=== PATIENT | female | born 1935 | race African-American/Black ===

== ENCOUNTER → 2016-03-09 | Outpatient (CLI) | payer BC ==
[~2016-03-09] MED LIST: ASPEC81 PO; ATEN-173 PO; ATEN-174 PO; CALC500C70 PO; CLB200 PO; FOLI1TAB7 PO; GARL1TAB12 PO; GLCS500 PO; HYDC25 PO; HYDR-5688 PO; HYDR25TA4 PO; METH1TAB81 PO; MTH25 PO; MULT-506 PO; POTA10CA28 PO; SNK PO; TRAM-10 PO; TYL325X PO; ULT50X PO; [UNRECOGNIZED DRUG - CODE] PO
[2016-03-09 15:37] LABS: BASO % 0.5 %; BASO ABS # 0.03 K/uL (0-0.2); COMPLETE YES; HEMATOCRIT 37.5 % (37-47); IG% 0.5 %; LYMPH % 40.9 %; LYMPH ABS # 2.61 K/uL (1.2-3.4); MEAN CELL VOLUME 91.5 fL (80-100); MEAN CORPUSCULAR HGB CONC 32.8 g/dl (32-36); MONO % 6.7 %; NEUT % 49.4 %; PLATELET COUNT 206 K/uL (130-400); WHITE BLOOD COUNT 6.38 K/uL (4.8-10.8)
[2016-03-09 18:06] LABS: ALT/SGPT 31 U/L (12-78); AST/SGOT 26 U/L (15-37); BLOOD UREA NITROGEN 17 mg/dl (7-18); BUN/CREATININE RATIO 18.1 (10-20); CALCIUM 9.3 mg/dl (8.5-10.1); CARBON DIOXIDE 28 mmol/L (21-32); CHLORIDE 107 mmol/L (98-107); CREATININE 0.94 mg/dl (0.60-1.20); GLUCOSE 130 mg/dl (70-99); POTASSIUM 3.5 mmol/L (3.5-5.1); SODIUM 144 mmol/L (136-145)
[2016-03-09 18:14] LABS: ALB/GLOB RATIO 0.9 (0.9-2); ALKALINE PHOSPHATASE 65 U/L (45-117); CHOLESTEROL 260 mg/dl (0-200); CHOLESTEROL/HDL RATIO 2.5; HDL CHOLESTEROL 102 mg/dl; TRIGLYCERIDES 90 mg/dl (0-150); VERY LOW DENSITY LIPOPROT CALC 18 mg/dl
== END | disposition home or self-care (01) ==
LOC: C.LABSPEC 15:14
PROVIDERS: ATTEND Internal Medicine
DX: I10 Essential (primary) hypertension (principal); M06.9 Rheumatoid arthritis, unspecified; E78.5 Hyperlipidemia, unspecified

== ENCOUNTER → 2016-06-08 | Outpatient (CLI) | payer BC ==
--- NOTE | 2016-06-08 16:28 | MAMMOGRAPHY REPORT ---
BILATERAL DIGITAL SCREENING MAMMOGRAM WITH CAD: 06/08/2016 CLINICAL HISTORY: Routine screening. Patient has no complaints. TECHNIQUE: Current study was also evaluated with a Computer Aided Detection (CAD) system. Bilatera l CC and MLO views were obtained. COMPARISON: Comparison is made to exams dated: 06/03/2015 mammogram, 06/17/2014 mammogram, 09/24/2013 m ammogram, 09/16/2013 mammogram, 03/26/2007 mammogram, and 12/23/2004 mammogram - [facility]. BREAST COMPOSITION: There are scattered areas of fibroglandular density in both breasts. FINDINGS: No suspicious masses, calcifications, or areas of architectural distortion are noted in e ither breast. There has been no significant interval change compared to prior exams. Bilateral jatin gn-appearing calcifications are not significantly changed. IMPRESSION: ACR BI-RADS CATEGORY 2: BENIGN There is no mammographic evidence of malignancy. A 1 year screening mammogram is recommended. The p atient will receive written notification of the results. Approximately 10% of breast cancers are not detected with mammography. A negative mammographic repor t should not delay biopsy if a clinically suggestive mass is present. Eun Plaza M.D. /:06/08/2016 15:07:54 Medical Laboratory Specialist: Shama SALAZAR(Rajni)(M), [facility] letter sent: Normal 1/2 BI-RADS Code: ACR BI-RADS Category 2: Benign
== END ==
LOC: C.MAMM 09:47
PROVIDERS: ATTEND Internal Medicine
DX: Z12.31 Encounter for screening mammogram for malignant neoplasm of breast (principal)

== ENCOUNTER 2016-10-24 09:31 | Emergency (ER) | payer BC ==
[~2016-10-24 09:31] MED LIST changes: -ATEN-174 PO; -HYDR25TA4 PO; -MTH25 PO; -TRAM-10 PO; -[UNRECOGNIZED DRUG - CODE] PO
[2016-10-24 09:38] VITALS: TEMP 36.8; Ht 167.6 cm
[2016-10-24] MEDS ORDERED: MoRPHine SULFATE 4 MG/ML 1 ML CARP\\VIAL IV STA (10:04)
[2016-10-24] MEDS: IBUPROFEN 200 MG TAB PO STA ×2 (10:04→10:19)
[2016-10-24] MEDS: ACETAMINOPHEN 500 MG TAB PO STA ×2 (10:04→10:19)
--- NOTE | 2016-10-24 10:27 | EMERGENCY ROOM VISIT NOTE ---
History Report prepared by Lea: Pura English Under the Supervision of: Dr. Chandana Hamm M.D. First contact with patient: 09:41 Chief Complaint: HIP PAIN Stated Complaint: SEVERE LEFT HIP AND BACK PAIN History of Present Illness The patient is an 81 year old female with a past medical history of rheumatoid arthritis and hypertension who presents to the ED with a cc of left hip pain beginning 3 days ago. She started with left hip pain that moved into her lower back. Movement exacerbates her pain. The patient rates her pain as a 10/10 in severity. Son states that the patient has been unable to ambulate for the past couple of days due to her pain. He notes that this is extremely unusual and she is typical very active. She was complaining about bilateral leg cramping throughout the night last night. She had an appointment with Dr. Mcdonald, her PCP, this afternoon, but she was unable to wait because her pain was so severe. The patient takes methotrexate for her rheumatoid arthritis. She has not taken any Tylenol or Advil because she was afraid that it might interact with her other daily medications. Positive tingling in feet. Negative nausea, vomiting, abdominal pain, and urinary symptoms. Pt denies recent trauma, falls, or injury. She has never had pain like this before. Source of History: patient, family (son), spouse/significant other Onset: 3 days ago Position: other (left hip) Symptom Intensity: 10/10 Timing: worsening Modifying Factors (Worsening): movement Associated Symptoms: + back pain, No nausea, No vomiting, No abdominal pain , No urinary symptoms Note: Pt notes leg cramping and tinging in feet. Review of Systems See HPI for pertinent positives and negatives. A total of ten systems were reviewed and were otherwise negative. Past Medical & Surgical Medical Problems: (1) HTN (hypertension) (2) Lumbago (3) Rheumatoid arthritis Surgical Problems: (1) History of knee replacement procedure of right knee (2) Post-operative state Family History Non-pertinent due to advanced age. Social History Smoking Status: Never Smoker Smokeless Tobacco Use: No Alcohol Use: none Drug Use: none Marital Status: Housing Status: lives with significant other Occupation Status: unemployed Current/Historical Medications Scheduled Atenolol (Tenormin), 75 MG PO DAILY Folic Acid (Folvite), 1 MG PO QAM Glucosamine Sulfate (Cidatrine), 500 MG PO DAILY Hydrochlorothiazide (Hctz), 12.5 MG PO DAILY Methotrexate (Methotrexate), 2.5 MG PO WK Methylprednisolone (Medrol), 4 MG PO QAM Multivitamin (Multivitamin), 1 TAB PO NOON Scheduled PRN Tramadol (Ultram), 25 MG PO Q8H PRN for Pain Tramadol (Ultram), 25 MG PO Q8H PRN for Pain Allergies Coded Allergies: No Known Allergies (Unverified , 10/24/16) Physical Exam Vital Signs Date Time Temp Pulse Resp B/P (MAP) Pulse Ox O2 Delivery O2 Flow Rate FiO2 10/24/16 14:15 48 18 156/79 98 10/24/16 13:29 47 18 158/80 97 Room Air 10/24/16 12:07 42 18 161/68 99 Room Air 10/24/16 09:38 36.8 51 20 161/79 97 Room Air Physical Exam GENERAL: Awake, alert, well-appearing, mild discomfort. HENT: Normocephalic, atraumatic. EYES: Normal conjunctiva. Sclera non-icteric. NECK: Supple. No nuchal rigidity. FROM. RESPIRATORY: CTAB, no rhonchi, wheezing, crackles CARDIAC: RRR, no MRG ABDOMEN: Soft, NTND, BS+ MSK: No chest wall TTP. Left-sided SI joint pain and left lower lumbar pain. Pain with internal and external rotation of the left hip. No numbness or tingling to the SP, DP, and tibialis nerves, motor intact. Patient able to flex/ extend at hip and knee although reduced secondary to pain. Incision scar over the right knee. NEURO: GCS 15, CN 2-12 intact, moves all 4s on command SKIN: No rash or jaundice noted. Medical Decision & Procedures ER Provider Diagnostic Interpretation: Radiology results as stated below per my review and radiologist interpretation: LUMBAR SPINE 5 VIEWS HISTORY: L hip pain, back pain; h/o of RA COMPARISON: None. FINDINGS: There is no fracture. No subluxation. Mild levoscoliosis which is likely positional. Mild disc space narrowing at L4-L5 and L5-S1. Mild to moderate facet osteoarthritis within the lumbar spine. IMPRESSION: No fracture or subluxation within the lumbar spine. Degenerative changes as described above. Electronically signed by: Dilip Corley M.D. 10/24/2016 12:40 PM Dictated Date/Time: 10/24/2016 12:38 PM LEFT PELVIS/UNILATERAL HIP 2-3VIEWS CLINICAL HISTORY: L hip pain, back pain; h/o of RA COMPARISON STUDY: None. FINDINGS: No fracture or dislocation within the pelvis or hips. The sacrum is intact. Mild degenerative changes within the bilateral sacroiliac joints and symphysis pubis. No erosions identified. Mild vascular calcifications. Multiple pelvic phleboliths. No radiopaque foreign bodies. IMPRESSION: No fracture or dislocation within the pelvis or hips. Electronically signed by: Dilip Corley M.D. 10/24/2016 12:35 PM Dictated Date/Time: 10/24/2016 12:33 PM Laboratory Results 10/24/16 10:36 Red Blood Count 4.44, Mean Corpuscular Volume 88.1, Mean Corpuscular Hemoglobin 30.0, Mean Corpuscular Hemoglobin Concent 34.0, Mean Platelet Volume 10.6, Neutrophils (%) (Auto) 49.0, Lymphocytes (%) (Auto) 39.8, Monocytes (%) (Auto) 8.6, Eosinophils (%) (Auto) 1.8, Basophils (%) (Auto) 0.4, Neutrophils # (Auto) 2.80, Lymphocytes # (Auto) 2.27, Monocytes # (Auto) 0.49, Eosinophils # (Auto) 0.10, Basophils # (Auto) 0.02 10/24/16 10:36 Test 10/24/16 10:36 White Blood Count 5.70 K/uL (4.8-10.8) Red Blood Count 4.44 M/uL (4.2-5.4) Hemoglobin 13.3 g/dL (12.0-16.0) Hematocrit 39.1 % (37-47) Mean Corpuscular Volume 88.1 fL (80-100) Mean Corpuscular Hemoglobin 30.0 pg (25-34) Mean Corpuscular Hemoglobin Concent 34.0 g/dl (32-36) Platelet Count 180 K/uL (130-400) Mean Platelet Volume 10.6 fL (7.4-10.4) Neutrophils (%) (Auto) 49.0 % Lymphocytes (%) (Auto) 39.8 % Monocytes (%) (Auto) 8.6 % Eosinophils (%) (Auto) 1.8 % Basophils (%) (Auto) 0.4 % Neutrophils # (Auto) 2.80 K/uL (1.4-6.5) Lymphocytes # (Auto) 2.27 K/uL (1.2-3.4) Monocytes # (Auto) 0.49 K/uL (0.11-0.59) Eosinophils # (Auto) 0.10 K/uL (0-0.5) Basophils # (Auto) 0.02 K/uL (0-0.2) RDW Standard Deviation 45.1 fL (36.4-46.3) RDW Coefficient of Variation 14.0 % (11.5-14.5) Immature Granulocyte % (Auto) 0.4 % Immature Granulocyte # (Auto) 0.02 K/uL (0.00-0.02) Anion Gap 5.0 mmol/L (3-11) Estimated GFR () 80.7 Estimated GFR (Non- 69.6 BUN/Creatinine Ratio 16.1 (10-20) Calcium Level 9.4 mg/dl (8.5-10.1) Laboratory results reviewed by me. Medications Administered Medications (Trade) Dose Ordered Sig/Brina Route Start Time Stop Time Status Last Admin Dose Admin Morphine Sulfate (MoRPHine SULFATE INJ) 4 mg NOW STAT IV 10/24/16 10:04 10/24/16 10:07 DC 10/24/16 10:19 4 MG Ketorolac Tromethamine (Toradol Inj) 30 mg NOW STAT IV 10/24/16 11:01 10/24/16 11:03 DC 10/24/16 11:19 30 MG Acetaminophen 100 ml @ 400 mls/hr ONE STAT IV 10/24/16 11:01 10/24/16 11:15 DC 10/24/16 11:53 400 MLS/HR Ondansetron HCl (Zofran Inj) 4 mg NOW STAT IV 10/24/16 11:33 10/24/16 11:34 DC 10/24/16 12:40 4 MG Ondansetron HCl (Zofran Inj) 4 mg STK-MED ONCE .ROUTE 10/24/16 11:34 10/24/16 11:35 DC 10/24/16 13:31 4 MG Magnesium Oxide (Mag-Ox Tab) 400 mg ONE STAT PO 10/24/16 11:37 10/24/16 11:38 DC 10/24/16 12:05 400 MG Potassium Chloride (Valerie Ciel Elix) 40 meq ONE STAT PO 10/24/16 11:37 10/24/16 11:38 DC 10/24/16 12:05 40 MEQ ECG Indication: back/shoulder pain Rate (beats per minute): 43 Rhythm: sinus bradycardia Findings: 1st degree AV block, T-wave inversion (lead 3), other (prolonged IA) ED Course 0941: The patient was evaluated in room B6. A complete history and physical exam was performed. 1004: Morphine sulfate 4 mg IV, Ibuprofen 400 mg PO - pt refused, Tylenol 1000 mg PO - pt refused. 1058: The patient refused PO medications. 1101: Acetaminophen 100 ml @ 400 mls/hr IV , Toradol 30 mg IV 1133: Zofran 4 mg IV 1137: Potassium Chloride 40 meq PO, Magnesium Oxide 400 mg PO 1305: I updated the patient and her family on the results. 1327: I discussed the patient's case with her PCP, Dr. Mcdonald. He agreed that the patient could be discharged and he will follow-up with her as an outpatient. 1351: I discussed the patient's ECG with Dr. Mcdonald. He will arrange outpatient cardiology follow-up. 1401: I reassessed the patient at this time. She is feeling better and resting comfortably. I discussed the results and treatment plan with the patient and her family. I answered all pertaining questions that they had. They expressed understanding and verbalized agreement. The patient will be discharged home. Medical Decision Differential diagnosis: Etiologies such as musculoskeletal, disc herniation, fracture, aortic disease, metastatic disease, cord compression, discitis, infection, renal colic, gastrointestinal, acute exacerbation of chronic back pain, sciatica, cauda equina, as well as others were entertained. The patient is an 81 year old female with a past medical history of rheumatoid arthritis and hypertension who presents to the ED with a cc of left hip pain beginning 3 days ago. Patient was seen and evaluated at the bedside. Patient has been taking her medications at home but did not take any additional medications to help with her left-sided hip and back pain. Patient states that she cannot move his well secondary to pain. Patient denied any bowel or bladder incontinence and no saddle anesthesia. Patient denied any recent trauma. Patient had labs that were unremarkable with a normal white count BMP was fairly normal with mild hypokalemia which was repleted. Patient did have plain films that were completed which showed degenerative changes but no fracture or dislocation. An EKG was obtained given the fact the patient had asymptomatic bradycardia. Patient did have EKG changes compared to prior EKG that was able to be located from 2009. Patient not complaining of any chest pain shortness of breath orthopnea lower lower extremity swelling. I spoke with her primary care physician and explained the patient is now able to ambulate after reassessment. Furthermore patient did not have any complaints of chest pain, shortness of breath, orthopnea, lower extremity swelling. However, I did state that there appeared to be some EKG changes that need to be followed up as an outpatient. PCP agreed to arrange this follow-up. I explained all these results to the patient and family. They did state that they do have a stock worker and deliverer that would have more recent EKGs. There were comfortable with this plan of outpatient follow-up and were told to return if they had any acute changes numbness, weakness, tingling, shortness of breath, chest pain, orthopnea, lower extremity swelling. Patient and family agreed with plan of care. Patient was able to ambulate. Patient was safely discharged home. Medication Reconcilliation Current Medication List: was personally reviewed by me Blood Pressure Screening Patient's blood pressure: Elevated blood pressure Blood pressure disposition: Referred to PCP Consults Time Called: 1324 Consulting Physician: Dr. Mcdonald Returned Call: [phone] I discussed the patient's case with her PCP, Dr. Mcdonald. He agreed that the patient could be discharged and he will follow-up with her as an outpatient. Additional Consults: Time Called: 1347 Consulted Physician: Dr. Mcdonald Returned Call: [phone] Additional Comments: I discussed the patient's ECG with Dr. Mcdonald. He will arrange outpatient cardiology follow-up. Impression Primary Impression: Rheumatoid arthritis Additional Impressions: Low back pain DDD (degenerative disc disease), lumbar Scribe Attestation The scribe's documentation has been prepared under my direction and personally reviewed by me in its entirety. I confirm that the note above accurately reflects all work, treatment, procedures, and medical decision making performed by me. Departure Information Dispostion Home / Self-Care Prescriptions Tramadol (Ultram) 50 Mg Tab 25 MG PO Q8H Y for Pain, #12 TAB Prov: Chandana Hamm M.D. 10/24/16 Tramadol (Ultram) 50 Mg Tab 25 MG PO Q8H Y for Pain, #9 TAB Prov: Chandana Hamm M.D. 10/24/16 Referrals Logan Loo M.D. (PCP) Patient Instructions Back Pain Relieve, Exercises Back Seated Rotation, Exercises Back Side Stretch, Exercises Lower Back Rotation, [facility] [employer] Additional Instructions Please return to the emergency department if you have worsening or recurrent symptoms not amenable to at-home treatment. Please call for a follow-up appointment with her primary care physician. Please take your medications as prescribed. If you have other concerns and/or complaints please feel free to also call your primary care physician's office or return the ED for further evaluation, management, and treatment. Please obtain a follow-up appointment with her primary care physician for further workup and management. He is take Motrin 400 mg every 6 hours with food for the next 2 days. Please take Tylenol 1000 mg every 6 hours. Please take tramadol for any breakthrough pain. When you take it please make sure you are not doing anything such as driving or operating heavy machinery as this may make you sleepy. Please continued to do back and leg exercises. Also discuss with your primary care physician the need for additional follow-up with an orthopedist and/or physical therapist. Problem Qualifiers Primary Impression: Rheumatoid arthritis Rheumatoid arthritis location: unspecified site Rheumatoid factor presence: unspecified presence Qualified Codes: M06.9 - Rheumatoid arthritis, unspecified Additional Impressions: Low back pain Chronicity: chronic Back pain laterality: left Sciatica presence: with sciatica Sciatica laterality: sciatica of left side Qualified Codes: M54.42 - Lumbago with sciatica, left side; G89.29 - Other chronic pain
[2016-10-24] MEDS ORDERED: MTH25 PO (10:56)
[2016-10-24] MEDS ORDERED: [UNRECOGNIZED DRUG - CODE] PO (10:56)
[2016-10-24] MEDS ORDERED: HYDR25TA4 PO (10:56)
[2016-10-24] MEDS ORDERED: ATEN-174 PO (10:56)
[2016-10-24] MEDS ORDERED: ACETAMINOPHEN IV 100 ML IV STA (11:01)
[2016-10-24] MEDS ORDERED: KETOROLAC TROMETHAMINE 30 MG/ML VIAL IV STA (11:01)
[2016-10-24 11:07] LABS: BASO % 0.4 %; BASO ABS # 0.02 K/uL (0-0.2); COMPLETE YES; EOS % 1.8 %; HEMATOCRIT 39.1 % (37-47); IG% 0.4 %; LYMPH % 39.8 %; LYMPH ABS # 2.27 K/uL (1.2-3.4); MEAN CELL VOLUME 88.1 fL (80-100); MEAN PLATELET VOLUME 10.6 fL (7.4-10.4); MONO % 8.6 %; PLATELET COUNT 180 K/uL (130-400); RED BLOOD COUNT 4.44 M/uL (4.2-5.4)
[2016-10-24 11:14] LABS: BLOOD UREA NITROGEN 13 mg/dl (7-18); BUN/CREATININE RATIO 16.1 (10-20); CALCIUM 9.4 mg/dl (8.5-10.1); CARBON DIOXIDE 31 mmol/L (21-32); CHLORIDE 102 mmol/L (98-107); GLUCOSE 79 mg/dl (70-99); POTASSIUM 3.1 mmol/L (3.5-5.1); SODIUM 138 mmol/L (136-145)
[2016-10-24] MEDS: ONDANSETRON INJ 2 MG/ML 2 ML VIAL IV STA ×2 (11:33→12:40)
[2016-10-24] MEDS: ONDANSETRON INJ 2 MG/ML 2 ML VIAL ONE ×2 (11:34→13:31)
[2016-10-24] MEDS ORDERED: MAGNESIUM OXIDE 400 MG TAB PO STA (11:37)
[2016-10-24] MEDS ORDERED: POTASSIUM CHLORIDE 20 MEQ/15 ML UDC PO STA (11:37)
--- NOTE | 2016-10-24 12:36 | DIAGNOSTIC IMAGING REPORT ---
LEFT PELVIS/UNILATERAL HIP 2-3VIEWS CLINICAL HISTORY: L hip pain, back pain; h/o of RA COMPARISON STUDY: None. FINDINGS: No fracture or dislocation within the pelvis or hips. The sacrum is intact. Mild degenerative changes within the bilateral sacroiliac joints and symphysis pubis. No erosions identified. Mild vascular calcifications. Multiple pelvic phleboliths. No radiopaque foreign bodies. IMPRESSION: No fracture or dislocation within the pelvis or hips. Electronically signed by: Dilip Corley M.D. 10/24/2016 12:35 PM Dictated Date/Time: 10/24/2016 12:33 PM
--- NOTE | 2016-10-24 12:41 | DIAGNOSTIC IMAGING REPORT ---
LUMBAR SPINE 5 VIEWS HISTORY: L hip pain, back pain; h/o of RA COMPARISON: None. FINDINGS: There is no fracture. No subluxation. Mild levoscoliosis which is likely positional. Mild disc space narrowing at L4-L5 and L5-S1. Mild to moderate facet osteoarthritis within the lumbar spine. IMPRESSION: No fracture or subluxation within the lumbar spine. Degenerative changes as described above. Electronically signed by: Dilip Corley M.D. 10/24/2016 12:40 PM Dictated Date/Time: 10/24/2016 12:38 PM
[2016-10-24] MEDS ORDERED: TRAM-10 PO ×2 (13:36→14:08)
[2016-10-24 14:15] VITALS: BP 156/79; PULSE 48; O2SAT 98
== END 2016-10-24 14:20 | disposition home or self-care (01) ==
LOC: C.EDB 09:32
DX: M06.9 Rheumatoid arthritis, unspecified (principal); M54.5 Low back pain; M51.36 Other intervertebral disc degeneration, lumbar region; I10 Essential (primary) hypertension; Z96.651 Presence of right artificial knee joint; Z79.899 Other long term (current) drug therapy

== ENCOUNTER → 2016-11-02 | Outpatient (CLI) | payer BC ==
[~2016-11-02] MED LIST changes: -ASPEC81 PO; -ATEN-173 PO; +ATEN-174 PO; -CALC500C70 PO; -CLB200 PO; -GARL1TAB12 PO; -GLCS500 PO; -HYDC25 PO; -HYDR-5688 PO; +HYDR25TA4 PO; +MTH25 PO; -POTA10CA28 PO; -SNK PO; +TRAM-10 PO; -TYL325X PO; -ULT50X PO; +[UNRECOGNIZED DRUG - CODE] PO
[2016-11-02 12:17] LABS: HEMATOCRIT 40.2 % (37-47); MEAN CELL VOLUME 91.4 fL (80-100); MEAN CORPUSCULAR HEMOGLOBIN 28.9 pg (25-34); MEAN CORPUSCULAR HGB CONC 31.6 g/dl (32-36); MEAN PLATELET VOLUME 10.7 fL (7.4-10.4); PLATELET COUNT 207 K/uL (130-400); WHITE BLOOD COUNT 5.11 K/uL (4.8-10.8)
[2016-11-02 12:45] LABS: ALT/SGPT 24 U/L (12-78); AST/SGOT 23 U/L (15-37); BLOOD UREA NITROGEN 16 mg/dl (7-18); CALCIUM 9.2 mg/dl (8.5-10.1); CARBON DIOXIDE 31 mmol/L (21-32); CHLORIDE 103 mmol/L (98-107); CREATININE 0.75 mg/dl (0.60-1.20); GLUCOSE 76 mg/dl (70-99); POTASSIUM 2.9 mmol/L (3.5-5.1); SODIUM 139 mmol/L (136-145)
[2016-11-02 12:47] LABS: ALKALINE PHOSPHATASE 62 U/L (45-117)
[2016-11-02 12:53] LABS: BASO % 0.6 %; BASO ABS # 0.03 K/uL (0-0.2); COMPLETE YES; EOS % 3.1 %; IG% 0.4 %; LYMPH % 52.4 %; LYMPH ABS # 2.68 K/uL (1.2-3.4); MONO % 8.6 %; NEUT % 34.9 %
== END | disposition home or self-care (01) ==
LOC: C.LAB 10:22
PROVIDERS: ATTEND Internal Medicine
DX: M05.79 Rheumatoid arthritis with rheumatoid factor of multiple sites without organ or systems involvement (principal); Z79.52 Long term (current) use of systemic steroids; Z79.899 Other long term (current) drug therapy

== ENCOUNTER → 2017-04-05 | Outpatient (CLI) | payer BC ==
[~2017-04-05] MED LIST changes: -FOLI1TAB7 PO; +FOLI1TAB8 PO
[2017-04-05 15:05] LABS: BASO % 0.5 %; BASO ABS # 0.03 K/uL (0-0.2); EOS % 1.9 %; EOS ABS # 0.12 K/uL (0-0.5); HEMOGLOBIN 11.6 g/dL (12.0-16.0); IG# 0.03 K/uL (0.00-0.02); LYMPH % 25.2 %; LYMPH ABS # 1.57 K/uL (1.2-3.4); MEAN CELL VOLUME 94.2 fL (80-100); MEAN CORPUSCULAR HEMOGLOBIN 30.4 pg (25-34); MEAN CORPUSCULAR HGB CONC 32.2 g/dl (32-36); MEAN PLATELET VOLUME 10.7 fL (7.4-10.4); MONO % 9.5 %; MONO ABS # 0.59 K/uL (0.11-0.59); NEUT % 62.4 %; PLATELET COUNT 210 K/uL (130-400); RED CELL DISTRIBUTION WIDTH CV 14.8 % (11.5-14.5); WHITE BLOOD COUNT 6.24 K/uL (4.8-10.8)
[2017-04-05 15:14] LABS: ALBUMIN 3.1 gm/dl (3.4-5.0); ALT/SGPT 25 U/L (12-78); AST/SGOT 25 U/L (15-37); BLOOD UREA NITROGEN 15 mg/dl (7-18); CARBON DIOXIDE 30 mmol/L (21-32); CREATININE 0.79 mg/dl (0.60-1.20); GLUCOSE 109 mg/dl (70-99); POTASSIUM 3.3 mmol/L (3.5-5.1); SODIUM 140 mmol/L (136-145)
[2017-04-05 15:25] LABS: ALKALINE PHOSPHATASE 69 U/L (45-117); TOTAL PROTEIN 6.3 gm/dl (6.4-8.2)
[2017-04-05 16:34] LABS: HEMOGLOBIN A1C 5.5 % (4.5-5.6)
== END | disposition home or self-care (01) ==
LOC: C.LABSPEC 14:49
PROVIDERS: ATTEND Internal Medicine
DX: R73.9 Hyperglycemia, unspecified (principal); I10 Essential (primary) hypertension; R60.9 Edema, unspecified; M06.9 Rheumatoid arthritis, unspecified

== ENCOUNTER 2017-05-05 17:09 | Inpatient (IN) | payer BC, OTHER ==
[~2017-05-05] VITALS: Ht 170.2 cm; Wt 82.6 kg
[~2017-05-05 17:09] MED LIST changes: -TRAM-10 PO
[2017-05-05] MEDS ORDERED: PIPERACILLIN/TAZOBACTAM 4.5 GM/100ML D5W IV STA (17:26)
[2017-05-05] MEDS ORDERED: ACETAMINOPHEN 325 MG SUPP PR STA (17:26)
[2017-05-05] MEDS ORDERED: SODIUM CHLORIDE 0.9% 1000ML 500 ML IV ONE (17:26)
[2017-05-05] MEDS ORDERED: HYDROCORTISONE SOD SUCCINATE 100 MG/2 ML VIAL IV STA (17:35)
--- NOTE | 2017-05-05 17:42 | EMERGENCY ROOM VISIT NOTE ---
History Report prepared by Lea: Elina Lu Under the Supervision of: Dr. Bob Calderón M.D. First contact with patient: 17:13 Chief Complaint: FLU LIKE SX Stated Complaint: FLU LIKE SX, COUGH, FEVER History of Present Illness The patient is a 82 year old female who presents to the Emergency Room with complaints of worsening generalized illness beginning six days ago. The patient' s and son are at bedside and provide most of the history. The patient has had a fever and dry cough with occasional productive phlegm beginning six days ago. The patient had a temperature of 102 degrees Fahrenheit this morning. Per family, the patient has been complaining of body aches, weakness, nausea, and diarrhea. Family denies any blood in the diarrhea. Per , the patient started to be more "out of it" and less responsive beginning this morning. At baseline, the patient is responsive and moves without difficulty. She has not had any episodes of vomiting. The patient has also been incontinent of urine which is not normal for her. The patient had her flu shot this year. The patient is steroid dependant. Source of History: family Onset: six days ago Position: other (generalized) Quality: other (illness) Timing: worsening Associated Symptoms: + fevers, + cough, + diarrhea, + weakness, No vomiting Review of Systems See HPI for pertinent positives & negatives. A total of 10 systems reviewed and were otherwise negative. Past Medical & Surgical Medical Problems: (1) HTN (hypertension) (2) Lumbago (3) Rheumatoid arthritis Surgical Problems: (1) History of knee replacement procedure of right knee (2) Post-operative state Family History Patient reports no known family medical history. Social History Smoking Status: Never Smoker Alcohol Use: none Drug Use: none Marital Status: Housing Status: lives with significant other Occupation Status: unemployed Current/Historical Medications Scheduled Atenolol (Atenolol), 75 MG PO QPM Methotrexate (Methotrexate), 7.5 MG PO WK Methylprednisolone (Medrol), 4 MG PO QAM Potassium Chloride (Potassium Chloride Er), 10 MEQ PO BID Triamterene/Hctz (Triamterene/Hctz 37.5-25MG), 0.5 TAB PO DAILY Allergies Coded Allergies: No Known Allergies (Unverified , 10/24/16) Physical Exam Vital Signs Date Time Temp Pulse Resp B/P (MAP) Pulse Ox O2 Delivery O2 Flow Rate FiO2 05/05/17 19:56 95 Nasal Cannula 2.0 05/05/17 19:56 90 Room Air 05/05/17 19:12 71 21 95 Room Air 05/05/17 19:02 85 24 110/57 93 Room Air 05/05/17 18:30 91 22 143/69 91 Room Air 05/05/17 17:29 95 Nasal Cannula 05/05/17 17:26 80 05/05/17 17:25 39.2 88 22 198/104 95 Room Air Physical Exam GENERAL: Patient is in no acute distress. HEENT: No acute trauma, normocephalic atraumatic, mucous membranes moist, no nasal congestion, no scleral icterus. NECK: No stridor, no adenopathy, no meningismus, trachea is midline. LUNGS: Equal breath sounds with occasional rhonchi, no wheezing, moist cough noted. HEART: 4/6 systolic murmur, tachycardic with a regular rhythm. ABDOMEN: Soft, nontender, bowel sounds positive, no hernias, no peritonitis. EXTREMITIES: No cyanosis or edema, full range of motion of all the joints without pain or difficulty, no signs for acute trauma. NEUROLOGIC: Somnolent but follows commands when instructed, moves all extremities equally, no focal motor deficits. SKIN: No rash, no jaundice, no diaphoresis. Medical Decision & Procedures ER Provider Diagnostic Interpretation: Radiology results as stated below per my review and radiologist interpretation: CHEST ONE VIEW PORTABLE FINDINGS: Patient is mildly rotated to the left. Cardiac silhouette is upper limits of normal in size. Atherosclerosis of the aorta. No pneumothorax, pleural effusion, focal airspace consolidation or overt pulmonary edema. Degenerative changes are seen within the shoulders and spine. IMPRESSION: No acute process. The above report was generated using voice recognition software. It may contain grammatical, syntax or spelling errors. Electronically signed by: Pedro Jenkins M.D. Laboratory Results 05/05/17 18:27 Red Blood Count 4.70, Mean Corpuscular Volume 90.2, Mean Corpuscular Hemoglobin 30.4, Mean Corpuscular Hemoglobin Concent 33.7, Mean Platelet Volume 10.4, Neutrophils (%) (Auto) 59.6, Lymphocytes (%) (Auto) 24.6, Monocytes (%) (Auto) 14.3, Eosinophils (%) (Auto) 0.0, Basophils (%) (Auto) 0.5, Neutrophils # (Auto ) 2.37, Lymphocytes # (Auto) 0.98, Monocytes # (Auto) 0.57, Eosinophils # (Auto ) 0.00, Basophils # (Auto) 0.02 05/05/17 18:27 Test 05/05/17 18:27 05/05/17 18:32 05/05/17 18:33 05/05/17 19:38 White Blood Count 3.98 K/uL (4.8-10.8) Red Blood Count 4.70 M/uL (4.2-5.4) Hemoglobin 14.3 g/dL (12.0-16.0) Hematocrit 42.4 % (37-47) Mean Corpuscular Volume 90.2 fL (80-100) Mean Corpuscular Hemoglobin 30.4 pg (25-34) Mean Corpuscular Hemoglobin Concent 33.7 g/dl (32-36) Platelet Count 131 K/uL (130-400) Mean Platelet Volume 10.4 fL (7.4-10.4) Neutrophils (%) (Auto) 59.6 % Lymphocytes (%) (Auto) 24.6 % Monocytes (%) (Auto) 14.3 % Eosinophils (%) (Auto) 0.0 % Basophils (%) (Auto) 0.5 % Neutrophils # (Auto) 2.37 K/uL (1.4-6.5) Lymphocytes # (Auto) 0.98 K/uL (1.2-3.4) Monocytes # (Auto) 0.57 K/uL (0.11-0.59) Eosinophils # (Auto) 0.00 K/uL (0-0.5) Basophils # (Auto) 0.02 K/uL (0-0.2) RDW Standard Deviation 45.4 fL (36.4-46.3) RDW Coefficient of Variation 13.8 % (11.5-14.5) Immature Granulocyte % (Auto) 1.0 % Immature Granulocyte # (Auto) 0.04 K/uL (0.00-0.02) Prothrombin Time 11.8 SECONDS (9.0-12.0) Prothromb Time International Ratio 1.1 (0.9-1.1) Activated Partial Thromboplast Time 22.5 SECONDS (21.0-31.0) Partial Thromboplastin Ratio 0.9 Anion Gap 8.0 mmol/L (3-11) Est Creatinine Clear Calc Drug Dose 43.5 ml/min Estimated GFR () 53.4 Estimated GFR (Non- 46.0 BUN/Creatinine Ratio 12.6 (10-20) Calcium Level 8.5 mg/dl (8.5-10.1) Magnesium Level 1.9 mg/dl (1.8-2.4) Total Bilirubin 0.5 mg/dl (0.2-1) Aspartate Amino Transf (AST/SGOT) 40 U/L (15-37) Alanine Aminotransferase (ALT/SGPT) 30 U/L (12-78) Alkaline Phosphatase 75 U/L (45-117) Troponin I 0.185 ng/ml (0-0.045) Total Protein 6.9 gm/dl (6.4-8.2) Albumin 3.2 gm/dl (3.4-5.0) Globulin 3.7 gm/dl (2.5-4.0) Albumin/Globulin Ratio 0.9 (0.9-2) Chemistry Specimen Hemolysis Urine Color YELLOW Urine Appearance CLEAR (CLEAR) Urine pH 5.0 (4.5-7.5) Urine Specific [place] 1.015 (1.000-1.030) Urine Protein NEG (NEG) Urine Glucose (UA) NEG (NEG) Urine Ketones NEG (NEG) Urine Occult Blood TRACE (NEG) Urine Nitrite NEG (NEG) Urine Bilirubin NEG (NEG) Urine Urobilinogen NEG (NEG) Urine Leukocyte Esterase NEG (NEG) Urine WBC (Auto) 0 /hpf (0-5) Urine RBC (Auto) 0-4 /hpf (0-4) Urine Hyaline Casts (Auto) 1-5 /lpf (0-5) Urine Epithelial Cells (Auto) 0-5 /lpf (0-5) Urine Bacteria (Auto) NEG (NEG) Test 05/05/17 19:42 Bedside Lactic Acid Venous 0.99 mmol/L (0.90-1.70) POC lactic acid--0.99 Laboratory results reviewed by me. Medications Administered Medications (Trade) Dose Ordered Sig/Brina Route Start Time Stop Time Status Last Admin Dose Admin Sodium Chloride 500 ml @ 999 mls/hr Q31M ONCE IV 05/05/17 17:26 05/05/17 17:56 DC 05/05/17 17:26 999 MLS/HR Piperacillin Sod/ Tazobactam Sod (Zosyn Iv) 4.5 gm ONE STAT IV 05/05/17 17:26 05/05/17 17:30 DC 05/05/17 17:50 4.5 GM Acetaminophen (Tylenol Supp) 975 mg NOW STAT CA 05/05/17 17:26 05/05/17 17:30 DC 05/05/17 17:49 975 MG Hydrocortisone Sodium Succinate (Solu-Cortef IV) 100 mg NOW STAT IV 05/05/17 17:35 05/05/17 17:36 DC 05/05/17 17:50 100 MG Levalbuterol (Xopenex 1.25MG/ 0.5ML Neb) 1.25 mg NOW STAT INH 05/05/17 19:00 05/05/17 19:02 DC 05/05/17 19:12 1.25 MG Ipratropium [place] (Atrovent 0.02% 0.5MG/2.5ML Neb) 0.5 mg NOW STAT INH 05/05/17 19:00 05/05/17 19:02 DC 05/05/17 19:10 0.5 MG ECG Per My Interpretation Indication: SOB/dyspnea Rate (beats per minute): 88 Rhythm: sinus rhythm Findings: 1st degree AV block, PAC, other (old septal infarct, diffuse nonspecific ST change, no ST elevation ) ED Course 1736: Ordered Acetaminophen 975 mg CA, Zosyn IV 4.5 gm IV, Sodium Chloride 500 ml @ 999 mls/hr IV. 1731: The patient was evaluated in room B9. A complete history and physical exam was performed. 1735: Ordered Solu-Cortef IV 100 mg IV. 185: The patients is refusing CT of head. 0: Ordered Ipratropium [place] 0.5 mg INH, Levalbuterol 1.25 mg INH. 5: D[facility] the [facility] The patient will be evaluated for further management. 1920: Ordered Sodium Chloride 500 ml @ 999 mls/hr IV. Medical Decision Differential diagnoses include: Immunocompromised, sepsis, bacteremia, pneumonia , bronchitis, influenza, UTI, stroke, intracranial bleeding, dehydration, electrolyte imbalance. There is no leukocytosis, in fact, the white count is slightly low. No concerning anemia. No significant electrolyte abnormality, kidney failure or hepatitis. EKG shows a sinus rhythm with a first-degree AV block and some PACs. No acute ischemia. Cardiac enzyme testing 1 is slightly elevated, this could be consistent with cardiac injury or strain. Chest x-ray does not show pneumonia or CHF, there was no pneumothorax. Urinalysis does not show infection. POC lactic acid level was not elevated making severe sepsis less likely. Blood cultures are pending. Influenza testing is pending. The patient was aggressively managed. She presents with some confusion, fever and flulike symptoms. She received IV saline, 2/500 cc boluses were administered. She received rectal Tylenol, a Xopenex Atrovent neb, IV Zosyn as antibiotic coverage. She received IV hydrocortisone as stress dose steroids. The patient was originally ordered for a brain CT because of her confusion. Her though refused this test as he feels her change in mental status is from the infection. I talked with him at length about having the brain CT done to be more certain that there was no acute bleed, he still refused. The patient requires hospitalization. She presents with a change in mental status, persistent cough, she is immunocompromised. She very likely has bronchitis, possibly the flu. I did speak with case management, I spoke at length with the patient and her family. The on-call hospitalist was consulted. Medication Reconcilliation Current Medication List: was personally reviewed by me Blood Pressure Screening Patient's blood pressure: Elevated blood pressure Blood pressure disposition: Elevated BP felt to be situational Consults Time Called: 1911 Consulting Physician: Dr. Chapa Returned Call: 1914 Discussed the patient's case with Dr. Chapa. The patient will be evaluated for further management. Impression Primary Impression: Change in mental status Additional Impressions: Fever Acute bronchitis Immunocompromised Elevated troponin Critical Care I have personally spent greater than 40 minutes of critical care time in the direct management of this patient. This includes bedside care, interpretation of diagnostic studies, and testing, discussion with consultants, patient, and family members, and other required patient management activities. This 40 minutes is in excess of all separately billable procedures. Scribe Attestation The scribe's documentation has been prepared under my direction and personally reviewed by me in its entirety. I confirm that the note above accurately reflects all work, treatment, procedures, and medical decision making performed by me. Departure Information Dispostion Being Evaluated By Hospitalist Referrals Logan Loo M.D. (PCP) Patient Instructions My [facility] Problem Qualifiers
--- NOTE | 2017-05-05 17:53 | DIAGNOSTIC IMAGING REPORT ---
CHEST ONE VIEW PORTABLE HISTORY: 82 years-old Female Sepsis acute sepsis COMPARISON: Chest radiograph 11/26/2014 TECHNIQUE: Portable AP view of the chest FINDINGS: Patient is mildly rotated to the left. Cardiac silhouette is upper limits of normal in size. Atherosclerosis of the aorta. No pneumothorax, pleural effusion, focal airspace consolidation or overt pulmonary edema. Degenerative changes are seen within the shoulders and spine. IMPRESSION: No acute process. The above report was generated using voice recognition software. It may contain grammatical, syntax or spelling errors. Electronically signed by: Pedro Jenkins M.D. 05/05/2017 5:51 PM Dictated Date/Time: 05/05/2017 5:51 PM
[2017-05-05] MEDS ORDERED: POTA-74 PO (18:23)
[2017-05-05] MEDS ORDERED: TNR50 PO (18:23)
[2017-05-05] MEDS ORDERED: TRIATAB3 PO (18:25)
[2017-05-05 18:42] LABS: BASO % 0.5 %; BASO ABS # 0.02 K/uL (0-0.2); HEMATOCRIT 42.4 % (37-47); HEMOGLOBIN 14.3 g/dL (12.0-16.0); IG# 0.04 K/uL (0.00-0.02); LYMPH % 24.6 %; LYMPH ABS # 0.98 K/uL (1.2-3.4); MEAN CELL VOLUME 90.2 fL (80-100); MEAN CORPUSCULAR HEMOGLOBIN 30.4 pg (25-34); MEAN CORPUSCULAR HGB CONC 33.7 g/dl (32-36); MEAN PLATELET VOLUME 10.4 fL (7.4-10.4); MONO % 14.3 %; MONO ABS # 0.57 K/uL (0.11-0.59); NEUT % 59.6 %; NEUT ABS # 2.37 K/uL (1.4-6.5); PLATELET COUNT 131 K/uL (130-400); RED CELL DISTRIBUTION WIDTH CV 13.8 % (11.5-14.5); RED CELL DISTRIBUTION WIDTH SD 45.4 fL (36.4-46.3); WHITE BLOOD COUNT 3.98 K/uL (4.8-10.8)
[2017-05-05 18:53] LABS: INR 1.1 (0.9-1.1); PTT PATIENT 22.5 SECONDS (21.0-31.0)
[2017-05-05] MEDS ORDERED: LEVALBUTEROL 1.25MG/0.5ML NEB INH STA (19:00)
[2017-05-05] MEDS ORDERED: IPRATROPIUM BROMIDE NEB SOLN 0.02% 2.5 ML VIAL INH STA (19:00)
[2017-05-05 19:11] LABS: ALBUMIN 3.2 gm/dl (3.4-5.0); CALCIUM 8.5 mg/dl (8.5-10.1); CREATININE 1.12 mg/dl (0.60-1.20); TOTAL PROTEIN 6.9 gm/dl (6.4-8.2)
[2017-05-05 19:12] VITALS: PULSE 71; O2SAT 95
[2017-05-05] MEDS ORDERED: SODIUM CHLORIDE 0.9% 500ML 500 ML IV STA (19:21)
--- NOTE | 2017-05-05 19:50 | History and Physical ---
History & Physical Date & Time of Service: May 05, 2017 at 19:49 Chief Complaint: Flu Like Sx, Cough, Fever Primary Care Physician: Logan Loo M.D. History of Present Illness Source: spouse, hospital records The patient is an 82-year-old female who presents to the emergency department with a fever, intermittently productive cough and generalized malaise that has been progressively worsening over the past 6 days. Her , who provides most of her HPI and review of systems, reports she had a temperature of 102F this morning, and began to develop loose stools. Her brought her to the emergency department today because she became less responsive since the tamping machine operator road forms. Her reports that she has a walker available to walk with at home, but typically is able to walk with him. Family History Patient reports no known family medical history. Social History Smoking Status: Never Smoker Smokeless Tobacco Use: No Alcohol Use: none Drug Use: none Marital Status: Housing status: lives with family Occupational Status: unemployed Immunizations History of Influenza Vaccine: Unknown History of Tetanus Vaccine?: Unknown History of Pneumococcal: Unknown History of Hepatitis B Vaccine: Unknown Allergies Coded Allergies: No Known Allergies (Unverified , 10/24/16) Home Medications Scheduled Atenolol (Atenolol), 75 MG PO QPM Methotrexate (Methotrexate), 7.5 MG PO WK Methylprednisolone (Medrol), 4 MG PO QAM Potassium Chloride (Potassium Chloride Er), 10 MEQ PO BID Triamterene/Hctz (Triamterene/Hctz 37.5-25MG), 0.5 TAB PO DAILY Review of Systems The patient, via her 's report, denies chest pain, palpitations, shortness of breath, dyspnea on exertion, lower extremity swelling, sore throat, chills, sweats, nausea, vomiting, abdominal pain, pelvic pain, blood in urine or stool, dysuria, urinary frequency or urgency, lightheadedness , dizziness, headache, loss of consciousness, rash, abnormal bruising or bleeding, imbalance, focal weakness, numbness or tingling in arms or legs, back or neck pain, or night sweats. The review of systems is otherwise negative other than for that already noted above, and at least 10 systems have been reviewed. Physical Exam Vital Signs Date Time Temp Pulse Resp B/P (MAP) Pulse Ox O2 Delivery O2 Flow Rate FiO2 3/10/18 19:12 71 21 95 Room Air 05/05/17 19:02 85 24 110/57 93 Room Air 05/05/17 18:30 91 22 143/69 91 Room Air 05/05/17 17:29 95 Nasal Cannula 05/05/17 17:26 80 05/05/17 17:25 39.2 88 22 198/104 95 Room Air The patient is somnolent, normocephalic and atraumatic, lying in bed and in no acute distress. HEENT--PERRL, EOMI, mucous membranes and oropharynx dry. Neck--supple. No JVD. No bruits. Thyroid normal, trachea midline, no adenopathy. Heart--normal S1 and S2. No murmurs, rubs or gallops. Lungs--few coarse breath sounds bilaterally, no respiratory distress, no accessory muscle use. Abdomen--normal bowel sounds and soft. Nontender. Nondistended, no hernias or masses, no organomegaly. Extremities--no cyanosis or clubbing. No edema. There are good distal pulses b/ l. Dermatologic--normal skin turgor, normal color, no abnormal lymph nodes, no rash. Neurologic--cranial nerves II through XII grossly intact. Rheumatologic--deferred due to decreased responsiveness Psychiatric--somnolent Diagnostics Laboratory Results Results Past 24 Hours Test 05/05/17 18:27 05/05/17 18:32 05/05/17 18:33 05/05/17 19:38 Range/Units White Blood Count 3.98 4.8-10.8 K/uL Red Blood Count 4.70 4.2-5.4 M/uL Hemoglobin 14.3 12.0-16.0 g/dL Hematocrit 42.4 37-47 % Mean Corpuscular Volume 90.2 80-100 fL Mean Corpuscular Hemoglobin 30.4 25-34 pg Mean Corpuscular Hemoglobin Concent 33.7 32-36 g/dl Platelet Count 131 130-400 K/uL Mean Platelet Volume 10.4 7.4-10.4 fL Neutrophils (%) (Auto) 59.6 % Lymphocytes (%) (Auto) 24.6 % Monocytes (%) (Auto) 14.3 % Eosinophils (%) (Auto) 0.0 % Basophils (%) (Auto) 0.5 % Neutrophils # (Auto) 2.37 1.4-6.5 K/uL Lymphocytes # (Auto) 0.98 1.2-3.4 K/uL Monocytes # (Auto) 0.57 0.11-0.59 K/uL Eosinophils # (Auto) 0.00 0-0.5 K/uL Basophils # (Auto) 0.02 0-0.2 K/uL RDW Standard Deviation 45.4 36.4-46.3 fL RDW Coefficient of Variation 13.8 11.5-14.5 % Immature Granulocyte % (Auto) 1.0 % Immature Granulocyte # (Auto) 0.04 0.00-0.02 K/uL Prothrombin Time 11.8 9.0-12.0 SECONDS Prothromb Time International Ratio 1.1 0.9-1.1 Activated Partial Thromboplast Time 22.5 21.0-31.0 SECONDS Partial Thromboplastin Ratio 0.9 Sodium Level 136 136-145 mmol/L Potassium Level 3.0 3.5-5.1 mmol/L Chloride Level 100 98-107 mmol/L Carbon Dioxide Level 28 21-32 mmol/L Anion Gap 8.0 3-11 mmol/L Blood Urea Nitrogen 14 7-18 mg/dl Creatinine 1.12 0.60-1.20 mg/dl Est Creatinine Clear Calc Drug Dose 43.5 ml/min Estimated GFR () 53.4 Estimated GFR (Non- 46.0 BUN/Creatinine Ratio 12.6 10-20 Random Glucose 98 70-99 mg/dl Calcium Level 8.5 8.5-10.1 mg/dl Magnesium Level 1.9 1.8-2.4 mg/dl Total Bilirubin 0.5 0.2-1 mg/dl Aspartate Amino Transf (AST/SGOT) 40 15-37 U/L Alanine Aminotransferase (ALT/SGPT) 30 12-78 U/L Alkaline Phosphatase 75 45-117 U/L Troponin I 0.185 0-0.045 ng/ml Total Protein 6.9 6.4-8.2 gm/dl Albumin 3.2 3.4-5.0 gm/dl Globulin 3.7 2.5-4.0 gm/dl Albumin/Globulin Ratio 0.9 0.9-2 Chemistry Specimen Hemolysis Urine Color YELLOW Urine Appearance CLEAR CLEAR Urine pH 5.0 4.5-7.5 Urine Specific [place] 1.015 1.000-1.030 Urine Protein NEG NEG Urine Glucose (UA) NEG NEG Urine Ketones NEG NEG Urine Occult Blood TRACE NEG Urine Nitrite NEG NEG Urine Bilirubin NEG NEG Urine Urobilinogen NEG NEG Urine Leukocyte Esterase NEG NEG Urine WBC (Auto) 0 0-5 /hpf Urine RBC (Auto) 0-4 0-4 /hpf Urine Hyaline Casts (Auto) 1-5 0-5 /lpf Urine Epithelial Cells (Auto) 0-5 0-5 /lpf Urine Bacteria (Auto) NEG NEG Microbiology Results 05/05/17 Blood Culture, Received Pending 05/05/17 Blood Culture, Received Pending Diagnostic Radiology Patient Name: NEVILLE GARCIA Unit Number: [id number] Dictated: 05/05/171750 Transcribed: 05/05/171750 JRB Printed Date/Time: [~ rep prt dt]/[~ rep prt tm] [~ rep ct labl] - [~ rep ct ivnm] [facility] [place] [address] Dictated: 05/05/171750 Transcribed: 05/05/171750 JRB Printed Date/Time: [~ rep prt dt]/[~ rep prt tm] [~ rep ct labl] - [~ rep ct ivnm] [~ rep ct add3]] CHEST ONE VIEW PORTABLE HISTORY: 82 years-old Female Sepsis acute sepsis COMPARISON: Chest radiograph 11/26/2014 TECHNIQUE: Portable AP view of the chest FINDINGS: Patient is mildly rotated to the left. Cardiac silhouette is upper limits of normal in size. Atherosclerosis of the aorta. No pneumothorax, pleural effusion, focal airspace consolidation or overt pulmonary edema. Degenerative changes are seen within the shoulders and spine. IMPRESSION: No acute process. The above report was generated using voice recognition software. It may contain grammatical, syntax or spelling errors. Electronically signed by: Pedro Jenkins M.D. 05/05/2017 5:51 PM Dictated Date/Time: 05/05/2017 5:51 PM The status of this report is Signed. Draft = Not yet reviewed or approved by Radiologist. Signed = Reviewed and approved by Radiologist. <AttendingPhy></AttendingPhy> <FamilyPhy>Logan Loo M.D.</FamilyPhy> < PrimaryPhy>Logan Loo M.D.</PrimaryPhy> <UnitNumber>[id number]</ UnitNumber> <VisitNumber>[id number]</VisitNumber> <PatientName>NEVILLE GARCIA</ PatientName> <DateOfBirth>1935</DateOfBirth> <Location>[facility]</Location> < ServiceDate>05/05/17</ServiceDate> <MNE>ESINDI</MNE> <OrderingPhy>Bob Calderón M.D.</OrderingPhy> <OrderingPhyMNE>f rep ord dr craig</OrderingPhyMNE> < DictatingPhyMNE>f rep dict dr craig</DictatingPhyMNE> <CCListMNE>f rep ct kiara</ CCListMNE> <AdmittingPhyMNE>f pt admit dr craig</AdmittingPhyMNE> <AttendingPhyMNE >f pt attend dr craig</AttendingPhyMNE> <ConsultingPhyMNE>f pt consult dr craig</ConsultingPhyMNE> <FamilyPhyMNE>f pt fam dr craig</FamilyPhyMNE> <OtherPhyMNE>f pt other dr craig</OtherPhyMNE> < PrimaryPhyMNE>f pt prim care dr craig</PrimaryPhyMNE> <ReferringPhyMNE>f pt referring dr craig</ReferringPhyMNE> EKG EKG shows normal sinus rhythm at 73 bpm, first-degree heart block, old septal infarct, no acute ST-T changes. Impression Assessment and Plan Altered mental state/presumptive sepsis in immunocompromised patient, likely pulmonary origin-- Vancomycin IV per pharmacokinetic monitoring Zosyn 3.375 mg IV every 8 hours Levofloxacin 500 mg IV every 24 hours Duonebs every 4 hours while awake and every 2 hours when necessary. Solu-Medrol 40 mg IV every 8 hours Guaifenesin extended release 600 mg by mouth twice a day Nasal cannula oxygen titrate to keep pulse ox greater than or equal to 92% Sputum Gram stain and culture. Elevated troponin/hypertension/history of arrhythmia-- The patient will be admitted to telemetry for serial cardiac enzymes, serial EKG's, cardiac rhythm monitoring and a 2-D echocardiogram with Dopplers. Likely supply demand mismatch. Hold atenolol and triamterene HCTZ due to relatively low blood pressure. NSS plus KCl 20 mEq at 80 mils per hour for relative dehydration and hypokalemia. Consult her automation software engineer Dr. Man. Rheumatoid arthritis-- Methotrexate weekly as outpatient. Hold oral methylprednisolone. Solu-Medrol IV above for pulmonary process will serve as prevention of adrenal insufficiency. Discussed with her , that he should speak with her production troubleshooter regarding time for her to restart methotrexate. Advanced Directives Existing Advance Directive: No Existing Living Will: No Existing Power of Auto Collision Repair Instructor: No Resuscitation Status Level One, full resuscitation VTE Prophylaxis Will order VTE Prophylaxis: Yes
[2017-05-05] MEDS ORDERED: PIPERACILL/TAZOBAC CONSULT ACTIVE PRN (20:00)
[2017-05-05] MEDS ORDERED: ONDANSETRON INJ 2 MG/ML 2 ML VIAL IV PRN (20:00)
[2017-05-05] MEDS ORDERED: VANCOMYCIN CONSULT ACTIVE PRN (20:00)
[2017-05-05] MEDS ORDERED: NITROGLYCERIN 0.4 MG SL PER TAB CHARGE SL PRN (20:00)
[2017-05-05] MEDS ORDERED: VANCOMYCIN IV 2,000 MG in SODIUM CHLORIDE 0.9% 500ML 500 ML IV STA (20:10)
[2017-05-05] MEDS ORDERED: IPRATROPIUM BROMIDE NEB SOLN 0.02% 2.5 ML VIAL INH PRN (20:15)
[2017-05-05] MEDS ORDERED: LEVALBUTEROL 1.25MG/0.5ML NEB INH PRN (20:15)
[2017-05-05 20:18] LABS: INFLUENZA B ANTIGEN Neg for Influ B (NEG)
[2017-05-05] MEDS: IPRATROPIUM BROMIDE NEB SOLN 0.02% 2.5 ML VIAL INH SCH (21:00)
[2017-05-05] MEDS: LEVALBUTEROL 1.25MG/0.5ML NEB INH SCH (21:00)
[2017-05-05] MEDS ORDERED: LEVALBUTEROL/IPRATROPIUM NEB INH SCH (21:00)
[2017-05-05 22:05] VITALS: BP 138/70; PULSE 68; TEMP 37.7; O2SAT 95; Ht 170.2 cm; Wt 82.6 kg
[2017-05-05] MEDS: METHYLPREDNISOLONE IV 40 MG in SYRINGE 0 ML IV SCH (22:32)
[2017-05-05] MEDS: HEPARIN SOD 5000 UNIT/0.5 ML CARP SQ SCH (22:56)
[2017-05-05] MEDS: LEVOFLOXACIN / D5W 500 MG in PREMIXED IN D5W 100 ML IV SCH (23:00)
[2017-05-05 23:05] VITALS: BP 130/74; PULSE 58; TEMP 36.6; O2SAT 100
[2017-05-06] VITALS (11 sets, daily range): BP systolic 104–135; BP diastolic 66–76; PULSE 63–116; TEMP 36.3–38.3; O2SAT 94–100
[2017-05-06] MEDS ORDERED: PIPERACILL/TAZOBAC IV 3.375 GM in DEXTROSE 5% 100ML 100 ML IV SCH ×2
[2017-05-06] MEDS: NSS + 20MEQ KCL 1000ML 1,000 ML IV SCH ×3 (00:34→10:28)
[2017-05-06 04:38] LABS: BASO % 0.3 %; BASO ABS # 0.01 K/uL (0-0.2); HEMATOCRIT 37.6 % (37-47); HEMOGLOBIN 12.7 g/dL (12.0-16.0); IG# 0.01 K/uL (0.00-0.02); LYMPH ABS # 0.37 K/uL (1.2-3.4); MEAN CELL VOLUME 89.1 fL (80-100); MEAN CORPUSCULAR HEMOGLOBIN 30.1 pg (25-34); MEAN CORPUSCULAR HGB CONC 33.8 g/dl (32-36); MONO % 3.3 %; MONO ABS # 0.11 K/uL (0.11-0.59); NEUT % 85.1 %; NEUT ABS # 2.86 K/uL (1.4-6.5); PLATELET COUNT 133 K/uL (130-400); RED CELL DISTRIBUTION WIDTH CV 13.7 % (11.5-14.5); RED CELL DISTRIBUTION WIDTH SD 44.6 fL (36.4-46.3); WHITE BLOOD COUNT 3.36 K/uL (4.8-10.8)
[2017-05-06 04:56] LABS: CALCIUM 7.9 mg/dl (8.5-10.1); CREATININE 0.91 mg/dl (0.60-1.20); POTASSIUM 2.7 mmol/L (3.5-5.1)
[2017-05-06] MEDS: METHYLPREDNISOLONE IV 40 MG in SYRINGE 0 ML IV SCH ×3 (06:05→21:40)
[2017-05-06] MEDS: LEVALBUTEROL 1.25MG/0.5ML NEB INH SCH ×3 (07:15→19:47)
[2017-05-06] MEDS: IPRATROPIUM BROMIDE NEB SOLN 0.02% 2.5 ML VIAL INH SCH ×3 (07:15→19:47)
[2017-05-06] MEDS ORDERED: POTASSIUM CHLORIDE 20 MEQ TABCR PO ONE (09:00)
[2017-05-06] MEDS: HEPARIN SOD 5000 UNIT/0.5 ML CARP SQ SCH ×2 (09:06→21:39)
[2017-05-06 11:27] LABS: INFLUENZA A PCR Neg for Influ A (NEG); INFLUENZA B PCR Neg for Influ B (NEG)
[2017-05-06] MEDS: PANTOprazole INJ 40 MG in SYRINGE 0 ML IV SCH (11:49)
--- NOTE | 2017-05-06 12:48 | Cardiology Consultation ---
Cardiology Consultation Date of Consultation: May 06, 2017. Requesting Physician: Dr. Allred Reason for Consultation: Elevated troponin Pt evaluation today including: conversation w/ patient, conversation w/ family , physical exam, lab review, review of studies, review of inpatient medication list History of Present Illness This is an 82-year-old woman with a history of hypertension, hypercholesterolemia and rheumatoid arthritis who presented to the emergency room with a productive cough and malaise for nearly a week. She apparently has been febrile and had loose stools. She became less responsive and that prompted her visit to the emergency room. From the cardiovascular standpoint she has a long history of hypertrophic cardiomyopathy with asymmetric septal hypertrophy. She does have a left ventricular outflow tract gradient. She also has a history of sinus bradycardia with paroxysmal supraventricular tachycardia but not atrial fibrillation to my knowledge. She does have mild mitral regurgitation and chronic diastolic congestive heart failure. To my knowledge she does not have coronary artery disease but I do not believe has been evaluated for it invasively or noninvasively. Her troponin was slightly elevated on admission ( 0.185) with the second measurement being 0.275. Today she is awake and conversational although feels very tired and lethargic. Her reports that she is doing much better today than she was yesterday. She denies chest discomfort or shortness of breath. She has not observed fluid retention. Past Medical/Surgical History (1) Rheumatoid arthritis (2) HTN (hypertension) (3) History of knee replacement procedure of right knee (4) DDD (degenerative disc disease), lumbar Family History Patient reports no known family medical history. Social History Smoking Status: Never Smoker History of Alcohol Use: No Review of Systems Constitutional: + see HPI, + fever, + fatigue, No weight loss, No weakness Respiratory: No cough, No wheezing, No shortness of breath, No dyspnea on exertion Cardiac: + see HPI, No chest pain, No orthopnea, No PND, No edema, No palpitations Abdomen: No pain, No nausea, No vomiting, No diarrhea, No GI bleeding Female : No problem reported Neurologic: No paralysis, No weakness, No numbness/tingling, No balance problems Heme: No abnormal bleeding/bruising, No clotting problems Endo: No fatigue Skin: No problem reported All Other Systems: Reviewed and Negative Allergies Coded Allergies: No Known Allergies (Unverified , 10/24/16) Medications Current Inpatient Medications Medications (Trade) Dose Ordered Sig/Brina Route Start Time Stop Time Status Last Admin Dose Admin Heparin Sodium (Porcine) (Heparin Sq 5000 Unit/0.5ml) 5,000 unit Q12 SQ 05/05/17 22:00 06/04/17 21:59 05/06/17 09:06 5,000 UNIT Potassium Chloride/Sodium Chloride 1,000 ml @ 80 mls/hr [id number] IV 05/05/17 21:58 06/04/17 21:57 05/06/17 00:34 80 MLS/HR Nitroglycerin (Nitrostat Tab) 0.4 mg UD PRN SL 05/05/17 20:00 06/04/17 19:59 Ondansetron HCl (Zofran Inj) 4 mg Q6H PRN IV 05/05/17 20:00 06/04/17 19:59 Pantoprazole Sodium 40 mg/ Syringe 10 ml @ 5 mls/min DAILY@11 IV 05/06/17 11:00 06/05/17 10:59 05/06/17 11:49 5 MLS/MIN Methylprednisolone Sodium Succinate 40 mg/Syringe 0.64 ml @ 1.5 mls/min Q8H IV 05/05/17 22:00 06/04/17 21:59 05/06/17 06:05 1.5 MLS/MIN Levofloxacin 500 mg/Prmx 100 ml @ 100 mls/hr Q24H IV 05/05/17 22:00 05/12/17 21:59 05/05/17 23:00 100 MLS/HR Ipratropium Cal Nev Ari (Atrovent 0.02% 0.5MG/2.5ML Neb) 0.5 mg Q6R INH 05/05/17 21:00 06/04/17 20:59 05/06/17 07:15 0.5 MG Levalbuterol (Xopenex 1.25MG/ 0.5ML Neb) 1.25 mg Q6R INH 05/05/17 21:00 06/04/17 20:59 05/06/17 07:15 1.25 MG Ipratropium Cal Nev Ari (Atrovent 0.02% 0.5MG/2.5ML Neb) 0.5 mg Q2H PRN INH 05/05/17 20:15 06/04/17 20:14 Levalbuterol (Xopenex 1.25MG/ 0.5ML Neb) 1.25 mg Q2H PRN INH 05/05/17 20:15 06/04/17 20:14 Physical Exam Vital Signs Past 12 Hours Date Time Temp Pulse Resp B/P (MAP) Pulse Ox O2 Delivery O2 Flow Rate FiO2 05/06/17 11:27 37.4 72 19 124/76 (92) 97 Room Air 05/06/17 08:00 Room Air 2.0 05/06/17 07:53 36.6 71 19 135/72 (93) 98 Room Air 05/06/17 07:19 71 18 98 Room Air 05/06/17 04:08 36.7 63 18 104/68 (80) 96 Room Air 05/06/17 04:00 96 Nasal Cannula 2.0 Constitutional: Level of Distress: moderate distress Psychiatric: Mental Status: active & alert Head: normocephalic Eyes: EOM: EOMI ENMT: normal ENT inspection, hearing grossly normal Neck: supple, no masses Lungs: Respiratory effort: no dyspnea, good air movement Auscultation: breath sounds normal, expiratory wheezing Cardiovascular: Heart Auscultation: RRR, no murmurs, no rubs, no gallops, III/ JOSH Peripheral Pulses: Bruits: none appreciated Abdomen: Bowel Sounds: normal Inspection & Palpation: soft, no tenderness, guarding & rebound, no masses Musculoskeletal: normal strength (5/5 throughout) Extremities: no edema Neurologic: Cranial Nerves: grossly intact Sensation: grossly intact Data Laboratory Results: Last 24 Hours Test 05/05/17 18:27 05/05/17 18:32 05/05/17 18:33 05/05/17 19:38 White Blood Count 3.98 K/uL Red Blood Count 4.70 M/uL Hemoglobin 14.3 g/dL Hematocrit 42.4 % Mean Corpuscular Volume 90.2 fL Mean Corpuscular Hemoglobin 30.4 pg Mean Corpuscular Hemoglobin Concent 33.7 g/dl Platelet Count 131 K/uL Mean Platelet Volume 10.4 fL Neutrophils (%) (Auto) 59.6 % Lymphocytes (%) (Auto) 24.6 % Monocytes (%) (Auto) 14.3 % Eosinophils (%) (Auto) 0.0 % Basophils (%) (Auto) 0.5 % Neutrophils # (Auto) 2.37 K/uL Lymphocytes # (Auto) 0.98 K/uL Monocytes # (Auto) 0.57 K/uL Eosinophils # (Auto) 0.00 K/uL Basophils # (Auto) 0.02 K/uL RDW Standard Deviation 45.4 fL RDW Coefficient of Variation 13.8 % Immature Granulocyte % (Auto) 1.0 % Immature Granulocyte # (Auto) 0.04 K/uL Prothrombin Time 11.8 SECONDS Prothromb Time International Ratio 1.1 Activated Partial Thromboplast Time 22.5 SECONDS Partial Thromboplastin Ratio 0.9 Sodium Level 136 mmol/L Potassium Level 3.0 mmol/L Chloride Level 100 mmol/L Carbon Dioxide Level 28 mmol/L Anion Gap 8.0 mmol/L Blood Urea Nitrogen 14 mg/dl Creatinine 1.12 mg/dl Est Creatinine Clear Calc Drug Dose 43.5 ml/min Estimated GFR () 53.4 Estimated GFR (Non- 46.0 BUN/Creatinine Ratio 12.6 Random Glucose 98 mg/dl Calcium Level 8.5 mg/dl Magnesium Level 1.9 mg/dl Total Bilirubin 0.5 mg/dl Aspartate Amino Transf (AST/SGOT) 40 U/L Alanine Aminotransferase (ALT/SGPT) 30 U/L Alkaline Phosphatase 75 U/L Troponin I 0.185 ng/ml Total Protein 6.9 gm/dl Albumin 3.2 gm/dl Globulin 3.7 gm/dl Albumin/Globulin Ratio 0.9 Chemistry Specimen Hemolysis Influenza Type A Antigen Neg for Influ A Influenza Type B Antigen Neg for Influ B Urine Color YELLOW Urine Appearance CLEAR Urine pH 5.0 Urine Specific Helper 1.015 Urine Protein NEG Urine Glucose (UA) NEG Urine Ketones NEG Urine Occult Blood TRACE Urine Nitrite NEG Urine Bilirubin NEG Urine Urobilinogen NEG Urine Leukocyte Esterase NEG Urine WBC (Auto) 0 /hpf Urine RBC (Auto) 0-4 /hpf Urine Hyaline Casts (Auto) 1-5 /lpf Urine Epithelial Cells (Auto) 0-5 /lpf Urine Bacteria (Auto) NEG Lactic Acid Level 1.1 mmol/L Test 05/05/17 19:42 05/06/17 04:09 05/06/17 09:05 05/06/17 11:54 Bedside Lactic Acid Venous 0.99 mmol/L White Blood Count 3.36 K/uL Red Blood Count 4.22 M/uL Hemoglobin 12.7 g/dL Hematocrit 37.6 % Mean Corpuscular Volume 89.1 fL Mean Corpuscular Hemoglobin 30.1 pg Mean Corpuscular Hemoglobin Concent 33.8 g/dl Platelet Count 133 K/uL Mean Platelet Volume 10.0 fL Neutrophils (%) (Auto) 85.1 % Lymphocytes (%) (Auto) 11.0 % Monocytes (%) (Auto) 3.3 % Eosinophils (%) (Auto) 0.0 % Basophils (%) (Auto) 0.3 % Neutrophils # (Auto) 2.86 K/uL Lymphocytes # (Auto) 0.37 K/uL Monocytes # (Auto) 0.11 K/uL Eosinophils # (Auto) 0.00 K/uL Basophils # (Auto) 0.01 K/uL RDW Standard Deviation 44.6 fL RDW Coefficient of Variation 13.7 % Immature Granulocyte % (Auto) 0.3 % Immature Granulocyte # (Auto) 0.01 K/uL Sodium Level 138 mmol/L Potassium Level 2.7 mmol/L Chloride Level 105 mmol/L Carbon Dioxide Level 24 mmol/L Anion Gap 9.0 mmol/L Blood Urea Nitrogen 13 mg/dl Creatinine 0.91 mg/dl Est Creatinine Clear Calc Drug Dose 52.0 ml/min Estimated GFR () 68.6 Estimated GFR (Non- 59.2 BUN/Creatinine Ratio 13.9 Random Glucose 202 mg/dl Calcium Level 7.9 mg/dl Magnesium Level 1.8 mg/dl Total Creatine Kinase 167 U/L Creatine Kinase MB 2.0 ng/ml Creatine Kinase MB Ratio 1.2 Troponin I 0.275 ng/ml Influenza Type A (RT-PCR) Neg for Influ A Influenza Type B (RT-PCR) Neg for Influ B Test 05/06/17 12:00 Imaging: Her chest x-ray does not show congestive heart failure EKG: Her initial electrocardiogram shows sinus rhythm at 88 bpm with some minor lateral ST-T abnormalities, a repeat electrocardiogram this morning shows sinus rhythm at 69 bpm with diffuse T-wave inversion inferiorly, and anterolaterally with QT prolongation. This electrocardiogram today however looks more like her prior electrocardiograms and her presenting one. Telemetry reviewed: Sinus rhythm and sinus bradycardia, no significant arrhythmia Assessment & Plan 1. Elevated troponin: She does have troponin elevation, it is not severe but it has increased slightly between the first and the second measurement. I suspect it is demand ischemia from her illness but we have not evaluated her for coronary artery disease in the past. At this point I think we should just observe the trend of her enzymes and not consider evaluation. Depending on what happens with the troponins we may need to consider some type of evaluation in the future but with her current illness I do not think we should do it now. 2. 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 Her blood pressure is stable and therefore this is probably not part of her current illness. Thank you for allowing me to participate in her care.
[2017-05-06 12:50] LABS: CKMB 2.8 ng/ml (0.5-3.6)
--- NOTE | 2017-05-06 14:00 | Progress Note ---
Subjective Date of Service: May 06, 2017. Subjective Pt evaluation today including: conversation w/ patient, conversation w/ family Pt is feeling improved today. Still weak. No SOB. Ongoing cough that is better. No further fevers. No chest pain. Pt denies abd pain, n/v/c/d, LE pain or swelling. Tolerating PO intake without issue. Problem List Medical Problems: (1) Acute bronchitis Status: Acute (2) Change in mental status Status: Acute (3) DDD (degenerative disc disease), lumbar Status: Chronic (4) Elevated troponin Status: Acute (5) Fever Status: Acute (6) Immunocompromised Status: Acute (7) Low back pain Status: Acute Review of Systems All Other Systems: Reviewed and Negative Objective Vital Signs Date Time Temp Pulse Resp B/P (MAP) Pulse Ox O2 Delivery O2 Flow Rate FiO2 05/06/17 12:00 Room Air 2.0 05/06/17 11:27 37.4 72 19 124/76 (92) 97 Room Air 05/06/17 08:00 Room Air 2.0 05/06/17 07:53 36.6 71 19 135/72 (93) 98 Room Air 05/06/17 07:19 71 18 98 Room Air 05/06/17 04:08 36.7 63 18 104/68 (80) 96 Room Air 05/06/17 04:00 96 Nasal Cannula 2.0 05/06/17 00:00 100 Nasal Cannula 2.0 05/05/17 23:05 36.6 58 18 130/74 (92) 100 Nasal Cannula 2.0 05/05/17 22:05 37.7 68 138/70 95 2.0 05/05/17 21:09 39.2 74 23 119/58 97 05/05/17 20:25 74 23 119/58 97 Nasal Cannula 2.0 05/05/17 19:56 95 Nasal Cannula 2.0 05/05/17 19:56 90 Room Air 05/05/17 19:12 71 21 95 Room Air 05/05/17 19:02 85 24 110/57 93 Room Air 05/05/17 18:30 91 22 143/69 91 Room Air 05/05/17 17:29 95 Nasal Cannula 05/05/17 17:26 80 05/05/17 17:25 39.2 88 22 198/104 95 Room Air Physical Exam General Appearance: WD/WN, no apparent distress Eyes: normal inspection, sclerae normal Respiratory/Chest: normal breath sounds, no respiratory distress Cardiovascular: regular rate, rhythm, no edema Abdomen: non tender, soft Extremities: non-tender, no pedal edema Neurologic/Psychiatric: alert, normal mood/affect, oriented x 3 Skin: normal color, warm/dry Laboratory Results Last 24 Hours Test 05/05/17 18:27 05/05/17 18:32 05/05/17 18:33 05/05/17 19:38 White Blood Count 3.98 K/uL Red Blood Count 4.70 M/uL Hemoglobin 14.3 g/dL Hematocrit 42.4 % Mean Corpuscular Volume 90.2 fL Mean Corpuscular Hemoglobin 30.4 pg Mean Corpuscular Hemoglobin Concent 33.7 g/dl Platelet Count 131 K/uL Mean Platelet Volume 10.4 fL Neutrophils (%) (Auto) 59.6 % Lymphocytes (%) (Auto) 24.6 % Monocytes (%) (Auto) 14.3 % Eosinophils (%) (Auto) 0.0 % Basophils (%) (Auto) 0.5 % Neutrophils # (Auto) 2.37 K/uL Lymphocytes # (Auto) 0.98 K/uL Monocytes # (Auto) 0.57 K/uL Eosinophils # (Auto) 0.00 K/uL Basophils # (Auto) 0.02 K/uL RDW Standard Deviation 45.4 fL RDW Coefficient of Variation 13.8 % Immature Granulocyte % (Auto) 1.0 % Immature Granulocyte # (Auto) 0.04 K/uL Prothrombin Time 11.8 SECONDS Prothromb Time International Ratio 1.1 Activated Partial Thromboplast Time 22.5 SECONDS Partial Thromboplastin Ratio 0.9 Sodium Level 136 mmol/L Potassium Level 3.0 mmol/L Chloride Level 100 mmol/L Carbon Dioxide Level 28 mmol/L Anion Gap 8.0 mmol/L Blood Urea Nitrogen 14 mg/dl Creatinine 1.12 mg/dl Est Creatinine Clear Calc Drug Dose 43.5 ml/min Estimated GFR () 53.4 Estimated GFR (Non- 46.0 BUN/Creatinine Ratio 12.6 Random Glucose 98 mg/dl Calcium Level 8.5 mg/dl Magnesium Level 1.9 mg/dl Total Bilirubin 0.5 mg/dl Aspartate Amino Transf (AST/SGOT) 40 U/L Alanine Aminotransferase (ALT/SGPT) 30 U/L Alkaline Phosphatase 75 U/L Troponin I 0.185 ng/ml Total Protein 6.9 gm/dl Albumin 3.2 gm/dl Globulin 3.7 gm/dl Albumin/Globulin Ratio 0.9 Chemistry Specimen Hemolysis Influenza Type A Antigen Neg for Influ A Influenza Type B Antigen Neg for Influ B Urine Color YELLOW Urine Appearance CLEAR Urine pH 5.0 Urine Specific [place] 1.015 Urine Protein NEG Urine Glucose (UA) NEG Urine Ketones NEG Urine Occult Blood TRACE Urine Nitrite NEG Urine Bilirubin NEG Urine Urobilinogen NEG Urine Leukocyte Esterase NEG Urine WBC (Auto) 0 /hpf Urine RBC (Auto) 0-4 /hpf Urine Hyaline Casts (Auto) 1-5 /lpf Urine Epithelial Cells (Auto) 0-5 /lpf Urine Bacteria (Auto) NEG Lactic Acid Level 1.1 mmol/L Test 05/05/17 19:42 05/06/17 04:09 05/06/17 09:05 05/06/17 11:54 Bedside Lactic Acid Venous 0.99 mmol/L White Blood Count 3.36 K/uL Red Blood Count 4.22 M/uL Hemoglobin 12.7 g/dL Hematocrit 37.6 % Mean Corpuscular Volume 89.1 fL Mean Corpuscular Hemoglobin 30.1 pg Mean Corpuscular Hemoglobin Concent 33.8 g/dl Platelet Count 133 K/uL Mean Platelet Volume 10.0 fL Neutrophils (%) (Auto) 85.1 % Lymphocytes (%) (Auto) 11.0 % Monocytes (%) (Auto) 3.3 % Eosinophils (%) (Auto) 0.0 % Basophils (%) (Auto) 0.3 % Neutrophils # (Auto) 2.86 K/uL Lymphocytes # (Auto) 0.37 K/uL Monocytes # (Auto) 0.11 K/uL Eosinophils # (Auto) 0.00 K/uL Basophils # (Auto) 0.01 K/uL RDW Standard Deviation 44.6 fL RDW Coefficient of Variation 13.7 % Immature Granulocyte % (Auto) 0.3 % Immature Granulocyte # (Auto) 0.01 K/uL Sodium Level 138 mmol/L Potassium Level 2.7 mmol/L Chloride Level 105 mmol/L Carbon Dioxide Level 24 mmol/L Anion Gap 9.0 mmol/L Blood Urea Nitrogen 13 mg/dl Creatinine 0.91 mg/dl Est Creatinine Clear Calc Drug Dose 52.0 ml/min Estimated GFR () 68.6 Estimated GFR (Non- 59.2 BUN/Creatinine Ratio 13.9 Random Glucose 202 mg/dl Calcium Level 7.9 mg/dl Magnesium Level 1.8 mg/dl Total Creatine Kinase 167 U/L Creatine Kinase MB 2.0 ng/ml Creatine Kinase MB Ratio 1.2 Troponin I 0.275 ng/ml Influenza Type A (RT-PCR) Neg for Influ A Influenza Type B (RT-PCR) Neg for Influ B Test 05/06/17 12:00 Total Creatine Kinase 234 U/L Creatine Kinase MB 2.8 ng/ml Troponin I 0.203 ng/ml Assessment and Plan 82 y/o F who was admitted on 05/05 with flu like sx and elevated trop Altered mental state/presumptive sepsis in immunocompromised patient: bacterial vs viral Concern for pulm bacterial infection, however CXR neg without elevated WBC Started on vanco/zosyn/levaquin 05/05, will d/c vanco/zosyn and monitor on levaquin Flu neg for Ag and PCR Duonebs, Solu-Medrol 40 mg Q8h Guaifenesin extended release 600 mg by mouth twice a day Sputum Gram stain and culture Blood cx pending Elevated troponin/hypertension/history of arrhythmia-- Trop slightly elevated x2, neg for EKG changes, likely supply demand mismatch. Hold atenolol and triamterene HCTZ due to relatively low blood pressure and resume when able ECHO pending HypoK: family states chronic issue Replace and monitor Rheumatoid arthritis-- Methotrexate weekly as outpatient. Hold oral methylprednisolone. Solu-Medrol IV above for pulmonary process Discussed with her , that he should speak with her medical staffing coordinator regarding time for her to restart methotrexate PT/OT pending
[2017-05-06] MEDS ORDERED: NURSING VERBAL MED ORDER ONE (15:30)
[2017-05-06] MEDS ORDERED: SODIUM CHLORIDE 0.9% 500ML 500 ML IV SCH (15:45)
[2017-05-06] MEDS: ACETAMINOPHEN 325 MG TAB PO PRN (15:48)
[2017-05-06] MEDS: LEVOFLOXACIN / D5W 500 MG in PREMIXED IN D5W 100 ML IV SCH (21:40)
--- NOTE | 2017-05-06 22:10 | ECHOCARDIOGRAM REPORT ---
*NOTICE TO RECEIVING REPUBLICAN AGENCY This information is strictly Confidential and protected under [place] law. [place] law prohibits you from making any further disclosure of this information unless further disclosure is expressly permitted by the written consent of the person to whom it pertains or is authorized by law. A general authorization for the release of medical or other information is not sufficient for this purpose. Hospital accepts no responsibility if the information is made available to any other person, INCLUDING THE PATIENT. Interpretation Summary * Name: MACRINA GARCIA Study Date: 05/06/2017 06:40 AM BP: 104/68 mmHg * Patient Location: C.2T\S\S230\S\2 HR: 63 * : 1935 (M/d/yyyy) Gender: Female Height: 67 in * Age: 82 yrs Ethnicity: AA Weight: 181 lb * Ordering Physician: Federico Fallon * Referring Physician: Logan Loo * Performed By: Macrina Randle RDCS * * Reason For Study: Elevated troponin * BSA: 1.9 m2 * -- Conclusions -- * 1. Small LV cavity size. Moderate concentric LVH. * 2. Hyperdynamic LV, LVEF >70%. Mild inferior, inferloateral hypokinesis. * 3. Normal RV size and function. * 4. Dynamic LVOT obstruction (Peak gradient 25mmHg). * 5. Normal estimated PA and RA pressures. * 6. Severely dilated left atrium. Grade I diastolic dysfunction. * 7. Compared with prior study on 01/01/2014: Mild inferolateral hypokinesis now present Procedure Details * A complete two-dimensional transthoracic echocardiogram was performed (2D, M-mode, Doppler and color flow Doppler). Left Ventricle * The left ventricular cavity is small. * There is moderate concentric left ventricular hypertrophy. * Dynamic LVOT obstruction * Ejection Fraction = >70 %. * Mild inferior, inferloateral hypokinesis. Right Ventricle * The right ventricle is grossly normal size. * The right ventricular systolic function is normal as assessed by tricuspid annular plane systolic excursion (TAPSE) (normal >1.5 cm). Atria * The left atrium is severely dilated. * The right atrium is mildly dilated. * No ASD detected; PFO is not assessed. Mitral Valve * There is mild to moderate mitral annular calcification. * There is no mitral valve stenosis. * There is trace mitral regurgitation. Tricuspid Valve * There is trace tricuspid regurgitation. Aortic Valve * The aortic valve opens well. * The aortic valve is trileaflet. * No hemodynamically significant valvular aortic stenosis. * There is no significant aortic regurgitation. Great Vessels * The aortic root and proximal ascending aorta are normal sized. Pericardium/Pleural * There is no pericardial effusion. Great Vessels * Normal inferior vena cava size and collapsability with sniff indicates a normal right atrial pressure of 3 mmHg * There is no evidence of pulmonary hypertension. The PA systolic pressure is less than 36 mmHg. Left Ventricular Diastolic Function * Grade I diastolic dysfunction, (abnormal relaxation pattern). MMode 2D Measurements and Calculations IVSd 1.4 cm LVIDd 3.5 cm LVIDs 2.1 cm LVPWd 1.6 cm IVS/LVPW 0.87 FS 39.5 % EDV(Teich) 50.3 ml ESV(Teich) 14.6 ml EF(Teich) 71.1 % EDV(cubed) 42.3 ml ESV(cubed) 9.4 ml EF(cubed) 77.8 % LV mass(C)d 184.2 grams LV mass(C)dI 95.1 grams/m\S\2 SV(Teich) 35.8 ml SI(Teich) 18.5 ml/m\S\2 SV(cubed) 32.9 ml SI(cubed) 17.0 ml/m\S\2 Ao root diam 3.1 cm Ao root area 7.5 cm\S\2 LA dimension 4.0 cm asc Aorta Diam 2.5 cm LA/Ao 1.3 LVAd ap4 15.3 cm\S\2 LVLd ap4 6.3 cm EDV(MOD-sp4) 28.9 ml EDV(sp4-el) 31.7 ml LVAs ap4 7.5 cm\S\2 LVLs ap4 5.8 cm ESV(MOD-sp4) 8.4 ml ESV(sp4-el) 8.3 ml EF(MOD-sp4) 70.9 % EF(sp4-el) 73.9 % LVAd ap2 11.0 cm\S\2 LVLd ap2 6.1 cm EDV(MOD-sp2) 17.6 ml EDV(sp2-el) 16.9 ml LVAs ap2 5.7 cm\S\2 LVLs ap2 5.5 cm ESV(MOD-sp2) 5.3 ml ESV(sp2-el) 5.0 ml EF(MOD-sp2) 70.0 % EF(sp2-el) 70.3 % LVLd %diff -2.91 % EDV(MOD-bp) 23.2 ml LVLs %diff -5.25 % ESV(MOD-bp) 6.9 ml EF(MOD-bp) 70.4 % SV(MOD-sp4) 20.5 ml SI(MOD-sp4) 10.6 ml/m\S\2 SV(MOD-sp2) 12.3 ml SI(MOD-sp2) 6.3 ml/m\S\2 SV(MOD-bp) 16.3 ml SI(MOD-bp) 8.4 ml/m\S\2 SV(sp4-el) 23.4 ml SI(sp4-el) 12.1 ml/m\S\2 SV(sp2-el) 11.9 ml SI(sp2-el) 6.1 ml/m\S\2 Doppler Measurements and Calculations MV E max mariah 75.3 cm/sec MV A max mariah 77.1 cm/sec MV E/A 0.98 MV dec time 0.44 sec Ao V2 max 198.2 cm/sec Ao max PG 15.7 mmHg PA V2 max 108.6 cm/sec PA max PG 4.7 mmHg PA acc slope 816.1 cm/sec\S\2 PA acc time 0.13 sec TR max mariah 245.7 cm/sec PA pr(Accel) 22.0 mmHg
[2017-05-07] VITALS (12 sets, daily range): BP systolic 121–156; BP diastolic 67–85; PULSE 54–114; TEMP 36.8–37; O2SAT 95–99
[2017-05-07] MEDS: IPRATROPIUM BROMIDE NEB SOLN 0.02% 2.5 ML VIAL INH SCH ×4 (01:49→15:09)
[2017-05-07] MEDS: LEVALBUTEROL 1.25MG/0.5ML NEB INH SCH ×4 (01:49→15:09)
[2017-05-07] MEDS ORDERED: COUGH DROP (SUGAR FREE) LOZ 24 LOZ/1 BOX LOZ ONE (05:43)
[2017-05-07] MEDS: METHYLPREDNISOLONE IV 40 MG in SYRINGE 0 ML IV SCH ×2 (05:47→12:04)
[2017-05-07 07:14] LABS: BASO % 0.5 %; BASO ABS # 0.03 K/uL (0-0.2); HEMATOCRIT 36.7 % (37-47); IG# 0.02 K/uL (0.00-0.02); LYMPH % 12.6 %; LYMPH ABS # 0.81 K/uL (1.2-3.4); MEAN CELL VOLUME 89.3 fL (80-100); MEAN CORPUSCULAR HEMOGLOBIN 29.2 pg (25-34); MEAN CORPUSCULAR HGB CONC 32.7 g/dl (32-36); MEAN PLATELET VOLUME 10.2 fL (7.4-10.4); MONO % 7.8 %; NEUT % 78.8 %; NEUT ABS # 5.06 K/uL (1.4-6.5); PLATELET COUNT 143 K/uL (130-400); RED CELL DISTRIBUTION WIDTH CV 13.7 % (11.5-14.5); RED CELL DISTRIBUTION WIDTH SD 44.9 fL (36.4-46.3); WHITE BLOOD COUNT 6.42 K/uL (4.8-10.8)
[2017-05-07 07:40] LABS: CREATININE 0.79 mg/dl (0.60-1.20); POTASSIUM 3.4 mmol/L (3.5-5.1)
[2017-05-07 07:41] LABS: CALCIUM 8.3 mg/dl (8.5-10.1)
[2017-05-07] MEDS ORDERED: POTASSIUM CHLORIDE 10 MEQ TABCR PO STA (07:52)
[2017-05-07] MEDS: HEPARIN SOD 5000 UNIT/0.5 ML CARP SQ SCH ×2 (09:00→20:59)
[2017-05-07] MEDS: PANTOprazole INJ 40 MG in SYRINGE 0 ML IV SCH (09:21)
--- NOTE | 2017-05-07 09:22 | CARDIOLOGY PROGRESS NOTE ---
DATE: 05/07/2017 TIME: 8:59 a.m. SUBJECTIVE: Ms. Ryan does not remember coming to the hospital. Her and son are at the bedside. They state that she was not responding to them. She had a fever of 102 degrees Fahrenheit. She also has had a cough. They both agree that she looks much better today. She denies chest pain, shortness of breath, syncope, near syncope, palpitations. She was last seen in the office on 04/09/2017 at which point triamterene/HCTZ was increased to 1 tablet per day for edema. Her edema has resolved. Her atenolol and diuretic has been held for this hospitalization given her presentation. OBJECTIVE: VITAL SIGNS: Temperature 36.9 degrees, heart rate 96 beats per minute, respiration rate 19, blood pressure 143/79 mmHg, oxygen saturation 95% on room air. I's and O's positive 1.1 liters yesterday. GENERAL: No acute distress. She is alert. NECK: No JVD. CARDIAC EXAM: No ventricular heave. Regular, normal S1, S2. 2/6 systolic murmur. No rubs or gallops. LUNGS: Possible rhonchi in the right lung field, otherwise clear. ABDOMEN: Soft, nontender, nondistended. Normoactive bowel sounds. EXTREMITIES: No cyanosis or edema. PSYCHIATRIC: Affect appears appropriate. MEDICATIONS: Include heparin 5000 units subQ q. 12 hours, levofloxacin 500 mg IV q. 24 hours, methylprednisolone 40 mg IV q. 8 hours, Protonix 40 mg IV daily, normal saline with potassium chloride. Telemetry personally reviewed. Sinus rhythm with episodes of atrial arrhythmia which appear to be atrial tachycardia. No ventricular arrhythmia noted. ECGs personally reviewed. Repeat ECG this morning on 05/07/2017 at 6:41 a.m., sinus rhythm with first degree AV block and also episode of atrial tachycardia. Nonspecific T-wave abnormality. Echocardiogram performed yesterday reported as hyperdynamic left ventricular systolic function with an EF of greater than 70%. Mild inferior and inferolateral hypokinesis per report. Small left ventricular cavity. Dynamic LVOT obstruction with a peak gradient of 25 mmHg. Normal estimated RVSP. Severe left atrial dilation. Type 1 diastolic dysfunction. Blood culture is negative. White blood cell count 6.42, hemoglobin 12, platelets 143. Sodium 141, potassium 3.4, BUN 8, creatinine 0.79, magnesium 1.8. Peak troponin was 0.275. ASSESSMENT AND PLAN: 1. Hypertrophic cardiomyopathy: We will restart atenolol 75 mg daily, especially given her episodes of atrial tachycardia which if sustained she likely will not tolerate long. Her hypertrophic cardiomyopathy is likely contributing to her mildly elevated troponin levels. Resuming beta kirk. 2. Chronic diastolic congestive heart failure: She appears euvolemic on exam. Diuretic will not be restarted at this time but may be required on discharge as she did not present azotemic and her edema was well controlled on her outpatient regimen. 3. Hypertension: She has been intermittently hypertensive. Restarting atenolol. 4. Elevated troponins: She did not present with acute coronary syndrome and has not had any angina. This is likely related to her hypertrophic cardiomyopathy, especially in the setting of paroxysmal supraventricular tachycardia/atrial tachycardia and her acute illness. Ischemic evaluation is not recommended at this time during hospitalization. She will be reassessed as an outpatient. 5. Atrial tachycardia: She has supraventricular tachycardia which appears to be atrial tachycardia on telemetry. Resuming beta kirk as above, especially in the setting of hypertrophic cardiomyopathy and hyperdynamic left ventricular systolic function. She is asymptomatic. 6. Disposition: Will defer her acute presenting illness to the primary service when she presented reportedly unresponsive with a fever of 102 degrees Fahrenheit. Please call if any other questions or concerns.
--- NOTE | 2017-05-07 10:56 | Clinical Documentation Query ---
CLINICAL DOCUMENTATION QUERY 82 yo female admitted with altered mental status, flu-like symptoms, and elevated troponins. Patient's temperature was elevated at home and family reported the patient became less responsive to them. In your clinical opinion is this patient being managed for: ( x ) Encephalopathy, resolved ( ) Not Agree ( ) Other explanation of clinical findings (Please Explain) ( ) Unable to determine (Please Define) ( ) Need to Discuss The medical record reflects the following clinical findings, treatment, and risk factors. Clinical Indicators: As above Treatment: IV hydration, O2, telemetry, IV antibiotic therapy, blood cultures Risk Factors: Age, fever, immunocompromised, sepsis Please clarify and document your clinical opinion in the progress notes and discharge summary. Terms such as "probable", "suspected", "likely", "questionable", "possible", or "still to be ruled out" are acceptable. IF IN AGREEMENT, YOU MUST DOCUMENT ABOVE DIAGNOSTIC STATEMENT IN DAILY PROGRESS NOTES AND DISCHARGE SUMMARY. This document is not part of the patient's record. Thank You, Leanna Flores RN [phone]
[2017-05-07] MEDS ORDERED: NURSING VERBAL MED ORDER ONE ×2 (12:00→13:15)
--- NOTE | 2017-05-07 13:36 | DIAGNOSTIC IMAGING REPORT ---
CHEST 2 VIEWS ROUTINE CLINICAL HISTORY: Acute bronchitis. Evaluate for pneumonia. COMPARISON STUDY: Chest radiograph May 05, 2017. FINDINGS: Lung volumes are normal. No pneumothorax or pleural effusion is noted. There is no consolidation or evidence for pulmonary edema. Note is made of moderate cardiomegaly. IMPRESSION: 1. No acute cardiopulmonary findings. 2. Moderate cardiomegaly. Electronically signed by: Obdulio Wagner M.D. 05/07/2017 1:35 PM Dictated Date/Time: 05/07/2017 1:34 PM
--- NOTE | 2017-05-07 15:32 | Progress Note ---
Subjective Date of Service: May 07, 2017. Subjective Pt evaluation today including: conversation w/ patient, conversation w/ family , physical exam, chart review, lab review, review of studies, conversation w/ renewable energy consultant, review of inpatient medication list Sitting up in chair, conversational, has pain bedside, report patient's mental status is in her baseline, occasional cough, no other complaints Problem List Medical Problems: (1) Acute bronchitis Status: Acute (2) Change in mental status Status: Acute (3) DDD (degenerative disc disease), lumbar Status: Chronic (4) Elevated troponin Status: Acute (5) Fever Status: Acute (6) Immunocompromised Status: Acute (7) Low back pain Status: Acute Review of Systems Constitutional: + weakness, + fatigue, No fever, No chills, No sweats, No weight loss, No problem reported Eyes: No worsening of vision, No eye pain, No redness, No discharge, No diplopia ENT: No hearing loss, No unusual epistaxis, No nasal symptoms, No sore throat, No tinnitus, No dental problems, No trouble swallowing Respiratory: No cough, No sputum, No wheezing, No shortness of breath, No dyspnea on exertion, No dyspnea at rest, No hemoptysis Cardiac: No chest pain, No orthopnea, No PND, No claudication, No palpitations Abdomen: No pain, No nausea, No vomiting, No diarrhea, No constipation Musculoskeletal: No joint pain, No muscle pain, No swelling, No calf pain Female : No dysuria, No urinary frequency, No hematuria, No incontinence, No abnormal vaginal bleeding, No vaginal discharge Neurologic: No memory loss, No paralysis, No weakness, No numbness/tingling, No vertigo, No balance problems Psychiatric: No depression symptoms, No anhedonism, No anxiety, No insomnia, No substance abuse Heme: No abnormal bleeding/bruising, No clotting problems, No swollen lymph nodes, No night sweats Endo: + fatigue, No excessive thirst, No excessive urination Skin: No rash, No itch, No new/changing skin lesions, No color change, No bleeding Objective Vital Signs Date Time Temp Pulse Resp B/P (MAP) Pulse Ox O2 Delivery O2 Flow Rate FiO2 05/07/17 12:00 Room Air 05/07/17 11:49 37.0 114 18 129/75 (93) 96 Room Air 3/12/18 08:00 Room Air 05/07/17 07:52 36.9 96 19 143/79 (100) 95 Room Air 05/07/17 07:14 85 18 96 Room Air 05/07/17 04:00 Room Air 05/07/17 03:31 36.9 109 18 121/72 (88) 97 Room Air 05/07/17 01:51 82 18 98 Room Air 05/07/17 00:02 36.9 94 20 156/84 (108) 99 Room Air 05/07/17 00:02 Room Air 05/06/17 20:25 37.1 83 16 108/66 (80) 96 Room Air 05/06/17 20:00 Room Air 05/06/17 19:55 116 18 96 Room Air 05/06/17 17:05 37.8 05/06/17 16:49 38.3 94 18 124/69 (87) 94 Room Air 05/06/17 16:00 Room Air Physical Exam General Appearance: WD/WN, no apparent distress Eyes: normal inspection, PERRL, EOMI, sclerae normal ENT: normal ENT inspection, hearing grossly normal, pharynx normal Neck: supple, no adenopathy, thyroid normal, no JVD, no carotid bruits, trachea midline Respiratory/Chest: chest non-tender, normal breath sounds, no respiratory distress, no accessory muscle use, + decreased breath sounds, + crackles ( Bilateral lower lungs) Cardiovascular: regular rate, rhythm, no gallop, no JVD, no murmur, + pertinent finding (Trace edema) Abdomen: normal bowel sounds, non tender, soft, no organomegaly, no pulsatile mass Extremities: normal range of motion, non-tender, normal inspection, no pedal edema, no calf tenderness, normal capillary refill, pelvis stable Neurologic/Psychiatric: gas engine performance engineer II-XII nml as tested, no motor/sensory deficits, alert, normal mood/affect, oriented x 3 Skin: normal color, warm/dry, no rash Lymphatic: no adenopathy Laboratory Results Last 24 Hours Test 05/07/17 06:47 White Blood Count 6.42 K/uL Red Blood Count 4.11 M/uL Hemoglobin 12.0 g/dL Hematocrit 36.7 % Mean Corpuscular Volume 89.3 fL Mean Corpuscular Hemoglobin 29.2 pg Mean Corpuscular Hemoglobin Concent 32.7 g/dl Platelet Count 143 K/uL Mean Platelet Volume 10.2 fL Neutrophils (%) (Auto) 78.8 % Lymphocytes (%) (Auto) 12.6 % Monocytes (%) (Auto) 7.8 % Eosinophils (%) (Auto) 0.0 % Basophils (%) (Auto) 0.5 % Neutrophils # (Auto) 5.06 K/uL Lymphocytes # (Auto) 0.81 K/uL Monocytes # (Auto) 0.50 K/uL Eosinophils # (Auto) 0.00 K/uL Basophils # (Auto) 0.03 K/uL RDW Standard Deviation 44.9 fL RDW Coefficient of Variation 13.7 % Immature Granulocyte % (Auto) 0.3 % Immature Granulocyte # (Auto) 0.02 K/uL Sodium Level 141 mmol/L Potassium Level 3.4 mmol/L Chloride Level 109 mmol/L Carbon Dioxide Level 24 mmol/L Anion Gap 8.0 mmol/L Blood Urea Nitrogen 8 mg/dl Creatinine 0.79 mg/dl Est Creatinine Clear Calc Drug Dose 61.1 ml/min Estimated GFR () 81.4 Estimated GFR (Non- 70.2 BUN/Creatinine Ratio 10.1 Random Glucose 154 mg/dl Calcium Level 8.3 mg/dl Magnesium Level 1.8 mg/dl Assessment and Plan 82 y/o F who was admitted on 05/05 2017 with flu like sx and elevated trop Altered mental state/presumptive sepsis in immunocompromised patient, hospital report was unresponsive at home and temperature was up to 102, bacterial vs viral? Concern for pulm bacterial infection, however CXR neg without elevated WBC Started on vanco/zosyn/levaquin 05/05, has discontinued Vanco/zosyn, has been on on levaquin for total 3 days, because patient general condition is stable improving, I agree to continue Levaquin, Duonebs, Solu-Medrol 40 mg Q8h, continue guaifenesin extended release 600 mg by mouth twice a day, Blood cx otherwise negative Flu neg for Ag and PCR Was having prolonged QT EKG upon admission, which was resolved, will need to pay attention of prolonged QT while patient is on oral Levaquin Elevated troponin likely from demand ischemia/hypertension/history of arrhythmia /chronic diastolic CHF which is compensated, cardiomegaly,, stable improving, cardiology saw the patient, neg for EKG changes History of rheumatoid arthritis, Methotrexate weekly as outpatient, continue to hold oral methylprednisolone. Solu-Medrol IV above for pulmonary process, Discussed with her , that he should speak with her cilnical scientist regarding time for her to restart methotrexate Some dementia and was having mental status changes upon admission, discussed with about possible need imaging studies such as CT of the head and brain MRI, however declined Discussed with patient and about conditions, will see PT OT evaluation and possible discharge home soon Continued [facility] stay due to: ambulation difficulties Discharge planning: home
--- NOTE | 2017-05-07 18:07 | DIAGNOSTIC IMAGING REPORT ---
HEAD WITHOUT CONTRAST (CT) CLINICAL HISTORY: 82 years-old Female with R/O Any acute disease. Acute altered mental status TECHNIQUE: Multiple axial CT images of the head were obtained without contrast. A dose lowering technique was utilized adhering to the principles of ALARA. CT DOSE: 1114.89 mGy.cm COMPARISON: None. FINDINGS: No acute intracranial hemorrhage, midline shift, hydrocephalus, territorial ischemia or abnormal extra-axial collection. Mild to moderate atrophy. Severe multifocal areas of low attenuation are seen within the white matter of the cerebral hemispheres bilaterally suggesting chronic microvascular ischemic changes. Exam is motion degraded. Cerebral vascular calcifications are seen at the level of the skull base. Senescent calcifications involve the basal ganglia. Extra-axial appearing calcification adjacent to the left tentorium newly superior left cerebellar hemisphere measures up to 2.7 x 1.3 cm nicely seen on image 13 of series 2 with thickening of the adjacent inner table of the skull. The calvarium is intact. Mastoid air cells are clear. Moderate mucoperiosteal thickening of the maxillary sinuses. Hypoplasia of the frontal sinuses. Orbits are symmetric. Soft tissues are unremarkable. IMPRESSION: 1. No acute intracranial abnormality identified. 2. Atrophy with extensive chronic microvascular ischemic changes. 3. Extra-axial 2.7 cm calcification adjacent to the left cerebellar tentorium suggests calcified meningioma The above report was generated using voice recognition software. It may contain grammatical, syntax or spelling errors. Electronically signed by: Pedro Jenkins M.D. 05/07/2017 6:06 PM Dictated Date/Time: 05/07/2017 6:01 PM
[2017-05-07] MEDS: LEVOFLOXACIN 500 MG TAB PO SCH (20:59)
[2017-05-08] VITALS (10 sets, daily range): BP systolic 115–160; BP diastolic 62–78; PULSE 76–89; TEMP 36.5–37; O2SAT 91–99
[2017-05-08] MEDS: LEVALBUTEROL 1.25MG/0.5ML NEB INH SCH ×4 (02:24→19:52)
[2017-05-08] MEDS: IPRATROPIUM BROMIDE NEB SOLN 0.02% 2.5 ML VIAL INH SCH ×4 (02:24→19:52)
[2017-05-08 05:53] LABS: HEMATOCRIT 34.2 % (37-47); HEMOGLOBIN 11.8 g/dL (12.0-16.0); MEAN CELL VOLUME 89.3 fL (80-100); MEAN CORPUSCULAR HEMOGLOBIN 30.8 pg (25-34); MEAN CORPUSCULAR HGB CONC 34.5 g/dl (32-36); MEAN PLATELET VOLUME 10.3 fL (7.4-10.4); PLATELET COUNT 151 K/uL (130-400); RED CELL DISTRIBUTION WIDTH CV 13.8 % (11.5-14.5); RED CELL DISTRIBUTION WIDTH SD 45.1 fL (36.4-46.3); WHITE BLOOD COUNT 8.54 K/uL (4.8-10.8)
[2017-05-08 06:43] LABS: CREATININE 0.81 mg/dl (0.60-1.20)
[2017-05-08 06:44] LABS: CALCIUM 8.7 mg/dl (8.5-10.1); POTASSIUM 4.1 mmol/L (3.5-5.1)
[2017-05-08 07:15] LABS: BASO % 1.5 %; BASO ABS # 0.13 K/uL (0-0.2); IG# 0.02 K/uL (0.00-0.02); LYMPH % 19.3 %; LYMPH ABS # 1.65 K/uL (1.2-3.4); MONO % 6.6 %; MONO ABS # 0.56 K/uL (0.11-0.59); NEUT % 72.4 %; NEUT ABS # 6.18 K/uL (1.4-6.5)
[2017-05-08] MEDS: PANTOprazole SOD 40 MG TAB PO SCH (08:12)
[2017-05-08] MEDS: HEPARIN SOD 5000 UNIT/0.5 ML CARP SQ SCH (08:13)
--- NOTE | 2017-05-08 08:17 | CARDIOLOGY PROGRESS NOTE ---
DATE: 05/08/2017 TIME: 7:26 a.m. SUBJECTIVE: She appears to have developed atrial fibrillation since yesterday morning. She has had episodes of tachycardia and on telemetry, her heart rate has trended upward while in atrial fibrillation with at times be in rapid ventricular response despite lying in bed. She has had ECG done yesterday and this morning which demonstrated heart rate in the 90s while lying in bed in atrial fibrillation. She is completely asymptomatic. She denies chest pain, palpitations, syncope, near syncope or shortness of breath. She still has a cough. She continues to inquire about going home but she also admits that she has no idea where she is at. OBJECTIVE: VITAL SIGNS: Temperature 36.6 degrees, heart rate 78 beats per minute, respiration rate 18, blood pressure 132/77 mmHg, oxygen saturation 96% on room air. I's and O's positive 1 liter yesterday. Weight 82.8 kg. GENERAL: In no acute distress. She is alert and oriented to self. She did not know the year and she did not know she was in the hospital. NECK: No appreciable JVD. CARDIAC EXAM: No ventricular heave, irregularly irregular, normal S1, S2, 2/6 systolic murmur. No rubs or gallops. LUNGS: Bilateral rhonchi. ABDOMEN: Soft, nontender, nondistended. Normoactive bowel sounds. EXTREMITIES: No cyanosis. No pitting edema. PSYCHIATRIC: Affect appears appropriate. MEDICATIONS: Include atenolol 75 mg daily, heparin 5,000 units subQ q. 12 hours, levofloxacin 500 mg daily, Protonix 40 mg daily, prednisone 20 mg p.o. b.i.d. Telemetry personally reviewed. Atrial fibrillation as noted above. ECGs personally reviewed as noted above. ECG 05/07/2017 at 2158, atrial fibrillation and 97 beats per minute. Repeat ECG this morning personally reviewed, atrial fibrillation. LABORATORY DATA: White blood cell count is 8.54, hemoglobin 11.8, platelets 151. Sodium 142, potassium 4.1, BUN 14, creatinine 0.81. Magnesium 2. Blood culture is negative to date. Head CT 05/07/2017 reported no acute intracranial abnormality. Atrophy with extensive chronic microvascular ischemic changes. Extra axial 2.7 cm calcification adjacent to the left cerebellum tentorium suggest calcified meningioma. ASSESSMENT AND PLAN: 1. Atrial fibrillation: Her heart rate is reasonable, but still tachycardic at times and given her hypertrophic cardiomyopathy would try to improve her heart rate further. Increase atenolol to 100 mg daily. She is asymptomatic. Hopefully, she converts. If she remains asymptomatic, could continue with a rate control strategy. If further issues arise and antiarrhythmic therapy is warranted, would recommend the amiodarone given her hypertrophic cardiomyopathy. Recommend anticoagulation for stroke risk reduction. This was discussed with her, but with her dementia, it is not certain if she has a clear understanding. She was seen this morning before 7:00 and therefore family was not present. Recommendation was discussed with Dr. Zabala that the anticoagulation therapy should be initiated if there are no contraindications. Would recommend heparin drip while hospitalized and then can transition to oral medication upon discharge if there are no contraindications and family is in agreement. 2. Hypertrophic cardiomyopathy: Continue beta-kirk. We will increase atenolol as above. She appears asymptomatic. Hypertrophic cardiomyopathy likely contributing to her mildly elevated troponins. 3. Chronic diastolic congestive heart failure: She continues to appear euvolemic on exam. At some point, would restart diuretic, but can continue to hold for now. 4. Hypertension: Blood pressure adequately controlled on current regimen. Adjusting beta kikr for heart rate control as noted above. 5. Atrial tachycardia: She has had SVT which appears to be atrial tachycardia on telemetry and this was noted on Holter monitors in the past. Continue beta kirk. She has been asymptomatic. 6. Febrile illness. She presented with confusion and febrile illness. She is being treated by the primary service and will defer to hospitalist service. 7. Disposition: Cardiology will continue to follow. Dr. Zabala was contacted via telephone to discuss patient's cardiac issues and plan of care. Dr. Zabala was asked to coordinate anticoagulation as I will be away from the hospital the remainder of the day.
[2017-05-08] MEDS ORDERED: HEPARIN IV BOLUS 6,000 UNIT in SYRINGE 0 ML IV ONE (11:15)
[2017-05-08] MEDS ORDERED: HEPARIN 25,000 UNIT/500ML D5W 500 ML IV SCH (11:15)
[2017-05-08 11:21] LABS: INR 1.1 (0.9-1.1); PTT PATIENT 30.1 SECONDS (21.0-31.0)
--- NOTE | 2017-05-08 13:19 | Progress Note ---
Subjective Date of Service: May 08, 2017. Problem List Medical Problems: (1) Acute bronchitis Status: Acute (2) Change in mental status Status: Acute (3) DDD (degenerative disc disease), lumbar Status: Chronic (4) Elevated troponin Status: Acute (5) Fever Status: Acute (6) Immunocompromised Status: Acute (7) Low back pain Status: Acute Objective Vital Signs Date Time Temp Pulse Resp B/P (MAP) Pulse Ox O2 Delivery O2 Flow Rate FiO2 05/08/17 12:00 Room Air 05/08/17 11:38 36.9 89 20 115/62 (79) 97 Room Air 05/08/17 08:00 Room Air 05/08/17 07:16 36.5 82 20 121/78 (92) 96 05/08/17 07:11 77 18 96 Room Air 05/08/17 04:00 98 Room Air 05/08/17 03:32 36.6 78 16 132/77 (95) 98 Room Air 05/07/17 23:59 97 Room Air 05/07/17 23:58 36.8 54 18 125/67 (86) 98 Room Air 05/07/17 20:32 36.8 78 16 133/79 (97) 97 Room Air 05/07/17 20:00 97 Room Air 05/07/17 19:35 100 18 96 Room Air 05/07/17 16:32 37.0 111 18 133/85 (101) 97 Room Air 05/07/17 16:00 Room Air Laboratory Results Last 24 Hours Test 05/08/17 05:23 05/08/17 10:56 White Blood Count 8.54 K/uL Red Blood Count 3.83 M/uL Hemoglobin 11.8 g/dL Hematocrit 34.2 % Mean Corpuscular Volume 89.3 fL Mean Corpuscular Hemoglobin 30.8 pg Mean Corpuscular Hemoglobin Concent 34.5 g/dl Platelet Count 151 K/uL Mean Platelet Volume 10.3 fL Neutrophils (%) (Auto) 72.4 % Lymphocytes (%) (Auto) 19.3 % Monocytes (%) (Auto) 6.6 % Eosinophils (%) (Auto) 0.0 % Basophils (%) (Auto) 1.5 % Neutrophils # (Auto) 6.18 K/uL Lymphocytes # (Auto) 1.65 K/uL Monocytes # (Auto) 0.56 K/uL Eosinophils # (Auto) 0.00 K/uL Basophils # (Auto) 0.13 K/uL RDW Standard Deviation 45.1 fL RDW Coefficient of Variation 13.8 % Immature Granulocyte % (Auto) 0.2 % Immature Granulocyte # (Auto) 0.02 K/uL Sodium Level 142 mmol/L Potassium Level 4.1 mmol/L Chloride Level 111 mmol/L Carbon Dioxide Level 24 mmol/L Anion Gap 7.0 mmol/L Blood Urea Nitrogen 14 mg/dl Creatinine 0.81 mg/dl Est Creatinine Clear Calc Drug Dose 60.3 ml/min Estimated GFR () 78.9 Estimated GFR (Non- 68.1 BUN/Creatinine Ratio 17.3 Random Glucose 144 mg/dl Calcium Level 8.7 mg/dl Magnesium Level 2.0 mg/dl Prothrombin Time 11.6 SECONDS Prothromb Time International Ratio 1.1 Activated Partial Thromboplast Time 30.1 SECONDS Partial Thromboplastin Ratio 1.2 Assessment and Plan 82 y/o F who was admitted on 05/05 2017 with flu like sx and elevated trop possible encephalopathy with altered mental state/presumptive sepsis in immunocompromised patient, hospital report was unresponsive at home and temperature was up to 102, bacterial vs viral? Concern for pulm bacterial infection, however CXR neg without elevated WBC Started on vanco/zosyn/levaquin 05/05, has discontinued Vanco/zosyn, has been on on levaquin for total 3 days, because patient general condition is stable improving, I agree to continue Levaquin, Duonebs, Solu-Medrol 40 mg Q8h, continue guaifenesin extended release 600 mg by mouth twice a day, Blood cx otherwise negative Flu neg for Ag and PCR Was having prolonged QT EKG upon admission, which was resolved, will need to pay attention of prolonged QT while patient is on oral Levaquin Elevated troponin likely from demand ischemia/hypertension/history of arrhythmia /chronic diastolic CHF which is compensated, cardiomegaly,, stable improving, cardiology saw the patient, neg for EKG changes History of rheumatoid arthritis, Methotrexate weekly as outpatient, continue to hold oral methylprednisolone. Solu-Medrol IV above for pulmonary process, Discussed with her , that he should speak with her digital sales manager regarding time for her to restart methotrexate Some dementia and was having mental status changes upon admission, discussed with about possible need imaging studies such as CT of the head and brain MRI, however declined Discussed with patient and about conditions, will see PT OT evaluation and possible discharge home soon Continued [facility] stay due to: ambulation difficulties Discharge planning: home
--- NOTE | 2017-05-08 15:12 | Progress Note ---
Subjective Date of Service: May 08, 2017. Subjective Pt evaluation today including: conversation w/ patient, conversation w/ family , physical exam, chart review, lab review, review of studies, conversation w/ residential solar consultant, review of inpatient medication list Identified a new onset of A. fib since yesterday, heart rate controlled, patient denied palpitation or dizziness, denies chest pain Generally doing well Problem List Medical Problems: (1) Acute bronchitis Status: Acute (2) Change in mental status Status: Acute (3) DDD (degenerative disc disease), lumbar Status: Chronic (4) Elevated troponin Status: Acute (5) Fever Status: Acute (6) Immunocompromised Status: Acute (7) Low back pain Status: Acute Review of Systems Constitutional: No fever, No chills, No sweats, No weight loss, No weakness, No fatigue, No problem reported Eyes: No worsening of vision, No eye pain, No redness, No discharge, No diplopia ENT: No hearing loss, No unusual epistaxis, No nasal symptoms, No sore throat, No tinnitus, No dental problems, No trouble swallowing Respiratory: No cough, No sputum, No wheezing, No shortness of breath, No dyspnea on exertion, No dyspnea at rest, No hemoptysis Cardiac: No chest pain, No orthopnea, No PND, No edema, No claudication, No palpitations Abdomen: No pain, No nausea, No vomiting, No diarrhea, No constipation Musculoskeletal: No joint pain, No muscle pain, No swelling, No calf pain Female : No dysuria, No urinary frequency, No hematuria, No incontinence, No abnormal vaginal bleeding, No vaginal discharge Neurologic: No memory loss, No paralysis, No weakness, No numbness/tingling, No vertigo, No balance problems Psychiatric: No depression symptoms, No anhedonism, No anxiety, No insomnia, No substance abuse Heme: No abnormal bleeding/bruising, No clotting problems, No swollen lymph nodes, No night sweats Endo: No fatigue, No excessive thirst, No excessive urination Skin: No rash, No itch, No new/changing skin lesions, No color change, No bleeding Objective Vital Signs Date Time Temp Pulse Resp B/P (MAP) Pulse Ox O2 Delivery O2 Flow Rate FiO2 05/08/17 14:14 89 18 91 Room Air 05/08/17 12:00 Room Air 05/08/17 11:38 36.9 89 20 115/62 (79) 97 Room Air 05/08/17 08:00 Room Air 05/08/17 07:16 36.5 82 20 121/78 (92) 96 05/08/17 07:11 77 18 96 Room Air 05/08/17 04:00 98 Room Air 05/08/17 03:32 36.6 78 16 132/77 (95) 98 Room Air 05/07/17 23:59 97 Room Air 05/07/17 23:58 36.8 54 18 125/67 (86) 98 Room Air 05/07/17 20:32 36.8 78 16 133/79 (97) 97 Room Air 05/07/17 20:00 97 Room Air 05/07/17 19:35 100 18 96 Room Air 05/07/17 16:32 37.0 111 18 133/85 (101) 97 Room Air 05/07/17 16:00 Room Air Physical Exam General Appearance: WD/WN, no apparent distress, + pertinent finding (Pleasant cooperative follow-up commands) Eyes: normal inspection, PERRL, EOMI, sclerae normal ENT: normal ENT inspection, hearing grossly normal, pharynx normal Neck: supple, no adenopathy, thyroid normal, no JVD, no carotid bruits, trachea midline Respiratory/Chest: chest non-tender, normal breath sounds, no respiratory distress, no accessory muscle use, + decreased breath sounds, + wheezing ( Occasional) Cardiovascular: regular rate, rhythm, no edema, no gallop, no JVD, no murmur, + irregularly irregular Abdomen: normal bowel sounds, non tender, soft, no organomegaly, no pulsatile mass Extremities: normal range of motion, non-tender, normal inspection, no pedal edema, no calf tenderness, normal capillary refill, pelvis stable Neurologic/Psychiatric: speech clinician II-XII nml as tested, no motor/sensory deficits, alert, normal mood/affect, oriented x 3, + pertinent finding (Mild slow, but awake alert orientated, know president's name, patient is conversational) Skin: normal color, warm/dry, no rash Lymphatic: no adenopathy Laboratory Results Last 24 Hours Test 05/08/17 05:23 05/08/17 10:56 White Blood Count 8.54 K/uL Red Blood Count 3.83 M/uL Hemoglobin 11.8 g/dL Hematocrit 34.2 % Mean Corpuscular Volume 89.3 fL Mean Corpuscular Hemoglobin 30.8 pg Mean Corpuscular Hemoglobin Concent 34.5 g/dl Platelet Count 151 K/uL Mean Platelet Volume 10.3 fL Neutrophils (%) (Auto) 72.4 % Lymphocytes (%) (Auto) 19.3 % Monocytes (%) (Auto) 6.6 % Eosinophils (%) (Auto) 0.0 % Basophils (%) (Auto) 1.5 % Neutrophils # (Auto) 6.18 K/uL Lymphocytes # (Auto) 1.65 K/uL Monocytes # (Auto) 0.56 K/uL Eosinophils # (Auto) 0.00 K/uL Basophils # (Auto) 0.13 K/uL RDW Standard Deviation 45.1 fL RDW Coefficient of Variation 13.8 % Immature Granulocyte % (Auto) 0.2 % Immature Granulocyte # (Auto) 0.02 K/uL Sodium Level 142 mmol/L Potassium Level 4.1 mmol/L Chloride Level 111 mmol/L Carbon Dioxide Level 24 mmol/L Anion Gap 7.0 mmol/L Blood Urea Nitrogen 14 mg/dl Creatinine 0.81 mg/dl Est Creatinine Clear Calc Drug Dose 60.3 ml/min Estimated GFR () 78.9 Estimated GFR (Non- 68.1 BUN/Creatinine Ratio 17.3 Random Glucose 144 mg/dl Calcium Level 8.7 mg/dl Magnesium Level 2.0 mg/dl Prothrombin Time 11.6 SECONDS Prothromb Time International Ratio 1.1 Activated Partial Thromboplast Time 30.1 SECONDS Partial Thromboplastin Ratio 1.2 Assessment and Plan 82 y/o F who was admitted on 05/05 2017 with flu like sx and elevated trop Diagnosis A. fib, rate control, Severely dilated left atrium. Grade I diastolic dysfunction, compensated, Cardiology on the case, increase atenolol dose from 75 mg to 100 mg p.o. daily [id number] VASc Score 4-5, [place] her risk of stroke is 6.7% per year HAS- Bled Score is 2, annually bleeding rate is 1.88% per year Discussed with patient, patient's , and audio/video engineer, start heparin drip for stroke prevention and the same time inquiry on the co-pay of Eliquis for patient to home, Has discussed in the risks and benefits and options of anticoagulation for stroke prevention, the fall risk is high because patient with dementia,, agreed to take on a risk using eliquis Encephalopathy with altered mental state/presumptive sepsis in immunocompromised patient, hospital report was unresponsive at home and temperature was up to 102, bacterial vs viral? No sign of any bacterial infection now Possible bronchitis with concern for pulm bacterial infection, however CXR neg without elevated WBC Started on vanco/zosyn/levaquin 05/05, has discontinued Vanco/zosyn, has been on on levaquin for total 4 days, general condition is stable improving, I agree to continue Levaquin, Duonebs, switch Solu-Medrol to oral prednisone p.o. and then start tapering the, continue guaifenesin extended release 600 mg by mouth twice a day, Blood cx otherwise negative Flu neg for Ag and PCR Was having prolonged QT EKG upon admission, which was resolved, will need to pay attention of prolonged QT while patient is on oral Levaquin, today has normal QT Elevated troponin likely from demand ischemia/hypertension/history of arrhythmia /chronic diastolic CHF which is compensated, cardiomegaly,, stable improving, cardiology saw the patient, neg for EKG changes History of rheumatoid arthritis, Methotrexate weekly as outpatient, continue to hold oral methylprednisolone. 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, no bleeding, discussed with about her condition and care plan, recommend outpatient referral to neurosurgeon and at the same time do not feel it is contraindication to continue blood thinner Discuss with patient and in detail about all of the above care plans with the present of RN, also include a side effect possible from Levaquin, understand and willing to take on the risk by himself, Discussed with patient and about conditions, will see PT OT evaluation and possible discharge home soon, possible discharge in 1-2 days Continued [facility] stay due to: ambulation difficulties, multiple IV medications needed Discharge planning: home
[2017-05-08] MEDS: APIXABAN 2.5 MG TAB PO SCH (16:37)
[2017-05-08] MEDS ORDERED: METHOTREXATE 2.5 MG TAB PO ONE (18:00)
[2017-05-08] MEDS: LEVOFLOXACIN 500 MG TAB PO SCH (19:42)
[2017-05-09] VITALS (9 sets, daily range): BP systolic 121–146; BP diastolic 70–85; PULSE 86–102; TEMP 36.4–36.7; O2SAT 93–99
[2017-05-09] MEDS: LEVALBUTEROL 1.25MG/0.5ML NEB INH SCH ×5 (02:02→19:13)
[2017-05-09] MEDS: IPRATROPIUM BROMIDE NEB SOLN 0.02% 2.5 ML VIAL INH SCH ×5 (02:02→19:13)
[2017-05-09 06:32] LABS: HEMATOCRIT 37.9 % (37-47); HEMOGLOBIN 12.8 g/dL (12.0-16.0); MEAN CORPUSCULAR HGB CONC 33.8 g/dl (32-36); MEAN PLATELET VOLUME 9.9 fL (7.4-10.4); PLATELET COUNT 206 K/uL (130-400); RED CELL DISTRIBUTION WIDTH CV 14.1 % (11.5-14.5); WHITE BLOOD COUNT 10.07 K/uL (4.8-10.8)
[2017-05-09 06:51] LABS: PTT PATIENT 27.6 SECONDS (21.0-31.0)
[2017-05-09] MEDS: APIXABAN 2.5 MG TAB PO SCH ×2 (08:16→20:08)
[2017-05-09] MEDS: PANTOprazole SOD 40 MG TAB PO SCH (08:16)
--- NOTE | 2017-05-09 17:13 | Progress Note ---
Subjective Date of Service: May 09, 2017. Subjective Pt evaluation today including: conversation w/ patient, conversation w/ family , physical exam, chart review, lab review, review of studies, review of inpatient medication list Generally feeling better, cough is better to, however not feel comfortable to go home, per feel patient mental status getting worse in the morning, still have some memory conditions, patient was anxiety last night, required to have family member in the bedside Problem List Medical Problems: (1) Acute bronchitis Status: Acute (2) Change in mental status Status: Acute (3) DDD (degenerative disc disease), lumbar Status: Chronic (4) Elevated troponin Status: Acute (5) Fever Status: Acute (6) Immunocompromised Status: Acute (7) Low back pain Status: Acute Review of Systems Constitutional: + fever, + weakness, + fatigue, No chills, No sweats, No weight loss, No problem reported Eyes: No worsening of vision, No eye pain, No redness, No discharge, No diplopia ENT: No hearing loss, No unusual epistaxis, No nasal symptoms, No sore throat, No tinnitus, No dental problems, No trouble swallowing Respiratory: + cough, No sputum, No wheezing, No shortness of breath, No dyspnea on exertion, No dyspnea at rest, No hemoptysis Cardiac: No chest pain, No orthopnea, No PND, No edema, No claudication, No palpitations Abdomen: No pain, No nausea, No vomiting, No diarrhea, No constipation Musculoskeletal: No joint pain, No muscle pain, No swelling, No calf pain Female : No dysuria, No urinary frequency, No hematuria, No incontinence, No abnormal vaginal bleeding, No vaginal discharge Neurologic: No memory loss, No paralysis, No weakness, No numbness/tingling, No vertigo, No balance problems Psychiatric: No depression symptoms, No anhedonism, No anxiety, No insomnia, No substance abuse Heme: No abnormal bleeding/bruising, No clotting problems, No swollen lymph nodes, No night sweats Endo: No fatigue, No excessive thirst, No excessive urination Skin: No rash, No itch, No new/changing skin lesions, No color change, No bleeding Objective Vital Signs Date Time Temp Pulse Resp B/P (MAP) Pulse Ox O2 Delivery O2 Flow Rate FiO2 05/09/17 16:00 36.4 92 18 98 2.0 05/09/17 14:23 92 18 98 Room Air 05/09/17 12:25 36.4 102 20 145/85 (105) 94 Room Air 05/09/17 12:00 Room Air 05/09/17 08:00 Room Air 05/09/17 07:32 36.5 99 20 121/79 (93) 95 Room Air 05/09/17 07:11 88 18 99 Room Air 05/09/17 04:00 Room Air 05/09/17 00:00 Room Air 05/08/17 23:32 36.7 76 18 123/74 (90) 98 Room Air 05/08/17 20:01 Room Air 05/08/17 19:52 83 18 99 Room Air 05/08/17 19:35 37.0 76 20 160/70 (100) 98 Room Air Physical Exam General Appearance: WD/WN, no apparent distress Eyes: normal inspection, PERRL, EOMI, sclerae normal ENT: normal ENT inspection, hearing grossly normal, pharynx normal Neck: supple, no adenopathy, thyroid normal, no JVD, no carotid bruits, trachea midline Respiratory/Chest: chest non-tender, normal breath sounds, no respiratory distress, no accessory muscle use, + decreased breath sounds Cardiovascular: regular rate, rhythm, no edema, no gallop, no JVD, no murmur Abdomen: normal bowel sounds, non tender, soft, no organomegaly, no pulsatile mass Extremities: normal range of motion, non-tender, normal inspection, no pedal edema, no calf tenderness, normal capillary refill, pelvis stable Neurologic/Psychiatric: neuroscientist II-XII nml as tested, no motor/sensory deficits, alert, normal mood/affect, oriented x 3, + pertinent finding (Normal cognition, a little bit slow in response, know president's name) Skin: normal color, warm/dry, no rash Lymphatic: no adenopathy Laboratory Results Last 24 Hours Test 05/09/17 05:58 White Blood Count 10.07 K/uL Red Blood Count 4.26 M/uL Hemoglobin 12.8 g/dL Hematocrit 37.9 % Mean Corpuscular Volume 89.0 fL Mean Corpuscular Hemoglobin 30.0 pg Mean Corpuscular Hemoglobin Concent 33.8 g/dl RDW Standard Deviation 46.0 fL RDW Coefficient of Variation 14.1 % Platelet Count 206 K/uL Mean Platelet Volume 9.9 fL Activated Partial Thromboplast Time 27.6 SECONDS Partial Thromboplastin Ratio 1.1 Phosphorus Level 2.4 mg/dl Assessment and Plan 82 y/o F who was admitted on 05/05 2017 with flu like sx and elevated trop Diagnosis A. fib, continue rate control, Severely dilated left atrium. Grade I diastolic dysfunction, compensated, Cardiology on the case, increase atenolol dose from 75 mg to 100 mg p.o. daily, patient tolerated well [id number] VASc Score 4-5, [place] her risk of stroke is 6.7% per year HAS- Bled Score is 2, annually bleeding rate is 1.88% per year Discussed with patient, patient's , and animal keeper head, start heparin drip for stroke prevention and the same time inquiry on the co-pay of Eliquis for patient to home, heparin drip was stopped and Eliquis was started Has discussed in the risks and benefits and options of anticoagulation for stroke prevention, and options on the medicines include Coumadin or new oral anticoagulant, the fall risk is high because patient with dementia,, agreed to take all risk using eliquis Encephalopathy with altered mental state/presumptive sepsis in immunocompromised patient, hospital report was unresponsive at home and temperature was up to 102, bacterial vs viral? No sign of any bacterial infection now Possible bronchitis with concern for pulm bacterial infection, however CXR neg without elevated WBC Started on vanco/zosyn/levaquin 05/05, has discontinued Vanco/zosyn, has been on on levaquin for total 5 days so far general condition is stable improving, I agree to continue Levaquin, Duonebs, switch Solu-Medrol to oral prednisone p.o. and continue tapering, continue guaifenesin extended release 600 mg by mouth twice a day, Blood cx otherwise negative Flu neg for Ag and PCR Was having prolonged QT EKG upon admission, which was resolved, will need to pay attention of prolonged QT while patient is on oral Levaquin, Elevated troponin likely from demand ischemia/hypertension/history of arrhythmia /chronic diastolic CHF which is compensated, cardiomegaly,, stable improving, cardiology saw the patient, neg for EKG changes History of rheumatoid arthritis, Methotrexate weekly as outpatient, continue to hold oral methylprednisolone, got 1 dose of methotrexate yesterday mild dementia and was having mental status changes upon admission, discussed with about possible need imaging studies Has been finally agreed, 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, no bleeding, discussed with about her condition and care plan, recommend outpatient referral to neurosurgeon and at the same time do not feel it is contraindication to continue blood thinner Again had long discussion with patient has been about MRI studies, we both feel to not needed for now and patient will follow up with PCP to do a brain MRI if needed in 3-4 weeks Discussed with patient and about conditions, also through the phone, discussed with patient's son in [place], answered all questions, possible discharge home tomorrow Continued [facility] stay due to: ambulation difficulties, multiple IV medications needed Discharge planning: home
[2017-05-09] MEDS: LEVOFLOXACIN 500 MG TAB PO SCH (20:08)
[2017-05-10] MEDS: IPRATROPIUM BROMIDE NEB SOLN 0.02% 2.5 ML VIAL INH SCH ×2 (01:53→06:55)
[2017-05-10] MEDS: LEVALBUTEROL 1.25MG/0.5ML NEB INH SCH ×2 (01:53→06:55)
[2017-05-10] MEDS: ACETAMINOPHEN 325 MG TAB PO PRN (06:47)
[2017-05-10 06:56] VITALS: PULSE 84; O2SAT 98
[2017-05-10 07:40] VITALS: BP 123/75; PULSE 86; TEMP 36.5; O2SAT 96
[2017-05-10 07:49] LABS: PTT PATIENT 25.7 SECONDS (21.0-31.0)
[2017-05-10 08:15] VITALS: O2SAT 96
[2017-05-10 08:18] LABS: CALCIUM 8.8 mg/dl (8.5-10.1); CREATININE 0.88 mg/dl (0.60-1.20); POTASSIUM 3.5 mmol/L (3.5-5.1)
[2017-05-10] MEDS ORDERED: TNR50 PO (08:42)
[2017-05-10] MEDS ORDERED: ELQ25 PO (08:42)
[2017-05-10] MEDS ORDERED: LVQ500 PO (08:42)
[2017-05-10] MEDS ORDERED: IPRA1AER2 INH (08:42)
[2017-05-10] MEDS: PANTOprazole SOD 40 MG TAB PO SCH (08:52)
[2017-05-10] MEDS: APIXABAN 2.5 MG TAB PO SCH (08:52)
--- NOTE | 2017-05-10 08:53 | Discharge Instructions ---
Discharge Instructions Date of Service May 10, 2017. Admission Reason for Admission: Acute Bronchitis, Elevated Troponin Discharge Discharge Diagnosis / Problem: A. fib , bronchitis Discharge Goals Goal(s): Decrease discomfort, Improve function, Increase independence, Improve disease control, Improve nutritional status, Learn about illness, Diagnostic testing, Therapeutic intervention, Prevent Disease Progression, Specific goals Activity Recommendations Activity Limitations: resume your previous activity (fall precaution) . Instructions / Follow-Up Instructions / Follow-Up you have new diagnosis A. fib, we started Eliquis for stroke prevention, need to watch signs of bleeding and fall prevention. you have severely dilated left atrium. Grade I diastolic dysfunction, we increase Atenolol from 75 mg to 100 mg p.o. daily, you need to follow up with your semiconductor packages platemaker, we hold potassium as well, you have bronchitis, has been on levaquin for total 6 days so far, I will stop it. 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 - call your primary care physician OR go to local emergency room if has any fever/chill, chest pain, shortness of breathing, nausea/vomiting/abdominal pain , facial droop/slurry speech/local weakness, or if has any questions. - fall precaution - diet as instructed - you need to follow up with your subspecialist, such as semiconductor packages platemaker in 2-3 week Current Hospital Diet Patient's current hospital diet: Regular Diet Discharge Diet Recommended Diet: AHA Diet (Heart Healthy), Low Sodium Diet (2gm Na) Procedures Procedures Performed: no Pending Studies Studies pending at discharge: no Laboratory Results Hemoglobin A1c Test 04/05/17 14:00 Range/Units Estimated Average Glucose 111 mg/dl Hemoglobin A1c 5.5 4.5-5.6 % Medical Emergencies . Who to Call and When: Medical Emergencies: If at any time you feel your situation is an emergency, please call 911 immediately. . Non-Emergent Contact Non-Emergency issues call your: Primary Care Provider, Group Social Worker, Specialist (endo, and neurosurgeon) . . "Provider Documentation" section prepared by Chapo Zabala. .
--- NOTE | 2017-05-10 10:17 | CARDIOLOGY PROGRESS NOTE ---
DATE: 05/10/2017 TIME: 08:49 a.m. SUBJECTIVE: She denies chest pain, palpitations, syncope, near syncope, or shortness of breath. She still has an intermittent cough. Her son is present at the bedside and states that she did rather well walking yesterday in the hallway with assistance. He also states that he believes her thinking/mental status is back to her baseline. OBJECTIVE: VITAL SIGNS: Temperature 36.5 degrees, heart rate 86 beats per minute, respiratory rate 16, blood pressure 123/75 mmHg, and oxygen saturation 96% on room air. I's and O's negative 455 mL yesterday. GENERAL: No acute distress. She is alert. NECK: No JVD. CARDIAC EXAM: No ventricular heave. Irregularly irregular. Normal S1 and S2, 2/6 systolic murmur. No rubs or gallops. LUNGS: Bilateral rhonchi. ABDOMEN: Soft, nontender, and nondistended. Normoactive bowel sounds. No bruits noted. EXTREMITIES: No cyanosis. No pitting edema. PSYCHIATRIC: Affect appears appropriate. MEDICATIONS: Include Eliquis 5 mg p.o. b.i.d., prednisone 10 mg p.o. b.i.d., Protonix 40 mg daily, atenolol 100 mg daily, and levofloxacin 500 mg p.o. daily. LABORATORY DATA: White blood cell count yesterday was 10.07, hemoglobin 12.8, and platelets 206. Labs today, sodium 142, potassium 3.5, BUN 15, creatinine 0.88, and magnesium 2.2. Chart reviewed. ASSESSMENT AND PLAN: 1. Atrial fibrillation: She still appears to be in atrial fibrillation based on exam. Her heart rate is adequately controlled. Continue atenolol 100 mg daily. We discussed the diagnosis of atrial fibrillation once again in the presence of her son. Any questions were answered. Recommend anticoagulation for stroke risk reduction. Risks and benefits of anticoagulation once again discussed with her son, who is present at the bedside. She has been started on Eliquis by the primary service. 2. Hypertrophic cardiomyopathy: Continue beta kirk. Heart rate adequately controlled. 3. Chronic diastolic congestive heart failure: She appears euvolemic. Her home diuretic therapy has not yet been restarted. Would resume it on discharge. 4. Hypertension: Blood pressure adequately controlled. No changes made today. 5. Atrial tachycardia: She is now on higher doses of beta kirk and has been in atrial fibrillation for the past couple days. 6. Febrile illness: As per primary service. 7. Disposition: Cardiology will sign off at this time. Please call with any other questions or concerns. Follow up in the cardiology office.
[2017-05-10 12:39] VITALS: BP 123/75; PULSE 86; TEMP 36.5; O2SAT 96
--- NOTE | 2017-05-10 14:40 | Discharge Summary ---
Discharge Summary Date of Service May 10, 2017. Discharge Summary Admission Date: May 05, 2017 at 20:03 Discharge Date: May 10, 2017 Discharge Disposition: Home Principal Diagnosis: new diagnosis A. fib, we started Eliqus Problems/Secondary Diagnoses: severely dilated left atrium. Grade I diastolic dysfunction, w bronchitis, (1) DDD (degenerative disc disease), lumbar Status: Chronic Immunizations: Have You Had Influenza Vaccine: Unknown History of Tetanus Vaccine?: Unknown History of Pneumococcal: Unknown History of Hepatitis B Vaccine: Unknown Procedures: No Consultations: Personal Lines Sales Rep Medication Reconciliation New Medications: Ipratropium-Albuterol (Combivent Respimat) 1 Aer Aer 1 PUFFS INH QID for 7 Days, #1 INH Apixaban (Eliquis) 2.5 Mg Tab 5 MG PO BID for 30 Days, TAB Atenolol (Atenolol) 50 Mg Tab 100 MG PO QAM for 30 Days, TAB hold when sbp<105, or DBP<65, or HR <60 Continued Medications: Methotrexate (Methotrexate) 2.5 Mg Tab 7.5 MG PO WK TAKE 3 TABLETS EVERY SUNDAY Methylprednisolone (Medrol) 4 Mg Tab 4 MG PO QAM, TAB Discontinued Medications: Atenolol (Atenolol) 50 Mg Tab 75 MG PO QPM Potassium Chloride (Potassium Chloride Er) 10 Meq Tab 10 MEQ PO BID TAKE THIS MEDICATION EVERY MORNING AND IN THE AFTERNOON Triamterene/Hctz (Triamterene/Hctz 37.5-25MG) 1 Tab Tab 0.5 TAB PO DAILY, TAB Discharge Exam Complaint above bilateral side pain, to size of abdomen, not eating well, only eating about 50%, generalized weak, but was able to resident with help, no other complaint Review of Systems: Constitutional: + weakness, + fatigue, No fever, No chills, No sweats, No weight loss, No problem reported Eyes: No worsening of vision, No eye pain, No redness, No discharge, No diplopia, No problem reported ENT: No hearing loss, No unusual epistaxis, No nasal symptoms, No sore throat, No tinnitus, No dental problems, No trouble swallowing, No problem reported Respiratory: + dyspnea on exertion, No cough, No sputum, No wheezing, No shortness of breath, No dyspnea at rest, No hemoptysis, No problem reported Cardiovascular: No chest pain, No orthopnea, No PND, No edema, No claudication, No palpitations, No problem reported Abdomen: No pain, No nausea, No vomiting, No diarrhea, No constipation, No GI bleeding, No problem reported Musculoskeletal: + joint pain Genitourinary - Female: No dysuria, No urinary frequency, No urinary urgency , No urinary incontinence, No urinary retention, No hematuria, No dysmenorrhea, No menorrhagia, No metrorrhagia, No rash, No vaginal bleeding, No vaginal discharge, No vaginal itching, No vulvodynia, No , No problem reported Neurologic: No memory loss, No paralysis, No weakness, No numbness/tingling , No vertigo, No balance problems, No problem reported Psychiatric: No depression symptoms, No anhedonism, No anxiety, No insomnia , No substance abuse, No problem reported Endocrine: No fatigue, No excessive thirst, No excessive urination, No problem reported Hematologic / Lymphatic: No abnormal bleeding/bruising, No clotting problems , No swollen lymph nodes, No night sweats, No problem reported Integumentary: No rash, No itch, No new/changing skin lesions, No color change, No bleeding, No problem reported Physical Exam: General Appearance: WD/WN, + pertinent finding (Mild decrease talk, but awake and alert orientated pleasant) Eyes: normal inspection, PERRL ENT: normal ENT inspection, hearing grossly normal Neck: supple, no adenopathy Respiratory/Chest: chest non-tender, + decreased breath sounds Cardiovascular: regular rate, rhythm, no edema, no gallop, no JVD Abdomen / GI: normal bowel sounds, non tender, soft, no organomegaly Extremities: normal inspection, no calf tenderness, normal capillary refill 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 fib, continue rate control, stable Severely dilated left atrium. Grade I diastolic dysfunction, compensated, Cardiology on the case, increase atenolol dose from 75 mg to 100 mg p.o. daily, patient tolerated well [id number] VASc Score 4-5, Dexter her risk of stroke is 6.7% per year HAS- Bled Score is 2, annually bleeding rate is 1.88% per year Discussed with patient, patient's , and web specialist, was on heparin drip for stroke prevention and the same time inquiry on the co-pay of Eliquis for patient to home, heparin drip was stopped, and Eliquis was started, patient has no any sign of bleeding, will continue his medication Has discussed in the risks and benefits and options of anticoagulation for stroke prevention, and options on the medicines include Coumadin or new oral anticoagulant, the fall risk is high because patient with dementia,, agreed to take all risk using eliquis Encephalopathy with altered mental state/presumptive sepsis in immunocompromised patient patient has rheumatoid arthritis on methotrexate, patient's reported was unresponsive at home and temperature was up to 102, bacterial vs viral? No sign of any bacterial infection during his hospital stay Possible bronchitis with concern for pulm bacterial infection, however CXR neg without elevated WBC Started on vanco/zosyn/levaquin 05/05, has discontinued Vanco/zosyn, has been on on levaquin for total 6 days so far, I do not believe patient need to continue oral antibiotic to home, Instead I ordered Combivent inhaler for her cough, advise using cough syrup, humidifier, and follow-up with PCP if needed general condition is stable improving, I agree to continue Levaquin, Duonebs, switch Solu-Medrol to oral prednisone p.o. and continue tapering, continue guaifenesin extended release 600 mg by mouth twice a day, Blood cx otherwise negative Flu neg for Ag and PCR Was having prolonged QT EKG upon admission, which was resolved, will need to pay attention of prolonged QT while patient is on oral Levaquin, Elevated troponin likely from demand ischemia/hypertension/history of arrhythmia /chronic diastolic CHF which is compensated, cardiomegaly,, stable improving, cardiology saw the patient, neg for EKG changes History of rheumatoid arthritis, Methotrexate weekly as outpatient, continue to hold oral methylprednisolone, got 1 dose of methotrexate 2 days ago mild dementia and was having mental status changes upon admission, discussed with about possible need imaging studies Has been finally agreed, 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 fib, we started Eliquis for stroke prevention, need to watch signs of bleeding and fall prevention. you have severely dilated left atrium. Grade I diastolic dysfunction, we increase Atenolol from 75 mg to 100 mg p.o. daily, you need to follow up with your web specialist, we hold potassium as well, you have bronchitis, has been on levaquin for total 6 days so far, I will stop it. 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 - call your primary care physician OR go to local emergency room if has any fever/chill, chest pain, shortness of breathing, nausea/vomiting/abdominal pain , facial droop/slurry speech/local weakness, or if has any questions. - fall precaution - diet as instructed - you need to follow up with your subspecialist, such as web specialist in 2-3 week Total Time Spent: Greater than 30 minutes This includes examination of the patient, discharge planning, medication reconciliation, and communication with other providers. Discharge Instructions Please refer to the electronic Patient Visit Report (Discharge Instructions) for additional information. Additional Copies To Logan Loo M.D.; Bernard Man MD
== END 2017-05-10 13:45 | disposition home or self-care (01) | DRG 871 ==
LOC: C.EDB 17:09 → C.2T 20:03 → EDBEDREQ 20:08 → ENRESERV 20:27 → C.2T 05-07 21:52 → ENRESERV 05-09 14:16 → C.MS4W 05-09 15:57
PROVIDERS: ADMIT Hospitalist; ATTEND Hospitalist
DX: A41.3 Sepsis due to Hemophilus influenzae (principal); G93.40 Encephalopathy, unspecified; I24.8 Other forms of acute ischemic heart disease; I42.2 Other hypertrophic cardiomyopathy; I50.32 Chronic diastolic (congestive) heart failure; I11.0 Hypertensive heart disease with heart failure; M06.9 Rheumatoid arthritis, unspecified; Z96.651 Presence of right artificial knee joint; J20.9 Acute bronchitis, unspecified; M51.36 Other intervertebral disc degeneration, lumbar region; Z79.899 Other long term (current) drug therapy; F03.90 Unspecified dementia, unspecified severity, without behavioral disturbance, psychotic disturbance, mood disturbance, and anxiety; E87.6 Hypokalemia; R65.20 Severe sepsis without septic shock

== ENCOUNTER 2018-11-22 12:31 | Inpatient (IN) ==
[2018-11-22] MEDS ORDERED: SODIUM CHLORIDE 0.9% 500 ML IV SCH (13:00)
[2018-11-22 13:31] LABS: Basophils # (auto) 0.02 K/uL (0-0.2); Basophils % (auto) 0.4 %; Eosinophils # (auto) 0.09 K/uL (0-0.5); Eosinophils % (auto) 1.9 %; Hematocrit (blood only) 36.6 % (37-47); Hemoglobin 11.7 g/dL (12.0-16.0); Immature Granulocytes # (auto) 0.02 K/uL (0.00-0.02); Immature Granulocytes % (auto) 0.4 %; Lymphocytes # (auto) 1.17 K/uL (1.2-3.4); Lymphocytes % (auto) 24.4 %; Mean Corpuscular Hemoglobin 30.2 pg (25-34); Mean Corpuscular Volume 94.3 fL (80-100); Mean Platelet Volume 9.8 fL (7.4-10.4); Monocytes # (auto) 0.39 K/uL (0.11-0.59); Monocytes % (auto) 8.1 %; Neutrophils % (auto) 64.8 %; Platelet Count 307 K/uL (130-400); RDW Coefficient of Variation 15.3 % (11.5-14.5); RDW Standard Deviation 52.2 fL (36.4-46.3); Red Blood Count 3.88 M/uL (4.2-5.4); White Blood Count 4.79 K/uL (4.8-10.8)
[2018-11-22 13:41] LABS: INR 1.2 (0.9-1.1); Prothrombin Time 12.6 Seconds (9.0-12.0)
--- NOTE | 2018-11-22 13:43 | XRay Report ---
XR chest 1V portable HISTORY: 83 years-old Female weakness acute weakness COMPARISON: Chest CT 08/07/2018 TECHNIQUE: Portable AP view of the chest FINDINGS: Pulmonary arterial hypertension. Cardiac silhouette is unchanged. No pneumothorax, pleural effusion, focal airspace consolidation or overt pulmonary edema. Degenerative changes of the shoulders and spin e. IMPRESSION: No acute process. The above report was generated using voice recognition software. It may contain grammatical, syntax o r spelling errors. Electronically signed by: Pedro Jenkins M.D. 11/22/2018 1:41 PM
[2018-11-22 13:49] LABS: Appearance Urine Clear (Clear); Bilirubin Urine Negative (Negative); Blood Urine Negative (Negative); Color Urine Yellow; Glucose Urine UA Negative (Negative); Ketones Urine Negative (Negative); Leukocyte Esterase Urine Negative (Negative); Nitrite Urine Negative (Negative); Protein Urine Negative (Negative); Specific Gravity Urine 1.012 (1.000-1.030); Urobilinogen Urine Negative (Negative)
[2018-11-22 13:49] LABS: Alanine Aminotransferase 13 U/L (12-78); Albumin Level 2.7 gm/dl (3.4-5.0); Aspartate Aminotransferase 16 U/L (15-37); BUN Creatinine Ratio 20.7 (10-20); Blood Urea Nitrogen 15 mg/dl (7-18); Calcium 9.1 mg/dl (8.5-10.1); Carbon Dioxide 25 mmol/L (21-32); Chloride 109 mmol/L (98-107); Est GFR (African American) 87.4; Est GFR (Non-African American) 75.4; Glucose 101 mg/dl (70-99); Potassium 3.8 mmol/L (3.5-5.1); Sodium 142 mmol/L (136-145)
[2018-11-22 14:02] LABS: Albumin Globulin Ratio 0.8 (0.9-2); Alkaline Phosphatase 202 U/L (45-117); Bilirubin,Total 0.4 mg/dl (0.2-1); Globulin 3.3 gm/dl (2.5-4.0); Troponin I 0.063 ng/ml (0-0.045)
--- NOTE | 2018-11-22 14:48 | CT Scan Report ---
CT head/brain wo con CLINICAL HISTORY: 83 years-old Female presenting with fall weak. TECHNIQUE: Multidetector CT imaging of the head was performed without the use of intravenous contrast . IV contrast: None. One or more dose lowering techniques were used consistent with the principles of ALARA (as low as reasonably achievable), including automatic exposure control, mA or kV adjustment t o individual patient size, and/or use of iterative reconstruction. COMPARISON: 08/07/2018. CT DOSE (mGy.cm): The estimated cumulative dose is 720.23 mGy.cm. FINDINGS: Oven Technician topogram: Unremarkable. Proportional ventricular and sulcal prominence, likely age-related parenchymal volume loss. No hemorr ryan. Periventricular and subcortical white matter hypoattenuation, nonspecific but likely indicative of chronic small vessel ischemic change. No acute territorial infarct. No mass effect or midline robel ft. No extra-axial fluid collection. Paranasal sinuses and mastoid air cells clear. Calvarium intact. IMPRESSION: 1. Chronic small vessel ischemic change. No acute intracranial abnormality. Electronically signed by: Jorge Britt M.D. 11/22/2018 2:47 PM
[2018-11-22] MEDS ORDERED: POLYETHYLENE (MIRALAX) 17 GM PACK PO PRN (16:51)
[2018-11-22] MEDS ORDERED: ZOLPIDEM TARTRATE 5 MG TAB PO PRN (16:51)
[2018-11-22] MEDS ORDERED: ONDANSETRON INJ 2 MG/ML 2 ML VIAL IV PRN (16:51)
[2018-11-22] MEDS ORDERED: MAGNESIUM HYDROXIDE SUSP 30 ML UDC PO PRN (16:51)
[2018-11-22] MEDS ORDERED: DOCUSATE SODIUM 100 MG CAP PO PRN (16:51)
[2018-11-22] MEDS ORDERED: ACETAMINOPHEN 325 MG TAB PO PRN (16:51)
[2018-11-22] MEDS ORDERED: ALUMINUM/MAGNESIUM SUSP 30 ML UDC PO PRN (16:51)
--- NOTE | 2018-11-22 19:15 | Emergency Department Note ---
Entered by Evelyn Ledezma acting as a scribe for History of Present Illness General Chief complaint: Weakness Stated complaint: WEAKNESS Source: patient and family History of Present Illness Onset (ago): week(s) 3 Location: lower extremity Pain Consistency: + other (worsening) Maximum Pain Intensity: 10 Quality: + other (weakness) Associated symptoms: + denies other symptoms (abdominal pain, back pain, dysuria) and + other (fatigue, rhinorrhea, increased urination); no chest pain, no cough, no nausea/vomiting, no shortness of breath and no weakness (focal) The patient is an 83 year old female who presents to the Emergency Room with complaints of worsening weakness starting 3 weeks ago. The patients states that 3 weeks ago the patient fell and broke her pelvis. He states that since then she has had a gradual decline. He reports that she has become increasingly weak and fatigued. He reports that it has gotten to the point that she cannot even walk now. He states that prior to the fall, she walked fine on her own. He reports that he is concerned as it is getting difficult to care for her even with department head care givers. The patient complains of rhinorrhea and increased urination. She notes that she will go up to every hour. The patients notes that she is on Eliquis for atrial fibrillation. The patient denies chest pain, vomiting, shortness of breath, nausea, abdominal pain, diarrhea, cough, back pain, focal weakness, and dysuria. Home Medications Home Medications Medication Instructions Recorded Confirmed Type Eliquis 5 mg PO BID 04/02/18 11/22/18 History atenolol 1.5 tab PO QAM 04/02/18 11/22/18 History docusate sodium [Stool Softener] 100 mg PO DAILY PRN 04/02/18 11/22/18 History methotrexate sodium 3 tab PO WK 04/02/18 11/22/18 History methylprednisolone [Medrol] 4 mg PO QPM 04/02/18 11/22/18 History potassium chloride 20 meq PO BID 04/02/18 11/22/18 History furosemide [Lasix] 20 mg PO QAM 08/07/18 11/22/18 History donepezil 10 mg tablet 10 mg PO QPM 90 Days #90 tab 11/18/18 11/22/18 Rx Allergies Allergy/AdvReac Type Severity Reaction Status Date / Time No Known Allergies Allergy Verified 11/22/18 13:53 Past Med/Surg History Medical History Alzheimer disease (Chronic) Rheumatoid arthritis (Chronic) HTN (hypertension) (Chronic) Lumbago (Chronic) Atrial fibrillation Dementia GERD (gastroesophageal reflux disease) MILD Hypertension Rheumatoid arthritis Surgical History Post-operative state (Resolved) History of knee replacement procedure of right knee (Resolved) H/O arthroscopy of knee History of arthroscopy KNEE History of bilateral tubal ligation History of tooth extraction Hx of cataract surgery Family History Father Stroke Mother Myocardial infarction Other Family history non-contributory Social History Preferred Language: Fijian Communication Ability: Effective Test Desk Trouble Locator Required: No Beliefs That Will Affect Care: None marital status: Current Living Situation: Spouse current occupational status: retired Other Information That Helps Us Care for You: No Feels Safe at Home: Yes Safety Concerns: Feels Safe At This Time Smoking Status: Never smoker Second Hand Exposure: Yes ; Hx Alcohol Use: No Hx Substance Use: No Review of Systems See HPI for pertinent positives & negatives. and A total of 10 systems reviewed and were otherwise negative Physical Exam Vital Signs Vital Signs - 24 hr 11/22/18 12:34 11/22/18 13:12 11/22/18 13:41 Temperature 36.7 C Temperature Source Oral Sepsis Recent Fever Within 48 Hours No Sepsis New/Unexplained Change in Mental Status No Sepsis Action Taken by Nursing No Action Required Pulse Rate 56 L 48 L Pulse Rate from SpO2 Sensor 48 L Pulse Rhythm Regular Pulse Strength Normal Respiratory Rate 20 13 Respiratory Effort / Characteristics Non-Labored Respiratory Depth Normal Respiratory Pattern Regular Blood Pressure 150/82 H 135/70 Blood Pressure Mean 104 91 Blood Pressure Position Sitting Pulse Oximetry 99 99 100 Oxygen Delivery Method Room Air Room Air Room Air 11/22/18 13:51 11/22/18 14:00 11/22/18 14:41 Temperature Temperature Source Sepsis Recent Fever Within 48 Hours Sepsis New/Unexplained Change in Mental Status Sepsis Action Taken by Nursing Pulse Rate 58 L 51 L 55 L Pulse Rate from SpO2 Sensor 59 L Pulse Rhythm Pulse Strength Respiratory Rate 12 13 16 Respiratory Effort / Characteristics Respiratory Depth Respiratory Pattern Blood Pressure 159/77 H Blood Pressure Mean 104 Blood Pressure Position Pulse Oximetry 99 98 Oxygen Delivery Method Room Air Room Air 11/22/18 15:00 11/22/18 15:01 11/22/18 15:02 Temperature Temperature Source Sepsis Recent Fever Within 48 Hours Sepsis New/Unexplained Change in Mental Status Sepsis Action Taken by Nursing Pulse Rate 61 50 L 51 L Pulse Rate from SpO2 Sensor Pulse Rhythm Pulse Strength Respiratory Rate 16 16 18 Respiratory Effort / Characteristics Respiratory Depth Respiratory Pattern Blood Pressure 163/72 H Blood Pressure Mean 102 Blood Pressure Position Pulse Oximetry 96 Oxygen Delivery Method Room Air 11/22/18 15:30 11/22/18 15:31 Temperature Temperature Source Sepsis Recent Fever Within 48 Hours Sepsis New/Unexplained Change in Mental Status Sepsis Action Taken by Nursing Pulse Rate 58 L 60 Pulse Rate from SpO2 Sensor Pulse Rhythm Pulse Strength Respiratory Rate 16 19 Respiratory Effort / Characteristics Respiratory Depth Respiratory Pattern Blood Pressure 170/115 H Blood Pressure Mean 133 Blood Pressure Position Pulse Oximetry 97 Oxygen Delivery Method Room Air GENERAL: sitting up in bed, disheveled, soft spoken, chronically ill appearing HEAD: normal cephalic, atraumatic EYE EXAM: normal conjunctiva, PERRL and EOM's grossly intact OROPHARYNX: no exudate, no erythema, lips, buccal mucosa, and tongue normal and mucous membranes are moist NECK: supple, no nuchal rigidity, no adenopathy, non-tender CHEST: stable to compression anteriorly and posteriorly LUNGS: clear to auscultation. Normal chest wall mechanics HEART: no murmurs, S1 normal and S2 normal ABDOMEN: abdomen soft, non-tender, normo-active bowel sounds, no masses, no rebound or guarding. PELVIS: minimal tenderness to palpation of the anterior pelvis BACK: Back is symmetrical on inspection and there is no deformity, no midline tenderness, no CVA tenderness. UPPER EXTREMITIES: full active and passive range of motion of all joints without tenderness to palpation LOWER EXTREMITIES: full active and passive range of motion of all joints without tenderness to palpation NEURO EXAM: Normal sensorium, cranial nerves II-XII grossly intact, normal speech, no focal deficit in the upper lower extremity Course ED COURSE: Vital signs were reviewed and showed hypertension and bradycardia. The patients medical record was reviewed The above diagnostic studies were performed and reviewed. ED treatments and interventions as stated above. 1317: The patient was evaluated in room C12B. A complete history and physical examination was performed. 1421: Upon reevaluation, the patient is resting comfortably. I discussed my findings with the patient and her family and they understand and agree with the treatment plan. Based on the patients age, coexisting illnesses, exam and lab findings the decision to treat as an inpatient was made. The patient remained stable while under my care. The patient will be evaluated for further management. 1427: I discussed the patient's case with Dr. Corinne CARCAMO Hospitalist. She will evaluate the patient for further management. 1543: I reevaluated the patient and answered the patient's husbands questions at this time. Consultations Consultation #1: I discussed the patient's case with Dr. Corinne CARCAMO Hospitalist. She will evaluate the patient for further management. Time: 14:27 Administered Medications Discontinued Medications Sodium Chloride (Nss) 500 mls @ 999 mls/hr IV .Q31M JAS Stop: 11/22/18 13:30 Last Infusion: 11/22/18 14:14 Dose: 0 mls/hr Documented by: [id number] Admin: 11/22/18 13:43 Dose: 999 mls/hr Documented by: [id number] Medical Decision Making Differential Diagnosis Differential diagnoses include major intracranial, cervical, spinal, thoracic, abdominal, pelvic and neurologic injury. Fracture, contusion, sprain, strain, laceration, abrasions included as well. Medical Records Attestation: I reviewed the patient's medical records. Home Medications Current Medication List: was personally reviewed by me Laboratory Data Attestation: I reviewed the patient's lab results. Result diagrams: 11/22/18 13:16 11/22/18 13:16 Lab Results 11/22/18 11/22/18 11/22/18 Range/Units 13:16 13:16 13:16 WBC 4.79 L (4.8-10.8) K/uL RBC 3.88 L (4.2-5.4) M/uL Hgb 11.7 L (12.0-16.0) g/dL Hct 36.6 L (37-47) % MCV 94.3 (80-100) fL MCH 30.2 (25-34) pg MCHC 32.0 (32-36) g/dL RDW Std Deviation 52.2 H (36.4-46.3) fL RDW Coeff of Robert 15.3 H (11.5-14.5) % Plt Count 307 (130-400) K/uL MPV 9.8 (7.4-10.4) fL Immature Gran % (Auto) 0.4 % Neut % (Auto) 64.8 % Lymph % (Auto) 24.4 % Arroyo % (Auto) 8.1 % Eos % (Auto) 1.9 % Baso % (Auto) 0.4 % Immature Gran # (Auto) 0.02 (0.00-0.02) K/uL Neut # (Auto) 3.10 (1.4-6.5) K/uL Lymph # (Auto) 1.17 L (1.2-3.4) K/uL [place] # (Auto) 0.39 (0.11-0.59) K/uL Eos # (Auto) 0.09 (0-0.5) K/uL Baso # (Auto) 0.02 (0-0.2) K/uL PT 12.6 H (9.0-12.0) Seconds INR 1.2 H (0.9-1.1) Sodium 142 (136-145) mmol/L Potassium 3.8 (3.5-5.1) mmol/L Chloride 109 H (98-107) mmol/L Carbon Dioxide 25 (21-32) mmol/L Anion Gap 8.0 (3-11) BUN 15 (7-18) mg/dl Creatinine 0.74 (0.6-1.2) mg/dl Est Cr Clr Drug Dosing Not Reportable Est GFR ( Amer) 87.4 Est GFR (Non-Af Amer) 75.4 BUN/Creatinine Ratio 20.7 H (10-20) Glucose 101 H (70-99) mg/dl Calcium 9.1 (8.5-10.1) mg/dl Total Bilirubin 0.4 (0.2-1) mg/dl AST 16 (15-37) U/L ALT 13 (12-78) U/L Alkaline Phosphatase 202 H (45-117) U/L Troponin I 0.063 H* (0-0.045) ng/ml Total Protein 6.0 L (6.4-8.2) gm/dl Albumin 2.7 L (3.4-5.0) gm/dl Globulin 3.3 (2.5-4.0) gm/dl Albumin/Globulin Ratio 0.8 L (0.9-2) TSH 2.020 (0.300-4.500) uIu/ml Urine Color Urine Appearance (Clear) Urine pH (4.5-7.5) Ur Specific [place] (1.000-1.030) Urine Protein (Negative) Urine Glucose (UA) (Negative) Urine Ketones (Negative) Urine Blood (Negative) Urine Nitrite (Negative) Urine Bilirubin (Negative) Urine Urobilinogen (Negative) Ur Leukocyte Esterase (Negative) 11/22/18 Range/Units 13:34 WBC (4.8-10.8) K/uL RBC (4.2-5.4) M/uL Hgb (12.0-16.0) g/dL Hct (37-47) % MCV (80-100) fL MCH (25-34) pg MCHC (32-36) g/dL RDW Std Deviation (36.4-46.3) fL RDW Coeff of Robert (11.5-14.5) % Plt Count (130-400) K/uL MPV (7.4-10.4) fL Immature Gran % (Auto) % Neut % (Auto) % Lymph % (Auto) % [place]roy[place] % (Auto) % Eos % (Auto) % Baso % (Auto) % Immature Gran # (Auto) (0.00-0.02) K/uL Neut # (Auto) (1.4-6.5) K/uL Lymph # (Auto) (1.2-3.4) K/uL [place] # (Auto) (0.11-0.59) K/uL Eos # (Auto) (0-0.5) K/uL Baso # (Auto) (0-0.2) K/uL PT (9.0-12.0) Seconds INR (0.9-1.1) Sodium (136-145) mmol/L Potassium (3.5-5.1) mmol/L Chloride (98-107) mmol/L Carbon Dioxide (21-32) mmol/L Anion Gap (3-11) BUN (7-18) mg/dl Creatinine (0.6-1.2) mg/dl Est Cr Clr Drug Dosing Est GFR ( Amer) Est GFR (Non-Af Amer) BUN/Creatinine Ratio (10-20) Glucose (70-99) mg/dl Calcium (8.5-10.1) mg/dl Total Bilirubin (0.2-1) mg/dl AST (15-37) U/L ALT (12-78) U/L Alkaline Phosphatase (45-117) U/L Troponin I (0-0.045) ng/ml Total Protein (6.4-8.2) gm/dl Albumin (3.4-5.0) gm/dl Globulin (2.5-4.0) gm/dl Albumin/Globulin Ratio (0.9-2) TSH (0.300-4.500) uIu/ml Urine Color Yellow Urine Appearance Clear (Clear) Urine pH 5.0 (4.5-7.5) Ur Specific [place] 1.012 (1.000-1.030) Urine Protein Negative (Negative) Urine Glucose (UA) Negative (Negative) Urine Ketones Negative (Negative) Urine Blood Negative (Negative) Urine Nitrite Negative (Negative) Urine Bilirubin Negative (Negative) Urine Urobilinogen Negative (Negative) Ur Leukocyte Esterase Negative (Negative) Imaging Data Radiologist's Impression: Radiology results as stated below per my review and the radiologist's interpretation: XR chest 1V portable HISTORY: 83 years-old Female weakness acute weakness COMPARISON: Chest CT 08/07/2018 TECHNIQUE: Portable AP view of the chest FINDINGS: Pulmonary arterial hypertension. Cardiac silhouette is unchanged. No pneumothorax, pleural effusion, focal airspace consolidation or overt pulmonary edema. Degenerative changes of the shoulders and spine. IMPRESSION: No acute process. The above report was generated using voice recognition software. It may contain grammatical, syntax or spelling errors. Electronically signed by: Pedro Jenkins M.D. 11/22/2018 1:[address] head/brain wo con CLINICAL HISTORY: 83 years-old Female presenting with fall weak. TECHNIQUE: Multidetector CT imaging of the head was performed without the use of intravenous contrast. IV contrast: None. One or more dose lowering techniques were used consistent with the principles of ALARA (as low as reasonably achieva ble), including automatic exposure control, mA or kV adjustment to individual patient size, and/or use of iterative reconstruction. COMPARISON: 08/07/2018. CT DOSE (mGy.cm): The estimated cumulative dose is 720.23 mGy.cm. FINDINGS: Boiler Blower topogram: Unremarkable. Proportional ventricular and sulcal prominence, likely age-related parenchymal volume loss. No hemorrhage. Periventricular and subcortical white matter hypoattenuation, nonspecific but likely indicative of chronic small vessel ischemic change. No acute territorial infarct. No mass effect or midline shift. No extra-axial fluid collection. Paranasal sinuses and mastoid air cells clear. Calvarium intact. IMPRESSION: 1. Chronic small vessel ischemic change. No acute intracranial abnormality. Electronically signed by: Jorge Britt M.D. 11/22/2018 2:47 PM ECG Data Attestation: I personally reviewed and interpreted this ECG as follows: Indication: weakness Rate (beats per minute): 54 Rhythm: atrial fibrillation Findings: + other (normal axis) and + T-wave inversion (lead 3); no PVC Comparison ECG Date: from (08/07/2018) Change: no significant change Blood Pressure Blood Pressure Findings: Elevated blood pressure Blood Pressure Disposition: further management by hospitalist ISAIAH Najera Patient is an 83-year-old female who presents the ER for weakness brought in by the . Patient fell [address] and had [address] of the pelvis and x-ray of the left femur which showed left pelvic fracture. IV was established blood work was obtained and showed a mild leukopenia at 4.79. No significant anemia. INR was unremarkable. BMP along with LFTs bilirubin was unremarkable. Troponin was detectable at 0.08. Patient denied any chest pain or shortness of breath. TSH was unremarkable. EKG was unchanged from previous. UA was negative. CT of the head was negative. was initially concerned and wanted to get her placed into a rehab facility or admitted overnight and then placed in a rehab facility. He then changed his mind and noted that the only reason he wanted her admitted is for this troponin. Patient and were updated at bedside. Patient will likely need placement after evaluation of the troponin. Patient was given IV fluids while in the ER. Impression & Plan Elevated troponin, Weakness, Fall Discharge Plan Visit Data *Final* Discharge Date/Time: 11/22/18 16:31 Chief Complaint: Weakness Stated Complaint: WEAKNESS ED Provider: Allen Ma Discharge Problem: Elevated troponin, Weakness, Fall Patient Disposition: Admitted As Inpatient Discharge Instructions Interventions: ED Discharge Assessment Last Done: 11/22/18 16:31 Discharge Problem: Fall Qualifiers: Encounter type: subsequent encounter Qualified Code(s): W19.XXXD - Unspecified fall, subsequent encounter The scribe's documentation has been prepared under my direction and personally reviewed by me in its entirety. I confirm that the note above accurately reflects all work, treatment, procedures, and medical decision making performed by me.
[2018-11-22] MEDS ORDERED: HALOPERIDOL LACTATE 5 MG/ML 1 ML VIAL IV STA (19:42)
--- NOTE | 2018-11-22 20:50 | History & Physical Report ---
Date of Service November 22, 2018 Assessment & Plan (1) Elevated troponin: Admits to the PCU on telemetry for observation Troponin every 6 hours x3 with EKG Patient reports no chest pain. No significant changes in EKG. Plan to do echocardiogram and consult cardiology DVT prophylaxis continue Eliquis Monitor electrolytes Full code Present on Admission?: Yes (2) Weakness: Will try physical therapy with nonweightbearing on the left due to recent fracture of the left ischiopubic ring and subacute fracture of the first coccygeal segment. Pain management. There is a possibility that patient will not be able to perform physical therapy due to her advanced Alzheimer's dementia. Present on Admission?: Yes (3) Fall: As the above Present on Admission?: Yes (4) HTN (hypertension): Stable continue atenolol 1.5 tablet p.o. every morning, continue Eliquis 5 mg p.o. twice daily for atrial fibrillation's, continue furosemide 20 mg p.o. every morning, continue potassium chloride 20 mg p.o. twice daily. Present on Admission?: Yes (5) Vascular dementia: Patient is in advanced stage of vascular dementia. Continue donepezil 10 mg p.o. every afternoon. Present on Admission?: Yes History of Present Illness Chief Complaint: Elevated troponin, generalized weakness, immobility. Primary Care Provider: Logan Mcdonald MD Patient is an 83 years old female with past medical history of severe Alzheimer dementia, hypertension, frequent falls, rheumatoid arthritis, who was brought by her for worsening weakness started 3 weeks ago. Patient states that 3 weeks ago patient fell and broke her pelvis. He states that since then patient has gradual decline. She he reports that she became increasingly weak and fatigued. He also reports that 8 came to the point that she cannot even walk at all due to pain. Patient states that prior to this fall patient was able to walk on her own. Patient reports the patient also has issues with increased urination. And that she has to get up every out hour to go to the bathroom. Patient is on Eliquis for arterial fibrillation. Patient is poor historian but she denies fever chills headache chest pain shortness of breath abdominal pain , hematemesis hematuria, nausea or vomiting. Labs were reviewed:: Which shows white blood cell of of 4.79, hemoglobin 11.7, hematocrit 36.6, platelets 307, PT 12.6, INR 1.2, APTT was not done and PTT ratio was not done, sodium 142, potassium 3.8, chloride 109, creatinine 0.79 GFR 75.4, elevated troponin of 0.0 63--> 0.080, BNP is pending. Patient also had elevated troponin in July 2018 and it was even higher 0.116. Patient supposed to see backing in machine tender but that was postponed because patient fell. Made to admit patient to observation on telemetry and trend down troponin. EKG shows atrial fibrillation with slow ventricular response. Possible inferior infarct which was seen before July 2018, ventricular rate of 54. Allergies Allergy/AdvReac Type Severity Reaction Status Date / Time No Known Allergies Allergy Verified 11/22/18 13:53 Home Medications Home Medications Medication Instructions Recorded Confirmed Type Eliquis 5 mg PO BID 04/02/18 11/22/18 History atenolol 1.5 tab PO QAM 04/02/18 11/22/18 History docusate sodium [Stool Softener] 100 mg PO DAILY PRN 04/02/18 11/22/18 History methotrexate sodium 3 tab PO WK 04/02/18 11/22/18 History methylprednisolone [Medrol] 4 mg PO QPM 04/02/18 11/22/18 History potassium chloride 20 meq PO BID 04/02/18 11/22/18 History furosemide [Lasix] 20 mg PO QAM 08/07/18 11/22/18 History donepezil 10 mg tablet 10 mg PO QPM 90 Days #90 tab 11/18/18 11/22/18 Rx Past Med/Surg History Medical History Alzheimer disease (Chronic) Rheumatoid arthritis (Chronic) HTN (hypertension) (Chronic) Lumbago (Chronic) Atrial fibrillation Dementia GERD (gastroesophageal reflux disease) MILD Hypertension Rheumatoid arthritis Surgical History Post-operative state (Resolved) History of knee replacement procedure of right knee (Resolved) H/O arthroscopy of knee History of arthroscopy KNEE History of bilateral tubal ligation History of tooth extraction Hx of cataract surgery Family History Father Stroke Mother Myocardial infarction Other Family history non-contributory Social History Preferred Language: Mauritian Communication Ability: Effective Athletic Equipment Manager Required: No Beliefs That Will Affect Care: None marital status: Current Living Situation: Spouse current occupational status: retired Other Information That Helps Us Care for You: No Feels Safe at Home: Yes Safety Concerns: Feels Safe At This Time Smoking Status: Never smoker Second Hand Exposure: Yes ; Hx Alcohol Use: No Hx Substance Use: No Review of Systems Review of Systems: All systems reviewed & are unremarkable except as noted in HPI & below Physical Exam Constitutional: WD/WN, vitals as above well developed Eyes: PERRL, conjunctivae normal, anicteric sclerae ENMT: external ear and nose normal, oropharynx normal Neck: trachea midline, no thyromegaly Respiratory: normal respiratory effort, lungs clear to auscultation Cardiovascular: Heart Sounds: normal S1, normal S2 and + murmur Palpation: + palpable S3 Vessels: dorsalis pedis pulses present Chest (Breasts): normal inspection/palpation of breasts Gastrointestinal (Abdomen): normal bowel sounds, soft, nontender, no hepatosplenomegaly Musculoskeletal: no cyanosis or clubbing, extremities motor strength 5/5 Skin: no rashes, warm and dry Neurologic: patellar DTR's 2+ bilat, sensation intact Psychiatric: Severe Alzheimer dementia, patient is poor historian. Easily gets agitated especially with unknown personnel. Genitourinary: no vaginal lesions, no adnexal mass Lymphatic: no cervical or axillary lymphadenopathy Results & Data Vital Signs (Past 12 Hours) Vital Signs Temp Pulse Pulse Resp BP BP BP 11/22/18 19:34 36.8 C 52 L 18 118/64 11/22/18 16:54 36.7 C 55 L 20 167/84 H 11/22/18 16:01 59 L 16 150/79 H 11/22/18 16:00 55 L 16 11/22/18 15:31 60 19 170/115 H 11/22/18 15:30 58 L 16 11/22/18 15:02 51 L 18 11/22/18 15:01 50 L 16 163/72 H 11/22/18 15:00 61 16 11/22/18 14:41 55 L 16 11/22/18 14:00 51 L 13 159/77 H 11/22/18 13:51 58 L 12 11/22/18 13:41 48 L 13 135/70 11/22/18 13:12 11/22/18 12:34 36.7 C 56 L 20 150/82 H Pulse Ox 11/22/18 19:34 99 11/22/18 16:54 92 11/22/18 16:01 98 11/22/18 16:00 11/22/18 15:31 97 11/22/18 15:30 11/22/18 15:02 11/22/18 15:01 96 11/22/18 15:00 11/22/18 14:41 11/22/18 14:00 98 11/22/18 13:51 99 11/22/18 13:41 100 11/22/18 13:12 99 11/22/18 12:34 99 Code Status & VTE Plan Code Status Full code VTE Prophylaxis Plan VTE Prophylaxis will be ordered: Yes PG Care Time/CCT Total # of Minutes Spent Total Time Spent with Patient: Total time spent is greater than 50% in coordination of care (as documented) at patient's floor/unit and/or counseling patient: (1) Fall Encounter type: subsequent encounter Qualified Code(s): W19.XXXD - Unspecified fall, subsequent encounter
[2018-11-22] MEDS ORDERED: HEPARIN SOD 5,000 UNIT/0.5 ML VIAL SQ SCH (21:00)
[2018-11-22] MEDS: APIXABAN 5 MG TABLET PO SCH (21:32)
[2018-11-22] MEDS: DONEPEZIL HCL 10 MG TAB PO SCH (21:33)
[2018-11-22] MEDS: methylPREDNISolone 4 MG TAB PO SCH (21:34)
[2018-11-22 23:34] LABS: Troponin I 0.09 ng/ml (0-0.045)
[2018-11-23 06:59] LABS: Albumin Level 2.7 gm/dl (3.4-5.0); BUN Creatinine Ratio 19.8 (10-20); Calcium 8.9 mg/dl (8.5-10.1); Creatinine Clr Calc Pharmacy 65.5 ml/min; Est GFR (African American) 97.3; Potassium 3.8 mmol/L (3.5-5.1)
[2018-11-23 07:01] LABS: Albumin Globulin Ratio 0.8 (0.9-2); Bilirubin,Total 0.5 mg/dl (0.2-1); Globulin 3.2 gm/dl (2.5-4.0); Total Protein 5.9 gm/dl (6.4-8.2)
[2018-11-23] MEDS: ATENOLOL 50 MG TABLET PO SCH (08:07)
[2018-11-23] MEDS: FUROSEMIDE 20 MG TAB PO SCH (08:07)
[2018-11-23] MEDS: APIXABAN 5 MG TABLET PO SCH ×2 (08:07→21:41)
--- NOTE | 2018-11-23 08:36 | Hospitalist Progress Note ---
Date of Service November 23, 2018 Assessment & Plan (1) Elevated troponin: Continue PCU on telemetry for observation Wanda trending down troponin every 6 hours x3 with EKG Patient reports no chest pain. No significant changes in EKG. Echocardiogram: Pending Discussed with Dr. Graham and he did not recommend any kind of invasive cardiac procedure since troponin is trending down and patient has severe dementia and therefore poor candidate for for catheterization Plan to repeat x-rays of the left femur for ischiopubic ring fracture DVT prophylaxis continue Eliquis Monitor electrolytes Full code (2) Weakness: Will try physical therapy with nonweightbearing on the left due to recent fracture of the left ischiopubic ring and subacute fracture of the first coccygeal segment. Pain management. There is a possibility that patient will not be able to perform physical therapy due to her advanced Alzheimer's dementia. (3) Fall: As the above (4) HTN (hypertension): Stable continue atenolol 1.5 tablet p.o. every morning, continue Eliquis 5 mg p.o. twice daily for atrial fibrillation's, continue furosemide 20 mg p.o. every morning, continue potassium chloride 20 mg p.o. twice daily. (5) Vascular dementia: Patient is in advanced stage of vascular dementia. Continue donepezil 10 mg p.o. every afternoon. Subjective She is seen and examined at the bedside. Slowly improving today. Troponin is trending down. Patient continues to be severely demented but pleasant. Patient has good appetite. Patient is poor historian and it is hard to review systems with her. Apparently patient does not have fever and she is maintaining her blood pressure 126/66 her pulse is in range of 50-60. Review of Systems Review of Systems: All systems reviewed & are unremarkable except as noted in HPI & below Physical Exam Constitutional: WD/WN, vitals as above well developed Eyes: PERRL, conjunctivae normal, anicteric sclerae ENMT: external ear and nose normal, oropharynx normal Neck: trachea midline, no thyromegaly Respiratory: normal respiratory effort, lungs clear to auscultation Cardiovascular: Heart Sounds: normal S1, normal S2 and + murmur Palpation: + palpable S3 Vessels: dorsalis pedis pulses present Chest (Breasts): normal inspection/palpation of breasts Gastrointestinal (Abdomen): normal bowel sounds, soft, nontender, no hepatosplenomegaly Musculoskeletal: no cyanosis or clubbing, extremities motor strength 5/5 Skin: no rashes, warm and dry Neurologic: patellar DTR's 2+ bilat, sensation intact Genitourinary: no vaginal lesions, no adnexal mass Lymphatic: no cervical or axillary lymphadenopathy Results & Data Vital Signs (Past 12 Hours) Vital Signs Temp Pulse Resp BP BP Pulse Ox 11/23/18 08:06 67 11/23/18 07:04 36.5 C 55 L 18 137/64 100 11/23/18 04:00 36.9 C 50 L 16 129/61 97 11/22/18 23:02 36.9 C 54 L 16 133/63 100 PG Care Time/CCT Total # of Minutes Spent Total Time Spent with Patient: Total time spent is greater than 50% in coordination of care (as documented) at patient's floor/unit and/or counseling patient: (1) Fall Encounter type: subsequent encounter Qualified Code(s): W19.XXXD - Unspecified fall, subsequent encounter
--- NOTE | 2018-11-23 18:30 | XRay Report ---
XR pelvis 1-2V routine CLINICAL HISTORY: Follow up left ischiopubic ring fracture. COMPARISON: CT of the pelvis and left femur radiographs October 29, 2018. FINDINGS: The fracture of the left superior pubic ramus is obscured partially by stool. However, ali gnment is similar to prior exam. Alignment of the minimally displaced inferior pubic ramus fracture i s unchanged. There is no proximal femoral fracture. Sacral joints are intact. IMPRESSION: No significant change in alignment of the left ischiopubic ring fractures. Electronically signed by: Obdulio Wagner M.D. 11/23/2018 6:29 PM
[2018-11-23] MEDS: DONEPEZIL HCL 10 MG TAB PO SCH (21:41)
[2018-11-23] MEDS: methylPREDNISolone 4 MG TAB PO SCH (21:41)
[2018-11-24 07:34] LABS: Albumin Level 2.6 gm/dl (3.4-5.0); BUN Creatinine Ratio 25.4 (10-20); Creatinine Clr Calc Pharmacy 60.6 ml/min; Est GFR (African American) 94.9; Est GFR (Non-African American) 81.9; Potassium 3.6 mmol/L (3.5-5.1)
[2018-11-24 07:37] LABS: Albumin Globulin Ratio 0.9 (0.9-2); Bilirubin,Total 0.3 mg/dl (0.2-1); Total Protein 5.6 gm/dl (6.4-8.2)
--- NOTE | 2018-11-24 09:27 | Hospitalist Progress Note ---
Date of Service November 24, 2018 Assessment & Plan (1) Elevated troponin: Continue PCU on telemetry for observation Troponin trending down. Will stop further on checking troponin since patient does not have chest pain and appears to be related to cardiac strain due to congestive heart failure exacerbation. Free water extraction p.o. to 1200 mils. Trend down BNP. Discontinued p.o. furosemide and started on furosemide 20 mg IV twice daily Patient reports no chest pain. No significant changes in EKG. Echocardiogram: Pending Discussed with Dr. Graham and he did not recommend any kind of invasive cardiac procedure since troponin is trending down and patient has severe dementia and therefore poor candidate for for catheterization repeated x-rays of the left femur for ischiopubic ring fracture-did not show significant change from the previous one 3 weeks ago. Physical therapy assessed the patient yesterday but they would need more information from orthopedics in regards of continuation of physical therapy. Placed contact consult to orthopedics to advise us about further physical therapy for any that can be done for this patient due to recent left ischial ischiopubic ring fracture. DVT prophylaxis continue Eliquis Monitor electrolytes Full code (2) Weakness: Please see above. Pain management. There is a possibility that patient will not be able to perform physical therapy due to her advanced Alzheimer's dementia. (3) Fall: As the above (4) HTN (hypertension): Stable continue atenolol 1.5 tablet p.o. every morning, continue Eliquis 5 mg p.o. twice daily for atrial fibrillation's, started furosemide 20 mg IV BID , continue potassium chloride 20 mg p.o. daily. (5) Vascular dementia: Patient is in advanced stage of vascular dementia. Continue donepezil 10 mg p.o. every afternoon. Subjective She is seen and examined at the bedside. Slowly improving today. Troponin is trending down. Patient continues to be severely demented but pleasant. Noted that patient has volume overload and she is in mild congestive heart failure. This issue was discussed with and he understand that patient would need to stay at least 1 more day in the hospital and she is going to be a full admit at this point for acute exacerbation of congestive heart failure.her BNP is elevated to 6946. Discontinued p.o. furosemide and started IV twice a day. Patient has good appetite. Patient is poor historian and it is hard to review systems with her. Patient is afebrile. Review of Systems Review of Systems: All systems reviewed & are unremarkable except as noted in HPI & below Physical Exam Constitutional: WD/WN, vitals as above well developed Eyes: PERRL, conjunctivae normal, anicteric sclerae ENMT: external ear and nose normal, oropharynx normal Neck: trachea midline, no thyromegaly Respiratory: normal respiratory effort, lungs clear to auscultation Cardiovascular: Heart Sounds: normal S1, normal S2 and + murmur Palpation: + palpable S3 Vessels: dorsalis pedis pulses present Chest (Breasts): normal inspection/palpation of breasts Gastrointestinal (Abdomen): normal bowel sounds, soft, nontender, no hepatosplenomegaly Musculoskeletal: no cyanosis or clubbing, extremities motor strength 5/5 Skin: no rashes, warm and dry Neurologic: patellar DTR's 2+ bilat, sensation intact Genitourinary: no vaginal lesions, no adnexal mass Lymphatic: no cervical or axillary lymphadenopathy Results & Data Vital Signs (Past 12 Hours) Vital Signs Temp Pulse Pulse Resp BP BP Pulse Ox 11/24/18 08:59 56 L 11/24/18 07:46 36.9 C 58 L 18 132/61 99 11/24/18 04:26 36.8 C 71 20 136/70 99 11/23/18 23:53 36.9 C 64 20 134/58 L 98 11/23/18 22:20 48 L PG Care Time/CCT Total # of Minutes Spent Total Time Spent with Patient: Total time spent is greater than 50% in coordination of care (as documented) at patient's floor/unit and/or counseling patient: (1) Fall Encounter type: subsequent encounter Qualified Code(s): W19.XXXD - Unspecified fall, subsequent encounter
[2018-11-24] MEDS: FUROSEMIDE 20 MG TAB PO SCH (09:29)
[2018-11-24] MEDS: APIXABAN 5 MG TABLET PO SCH ×2 (09:29→20:50)
[2018-11-24] MEDS: ATENOLOL 50 MG TABLET PO SCH (09:30)
[2018-11-24] MEDS: FUROSEMIDE 20 MG in SYRINGE 0 ML IV SCH ×2 (10:06→17:49)
[2018-11-24] MEDS: POTASSIUM CHLORIDE 20 MEQ TABCR PO SCH (11:45)
[2018-11-24] MEDS: methylPREDNISolone 4 MG TAB PO SCH (20:50)
[2018-11-24] MEDS: DONEPEZIL HCL 10 MG TAB PO SCH (20:50)
[2018-11-25 06:30] LABS: Basophils # (auto) 0.01 K/uL (0-0.2); Basophils % (auto) 0.3 %; Eosinophils # (auto) 0.04 K/uL (0-0.5); Eosinophils % (auto) 1.1 %; Hematocrit (blood only) 34.9 % (37-47); Hemoglobin 11.2 g/dL (12.0-16.0); Immature Granulocytes # (auto) 0.02 K/uL (0.00-0.02); Immature Granulocytes % (auto) 0.6 %; Lymphocytes # (auto) 0.94 K/uL (1.2-3.4); Lymphocytes % (auto) 26.8 %; Mean Corpuscular Hemoglobin 30.2 pg (25-34); Mean Corpuscular Hgb Conc 32.1 g/dL (32-36); Mean Corpuscular Volume 94.1 fL (80-100); Mean Platelet Volume 9.9 fL (7.4-10.4); Monocytes # (auto) 0.31 K/uL (0.11-0.59); Monocytes % (auto) 8.8 %; Neutrophils # (auto) 2.19 K/uL (1.4-6.5); Neutrophils % (auto) 62.4 %; Platelet Count 279 K/uL (130-400); RDW Coefficient of Variation 15.2 % (11.5-14.5); RDW Standard Deviation 51.7 fL (36.4-46.3); Red Blood Count 3.71 M/uL (4.2-5.4); White Blood Count 3.51 K/uL (4.8-10.8)
[2018-11-25 07:07] LABS: Albumin Level 2.6 gm/dl (3.4-5.0); BUN Creatinine Ratio 22.4 (10-20); Calcium 9.2 mg/dl (8.5-10.1); Creatinine Clr Calc Pharmacy 65.5 ml/min; Est GFR (African American) 97.3; Potassium 3.8 mmol/L (3.5-5.1)
[2018-11-25 07:12] LABS: Albumin Globulin Ratio 0.8 (0.9-2); Bilirubin,Total 0.4 mg/dl (0.2-1); Globulin 3.2 gm/dl (2.5-4.0); Total Protein 5.8 gm/dl (6.4-8.2)
[2018-11-25] MEDS: FUROSEMIDE 20 MG TAB PO SCH (07:30)
[2018-11-25] MEDS: APIXABAN 5 MG TABLET PO SCH (08:20)
[2018-11-25] MEDS: POTASSIUM CHLORIDE 20 MEQ TABCR PO SCH (08:21)
[2018-11-25] MEDS: FUROSEMIDE 20 MG in SYRINGE 0 ML IV SCH (08:21)
[2018-11-25] MEDS: ATENOLOL 50 MG TABLET PO SCH (08:21)
--- NOTE | 2018-11-25 09:54 | Orthopedic Consultation ---
Date of Consultation November 25, 2018 Assessment & Plan (1) Fracture of left superior pubic ramus: I have reviewed the patient's current pelvis film as well as films done on 10/29/2018. There appears to be no significant changes with the pubic ring fracture. She appears to be recovering well from this fracture. Dr. Lyles has asked for recommendations for physical therapy. Ambulation training. She can be weightbearing as tolerated with a walker. With the minimal amount of pain she had with during exam, continue Tylenol as needed. is requesting that physical therapy show him and his some exercises that she can do on her own at home to help strengthen her LLE leg. If her pain worsens during her stay, a repeat CT scan of the pelvis can be considered. She can follow up at [facility] in 2 weeks. I will discuss this case with Dr Skinner who is the tea plantation worker Physician today. Thank you for this consult. (2) Fracture of left inferior pubic ramus: Supervising Physician Co-Signing Physician Notes I discussed this case with ELBA Moon, reviewed her imaging, and agree with his assessment and plan. No significant change in the left superior/inferior pubic rami fractures since initial imaging on 10/29. Consistent with LC-1 injury pattern. Weight bearing as tolerated. Agree with repeat CT if pain worsens. Sonido Skinner MD History of Present Illness Reason for Consultation: Left ischio pubic ring fractures Attending Physician: Cedric Lyles MD History of Present Illness Patient is an 83-year-old white female with history of Alzheimer disease (Chronic),Rheumatoid arthritis (Chronic),HTN (hypertension) (Chronic),Lumbago (Chronic),Atrial fibrillation,Dementia,GERD (gastroesophageal reflux disease),Hypertension was admitted for weakness that has been ongoing and worsening over the last 3 weeks. Patient was noted to have elevated troponin as well. Patient's is present and history of be taken from him as well as the chart due to patient's history of dementia. The patient had a fall approximately 1 month ago where she was brought to the emergency room. At that time was found that she had a issue pubic ring fracture on the left side. She was treated by the ER staff and was released with instructions for weightbearing as tolerated with walker. The patient's states that he was giving her Tylenol for pain control due to the fact that multiple medications that are stronger can cause problems with her dementia and her affect. She is now admitted for the above-noted worsening weakness and elevated troponin. Her states that she was complaining of left hip/extremity pain of recent. He feels that the long flight of stairs that they have at their home was part of this problem. We have been asked to see the patient for recommendations for weightbearing status and continued treatment of her left ischio pubic ring fracture. Currently the patient is awake and alert sitting up in bed. She is pleasant and answers some questions appropriately. She denies pain at this time at rest. Allergies Allergy/AdvReac Type Severity Reaction Status Date / Time No Known Allergies Allergy Verified 11/22/18 13:53 Home Medications Home Medications Medication Instructions Recorded Confirmed Type Eliquis 5 mg PO BID 04/02/18 11/22/18 History docusate sodium [Stool Softener] 100 mg PO DAILY PRN 04/02/18 11/22/18 History methotrexate sodium 3 tab PO WK 04/02/18 11/22/18 History methylprednisolone [Medrol] 4 mg PO QPM 04/02/18 11/22/18 History potassium chloride 20 meq PO BID 04/02/18 11/22/18 History furosemide [Lasix] 20 mg PO QAM 08/07/18 11/22/18 History donepezil 10 mg tablet 10 mg PO QPM 90 Days #90 tab 11/18/18 11/22/18 Rx atenolol 0.5 tab PO QAM #0 tab 11/25/18 11/22/18 Rx Patient History Medical History Alzheimer disease (Chronic) Rheumatoid arthritis (Chronic) HTN (hypertension) (Chronic) Lumbago (Chronic) Atrial fibrillation Dementia GERD (gastroesophageal reflux disease) MILD Hypertension Rheumatoid arthritis Surgical History Post-operative state (Resolved) History of knee replacement procedure of right knee (Resolved) H/O arthroscopy of knee History of arthroscopy KNEE History of bilateral tubal ligation History of tooth extraction Hx of cataract surgery Family History Father Stroke Mother Myocardial infarction Other Family history non-contributory Social History Preferred Language: Yi Communication Ability: Impaired 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 She is pleasant and cooperative. She is in no acute distress. On examination of her left lower extremity, she is nontender to palpation at the lateral hip. Palpation of the iliac crest it does not cause discomfort. She has no pain on palpation of the left femur, knee, lower extremity to the ankle. No overt swelling noted of the left lower extremity at this time. (Patient's states that her extremities have been swollen of the recent however with recent diuresis this is gotten much better.) She has good range of motion of her left ankle and toes without discomfort. Patient actively flexes and extends the knee and hip at this time without discomfort. With passive range of motion, I can take the patient through flexion extension of the left hip without discomfort. She has no pain with internal and external rotation of the hip. She has only slight pain with abduction of the hip. She has no pain with adduction of the hip. Axial loading does not cause pain. She denies any pains radiating down the lower extremity during range of motion. No gross motor or sensory loss seen at this time. Results & Data Vital Signs (Past 12 Hours) Vital Signs Temp Pulse Pulse Resp BP Pulse Ox 11/25/18 07:42 46 L 11/25/18 07:04 36.7 C 52 L 18 116/67 100 11/25/18 03:51 35.7 C L 51 L 16 137/76 100 11/25/18 00:12 36.5 C 57 L 14 143/82 H 98 Diagnostic Findings Patient: NEVILLE GARCIA Date: 11/22/18 MR#: [id number]: [id number] Acct ID:[id number]: [facility] Zip: [place] [address] Age: 83Location: 2E Sex: F Room/Bed: E210-1 Att Phy: Bryan Burdick MDDiagnosis: GENERALIZED MALAISE,ELEVATED TROPONIN Ginny Phy: Logan Loo M.D.Service Date: 11/23/18 Fam Phy:Interpreting Phy: Obdulio Wagner MD Admit Phy: Bryan Burdick MD Ordering Phy: Bryan Burdick MD cc: ~ XR pelvis 1-2V routine CLINICAL HISTORY: Follow up left ischiopubic ring fracture. COMPARISON: CT of the pelvis and left femur radiographs October 29, 2018. FINDINGS: The fracture of the left superior pubic ramus is obscured partially by stool. However, alignment is similar to prior exam. Alignment of the minimally displaced inferior pubic ramus fracture is unchanged. There is no proximal femoral fracture. Sacral joints are intact. IMPRESSION: No significant change in alignment of the left ischiopubic ring fractures. Electronically signed by: Obdulio Wagner M.D. 11/23/2018 6:[address] pelvis wo con CT DOSE: 629.44 mGy.cm CLINICAL HISTORY: Left-sided pain status post trauma TECHNIQUE: Helical images were acquired in transverse plane. Sagittal and coronal reformatted images were acquired. A dose lowering technique was utilized adhering to the principles of ALARA. COMPARISON STUDY: CT scan dated 08/07/2018, FINDINGS: There is no evidence of SI joint diastases. There is an acute fracture of the left ischio pubic ring. No proximal femoral fractures are visualized. It should be noted that acute fractures can be occult on CT imaging. There is no evidence for SI joint diastases. There is no evidence for symphysis diastases. Postsurgical changes are present within the lumbar spine. Irregularity of the left iliac crest, is felt to be chronic. There is a soft tissue hematoma located posterior to the left symphysis. There is enlarged left obturator internus muscle, likely secondary to hemorrhage. There is minimal mass effect on the inferior aspect of the bladder. There is a healing fracture of the first coccygeal segment. IMPRESSION: 1. Acute left ischio pubic ring fracture with an adjacent small hematoma. 2. Subacute healing fracture of the first coccygeal segment Electronically signed by: Fidel Martin M.D. 10/29/2018 1:29 PM XR femur LT 2V routine CLINICAL HISTORY: Left femur pain status post trauma COMPARISON: AP pelvis dated 10/24/2016 DISCUSSION: No fractures or dislocations of the left femur are visualized. There is a subtle left ischio pubic ring deformity suspicious for fracture. IMPRESSION: 1. Left ischio pubic ring fracture 2. No femoral fractures identified Electronically signed by: Fidel Martin M.D. 10/29/2018 2:14 PM
--- NOTE | 2018-11-25 15:29 | Discharge Summary ---
Date of Service November 25, 2018 Admission HPI Per Admitting Provider Patient is an 83 years old female with past medical history of severe Alzheimer dementia, hypertension, frequent falls, rheumatoid arthritis, who was brought by her for worsening weakness started 3 weeks ago. Patient states that 3 weeks ago patient fell and broke her pelvis. He states that since then patient has gradual decline. She he reports that she became increasingly weak and fatigued. He also reports that 8 came to the point that she cannot even walk at all due to pain. Patient states that prior to this fall patient was able to walk on her own. Patient reports the patient also has issues with increased urination. And that she has to get up every out hour to go to the bathroom. Patient is on Eliquis for arterial fibrillation. Patient is poor historian but she denies fever chills headache chest pain shortness of breath abdominal pain , hematemesis hematuria, nausea or vomiting. Labs were reviewed:: Which shows white blood cell of of 4.79, hemoglobin 11.7, hematocrit 36.6, platelets 307, PT 12.6, INR 1.2, APTT was not done and PTT ratio was not done, sodium 142, potassium 3.8, chloride 109, creatinine 0.79 GFR 75.4, elevated troponin of 0.0 63--> 0.080, BNP is pending. Patient also had elevated troponin in July 2018 and it was even higher 0.116. Patient supposed to see lubrication servicer but that was postponed because patient fell. Made to admit patient to observation on telemetry and trend down troponin. EKG shows atrial fibrillation with slow ventricular response. Possible inferior infarct which was seen before July 2018, ventricular rate of 54. Principal Diagnosis Adult failure to thrive Discharge Exam Constitutional + frail appearing ENMT external ear and nose normal, oropharynx normal Neck trachea midline, no thyromegaly Respiratory normal respiratory effort, lungs clear to auscultation Cardiovascular Heart Sounds: normal S1, normal S2 and + murmur Gastrointestinal (Abdomen) normal bowel sounds, soft, nontender, no hepatosplenomegaly Discharge Data Allergies Allergy/AdvReac Type Severity Reaction Status Date / Time No Known Allergies Allergy Verified 11/22/18 13:53 Consultations 11/22/18 14:30 ED Decision to Admit Stat 11/22/18 16:51 Consult Case Management - Discharge Planning Routine 11/24/18 10:28 Consult Orthopedic Surgery Routine Ordered Studies 11/22/18 14:09 CT head/brain wo con Stat Hospital Course (1) Weakness: Adult failure to thrive - Weakness, advanced age, dementia, left ischiopubic ring fracture, hypoalbuminemia. Appears to be multifactorial from all of these. - Seen by orthopedics who recommended weight-bearing as tolerated with a walker. PT saw the patient and recommended exercises for the patient to caregivers and family. - Patient's preferred the patient be taken home. Discharged with outpatient follow up. (2) Elevated troponin: No chest pain. Likely demand from a mild CHF exacerbation. Given 2 doses of IV Lasix with return to baseline weight. No shortness of breath or swelling on discharge. - Conservative care given her age and dementia. - Return to home Lasix. (3) Fall: As the above (4) HTN (hypertension): Stable continue atenolol 1.5 tablet p.o. every morning, continue Eliquis 5 mg p.o. twice daily for atrial fibrillation's, started furosemide 20 mg IV BID , continue potassium chloride 20 mg p.o. daily. (5) Vascular dementia: Patient is in advanced stage of vascular dementia. Continue donepezil 10 mg p.o. every afternoon. Total Time Total Time Spent Total Time Spent (In Minutes): 35 Discharge Plan Discharge Items Patient Disposition: Home - Home Health Services Reason For Visit: GENERALIZED MALAISE,ELEVATED TROPONIN Discharge Diagnosis: Weakness, high troponin Activity: Resume your previous activity Non-emergency contact: Primary Care Provider Call non-emergency contact if: your symptoms worsen and your temperature is above 101 Follow-up/Referrals: Logan Mcdonald MD [Primary Care Provider] - Diet: Heart Healthy and Low Sodium (2gm) Addtl Attending Provider Instructions: Ms. Ryan was brought in due to weakness. She had an elevated troponin that was thought to be due to stress from volume overload. She was given IV Lasix and did well with physical therapy. She will be discharged on her home Lasix. She should weigh herself every day and if her weight starts to increase, please double the Lasix that day and call Dr. Kelsea Guzmán. We did lower her atenolol to 25 mg (0.5 tablets) per day due to her heart rate as low as 45 on monitor in the hospital. Pending Studies at Discharge: No Stand-Alone Forms: My [facility] Medications and DC Order Prescriptions: Continued donepezil 10 mg tablet 10 mg PO QPM 90 Days Qty: 90 RF: 1 methylprednisolone [Medrol] 4 mg Tablet 4 mg PO QPM RF: 0 methotrexate sodium 2.5 mg Tablet 3 tab PO WK RF: 0 docusate sodium [Stool Softener] 100 mg Tablet 100 mg PO DAILY PRN (Reason: Constipation) RF: 0 Eliquis 5 mg Tablet 5 mg PO BID RF: 0 potassium chloride 10 mEq Tablet Extended Release 20 meq PO BID RF: 0 furosemide [Lasix] 20 mg tablet 20 mg PO QAM RF: 0 Changed atenolol 50 mg Tablet 0.5 tab PO QAM Qty: 0 RF: 0 Discharge Orders: Discharge Order (Routine); Ordered 11/25/18 Ordered By: Cedric Lyles Admission Data Admit Date/Time: 11/24/18 10:37 Attending Provider: Cedric Lyles Admit Provider: Bryan Burdick Primary Care Provider: Logan Mcdonald Other Providers: Simone Rg ; Cedric Lyles Other Interventions: Discharge Summary Assessment (RN) Last Done: 11/25/18 13:49 DC Date/Time DO NOT enter until pt leaves facility: 11/25/18 14:44
[2018-11-26] MEDS ORDERED: metHOTREXate sodium 2.5 MG TAB PO SCH (09:00)
--- NOTE | 2018-11-29 13:20 | Coding Query ---
CODING QUERY To promote full compliance with coding requirements relating to patient care, provider participation is requested in all cases of personnel analyst uncertainty. Please assist us with the question(s) below: Coding Question(s): There is documentation of, "Elevated troponin: No chest pain. Likely demand from a mild CHF exacerbation. Given 2 doses of IV Lasix with return to baseline weight.", beginning in Progress Note on 11/24 and on Discharge Summary. Please clarify below, regarding the mild CHF exacerbation. 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 ( ) CHF Exacerbation is likely Other: Please Specify Physician's Response(s): Thank you Annamarie Bustos Principal Diagnosis: "that condition established after study, to be chiefly responsible for occasioning the admission of the patient to the hospital for care." Co-Existing Principal Diagnosis: "when two or more diagnoses equally meet the criteria for principal diagnosis as determined by the circumstances of admission, diagnostic work up, and/or therapy provided, and the Alphabetic Index, Tabular List, or another coding guideline does not provide sequencing direction, any one of the diagnoses may be sequenced first." "When the physician has documented what appears to be a current diagnosis in the body of the record, but has not included the diagnosis in the final diagnostic statement, the physician should be asked whether the diagnosis should be added." (Source [facility] 2 QTR90. p3-4) LATOYA
== END 2018-11-25 14:44 | disposition home health service (06) | DRG 640 ==
LOC: 2E 12:31 → ED 12:31 → 2E 16:31 → SUATTDRO 11-24 10:37

== ENCOUNTER 2019-12-16 20:27 | Inpatient (IN) ==
--- NOTE | 2019-12-16 20:43 | Emergency Department Note ---
History of Present Illness General Chief complaint: Altered Mental Status Time Seen by Provider: 12/16/19 20:32 Source: patient Mode of arrival: EMS Limitations: physical limitation and other (Dementia) History of Present Illness Provider complaint: Decreased mental status This is a 84-year-old female who presents to the ED with a chief complaint of decreased alertness and a fall. The patient was transported here by EMS. EMS reported that the family felt that the patient's mental status is less than it usually is. She does have a history of dementia. She apparently had fallen in the bathroom causing an abrasion to her right shoulder. This happened about 1830 hrs. tonight. The patient currently is on Eliquis for her A. fib. Her prehospital blood sugar was 62. She was given D10 by EMS. When the patient is asked if anything bothers her, she states no. When asked specific questions such as chest pain, shortness of breath, abdominal pains, nausea vomiting etc., she denies any complaints. When I asked if anything bothers her, she states " just you". Home Medications Home Medications Medication Instructions Recorded Confirmed Type Eliquis 5 mg PO BID 04/02/18 12/16/19 History docusate sodium [Stool Softener] 100 mg PO DAILY PRN 04/02/18 12/16/19 History potassium chloride 10 meq PO BID 04/02/18 12/16/19 History furosemide 20 mg tablet 20 mg PO QAM #30 tab 02/24/19 12/16/19 Rx atenolol 50 mg tablet 25 mg PO QAM #45 tab 09/02/19 12/16/19 Rx donepezil 10 mg tablet 10 mg PO DAILY 30 Days #30 tab 10/10/19 12/16/19 Rx memantine 5 mg tablet 5 mg PO BID 30 Days #60 tab 10/10/19 12/16/19 Rx Allergies Allergy/AdvReac Type Severity Reaction Status Date / Time No Known Allergies Allergy Verified 12/16/19 21:58 Past Med/Surg History Medical History Alzheimer disease Atrial fibrillation Dementia GERD (gastroesophageal reflux disease) MILD HTN (hypertension) Hypertension Lumbago Rheumatoid arthritis Rheumatoid arthritis Surgical History H/O arthroscopy of knee History of arthroscopy KNEE History of bilateral tubal ligation History of knee replacement procedure of right knee History of tooth extraction Hx of cataract surgery Post-operative state Family History Father Stroke Mother Myocardial infarction Other Family history non-contributory Social History Smoking Status: Unknown if ever smoked Second Hand Exposure: Yes; Hx Alcohol Use: No Hx Substance Use: No Preferred Language: Yoruba Communication Ability: Impaired Survey Research Associate Required: No Beliefs That Will Affect Care: None marital status: Current Living Situation: Spouse current occupational status: retired How many Children do You have: 1 Feels Safe at Home: Yes Assistive Devices: Walker Review of Systems A total of 10 systems reviewed and were otherwise negative Physical Exam Vital Signs Vital Signs - 24 hr 12/16/19 20:39 12/16/19 22:19 12/16/19 22:21 Temperature 37.3 C Temperature Source Oral Pulse Rate 94 H Pulse Rate [Apical] 85 Respiratory Rate 20 18 Respiratory Effort / Characteristics Non-Labored Non-Labored Respiratory Depth Normal Normal Blood Pressure 156/79 H Blood Pressure [Left Arm] 122/60 Blood Pressure Mean 104 Blood Pressure Mean [Left Arm] 80 Pulse Oximetry 95 97 97 Oxygen Delivery Method Room Air Room Air Room Air Sepsis Recent Fever Within 48 Hours No Sepsis New/Unexplained Change in Mental Status Yes Sepsis Action Taken by Nursing No Action Required CONSTITUTIONAL/VITAL SIGNS: Reviewed / noted above. GENERAL: Non-toxic in appearance. Chronically ill-appearing INTEGUMENTARY: Warm, dry, and [place]. There is an abrasion to the right posterior shoulder. HEAD: Normocephalic. EYES: without scleral icterus or trauma. ENT/OROPHARYNX: clear and moist. LYMPHADENOPATHY/NECK: Is supple without lymphadenopathy or meningismus. RESPIRATORY: Lungs clear and equal. CARDIOVASCULAR: Regular rate and rhythm. GI/ABDOMEN: Soft and nontender. No organomegaly or pulsatile mass. No rebound or guarding. Normal bowel sounds. EXTREMITIES: Warm and well perfused. BACK: No CVA tenderness. NEUROLOGICAL: Patient is a poor historian. Generalized weakness but no focal deficit. PSYCHIATRIC: normal affect. MUSCULOSKELETAL: Normally developed with generally poor muscle tone. TRIAGE NURSING DOCUMENTATION REVIEWED. Course Administered Medications Discontinued Medications Sodium Chloride (Nss) 500 mls @ 999 mls/hr IV .Q31M JAS Stop: 12/16/19 21:30 Last Admin: 12/16/19 22:17 Dose: 999 mls/hr Documented by: [id number] Medical Decision Making Differential Diagnosis Differential includes acute coronary syndrome, myocardial infarction, CVA, TIA, anemia, infection, pneumonia, UTI, pyelonephritis, poor nutrition, dehydration, electrolyte disturbance,hypoglycemia. Medical Records Attestation: I reviewed the patient's medical records. Home Medications Current Medication List: was personally reviewed by me Laboratory Data Result diagrams: 12/16/19 21:56 12/16/19 21:56 Lab Results 12/16/19 12/16/19 12/16/19 Range/Units 20:44 21:30 21:56 WBC 7.67 (4.8-10.8) K/uL RBC 4.68 (4.2-5.4) M/uL Hgb 11.1 L (12.0-16.0) g/dL Hct 35.8 L (37-47) % MCV 76.5 L (80-100) fL MCH 23.7 L (25-34) pg MCHC 31.0 L (32-36) g/dL RDW Std Deviation 43.9 (36.4-46.3) fL RDW Coeff of Robert 15.8 H (11.5-14.5) % Plt Count 172 (130-400) K/uL MPV 10.5 H (7.4-10.4) fL Immature Gran % (Auto) 0.3 % Neut % (Auto) 70.1 % Lymph % (Auto) 22.2 % [place] % (Auto) 6.5 % Eos % (Auto) 0.5 % Baso % (Auto) 0.4 % Neut # (Auto) 5.38 (1.4-6.5) K/uL Lymph # (Auto) 1.70 (1.2-3.4) K/uL [place] # (Auto) 0.50 (0.11-0.59) K/uL Eos # (Auto) 0.04 (0-0.5) K/uL Baso # (Auto) 0.03 (0-0.2) K/uL Immature Gran # (Auto) 0.02 (0.00-0.02) K/uL Sodium (136-145) mmol/L Potassium (3.5-5.1) mmol/L Chloride (98-107) mmol/L Carbon Dioxide (21-32) mmol/L Anion Gap (3-11) BUN (7-18) mg/dl Creatinine (0.6-1.2) mg/dl Est Cr Clr Drug Dosing Est GFR ( Amer) Est GFR (Non-Af Amer) BUN/Creatinine Ratio (10-20) Glucose (70-99) mg/dl POC Glucose 110 H (70-99) mg/dl Calcium (8.5-10.1) mg/dl Total Bilirubin (0.2-1) mg/dl AST (15-37) U/L ALT (12-78) U/L Alkaline Phosphatase (45-117) U/L Total Creatine Kinase (26-192) U/L Total Protein (6.4-8.2) gm/dl Albumin (3.4-5.0) gm/dl Globulin (2.5-4.0) gm/dl Albumin/Globulin Ratio (0.9-2) Urine Color Dark Yellow Urine Appearance Cloudy A (Clear) Urine pH 5.0 (4.5-7.5) Ur Specific [place] 1.021 (1.000-1.030) Urine Protein 2+ H (Negative) Urine Glucose (UA) 1+ H (Negative) Urine Ketones Trace H (Negative) Urine Blood 3+ H (Negative) Urine Nitrite Negative (Negative) Urine Bilirubin Negative (Negative) Urine Urobilinogen Negative (Negative) Ur Leukocyte Esterase Negative (Negative) Urine WBC (Auto) 1-5 (0-5) /hpf Urine RBC (Auto) 0-4 (0-4) /hpf U Hyaline Cast (Auto) 10-30 H (0-5) /lpf U Epithel Cells (Auto) >30 H (0-5) /lpf Urine Bacteria (Auto) Negative (Negative) Ur Renal Epithelial Cell Not Reportable Amorphous Sediment Present A (None Prsent) 12/16/19 Range/Units 21:56 WBC (4.8-10.8) K/uL RBC (4.2-5.4) M/uL Hgb (12.0-16.0) g/dL Hct (37-47) % MCV (80-100) fL MCH (25-34) pg MCHC (32-36) g/dL RDW Std Deviation (36.4-46.3) fL RDW Coeff of Robert (11.5-14.5) % Plt Count (130-400) K/uL MPV (7.4-10.4) fL Immature Gran % (Auto) % Neut % (Auto) % Lymph % (Auto) % [place] % (Auto) % Eos % (Auto) % Baso % (Auto) % Neut # (Auto) (1.4-6.5) K/uL Lymph # (Auto) (1.2-3.4) K/uL [place] # (Auto) (0.11-0.59) K/uL Eos # (Auto) (0-0.5) K/uL Baso # (Auto) (0-0.2) K/uL Immature Gran # (Auto) (0.00-0.02) K/uL Sodium 137 (136-145) mmol/L Potassium 3.6 (3.5-5.1) mmol/L Chloride 107 (98-107) mmol/L Carbon Dioxide 21 (21-32) mmol/L Anion Gap 9.0 (3-11) BUN 28 H (7-18) mg/dl Creatinine 1.56 H (0.6-1.2) mg/dl Est Cr Clr Drug Dosing Not Reportable Est GFR ( Amer) 35.2 Est GFR (Non-Af Amer) 30.4 BUN/Creatinine Ratio 18.1 (10-20) Glucose 128 H (70-99) mg/dl POC Glucose (70-99) mg/dl Calcium 8.6 (8.5-10.1) mg/dl Total Bilirubin 0.6 (0.2-1) mg/dl AST 97 H (15-37) U/L ALT 32 (12-78) U/L Alkaline Phosphatase 74 (45-117) U/L Total Creatine Kinase 1141 H (26-192) U/L Total Protein 6.0 L (6.4-8.2) gm/dl Albumin 2.7 L (3.4-5.0) gm/dl Globulin 3.3 (2.5-4.0) gm/dl Albumin/Globulin Ratio 0.8 L (0.9-2) Urine Color Urine Appearance (Clear) Urine pH (4.5-7.5) Ur Specific [place] (1.000-1.030) Urine Protein (Negative) Urine Glucose (UA) (Negative) Urine Ketones (Negative) Urine Blood (Negative) Urine Nitrite (Negative) Urine Bilirubin (Negative) Urine Urobilinogen (Negative) Ur Leukocyte Esterase (Negative) Urine WBC (Auto) (0-5) /hpf Urine RBC (Auto) (0-4) /hpf U Hyaline Cast (Auto) (0-5) /lpf U Epithel Cells (Auto) (0-5) /lpf Urine Bacteria (Auto) (Negative) Ur Renal Epithelial Cell Amorphous Sediment (None Prsent) Imaging Data Attestation: I personally reviewed and interpreted this imaging study as follows: My Impression: Chest x-ray: Per my interpretation is negative for acute disease. No pneumothorax or pneumonia. Suboptimal study. Rotated. CT scan of the brain: Per the radiologist/stat rad there is no acute intracranial process. ECG Data Attestation: I personally reviewed and interpreted this ECG as follows: Indication: + altered mental status Rate (beats per minute): 93 Rhythm: + normal sinus ECG ST segments: no ST elevation ECG Findings: no PVCs MDM Narrative The patient presents with a slight decrease in mental status as well as a fall today in the bathroom. She is on Eliquis for A. fib. Her exam reveals an abrasion to the right shoulder. She denies any other complaints. Vital signs are stable. She is afebrile. Chest x-ray and CT scan of the brain did not show acute process. A twelve-lead EKG shows a sinus rhythm without ischemic changes. CBC is unremarkable. BUN is 28 and creatinine is 1.56. Total CK is 1141. Urine did not show infection. Patient was hydrated with IV fluids. She will be seen by the hospitalist for further inpatient evaluation and care. Impression & Plan Rhabdomyolysis, Fall, Multiple contusions, Altered mental status Discharge Plan Visit Data Chief Complaint: Altered Mental Status ED Provider: Will Truong Discharge Problem: Rhabdomyolysis, Fall, Multiple contusions, Altered mental status Patient Disposition: Being Evaluated by Hospitalist Forms Stand Alone Forms: My [facility] Prescriptions Prescriptions: No Action furosemide [Lasix] 20 mg tablet 20 mg PO QAM Qty: 30 RF: 0 atenolol 50 mg tablet 25 mg PO QAM Qty: 45 RF: 3 memantine 5 mg tablet 5 mg PO BID 30 Days Qty: 60 RF: 5 donepezil 10 mg tablet 10 mg PO DAILY 30 Days Qty: 30 RF: 11 docusate sodium [Stool Softener] 100 mg Tablet 100 mg PO DAILY PRN (Reason: Constipation) RF: 0 Eliquis 5 mg Tablet 5 mg PO BID RF: 0 potassium chloride 10 mEq Tablet Extended Release 10 meq PO BID RF: 0 Referrals Referrals: Logan Mcdonald MD [Primary Care Provider] - Discharge Problem: Rhabdomyolysis Qualifiers: Rhabdomyolysis type: traumatic Encounter type: initial encounter Qualified Code(s): T79.6XXA - Traumatic ischemia of muscle, initial encounter Fall Qualifiers: Encounter type: initial encounter Qualified Code(s): W19.XXXA - Unspecified fall, initial encounter Altered mental status Qualifiers: Altered mental status type: disorientation Qualified Code(s): R41.0 - Disorientation, unspecified
[2019-12-16] MEDS ORDERED: SODIUM CHLORIDE 0.9% 500 ML IV SCH (21:00)
[2019-12-16 22:04] LABS: Appearance Urine Cloudy (Clear); Bacteria Urine Automated Negative (Negative); Blood Urine 3+ (Negative); Color Urine Dark Yellow; Epithelial Cell Urine Auto >30 /lpf (0-5); Glucose Urine UA 1+ (Negative); Ketones Urine Trace (Negative); Leukocyte Esterase Urine Negative (Negative); Nitrite Urine Negative (Negative); Protein Urine 2+ (Negative); RBC Urine Automated 0-4 /hpf (0-4); Specific Gravity Urine 1.021 (1.000-1.030); Urobilinogen Urine Negative (Negative)
[2019-12-16 22:06] LABS: Basophils # (auto) 0.03 K/uL (0-0.2); Basophils % (auto) 0.4 %; Eosinophils # (auto) 0.04 K/uL (0-0.5); Eosinophils % (auto) 0.5 %; Hematocrit (blood only) 35.8 % (37-47); Hemoglobin 11.1 g/dL (12.0-16.0); Immature Granulocytes # (auto) 0.02 K/uL (0.00-0.02); Immature Granulocytes % (auto) 0.3 %; Lymphocytes % (auto) 22.2 %; Mean Corpuscular Hemoglobin 23.7 pg (25-34); Mean Corpuscular Volume 76.5 fL (80-100); Mean Platelet Volume 10.5 fL (7.4-10.4); Monocytes % (auto) 6.5 %; Neutrophils # (auto) 5.38 K/uL (1.4-6.5); Neutrophils % (auto) 70.1 %; Platelet Count 172 K/uL (130-400); RDW Coefficient of Variation 15.8 % (11.5-14.5); RDW Standard Deviation 43.9 fL (36.4-46.3); Red Blood Count 4.68 M/uL (4.2-5.4); White Blood Count 7.67 K/uL (4.8-10.8)
[2019-12-16 22:19] LABS: Bilirubin Urine Negative (Negative); Ictotest Urine Negative (Negative)
[2019-12-16 22:21] LABS: Amorphous Sediment Urine Present (None Prsent)
[2019-12-16 22:26] LABS: Alanine Aminotransferase 32 U/L (12-78); Albumin Level 2.7 gm/dl (3.4-5.0); Aspartate Aminotransferase 97 U/L (15-37); BUN Creatinine Ratio 18.1 (10-20); Blood Urea Nitrogen 28 mg/dl (7-18); Calcium 8.6 mg/dl (8.5-10.1); Carbon Dioxide 21 mmol/L (21-32); Chloride 107 mmol/L (98-107); Est GFR (African American) 35.2; Est GFR (Non-African American) 30.4; Glucose 128 mg/dl (70-99); Potassium 3.6 mmol/L (3.5-5.1); Sodium 137 mmol/L (136-145)
[2019-12-16 22:41] LABS: Albumin Globulin Ratio 0.8 (0.9-2); Alkaline Phosphatase 74 U/L (45-117); Bilirubin,Total 0.6 mg/dl (0.2-1); Creatine Kinase 1141 U/L (26-192); Globulin 3.3 gm/dl (2.5-4.0)
[2019-12-16] MEDS: SODIUM CHLORIDE 0.9% 500 ML IV SCH (23:27)
[2019-12-17] MEDS ORDERED: DEXAMETHASONE SOD INJ 10 MG/ML VIAL IV ONE (01:49)
--- NOTE | 2019-12-17 02:16 | History & Physical Report ---
Date of Service December 17, 2019 Assessment & Plan (1) Rhabdomyolysis: 84yo female with Alzheimer's dementia presenting from home after being found down. Patient with rhabdomyolysis, CK elevated at 1141, UA with +Bld with absence of RBCs suggesting myoglobinuria. BUN and Cr elevated from baseline to 28 and 1.56, respectively (from 16 and 0.9 on 03/14/19). Rhabdomyolysis possibly secondary to fall with prolonged down time vs myositis in setting of Covid-19 infection. -Continue IVF - NSS at 100mL/hr -Monitor UOP -Repeat CK with AM labs Present on Admission?: Yes (2) LINO (acute kidney injury): Elevated BUN and Cr as above in setting of rhabdomyolysis, Covid-19 infection. Patient appears clinically dry on exam -NSS as above -Monitor BUN/Cr/electrolytes and UOP -Avoid nephrotoxic agents -Renal dosing where needed Present on Admission?: Yes (3) COVID-19: Patient with Covid-19 infection as confirmed by in-hospital PCR. Presently afebrile, HD stable, no respiratory distress. Oxygen saturation overall adequate, however ranging 91-97%. CXR unremarkable -Maintain isolation precautions - Contact and airborne -Dexamethasone 6mg IV daily -Pepcid 20mg IV daily -Will hold on Remdesivir for now, continue to monitor patient's respiratory status and oxygenation -Eliquis anticoagulation as below -Check inflammatory markers - D-dimer, ESR, CRP, Ferritin -Tylenol as needed for fever. Avoid NSAIDS (4) Altered mental status: Patient with history of dementia, unknown baseline. AMS in setting of Covid-19 infection, rhabdomyolysis, LINO -Treatment as above -Frequent orientation to place/date/time/situation Present on Admission?: Yes (5) Vascular dementia: -Continue Aricept -Continue Memantine (6) Atrial fibrillation: Rate controlled. Anticoagulated on Eliquis -Continue Eliquis -Continue Atenolol Present on Admission?: Yes (7) HTN (hypertension): Chronic. Stable -Continue Atenolol -Continue to monitor F/E/N - NSS at 100mL/hr x 2 liters, monitor electrolytes, continue K supplementation with caution, regular/easy to chew diet as tolerated Ppx - Eliquis Code - Full per review of records. Attempted to contact family to further discuss goals of care Dispo - Admit to medical Present on Admission?: Yes History of Present Illness Chief Complaint: weakness Primary Care Provider: Logan Mcdonald MD Macrina Ryan is an 84yo female with history of AF on Eliquis anticoagulation, GERD, HTN and Alzheimer's dementia presenting from home after being found down on the bathroom floor. Patient is unable to provide details of events prior to arrival. No family at bedside currently. History obtained through chart review and discussion with ER attending. Patient's son and were recently found to be positive for Covid-19 Patient was found down on the bathroom floor this evening at appx 1830, abrasion to right shoulder. Unknown down time. EMS called. BS was 62, patient given D10 by EMS. reports some increased confusion. ER Course: Dexamethasone 6mg, NSS x 750mL Allergies Allergy/AdvReac Type Severity Reaction Status Date / Time No Known Allergies Allergy Verified 12/16/19 21:58 Home Medications Home Medications Medication Instructions Recorded Confirmed Type Eliquis 5 mg PO BID 04/02/18 12/16/19 History docusate sodium [Stool Softener] 100 mg PO DAILY PRN 04/02/18 12/16/19 History potassium chloride 10 meq PO BID 04/02/18 12/16/19 History furosemide 20 mg tablet 20 mg PO QAM #30 tab 02/24/19 12/16/19 Rx atenolol 50 mg tablet 25 mg PO QAM #45 tab 09/02/19 12/16/19 Rx donepezil 10 mg tablet 10 mg PO DAILY 30 Days #30 tab 10/10/19 12/16/19 Rx memantine 5 mg tablet 5 mg PO BID 30 Days #60 tab 10/10/19 12/16/19 Rx Past Med/Surg History Medical History Alzheimer disease Atrial fibrillation Dementia GERD (gastroesophageal reflux disease) MILD HTN (hypertension) Hypertension Lumbago Rheumatoid arthritis Rheumatoid arthritis Surgical History H/O arthroscopy of knee History of arthroscopy KNEE History of bilateral tubal ligation History of knee replacement procedure of right knee History of tooth extraction Hx of cataract surgery Post-operative state Family History Father Stroke Mother Myocardial infarction Other Family history non-contributory Social History Smoking Status: Unknown if ever smoked Second Hand Exposure: Yes; Hx Alcohol Use: No Hx Substance Use: No Preferred Language: Maori Communication Ability: Impaired Fur Dyer Required: No Beliefs That Will Affect Care: None marital status: Current Living Situation: Spouse current occupational status: retired How many Children do You have: 1 Feels Safe at Home: Yes Assistive Devices: Walker Review of Systems Review of Systems: Unobtainable due to cognitive status Physical Exam Physical Exam: General: patient ill in appearance, does not answer questions, is able to state name Skin: warm, dry, intact, scattered bruises on forearms and legs, large ecchymotic area on right shoulder HEENT: NC/AT, PERRL, EOMI, anicteric sclera, conjunctiva without injection, external ear normal to inspection and nontender, nares patent, dry mucus membranes, dentition intact, no oropharyngeal lesions, neck supple, trachea midline, no LAD, no thyromegaly, no JVD Heart: +S1/S2, irregularly irregular, no m/r/g Lungs: equal air entry bilaterally, no rales/rhonchi/wheezes Abd: +BS, soft, NT/ND, no masses/organomegaly/ascites Ext: warm, 2+ pulses in UE/LE bilaterally, no clubbing/cyanosis or edema Neuro: patient moving all extremities with equal strength Results & Data Results & Data ([facility]) Vital Signs (Past 12 Hours) Vital Signs Temp Pulse Pulse Resp BP BP Pulse Ox 12/17/19 01:37 73 20 140/69 93 12/17/19 00:49 73 20 120/56 L 91 12/17/19 00:06 75 20 108/62 98 12/16/19 23:49 69 20 117/60 97 12/16/19 22:21 85 18 122/60 97 12/16/19 22:19 97 12/16/19 20:39 37.3 C 94 H 20 156/79 H 95 Laboratory Results Lab Results 12/16/19 12/16/19 12/16/19 Range/Units 20:44 21:30 21:56 WBC 7.67 (4.8-10.8) K/uL RBC 4.68 (4.2-5.4) M/uL Hgb 11.1 L (12.0-16.0) g/dL Hct 35.8 L (37-47) % MCV 76.5 L (80-100) fL MCH 23.7 L (25-34) pg MCHC 31.0 L (32-36) g/dL RDW Std Deviation 43.9 (36.4-46.3) fL RDW Coeff of Robert 15.8 H (11.5-14.5) % Plt Count 172 (130-400) K/uL MPV 10.5 H (7.4-10.4) fL Immature Gran % (Auto) 0.3 % Neut % (Auto) 70.1 % Lymph % (Auto) 22.2 % [place] % (Auto) 6.5 % Eos % (Auto) 0.5 % Baso % (Auto) 0.4 % Neut # (Auto) 5.38 (1.4-6.5) K/uL Lymph # (Auto) 1.70 (1.2-3.4) K/uL [place] # (Auto) 0.50 (0.11-0.59) K/uL Eos # (Auto) 0.04 (0-0.5) K/uL Baso # (Auto) 0.03 (0-0.2) K/uL Immature Gran # (Auto) 0.02 (0.00-0.02) K/uL Sodium (136-145) mmol/L Potassium (3.5-5.1) mmol/L Chloride (98-107) mmol/L Carbon Dioxide (21-32) mmol/L Anion Gap (3-11) BUN (7-18) mg/dl Creatinine (0.6-1.2) mg/dl Est Cr Clr Drug Dosing Est GFR ( Amer) Est GFR (Non-Af Amer) BUN/Creatinine Ratio (10-20) Glucose (70-99) mg/dl POC Glucose 110 H (70-99) mg/dl Calcium (8.5-10.1) mg/dl Total Bilirubin (0.2-1) mg/dl AST (15-37) U/L ALT (12-78) U/L Alkaline Phosphatase (45-117) U/L Total Creatine Kinase (26-192) U/L Total Protein (6.4-8.2) gm/dl Albumin (3.4-5.0) gm/dl Globulin (2.5-4.0) gm/dl Albumin/Globulin Ratio (0.9-2) Urine Color Dark Yellow Urine Appearance Cloudy A (Clear) Urine pH 5.0 (4.5-7.5) Ur Specific [place] 1.021 (1.000-1.030) Urine Protein 2+ H (Negative) Urine Glucose (UA) 1+ H (Negative) Urine Ketones Trace H (Negative) Urine Blood 3+ H (Negative) Urine Nitrite Negative (Negative) Urine Bilirubin Negative (Negative) Urine Urobilinogen Negative (Negative) Ur Leukocyte Esterase Negative (Negative) Urine WBC (Auto) 1-5 (0-5) /hpf Urine RBC (Auto) 0-4 (0-4) /hpf U Hyaline Cast (Auto) 10-30 H (0-5) /lpf U Epithel Cells (Auto) >30 H (0-5) /lpf Urine Bacteria (Auto) Negative (Negative) Ur Renal Epithelial Cell Not Reportable Amorphous Sediment Present A (None Prsent) COVID-19 Eval Order COVID-19 PCR (Negative) SARS-CoV-2 RNA (RT-PCR) 12/16/19 12/16/19 12/16/19 Range/Units 21:56 23:10 23:10 WBC (4.8-10.8) K/uL RBC (4.2-5.4) M/uL Hgb (12.0-16.0) g/dL Hct (37-47) % MCV (80-100) fL MCH (25-34) pg MCHC (32-36) g/dL RDW Std Deviation (36.4-46.3) fL RDW Coeff of Robert (11.5-14.5) % Plt Count (130-400) K/uL MPV (7.4-10.4) fL Immature Gran % (Auto) % Neut % (Auto) % Lymph % (Auto) % [place] % (Auto) % Eos % (Auto) % Baso % (Auto) % Neut # (Auto) (1.4-6.5) K/uL Lymph # (Auto) (1.2-3.4) K/uL [place] # (Auto) (0.11-0.59) K/uL Eos # (Auto) (0-0.5) K/uL Baso # (Auto) (0-0.2) K/uL Immature Gran # (Auto) (0.00-0.02) K/uL Sodium 137 (136-145) mmol/L Potassium 3.6 (3.5-5.1) mmol/L Chloride 107 (98-107) mmol/L Carbon Dioxide 21 (21-32) mmol/L Anion Gap 9.0 (3-11) BUN 28 H (7-18) mg/dl Creatinine 1.56 H (0.6-1.2) mg/dl Est Cr Clr Drug Dosing Not Reportable Est GFR ( Amer) 35.2 Est GFR (Non-Af Amer) 30.4 BUN/Creatinine Ratio 18.1 (10-20) Glucose 128 H (70-99) mg/dl POC Glucose (70-99) mg/dl Calcium 8.6 (8.5-10.1) mg/dl Total Bilirubin 0.6 (0.2-1) mg/dl AST 97 H (15-37) U/L ALT 32 (12-78) U/L Alkaline Phosphatase 74 (45-117) U/L Total Creatine Kinase 1141 H (26-192) U/L Total Protein 6.0 L (6.4-8.2) gm/dl Albumin 2.7 L (3.4-5.0) gm/dl Globulin 3.3 (2.5-4.0) gm/dl Albumin/Globulin Ratio 0.8 L (0.9-2) Urine Color Urine Appearance (Clear) Urine pH (4.5-7.5) Ur Specific [place] (1.000-1.030) Urine Protein (Negative) Urine Glucose (UA) (Negative) Urine Ketones (Negative) Urine Blood (Negative) Urine Nitrite (Negative) Urine Bilirubin (Negative) Urine Urobilinogen (Negative) Ur Leukocyte Esterase (Negative) Urine WBC (Auto) (0-5) /hpf Urine RBC (Auto) (0-4) /hpf U Hyaline Cast (Auto) (0-5) /lpf U Epithel Cells (Auto) (0-5) /lpf Urine Bacteria (Auto) (Negative) Ur Renal Epithelial Cell Amorphous Sediment (None Prsent) COVID-19 Eval Order Covid19 Done at [facility] COVID-19 PCR (Negative) SARS-CoV-2 RNA (RT-PCR) Cancelled 12/16/19 Range/Units 23:10 WBC (4.8-10.8) K/uL RBC (4.2-5.4) M/uL Hgb (12.0-16.0) g/dL Hct (37-47) % MCV (80-100) fL MCH (25-34) pg MCHC (32-36) g/dL RDW Std Deviation (36.4-46.3) fL RDW Coeff of Robert (11.5-14.5) % Plt Count (130-400) K/uL MPV (7.4-10.4) fL Immature Gran % (Auto) % Neut % (Auto) % Lymph % (Auto) % [place] % (Auto) % Eos % (Auto) % Baso % (Auto) % Neut # (Auto) (1.4-6.5) K/uL Lymph # (Auto) (1.2-3.4) K/uL [place] # (Auto) (0.11-0.59) K/uL Eos # (Auto) (0-0.5) K/uL Baso # (Auto) (0-0.2) K/uL Immature Gran # (Auto) (0.00-0.02) K/uL Sodium (136-145) mmol/L Potassium (3.5-5.1) mmol/L Chloride (98-107) mmol/L Carbon Dioxide (21-32) mmol/L Anion Gap (3-11) BUN (7-18) mg/dl Creatinine (0.6-1.2) mg/dl Est Cr Clr Drug Dosing Est GFR ( Amer) Est GFR (Non-Af Amer) BUN/Creatinine Ratio (10-20) Glucose (70-99) mg/dl POC Glucose (70-99) mg/dl Calcium (8.5-10.1) mg/dl Total Bilirubin (0.2-1) mg/dl AST (15-37) U/L ALT (12-78) U/L Alkaline Phosphatase (45-117) U/L Total Creatine Kinase (26-192) U/L Total Protein (6.4-8.2) gm/dl Albumin (3.4-5.0) gm/dl Globulin (2.5-4.0) gm/dl Albumin/Globulin Ratio (0.9-2) Urine Color Urine Appearance (Clear) Urine pH (4.5-7.5) Ur Specific [place] (1.000-1.030) Urine Protein (Negative) Urine Glucose (UA) (Negative) Urine Ketones (Negative) Urine Blood (Negative) Urine Nitrite (Negative) Urine Bilirubin (Negative) Urine Urobilinogen (Negative) Ur Leukocyte Esterase (Negative) Urine WBC (Auto) (0-5) /hpf Urine RBC (Auto) (0-4) /hpf U Hyaline Cast (Auto) (0-5) /lpf U Epithel Cells (Auto) (0-5) /lpf Urine Bacteria (Auto) (Negative) Ur Renal Epithelial Cell Amorphous Sediment (None Prsent) COVID-19 Eval Order COVID-19 PCR POSITIVE A* (Negative) SARS-CoV-2 RNA (RT-PCR) Diagnostic Findings CT Head - Per STAT-rad: no intracranial hemorrhage or skull fracture. Periventricular small vessel ischemic change. Dystrophic calcifications or calcified meningioma along the region of the left tentorium. Cataract surgery . Visualized sinuses and mastoid air cells are clear. CXR: Calcified aortic knob, degenerative bony changes, no infiltrate Code Status & VTE Plan VTE Prophylaxis Plan VTE Prophylaxis will be ordered: Yes PG Care Time/CCT Total # of Minutes Spent Total Time Spent with Patient: Total time spent is greater than 50% in coordination of care (as documented) at patient's floor/unit and/or counseling patient: Coding Level of Care Code 60278 Initial Inpt Care Lvl 3 Diagnoses Rhabdomyolysis T79.6XXA Encounter type: initial encounter Rhabdomyolysis type: traumatic LINO (acute kidney injury) N17.9 COVID-19 U07.1 Altered mental status R41.0 Altered mental status type: disorientation Vascular dementia F01.50 Dementia behavioral disturbance: without behavioral disturbance Atrial fibrillation I48.91 Atrial fibrillation type: unspecified HTN (hypertension) I10 Hypertension type: essential hypertension (1) Vascular dementia Dementia behavioral disturbance: without behavioral disturbance Qualified Code(s): F01.50 - Vascular dementia without behavioral disturbance (2) Rhabdomyolysis Encounter type: initial encounter Rhabdomyolysis type: traumatic Qualified Code(s): T79.6XXA - Traumatic ischemia of muscle, initial encounter (3) Altered mental status Altered mental status type: disorientation Qualified Code(s): R41.0 - Disorientation, unspecified (4) HTN (hypertension) Hypertension type: essential hypertension Qualified Code(s): I10 - Essential (primary) hypertension (5) Atrial fibrillation Atrial fibrillation type: unspecified Qualified Code(s): I48.91 - Unspecified atrial fibrillation
[2019-12-17] MEDS ORDERED: ACETAMINOPHEN 325 MG TAB PO PRN (03:05)
[2019-12-17] MEDS ORDERED: DOCUSATE SODIUM 100 MG CAP PO PRN (03:20)
[2019-12-17] MEDS: SODIUM CHLORIDE 0.9% 1000ML 1,000 ML IV SCH ×2 (03:37→13:00)
--- NOTE | 2019-12-17 06:55 | CT Scan Report ---
CT head/brain wo con CLINICAL HISTORY: Head pain status post trauma COMPARISON STUDY: 11/22/2018 TECHNIQUE: Axial CT of the brain is performed from the vertex to the skull base. IV contrast was not administered for this examination. A dose lowering technique was utilized adhering to the principles of ALARA. CT DOSE: 729.78 mGycm FINDINGS: There is a stable left posterior fossa calcification adjacent to tentorium. This could represent an o ld calcified meningioma or dystrophic calcification. There is no CT evidence of acute cortical infarc tion. There is no evidence of midline shift. There is no acute hemorrhage. No calvarial fractures ar e visualized. There are patchy extensive white matter hypodensities likely on a small vessel basis. There is no evidence of pathologic ventricular dilatation. There is no evidence of acute sinusitis IMPRESSION: No acute intracranial findings ACT 112: Negative or not required by law. Electronically signed by: Fidel Martin M.D. 12/17/2019 6:54 AM
[2019-12-17] MEDS: SODIUM CHLORIDE 0.9% 500 ML IV SCH (07:19)
--- NOTE | 2019-12-17 07:22 | XRay Report ---
XR chest 1V portable CLINICAL HISTORY: weakness COMPARISON STUDY: 11/22/2018 FINDINGS: The heart is mildly enlarged. There is no lobar consolidation. There is no failure. A vague left suprahilar opacity, likely represents a summation. There are no pleural effusions.[ IMPRESSION: 1. No evidence of acute parenchymal consolidation 2. Vague left suprahilar opacity, likely representing a summation ACT 112: Negative or not required by law. Electronically signed by: Fidel Martin M.D. 12/17/2019 7:21 AM
[2019-12-17 07:45] LABS: D Dimer 7220 ug/L FEU (0-500)
[2019-12-17 07:58] LABS: BUN Creatinine Ratio 22.1 (10-20); C Reactive Protein 10.8 mg/dl (0-0.29); Calcium 8.7 mg/dl (8.5-10.1); Creatinine Clr Calc Pharmacy 36.6 ml/min; Est GFR (African American) 54.4; Est GFR (Non-African American) 46.9; Potassium 4.1 mmol/L (3.5-5.1)
--- NOTE | 2019-12-17 08:02 | Hospitalist Progress Note ---
Date of Service December 17, 2019 Assessment & Plan (1) COVID-19: Exact date of onset of symptoms is unknown. Fortunately she is stable in room air with clear lungs and normal cxr. Initiated on decadron overnight - will continue. Defer on convalscent plasma and remdesivir given lack of pulmonary symptoms and her overall disease state is mild (mild-moderate at most). Continue IVF, supportive care, labs in am. (2) Rhabdomyolysis: 2nd to fall with lying on floor for undetermined period of time. Continue isotonic fluids. Repeat CPK in am. Cr remains stable. (3) Acute metabolic encephalopathy: 2nd to COVID-19. Supportive care. Avoid benzos, sedatives, etc. (4) Atrial fibrillation: Continue atenolol. Continue eliquis 5mg BID. EKG at admission with NSR vs aflutter. Either way she remains hemodynamically stable. (5) Fall: SonMichael, reports frequent falling - likely due to dementia. Had 2 falls leading up to this admission - likely due to weakness from COVID-19 infection. Fortunately no signs of bony injury on examination. PT, OT evals. (6) Alzheimer disease: Appears advanced. Cont aricept. Cont namenda. (7) HTN (hypertension): cont atenolol (8) DVT prophylaxis: eliquis 5mg BID updated sonMichael - [phone] - evening of 12/17/19. gave broad overview of plan of care. apparently pt's now also admitted for COVID. patient with another son, Eagle, who is local by report. Admission and Anticipated Discharge Date Admission Date: December 17, 2019 Subjective patient very confused during the visit. at one point she said "happy father's day." when asked how she was doing she never answered. could not tell me why she was in the hospital. could not answer my questions. nursing staff report fair appetite at best. no O2 requirement at any time. no cough per staff. Review of Systems Review of Systems: Unobtainable due to mental health condition (severe dementia with probable met encephalopathy ) and Unobtainable due to cognitive status Physical Exam Constitutional: + ill appearing, + thin, + altered mental status and + frail appearing; no acute distress ENMT: external ear and nose normal, oropharynx normal Respiratory: normal respiratory effort, lungs clear to auscultation Cardiovascular: Rate/Rhythm: + irregularly irregular Heart Sounds: normal S1 and normal S2; no murmur Vessels: posterior tibial pulses present and dorsalis pedis pulses present; no JVD Extremities: no edema Gastrointestinal (Abdomen): normal bowel sounds, soft, nontender, no hepatosplenomegaly Musculoskeletal: no tenderness to palpation along with c-spine, t-spine, or l- spine. passive flexion/extension of both hips did not elicit any pain. passive ROM of both knees did not elicit any pain. no obvious bony deformity seen. Psychiatric: Orientation: alert and oriented to person; + not oriented to place and + not oriented to time Results & Data Results & Data ([facility]) Vital Signs (Past 12 Hours) Vital Signs Temp Pulse Pulse Resp BP BP Pulse Ox 12/17/19 03:10 37.1 C 82 18 145/60 H 97 12/17/19 02:45 37.1 C 82 18 145/60 H 97 12/17/19 02:24 67 20 123/70 100 12/17/19 01:37 73 20 140/69 93 12/17/19 00:49 73 20 120/56 L 91 12/17/19 00:06 75 20 108/62 98 12/16/19 23:49 69 20 117/60 97 12/16/19 22:21 85 18 122/60 97 12/16/19 22:19 97 12/16/19 20:39 37.3 C 94 H 20 156/79 H 95 Laboratory Results Laboratory Results - last 24 hr 12/16/19 12/16/19 12/16/19 21:30 21:56 23:10 ESR D-Dimer Sodium 137 Potassium 3.6 Chloride 107 Carbon Dioxide 21 Anion Gap 9.0 BUN 28 H Creatinine 1.56 H Est Cr Clr Drug Dosing Not Reportable Est GFR ( Amer) 35.2 Est GFR (Non-Af Amer) 30.4 BUN/Creatinine Ratio 18.1 Glucose 128 H Calcium 8.6 Ferritin Total Bilirubin 0.6 AST 97 H ALT 32 Alkaline Phosphatase 74 Total Creatine Kinase 1141 H C-Reactive Protein Total Protein 6.0 L Albumin 2.7 L Globulin 3.3 Albumin/Globulin Ratio 0.8 L Urine Color Dark Yellow Urine Appearance Cloudy A Urine pH 5.0 Ur Specific [place] 1.021 Urine Protein 2+ H Urine Glucose (UA) 1+ H Urine Ketones Trace H Urine Blood 3+ H Urine Nitrite Negative Urine Bilirubin Negative Urine Urobilinogen Negative Ur Leukocyte Esterase Negative Urine WBC (Auto) 1-5 Urine RBC (Auto) 0-4 U Hyaline Cast (Auto) 10-30 H U Epithel Cells (Auto) >30 H Urine Bacteria (Auto) Negative Ur Renal Epithelial Cell Not Reportable Amorphous Sediment Present A COVID-19 Eval Order Covid19 Done at [facility] COVID-19 PCR SARS-CoV-2 RNA (RT-PCR) 12/16/19 12/16/19 12/17/19 23:10 23:10 06:54 ESR D-Dimer 7220 H* Sodium Potassium Chloride Carbon Dioxide Anion Gap BUN Creatinine Est Cr Clr Drug Dosing Est GFR ( Amer) Est GFR (Non-Af Amer) BUN/Creatinine Ratio Glucose Calcium Ferritin Total Bilirubin AST ALT Alkaline Phosphatase Total Creatine Kinase C-Reactive Protein Total Protein Albumin Globulin Albumin/Globulin Ratio Urine Color Urine Appearance Urine pH Ur Specific [place] Urine Protein Urine Glucose (UA) Urine Ketones Urine Blood Urine Nitrite Urine Bilirubin Urine Urobilinogen Ur Leukocyte Esterase Urine WBC (Auto) Urine RBC (Auto) U Hyaline Cast (Auto) U Epithel Cells (Auto) Urine Bacteria (Auto) Ur Renal Epithelial Cell Amorphous Sediment COVID-19 Eval Order COVID-19 PCR POSITIVE A* SARS-CoV-2 RNA (RT-PCR) Cancelled 12/17/19 12/17/19 06:54 06:54 ESR 51 H D-Dimer Sodium 138 Potassium 4.1 Chloride 108 H Carbon Dioxide 21 Anion Gap 8.0 BUN 24 H Creatinine 1.09 Est Cr Clr Drug Dosing 36.6 Est GFR ( Amer) 54.4 Est GFR (Non-Af Amer) 46.9 BUN/Creatinine Ratio 22.1 H Glucose 79 Calcium 8.7 Ferritin 260.8 Total Bilirubin AST ALT Alkaline Phosphatase Total Creatine Kinase 2046 H C-Reactive Protein 10.80 H Total Protein Albumin Globulin Albumin/Globulin Ratio Urine Color Urine Appearance Urine pH Ur Specific [place] Urine Protein Urine Glucose (UA) Urine Ketones Urine Blood Urine Nitrite Urine Bilirubin Urine Urobilinogen Ur Leukocyte Esterase Urine WBC (Auto) Urine RBC (Auto) U Hyaline Cast (Auto) U Epithel Cells (Auto) Urine Bacteria (Auto) Ur Renal Epithelial Cell Amorphous Sediment COVID-19 Eval Order COVID-19 PCR SARS-CoV-2 RNA (RT-PCR) PG Care Time/CCT Total # of Minutes Spent Total Time Spent with Patient: Total time spent is greater than 50% in coordination of care (as documented) at patient's floor/unit and/or counseling patient: Coding Level of Care Code 51446 Subseq Hosp Care Lvl 3 Diagnoses COVID-19 U07.1 Rhabdomyolysis T79.6XXA Encounter type: initial encounter Rhabdomyolysis type: traumatic Acute metabolic encephalopathy G93.41 Atrial fibrillation I48.91 Atrial fibrillation type: unspecified Fall W19.XXXA Encounter type: initial encounter Alzheimer disease G30.9; F02.80 HTN (hypertension) I10 Hypertension type: essential hypertension DVT prophylaxis Z29.9 (1) Atrial fibrillation Atrial fibrillation type: unspecified Qualified Code(s): I48.91 - Unspecified atrial fibrillation (2) Rhabdomyolysis Encounter type: initial encounter Rhabdomyolysis type: traumatic Qualified Code(s): T79.6XXA - Traumatic ischemia of muscle, initial encounter (3) Fall Encounter type: initial encounter Qualified Code(s): W19.XXXA - Unspecified fall, initial encounter (4) HTN (hypertension) Hypertension type: essential hypertension Qualified Code(s): I10 - Essential (primary) hypertension
[2019-12-17 08:13] LABS: Ferritin 260.8 ng/ml (8-388)
[2019-12-17] MEDS: FAMOTIDINE 20 MG in SYRINGE 3 ML IV SCH (08:13)
[2019-12-17] MEDS: ATENOLOL 25 MG TABLET PO SCH (11:42)
[2019-12-17] MEDS: MEMANTINE HCL 5 MG TAB PO SCH ×3 (11:43→19:42)
[2019-12-17] MEDS: DONEPEZIL HCL 10 MG TAB PO SCH (11:43)
[2019-12-17] MEDS: POTASSIUM CHLORIDE 10 MEQ TABCR PO SCH ×3 (11:43→19:42)
[2019-12-17] MEDS: APIXABAN 5 MG TABLET PO SCH ×3 (11:43→19:42)
--- NOTE | 2019-12-17 13:07 | Electrocardiogram Report ---
Test Reason : Blood Pressure : / mmHG Vent. Rate : 093 BPM Atrial Rate : 094 BPM P-R Int : 000 ms QRS Dur : 096 ms QT Int : 426 ms P-R-T Axes : 000 027 -25 degrees QTc Int : 529 ms Poor data quality, interpretation may be adversely affected Sinus rhythm with artifact vs. 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
[2019-12-17] MEDS: D5W AND NSS 1,000 ML IV SCH (22:17)
[2019-12-18 07:18] LABS: BUN Creatinine Ratio 25.1 (10-20); Calcium 7.9 mg/dl (8.5-10.1); Creatinine Clr Calc Pharmacy 44.8 ml/min; Est GFR (African American) 69.5; Est GFR (Non-African American) 59.9
[2019-12-18] MEDS ORDERED: DEXAMETHASONE SOD INJ 10 MG/ML VIAL IV ONE (09:00)
[2019-12-18] MEDS: DEXAMETHASONE SOD PHOSPHATE 6 MG in SYRINGE 0 ML IV SCH (09:39)
[2019-12-18] MEDS: FAMOTIDINE 20 MG in SYRINGE 3 ML IV SCH (09:39)
[2019-12-18] MEDS: APIXABAN 5 MG TABLET PO SCH ×2 (09:40→20:02)
[2019-12-18] MEDS: MEMANTINE HCL 5 MG TAB PO SCH ×2 (09:41→20:02)
[2019-12-18] MEDS: DONEPEZIL HCL 10 MG TAB PO SCH (09:41)
[2019-12-18] MEDS: ATENOLOL 25 MG TABLET PO SCH (09:41)
[2019-12-18] MEDS: POTASSIUM CHLORIDE 10 MEQ TABCR PO SCH ×2 (09:42→20:02)
[2019-12-18] MEDS: D5W AND NSS 1,000 ML IV SCH (09:56)
--- NOTE | 2019-12-18 22:25 | Hospitalist Progress Note ---
Date of Service December 18, 2019 Assessment & Plan (1) COVID-19: Exact date of onset of symptoms is unknown. Continues to remain stable from pulmonary standpoint (no hypoxia, etc). Day #2 of decadron. Due to stable pulmonary status convalescent plasma and remdesivir not indicated. Continue IVF, supportive care, labs in am. (2) Rhabdomyolysis: 2nd to fall with lying on floor for undetermined period of time prior to admission. IMPROVED. Continue isotonic fluids. Repeat CPK in am. Cr remains stable. (3) Acute metabolic encephalopathy: 2nd to COVID-19. Supportive care. Avoid benzos, sedatives, etc. Ongoing. (4) Atrial fibrillation: Continue atenolol. Continue eliquis 5mg BID. EKG at admission with NSR vs aflutter. Remains hemodynamically stable. (5) Fall: Michael Swenson, reports frequent falling - likely due to dementia. Had 2 falls leading up to this admission - due to weakness from COVID-19 infection. PT, OT evals requested. (6) Alzheimer disease: Advanced. Cont aricept. Cont namenda. (7) HTN (hypertension): cont atenolol stable/controlled (8) DVT prophylaxis: eliquis 5mg BID updated Michael swenson - [phone] - evening of 12/17/19 and 12/18/19. Admission and Anticipated Discharge Date Admission Date: December 17, 2019 Subjective staff report ongoing poor appetite, loose stools, confusion, some periods of restlessness. patient unable to offer any meaningful history or ROS. Review of Systems Review of Systems: Unobtainable due to cognitive status Physical Exam Constitutional: + ill appearing, + thin, + altered mental status and + frail appearing; no acute distress ENMT: external ear and nose normal, oropharynx normal Respiratory: normal respiratory effort, lungs clear to auscultation Cardiovascular: Rate/Rhythm: + irregularly irregular Heart Sounds: normal S1 and normal S2; no murmur Vessels: posterior tibial pulses present and dorsalis pedis pulses present; no JVD Extremities: no edema Gastrointestinal (Abdomen): normal bowel sounds, soft, nontender, no hepatosplenomegaly Psychiatric: Orientation: alert; + not oriented to person, + not oriented to place and + not oriented to time Results & Data Results & Data ([facility]) Vital Signs (Past 12 Hours) Vital Signs Temp Pulse Resp BP Pulse Ox 12/18/19 15:47 36.7 C 64 16 140/92 100 Laboratory Results Laboratory Results - last 24 hr 12/18/19 06:22 Sodium 143 Potassium 4.0 Chloride 114 H Carbon Dioxide 24 Anion Gap 5.0 BUN 22 H Creatinine 0.89 Est Cr Clr Drug Dosing 44.8 Est GFR ( Amer) 69.5 Est GFR (Non-Af Amer) 59.9 BUN/Creatinine Ratio 25.1 H Glucose 152 H Calcium 7.9 L Magnesium 2.0 AST 85 H ALT 34 Total Creatine Kinase 1351 H PG Care Time/CCT Total # of Minutes Spent Total Time Spent with Patient: Total time spent is greater than 50% in coordination of care (as documented) at patient's floor/unit and/or counseling patient: Coding Level of Care Code 49036 Subseq Hosp Care Lvl 2 Diagnoses COVID-19 U07.1 Rhabdomyolysis T79.6XXA Encounter type: initial encounter Rhabdomyolysis type: traumatic Acute metabolic encephalopathy G93.41 Atrial fibrillation I48.91 Atrial fibrillation type: unspecified Fall W19.XXXA Encounter type: initial encounter Alzheimer disease G30.9; F02.80 Alzheimer's disease onset: unspecified onset HTN (hypertension) I10 Hypertension type: essential hypertension DVT prophylaxis Z29.9 (1) Rhabdomyolysis Encounter type: initial encounter Rhabdomyolysis type: traumatic Qualified Code(s): T79.6XXA - Traumatic ischemia of muscle, initial encounter (2) Atrial fibrillation Atrial fibrillation type: unspecified Qualified Code(s): I48.91 - Unspecified atrial fibrillation (3) Fall Encounter type: initial encounter Qualified Code(s): W19.XXXA - Unspecified fall, initial encounter (4) Alzheimer disease Alzheimer's disease onset: unspecified onset (5) HTN (hypertension) Hypertension type: essential hypertension Qualified Code(s): I10 - Essential (primary) hypertension
[2019-12-19 07:47] LABS: Hematocrit (blood only) 33.6 % (37-47); Hemoglobin 10.3 g/dL (12.0-16.0); Mean Corpuscular Hemoglobin 23.4 pg (25-34); Mean Corpuscular Hgb Conc 30.7 g/dL (32-36); Mean Corpuscular Volume 76.2 fL (80-100); Mean Platelet Volume 10.9 fL (7.4-10.4); Platelet Count 187 K/uL (130-400); RDW Standard Deviation 44.3 fL (36.4-46.3); Red Blood Count 4.41 M/uL (4.2-5.4); White Blood Count 6.74 K/uL (4.8-10.8)
[2019-12-19 08:14] LABS: Calcium 8.7 mg/dl (8.5-10.1); Creatinine Clr Calc Pharmacy 53.2 ml/min; Est GFR (African American) 85.4; Est GFR (Non-African American) 73.7; Potassium 4.1 mmol/L (3.5-5.1)
[2019-12-19] MEDS: POTASSIUM CHLORIDE 10 MEQ TABCR PO SCH ×2 (09:17→20:33)
[2019-12-19] MEDS: DEXAMETHASONE SOD PHOSPHATE 6 MG in SYRINGE 0 ML IV SCH (09:17)
[2019-12-19] MEDS: DONEPEZIL HCL 10 MG TAB PO SCH (09:18)
[2019-12-19] MEDS: APIXABAN 5 MG TABLET PO SCH ×2 (09:18→20:33)
[2019-12-19] MEDS: MEMANTINE HCL 5 MG TAB PO SCH ×2 (09:18→20:34)
[2019-12-19] MEDS: ATENOLOL 25 MG TABLET PO SCH (09:18)
[2019-12-19] MEDS: FAMOTIDINE 20 MG in SYRINGE 3 ML IV SCH (09:47)
[2019-12-19] MEDS: D5W AND 1/2NSS 1,000 ML IV SCH (18:20)
--- NOTE | 2019-12-19 23:12 | Hospitalist Progress Note ---
Date of Service December 19, 2019 Assessment & Plan (1) COVID-19: Exact date of onset of symptoms is unknown. diagnosed about 12/09/2019. Continues to remain stable from pulmonary standpoint (no hypoxia, etc). However, on grand scale, doing poorly - confusion, anorexia, little energy, etc. Truly failure to thrive. Day #3 of decadron. Plan 10 days. Due to stable pulmonary status convalescent plasma and remdesivir not indicated. Continue IVF, supportive care, labs in am. (2) Rhabdomyolysis: 2nd to fall with lying on floor for undetermined period of time prior to admission. IMPROVED/nearly resolved. Continue fluids and can likely d/c them late tonight/early AM tomorrow. Cr remains stable. (3) Acute metabolic encephalopathy: 2nd to COVID-19, ICU psychosis, etc. Supportive care. Avoid benzos, sedatives, etc. Ongoing. (4) Atrial fibrillation: Continue atenolol. Continue eliquis 5mg BID. EKG at admission with NSR vs aflutter. Remains hemodynamically stable. (5) Fall: SonMichael, reports frequent falling - likely due to dementia. Had 2 falls leading up to this admission - due to weakness from COVID-19 infection. PT, OT evals requested. (6) Alzheimer disease: Advanced. Cont aricept. Cont namenda. (7) HTN (hypertension): cont atenolol stable/controlled (8) DVT prophylaxis: eliquis 5mg BID updated sonMichael - [phone] - evening of 12/17/19 and 12/18/19. updated son, Eagle - 12/18. explained to Eagle that his father is ready for d/c home but his mother is not due to ongoing confusion, weakness, poor PO intake, etc. her disposition remains very confusing - uncertain if it will ever be safe for her to return home. or will she need SNF? really wants to take her home. he and Eagle are primary caretakers. need to address code status Admission and Anticipated Discharge Date Admission Date: December 17, 2019 Subjective staff report ongoing confusion and little to no oral intake. she has periods of agitation, shifting around in the bed, adjusting bed covers, etc. some loose stool at times. no O2 requirement. Review of Systems Review of Systems: Unobtainable due to cognitive status Physical Exam Constitutional: + ill appearing, + thin, + altered mental status and + frail appearing; no acute distress ENMT: external ear and nose normal, oropharynx normal Respiratory: normal respiratory effort, lungs clear to auscultation Cardiovascular: Rate/Rhythm: + irregularly irregular Heart Sounds: normal S1 and normal S2; no murmur Vessels: posterior tibial pulses present and dorsalis pedis pulses present; no JVD Extremities: no edema Gastrointestinal (Abdomen): normal bowel sounds, soft, nontender, no hepatosplenomegaly Neurologic: lies in position Psychiatric: Orientation: + not alert, + not oriented to person, + not oriented to place and + not oriented to time Results & Data Results & Data ([facility]) Vital Signs (Past 12 Hours) Vital Signs Pulse Resp BP Pulse Ox 12/19/19 20:21 68 18 161/83 H 100 Laboratory Results Laboratory Results - last 24 hr 12/19/19 12/19/19 07:22 07:22 WBC 6.74 RBC 4.41 Hgb 10.3 L Hct 33.6 L MCV 76.2 L MCH 23.4 L MCHC 30.7 L RDW Std Deviation 44.3 RDW Coeff of Robert 16.0 H Plt Count 187 MPV 10.9 H Sodium 144 Potassium 4.1 Chloride 117 H Carbon Dioxide 22 Anion Gap 5.0 BUN 17 Creatinine 0.75 Est Cr Clr Drug Dosing 53.2 Est GFR ( Amer) 85.4 Est GFR (Non-Af Amer) 73.7 BUN/Creatinine Ratio 23.0 H Glucose 108 H Calcium 8.7 AST 70 H Total Creatine Kinase 651 H PG Care Time/CCT Total # of Minutes Spent Total Time Spent with Patient: Total time spent is greater than 50% in coordination of care (as documented) at patient's floor/unit and/or counseling patient: Coding Level of Care Code 13926 Subseq Hosp Care Lvl 2 Diagnoses COVID-19 U07.1 Rhabdomyolysis T79.6XXA Encounter type: initial encounter Rhabdomyolysis type: traumatic Acute metabolic encephalopathy G93.41 Atrial fibrillation I48.91 Atrial fibrillation type: unspecified Fall W19.XXXA Encounter type: initial encounter Alzheimer disease G30.9; F02.80 Alzheimer's disease onset: unspecified onset HTN (hypertension) I10 Hypertension type: essential hypertension DVT prophylaxis Z29.9 (1) Rhabdomyolysis Encounter type: initial encounter Rhabdomyolysis type: traumatic Qualified Code(s): T79.6XXA - Traumatic ischemia of muscle, initial encounter (2) Atrial fibrillation Atrial fibrillation type: unspecified Qualified Code(s): I48.91 - Unspecified atrial fibrillation (3) Fall Encounter type: initial encounter Qualified Code(s): W19.XXXA - Unspecified fall, initial encounter (4) Alzheimer disease Alzheimer's disease onset: unspecified onset (5) HTN (hypertension) Hypertension type: essential hypertension Qualified Code(s): I10 - Essential (primary) hypertension
[2019-12-20 08:12] LABS: Calcium 8.6 mg/dl (8.5-10.1); Creatinine Clr Calc Pharmacy 52.5 ml/min; Est GFR (African American) 84.1; Est GFR (Non-African American) 72.5; Potassium 3.6 mmol/L (3.5-5.1)
[2019-12-20] MEDS: DONEPEZIL HCL 10 MG TAB PO SCH (09:24)
[2019-12-20] MEDS: POTASSIUM CHLORIDE 10 MEQ TABCR PO SCH ×2 (09:24→20:43)
[2019-12-20] MEDS: ATENOLOL 25 MG TABLET PO SCH (09:24)
[2019-12-20] MEDS: MEMANTINE HCL 5 MG TAB PO SCH ×2 (09:24→20:43)
[2019-12-20] MEDS: FAMOTIDINE 20 MG in SYRINGE 3 ML IV SCH (09:25)
[2019-12-20] MEDS: APIXABAN 5 MG TABLET PO SCH ×2 (09:25→20:43)
[2019-12-20] MEDS: DEXAMETHASONE SOD PHOSPHATE 6 MG in SYRINGE 0 ML IV SCH (09:25)
--- NOTE | 2019-12-20 15:32 | Hospitalist Progress Note ---
Date of Service December 20, 2019 Assessment & Plan (1) COVID-19: Exact date of onset of symptoms is unknown. diagnosed about 12/09/2019. Continues to remain stable from pulmonary standpoint (no hypoxia, etc). However, on grand scale, doing poorly - confusion, anorexia, little energy, etc. Truly failure to thrive. - Started on Decadron, but I will stop this today. In RECOVERY trial, dexamethasone was actually associated with HARM if patient did not need oxygen. - Due to stable pulmonary status convalescent plasma and remdesivir not indicated. - Continue IVF, supportive care (2) Acute metabolic encephalopathy: 2nd to COVID-19, ICU psychosis, steroids, etc. - Supportive care. - Avoid benzos, sedatives, etc. - Ongoing -> No change today per . (3) Atrial fibrillation: HR is ~80 at present. EKG at admission with NSR vs aflutter. - Continue atenolol. - Continue Eliquis 5mg BID. (4) HTN (hypertension): BP presently 145/75. - Cont atenolol (5) Rhabdomyolysis: 2nd to fall with lying on floor for undetermined period of time prior to admission. IMPROVED/nearly resolved. - Continue IV fluids - Cr remains stable. (6) Fall: Son, Michael, reports frequent falling - likely due to dementia/increasing debility. Had 2 falls leading up to this admission - due to weakness from COVID- 19 infection. - PT, OT evals requested. - Discussed with today. He reports patient will NOT go to any rehab and that he will arrange necessary care at home. (7) Alzheimer disease: Advanced. Per , at baseline, she sleeps most of the day, wakes up temporarily to eat/drink and toilet. - Cont Aricept & Namenda. (8) DVT prophylaxis: Eliquis 5mg PO BID Michael (son) - [phone] Eagle (son) Admission and Anticipated Discharge Date Admission Date: December 17, 2019 Subjective No response today. Only opens her eyes, but doesn't respond. Review of Systems Review of Systems: Unobtainable due to cognitive status and Unobtainable due to reduced consciousness Physical Exam Constitutional: WD/WN, vitals as above + acute distress and + lethargic Eyes: EOM intact bilaterally; no conjunctival abnormality ENMT: external ear and nose normal, oropharynx normal Neck: trachea midline, no thyromegaly normal visual inspection Respiratory: normal respiratory effort, lungs clear to auscultation no respiratory distress Cardiovascular: RRR, no murmur, no edema Gastrointestinal (Abdomen): Inspection/Auscultation: abdomen normal to inspection; abdomen not distended Musculoskeletal: no cyanosis or clubbing, extremities motor strength 5/5 Skin: no rashes, warm and dry Neurologic: moves all extremities and awake Psychiatric: Orientation: alert, oriented to person and cooperative Results & Data Results & Data ([facility]) Vital Signs (Past 12 Hours) Vital Signs Temp Pulse Resp BP Pulse Ox 12/20/19 11:57 36.8 C 80 18 143/73 H 12/20/19 08:11 37.4 C 74 18 158/84 H 100 PG Care Time/CCT Total # of Minutes Spent Total Time Spent with Patient: Total time spent is greater than 50% in coordination of care (as documented) at patient's floor/unit and/or counseling patient: Coding Level of Care Code 64069 Subseq Hosp Care Lvl 3 Diagnoses COVID-19 U07.1 Acute metabolic encephalopathy G93.41 Atrial fibrillation I48.91 Atrial fibrillation type: unspecified HTN (hypertension) I10 Hypertension type: essential hypertension Rhabdomyolysis T79.6XXA Encounter type: initial encounter Rhabdomyolysis type: traumatic Fall W19.XXXA Encounter type: initial encounter Alzheimer disease G30.9; F02.80 Alzheimer's disease onset: unspecified onset DVT prophylaxis Z29.9 (1) Rhabdomyolysis Encounter type: initial encounter Rhabdomyolysis type: traumatic Qualified Code(s): T79.6XXA - Traumatic ischemia of muscle, initial encounter (2) Atrial fibrillation Atrial fibrillation type: unspecified Qualified Code(s): I48.91 - Unspecified atrial fibrillation (3) Fall Encounter type: initial encounter Qualified Code(s): W19.XXXA - Unspecified fall, initial encounter (4) Alzheimer disease Alzheimer's disease onset: unspecified onset (5) HTN (hypertension) Hypertension type: essential hypertension Qualified Code(s): I10 - Essential (primary) hypertension
[2019-12-20] MEDS: D5W AND 1/2NSS 1,000 ML IV SCH (18:26)
[2019-12-21 07:34] LABS: Hemoglobin 11.1 g/dL (12.0-16.0); Mean Corpuscular Hemoglobin 23.8 pg (25-34); Mean Corpuscular Hgb Conc 30.8 g/dL (32-36); Mean Corpuscular Volume 77.3 fL (80-100); Mean Platelet Volume 10.6 fL (7.4-10.4); Platelet Count 200 K/uL (130-400); RDW Standard Deviation 45.2 fL (36.4-46.3); Red Blood Count 4.66 M/uL (4.2-5.4); White Blood Count 8.26 K/uL (4.8-10.8)
[2019-12-21 08:07] LABS: BUN Creatinine Ratio 15.8 (10-20); Calcium 8.7 mg/dl (8.5-10.1); Creatinine Clr Calc Pharmacy 72.6 ml/min; Est GFR (African American) 100.5; Est GFR (Non-African American) 86.7; Magnesium 1.7 mg/dl (1.8-2.4); Phosphorus 1.9 mg/dl (2.5-4.9); Potassium 3.2 mmol/L (3.5-5.1)
[2019-12-21] MEDS: ATENOLOL 25 MG TABLET PO SCH (08:34)
[2019-12-21] MEDS: POTASSIUM CHLORIDE 10 MEQ TABCR PO SCH (08:34)
[2019-12-21] MEDS: FAMOTIDINE 20 MG in SYRINGE 3 ML IV SCH (08:35)
[2019-12-21] MEDS: APIXABAN 5 MG TABLET PO SCH ×2 (08:35→21:06)
[2019-12-21] MEDS: MEMANTINE HCL 5 MG TAB PO SCH ×2 (08:35→21:06)
[2019-12-21] MEDS: DONEPEZIL HCL 10 MG TAB PO SCH (08:35)
--- NOTE | 2019-12-21 14:15 | Hospitalist Progress Note ---
Date of Service December 21, 2019 Assessment & Plan (1) COVID-19: Exact date of onset of symptoms is unknown. diagnosed about 12/09/2019. Continues to remain stable from pulmonary standpoint (no hypoxia, etc). - Started on Decadron, but stopped on 12/19. In RECOVERY trial, dexamethasone was actually associated with harm if patient did not need oxygen. Additionally, steroids will worsen her confusion. - Due to stable pulmonary status convalescent plasma and remdesivir not indic ated. - Mildly improved today. Able to open eyes. Ate about half of her oatmeal. (2) Acute metabolic encephalopathy: 2nd to COVID-19, ICU psychosis, steroids, etc. - Supportive care. - Avoid benzos, sedatives, etc. - See above (3) Atrial fibrillation: HR is ~80 at present. EKG at admission with NSR vs aflutter. - Continue atenolol. - Continue Eliquis 5mg BID. (4) HTN (hypertension): BP presently 160/90. - Cont atenolol (5) Rhabdomyolysis: 2nd to fall with lying on floor for undetermined period of time prior to admission. IMPROVED/nearly resolved. - Cr remains stable at 0.55 today. (6) Fall: Son, Michael, reports frequent falling - likely due to dementia/increasing debility. Had 2 falls leading up to this admission - due to weakness from COVID- 19 infection. - PT, OT jennifer requested -> Recommending 24h supervision. - Discussed with today. He reports patient will NOT go to any rehab and that he will arrange necessary care at home. Will be getting more equipment for home. (7) Alzheimer disease: Advanced. Per , at baseline, she sleeps most of the day, wakes up temporarily to eat/drink and toilet. - Cont Aricept & Namenda. (8) DVT prophylaxis: Eliquis 5mg PO BID Michael (son) - [phone] Eagle (son) Admission and Anticipated Discharge Date Admission Date: December 17, 2019 Subjective Wakes up more for me today, but cannot give any verbal response. Review of Systems Review of Systems: Unobtainable due to cognitive status Physical Exam Constitutional: WD/WN, vitals as above + acute distress and + lethargic Eyes: EOM intact bilaterally; no conjunctival abnormality ENMT: external ear and nose normal, oropharynx normal Neck: trachea midline, no thyromegaly normal visual inspection Respiratory: normal respiratory effort, lungs clear to auscultation no respiratory distress Cardiovascular: RRR, no murmur, no edema Gastrointestinal (Abdomen): Inspection/Auscultation: abdomen normal to inspection; abdomen not distended Musculoskeletal: no cyanosis or clubbing, extremities motor strength 5/5 Skin: no rashes, warm and dry Neurologic: moves all extremities and awake Psychiatric: Orientation: alert and cooperative; + not oriented to person Results & Data Results & Data ([facility]) Vital Signs (Past 12 Hours) Vital Signs Temp Pulse Pulse Resp BP Pulse Ox 12/21/19 11:33 38.0 C H 63 17 160/87 H 100 12/21/19 07:49 37.2 C 73 16 153/116 H 96 12/21/19 02:56 36.6 C 72 17 157/83 H 100 PG Care Time/CCT Total # of Minutes Spent Total Time Spent with Patient: Total time spent is greater than 50% in coordination of care (as documented) at patient's floor/unit and/or counseling patient: Coding Level of Care Code 19474 Subseq Hosp Care Lvl 2 Diagnoses COVID-19 U07.1 Acute metabolic encephalopathy G93.41 Atrial fibrillation I48.91 Atrial fibrillation type: unspecified HTN (hypertension) I10 Hypertension type: essential hypertension Rhabdomyolysis T79.6XXA Encounter type: initial encounter Rhabdomyolysis type: traumatic Fall W19.XXXA Encounter type: initial encounter Alzheimer disease G30.9; F02.80 Alzheimer's disease onset: unspecified onset DVT prophylaxis Z29.9 (1) Atrial fibrillation Atrial fibrillation type: unspecified Qualified Code(s): I48.91 - Unspecified atrial fibrillation (2) HTN (hypertension) Hypertension type: essential hypertension Qualified Code(s): I10 - Essential (primary) hypertension (3) Rhabdomyolysis Encounter type: initial encounter Rhabdomyolysis type: traumatic Qualified Code(s): T79.6XXA - Traumatic ischemia of muscle, initial encounter (4) Fall Encounter type: initial encounter Qualified Code(s): W19.XXXA - Unspecified fall, initial encounter (5) Alzheimer disease Alzheimer's disease onset: unspecified onset
[2019-12-21] MEDS ORDERED: POTASSIUM PHOS 3 MMOL/1 ML INFUSION IV STA (14:30)
[2019-12-21] MEDS ORDERED: POTASSIUM PHOSPHATE 24 MMOL in SODIUM CHLORIDE 0.9% 500 ML IV ONE (14:45)
[2019-12-21] MEDS: MAGNESIUM SULFATE / D5W 1 GM/100 ML BAG IV SCH ×2 (15:58→16:51)
[2019-12-21] MEDS: POTASSIUM CHLORIDE CRTAB 20 MEQ TABCR PO SCH (21:10)
[2019-12-22 09:03] LABS: Hematocrit (blood only) 34.9 % (37-47); Hemoglobin 10.8 g/dL (12.0-16.0); Mean Corpuscular Hemoglobin 24.3 pg (25-34); Mean Corpuscular Hgb Conc 30.9 g/dL (32-36); Mean Corpuscular Volume 78.4 fL (80-100); Mean Platelet Volume 11.3 fL (7.4-10.4); Platelet Count 196 K/uL (130-400); RDW Coefficient of Variation 16.1 % (11.5-14.5); RDW Standard Deviation 45.7 fL (36.4-46.3); Red Blood Count 4.45 M/uL (4.2-5.4); White Blood Count 5.27 K/uL (4.8-10.8)
[2019-12-22 09:42] LABS: Calcium 8.1 mg/dl (8.5-10.1); Creatinine Clr Calc Pharmacy 74.4 ml/min; Est GFR (African American) 103.7; Est GFR (Non-African American) 89.5; Magnesium 2.1 mg/dl (1.8-2.4); Phosphorus 1.8 mg/dl (2.5-4.9); Potassium 3.6 mmol/L (3.5-5.1)
[2019-12-22] MEDS: DONEPEZIL HCL 10 MG TAB PO SCH (09:44)
[2019-12-22] MEDS: APIXABAN 5 MG TABLET PO SCH ×2 (09:44→22:02)
[2019-12-22] MEDS: POTASSIUM CHLORIDE CRTAB 20 MEQ TABCR PO SCH ×2 (09:45→22:02)
[2019-12-22] MEDS: MEMANTINE HCL 5 MG TAB PO SCH ×2 (09:45→22:02)
[2019-12-22] MEDS: ATENOLOL 25 MG TABLET PO SCH (09:46)
[2019-12-22] MEDS: FAMOTIDINE 20 MG in SYRINGE 3 ML IV SCH (10:02)
[2019-12-22] MEDS ORDERED: POTASSIUM PHOS 3 MMOL/1 ML INFUSION IV STA (13:24)
--- NOTE | 2019-12-22 13:24 | Hospitalist Progress Note ---
Date of Service December 22, 2019 Assessment & Plan (1) COVID-19: Exact date of onset of symptoms is unknown. diagnosed about 12/09/2019. Continues to remain stable from pulmonary standpoint (no hypoxia, etc). - Started on Decadron, but stopped on 12/19. In RECOVERY trial, dexamethasone was actually associated with harm if patient did not need oxygen. Additionally, steroids will worsen her confusion. - Due to stable pulmonary status convalescent plasma and remdesivir not indic ated. - Mildly improved today. Opening eyes, moving around. Will confer with nurse regarding her ability to eat. (2) Acute metabolic encephalopathy: 2nd to COVID-19, ICU psychosis, steroids, etc. - Supportive care. - Avoid benzos, sedatives, etc. - See above (3) Atrial fibrillation: HR is ~80 at present. EKG at admission with NSR vs aflutter. - Continue atenolol. - Continue Eliquis 5mg BID. (4) HTN (hypertension): BP presently 150/80. - Cont atenolol (5) Rhabdomyolysis: 2nd to fall with lying on floor for undetermined period of time prior to admission. IMPROVED/nearly resolved. - Cr remains stable at 0.55 today. (6) Fall: SonMichael, reports frequent falling - likely due to dementia/increasing debility. Had 2 falls leading up to this admission - due to weakness from COVID- 19 infection. - PT, OT jennifer requested -> Recommending 24h supervision. - Discussed with today. He reports patient will NOT go to any rehab and that he will arrange necessary care at home. Will be getting more equipment for home. (7) Alzheimer disease: Advanced. Per , at baseline, she sleeps most of the day, wakes up temporarily to eat/drink and toilet. - Cont Aricept & Namenda. (8) DVT prophylaxis: Eliquis 5mg PO BID Michael (son) - [phone] Eagle (son) Admission and Anticipated Discharge Date Admission Date: December 17, 2019 Subjective Unable to respond. Review of Systems Review of Systems: Unobtainable due to cognitive status Physical Exam Constitutional: WD/WN, vitals as above + lethargic Eyes: EOM intact bilaterally; no conjunctival abnormality ENMT: external ear and nose normal, oropharynx normal Neck: trachea midline, no thyromegaly normal visual inspection Respiratory: normal respiratory effort, lungs clear to auscultation no respiratory distress Cardiovascular: RRR, no murmur, no edema Gastrointestinal (Abdomen): Inspection/Auscultation: abdomen normal to inspection; abdomen not distended Musculoskeletal: no cyanosis or clubbing, extremities motor strength 5/5 Skin: no rashes, warm and dry Neurologic: moves all extremities and awake Psychiatric: Orientation: alert; + not oriented to person Results & Data Results & Data ([facility]) Vital Signs (Past 12 Hours) Vital Signs Temp Pulse Resp BP Pulse Ox 12/22/19 08:24 36.9 C 81 18 147/81 H 96 PG Care Time/CCT Total # of Minutes Spent Total Time Spent with Patient: Total time spent is greater than 50% in coordination of care (as documented) at patient's floor/unit and/or counseling patient: Coding Level of Care Code 65134 Subseq Hosp Care Lvl 2 Diagnoses COVID-19 U07.1 Acute metabolic encephalopathy G93.41 Atrial fibrillation I48.91 Atrial fibrillation type: unspecified HTN (hypertension) I10 Hypertension type: essential hypertension Rhabdomyolysis T79.6XXA Encounter type: initial encounter Rhabdomyolysis type: traumatic Fall W19.XXXA Encounter type: initial encounter Alzheimer disease G30.9; F02.80 Alzheimer's disease onset: unspecified onset DVT prophylaxis Z29.9 (1) Atrial fibrillation Atrial fibrillation type: unspecified Qualified Code(s): I48.91 - Unspecified atrial fibrillation (2) HTN (hypertension) Hypertension type: essential hypertension Qualified Code(s): I10 - Essential (primary) hypertension (3) Rhabdomyolysis Encounter type: initial encounter Rhabdomyolysis type: traumatic Qualified Code(s): T79.6XXA - Traumatic ischemia of muscle, initial encounter (4) Fall Encounter type: initial encounter Qualified Code(s): W19.XXXA - Unspecified fall, initial encounter (5) Alzheimer disease Alzheimer's disease onset: unspecified onset
[2019-12-22] MEDS ORDERED: POTASSIUM PHOSPHATE 30 MMOL in SODIUM CHLORIDE 0.9% 500 ML IV ONE (14:00)
[2019-12-23] MEDS: POTASSIUM CHLORIDE CRTAB 20 MEQ TABCR PO SCH (08:33)
[2019-12-23] MEDS: MEMANTINE HCL 5 MG TAB PO SCH ×2 (08:33→21:52)
[2019-12-23] MEDS: APIXABAN 5 MG TABLET PO SCH (08:33)
[2019-12-23] MEDS: DONEPEZIL HCL 10 MG TAB PO SCH (08:33)
[2019-12-23] MEDS: ATENOLOL 25 MG TABLET PO SCH (08:33)
--- NOTE | 2019-12-23 15:36 | Hospitalist Progress Note ---
Date of Service December 23, 2019 Assessment & Plan (1) COVID-19: Exact date of onset of symptoms is unknown. diagnosed about 12/09/2019. Continues to remain stable from pulmonary standpoint (no hypoxia, etc). - Started on Decadron, but stopped on 12/19. In RECOVERY trial, dexamethasone was actually associated with harm if patient did not need oxygen. Additionally, steroids will worsen her confusion. - Due to stable pulmonary status convalescent plasma and remdesivir not indic ated. - Stable today. Opening eyes, moving around. Given her reportedly not eating much, I do have fish inspector consulted for calorie count for her. (2) Acute metabolic encephalopathy: 2nd to COVID-19, ICU psychosis, steroids, etc. - Supportive care. - Avoid benzos, sedatives, etc. - See above (3) Atrial fibrillation: HR is ~80 at present. EKG at admission with NSR vs aflutter. - Continue atenolol. - Continue Eliquis 5mg BID. (4) HTN (hypertension): BP presently 150/85. - Cont atenolol (5) Rhabdomyolysis: 2nd to fall with lying on floor for undetermined period of time prior to admission. IMPROVED/nearly resolved. - Cr remains stable at 0.55 on last check. (6) Fall: SonMichael, reports frequent falling - likely due to dementia/increasing debility. Had 2 falls leading up to this admission - due to weakness from COVID- 19 infection. - PT, OT jose miguelals requested -> Recommending 24h supervision. - He reports patient will NOT go to any rehab and that he will arrange necessary care at home. Will be getting more equipment for home. (7) Alzheimer disease: Advanced. Per , at baseline, she sleeps most of the day, wakes up temporarily to eat/drink and toilet. - Cont Aricept & Namenda. (8) DVT prophylaxis: Eliquis 5mg PO BID Michael (son) - [phone] Eagle (son) Admission and Anticipated Discharge Date Admission Date: December 17, 2019 Subjective No change today in mental status. No verbal responses to my questions. Review of Systems Review of Systems: Unobtainable due to cognitive status Physical Exam Constitutional: WD/WN, vitals as above + lethargic Eyes: EOM intact bilaterally; no conjunctival abnormality ENMT: external ear and nose normal, oropharynx normal Neck: trachea midline, no thyromegaly normal visual inspection Respiratory: normal respiratory effort, lungs clear to auscultation no respiratory distress Cardiovascular: RRR, no murmur, no edema Gastrointestinal (Abdomen): Inspection/Auscultation: abdomen normal to inspection; abdomen not distended Musculoskeletal: no cyanosis or clubbing, extremities motor strength 5/5 Skin: no rashes, warm and dry Neurologic: moves all extremities and awake Psychiatric: Orientation: alert; + not oriented to person Results & Data Results & Data ([facility]) Vital Signs (Past 12 Hours) Vital Signs Temp Pulse Resp BP Pulse Ox 12/23/19 13:37 36.4 C L 80 16 150/84 H 94 12/23/19 07:29 37.0 C 84 18 156/97 H 96 12/23/19 03:57 37.4 C 90 17 125/85 95 PG Care Time/CCT Total # of Minutes Spent Total Time Spent with Patient: Total time spent is greater than 50% in coordination of care (as documented) at patient's floor/unit and/or counseling patient: Coding Level of Care Code 97681 Subseq Hosp Care Lvl 2 Diagnoses COVID-19 U07.1 Acute metabolic encephalopathy G93.41 Atrial fibrillation I48.91 Atrial fibrillation type: unspecified HTN (hypertension) I10 Hypertension type: essential hypertension Rhabdomyolysis T79.6XXA Encounter type: initial encounter Rhabdomyolysis type: traumatic Fall W19.XXXA Encounter type: initial encounter Alzheimer disease G30.9; F02.80 Alzheimer's disease onset: unspecified onset DVT prophylaxis Z29.9 (1) Atrial fibrillation Atrial fibrillation type: unspecified Qualified Code(s): I48.91 - Unspecified atrial fibrillation (2) HTN (hypertension) Hypertension type: essential hypertension Qualified Code(s): I10 - Essential (primary) hypertension (3) Rhabdomyolysis Encounter type: initial encounter Rhabdomyolysis type: traumatic Qualified Code(s): T79.6XXA - Traumatic ischemia of muscle, initial encounter (4) Fall Encounter type: initial encounter Qualified Code(s): W19.XXXA - Unspecified fall, initial encounter (5) Alzheimer disease Alzheimer's disease onset: unspecified onset
[2019-12-23] MEDS ORDERED: ANUSOL SUPP 1 EA PR PRN (18:03)
[2019-12-23] MEDS: PANTOprazole 40 MG in SYRINGE 0 ML IV SCH (21:17)
[2019-12-24 07:50] LABS: Hematocrit (blood only) 34.4 % (37-47); Hemoglobin 10.6 g/dL (12.0-16.0); Mean Corpuscular Hemoglobin 23.6 pg (25-34); Mean Corpuscular Hgb Conc 30.8 g/dL (32-36); Mean Corpuscular Volume 76.6 fL (80-100); Mean Platelet Volume 10.6 fL (7.4-10.4); Platelet Count 221 K/uL (130-400); RDW Coefficient of Variation 16.4 % (11.5-14.5); RDW Standard Deviation 45.5 fL (36.4-46.3); Red Blood Count 4.49 M/uL (4.2-5.4)
[2019-12-24 08:26] LABS: Albumin Level 1.9 gm/dl (3.4-5.0); BUN Creatinine Ratio 25.3 (10-20); Calcium 8.2 mg/dl (8.5-10.1); Creatinine Clr Calc Pharmacy 58.2 ml/min; Est GFR (African American) 95.2; Est GFR (Non-African American) 82.1; Magnesium 1.8 mg/dl (1.8-2.4); Potassium 4.1 mmol/L (3.5-5.1)
[2019-12-24 08:29] LABS: Albumin Globulin Ratio 0.5 (0.9-2); Bilirubin,Total 0.8 mg/dl (0.2-1); Globulin 3.7 gm/dl (2.5-4.0); Phosphorus 2.3 mg/dl (2.5-4.9); Total Protein 5.6 gm/dl (6.4-8.2)
[2019-12-24] MEDS: ATENOLOL 25 MG TABLET PO SCH (09:17)
[2019-12-24] MEDS: DONEPEZIL HCL 10 MG TAB PO SCH (09:17)
[2019-12-24] MEDS: MEMANTINE HCL 5 MG TAB PO SCH ×2 (09:17→19:27)
[2019-12-24] MEDS: PANTOprazole 40 MG in SYRINGE 0 ML IV SCH ×2 (09:18→22:21)
--- NOTE | 2019-12-24 18:34 | Hospitalist Progress Note ---
Date of Service December 24, 2019 Assessment & Plan (1) Hematochezia: Two small episodes on 12/22 with some rectal itching as well. I think likely hemorrhoids made worse with anticoagulation. - Held anticoagulation on 12/22; will give her 1-2 days, then likely try to restart while using hemorrhoid treatment. - Hgb largely stable at this time and no further bleeding noted by RN. (2) COVID-19: Exact date of onset of symptoms is unknown. diagnosed about 12/09/2019. Continues to remain stable from pulmonary standpoint (no hypoxia, etc). - Started on Decadron, but stopped on 12/19. In RECOVERY trial, dexamethasone was actually associated with harm if patient did not need oxygen. Additionally, steroids will worsen her confusion. - Due to stable pulmonary status convalescent plasma and remdesivir not indicated. - Mental status improved today. Answering yes/no questions. Given her reportedly not eating much, I have dietary consulted. Per nutrition, she is taking in about 1/2 of her caloric needs presently. Hoping this will improve as her mental status improves. Per Jeanie, may be able to come in and feed his to encourage good PO intake? Will have to check this out. - wants to take her home, but also moving very slowly with CM regarding discharge planning. (3) Acute metabolic encephalopathy: 2nd to COVID-19, ICU psychosis, steroids, etc. - Supportive care. - Avoid benzos, sedatives, etc. - See above (4) Atrial fibrillation: HR is ~80 at present. EKG at admission with NSR vs aflutter. - Continue atenolol. - Held Eliquis on 12/22 (5) HTN (hypertension): BP presently 120/85. - Cont atenolol (6) Rhabdomyolysis: 2nd to fall with lying on floor for undetermined period of time prior to admission. IMPROVED/nearly resolved. - Cr remains stable at 0.55 on last check. (7) Fall: SonMichael, reports frequent falling - likely due to dementia/increasing debility. Had 2 falls leading up to this admission - due to weakness from COVID- 19 infection. - PT, OT evals requested -> Recommending 24h supervision. - He reports patient will NOT go to any rehab and that he will arrange necessary care at home. Will be getting more equipment for home. (8) Alzheimer disease: Advanced. Per , at baseline, she sleeps most of the day, wakes up temporarily to eat/drink and toilet. Does seem to have some verbal responses though. - Cont Aricept & Namenda. (9) DVT prophylaxis: Temporarily holding Eliquis; restart in 1-2 days? Michale (son) - [phone] Eagle (son) Admission and Anticipated Discharge Date Admission Date: December 17, 2019 Subjective Woke up today and is much more conversant. Reports she is doing "good" and denies any shortness of breath or pain. Physical Exam Constitutional: WD/WN, vitals as above not lethargic Eyes: EOM intact bilaterally; no conjunctival abnormality ENMT: external ear and nose normal, oropharynx normal Neck: trachea midline, no thyromegaly normal visual inspection Respiratory: normal respiratory effort, lungs clear to auscultation no respiratory distress Cardiovascular: RRR, no murmur, no edema Gastrointestinal (Abdomen): Inspection/Auscultation: abdomen normal to inspection; abdomen not distended Musculoskeletal: no cyanosis or clubbing, extremities motor strength 5/5 Skin: no rashes, warm and dry Neurologic: moves all extremities and awake Psychiatric: Orientation: alert; + not oriented to person Results & Data Results & Data ([facility]) Vital Signs (Past 12 Hours) Vital Signs Temp Pulse Resp BP Pulse Ox 12/24/19 15:25 36.7 C 77 16 117/71 95 12/24/19 11:11 36.4 C L 69 16 104/65 95 12/24/19 07:37 36.9 C 71 16 106/64 98 PG Care Time/CCT Total # of Minutes Spent Total Time Spent with Patient: Total time spent is greater than 50% in coordin ation of care (as documented) at patient's floor/unit and/or counseling patient: Coding Level of Care Code 03609 Subseq Hosp Care Lvl 3 Diagnoses Hematochezia K92.1 COVID-19 U07.1 Acute metabolic encephalopathy G93.41 Atrial fibrillation I48.91 Atrial fibrillation type: unspecified HTN (hypertension) I10 Hypertension type: essential hypertension Rhabdomyolysis T79.6XXA Encounter type: initial encounter Rhabdomyolysis type: traumatic Fall W19.XXXA Encounter type: initial encounter Alzheimer disease G30.9; F02.80 Alzheimer's disease onset: unspecified onset DVT prophylaxis Z29.9 (1) Atrial fibrillation Atrial fibrillation type: unspecified Qualified Code(s): I48.91 - Unspecified atrial fibrillation (2) HTN (hypertension) Hypertension type: essential hypertension Qualified Code(s): I10 - Essential (primary) hypertension (3) Rhabdomyolysis Encounter type: initial encounter Rhabdomyolysis type: traumatic Qualified Code(s): T79.6XXA - Traumatic ischemia of muscle, initial encounter (4) Fall Encounter type: initial encounter Qualified Code(s): W19.XXXA - Unspecified fall, initial encounter (5) Alzheimer disease Alzheimer's disease onset: unspecified onset
[2019-12-24] MEDS ORDERED: POTASSIUM PHOS 3 MMOL/1 ML INFUSION IV STA (21:20)
[2019-12-24] MEDS ORDERED: NORMOSOL-R 500 ML IV ONE (21:20)
[2019-12-24] MEDS ORDERED: POTASSIUM PHOSPHATE 21 MMOL in SODIUM CHLORIDE 0.9% 500 ML IV ONE (21:30)
[2019-12-25 05:58] LABS: Hematocrit (blood only) 32.6 % (37-47); Hemoglobin 9.9 g/dL (12.0-16.0); Mean Corpuscular Hemoglobin 23.9 pg (25-34); Mean Corpuscular Hgb Conc 30.4 g/dL (32-36); Mean Corpuscular Volume 78.6 fL (80-100); Mean Platelet Volume 11.2 fL (7.4-10.4); Platelet Count 256 K/uL (130-400); RDW Coefficient of Variation 16.6 % (11.5-14.5); RDW Standard Deviation 47.2 fL (36.4-46.3); Red Blood Count 4.15 M/uL (4.2-5.4); White Blood Count 5.73 K/uL (4.8-10.8)
[2019-12-25 06:36] LABS: BUN Creatinine Ratio 24.3 (10-20); Calcium 7.8 mg/dl (8.5-10.1); Creatinine Clr Calc Pharmacy 59.7 ml/min; Est GFR (African American) 96.1; Est GFR (Non-African American) 82.9; Magnesium 1.9 mg/dl (1.8-2.4); Potassium 4.2 mmol/L (3.5-5.1)
[2019-12-25 06:39] LABS: Phosphorus 3.8 mg/dl (2.5-4.9)
[2019-12-25] MEDS: ATENOLOL 25 MG TABLET PO SCH (08:28)
[2019-12-25] MEDS: PANTOprazole 40 MG in SYRINGE 0 ML IV SCH ×2 (08:28→20:52)
[2019-12-25] MEDS: MEMANTINE HCL 5 MG TAB PO SCH ×2 (08:28→20:51)
[2019-12-25] MEDS: DONEPEZIL HCL 10 MG TAB PO SCH (08:28)
[2019-12-25] MEDS: ZINC SULFATE 220 MG CAPSULE PO SCH (08:29)
[2019-12-25] MEDS: CHOLECALCIFEROL 1,000 UNITS 25 MCG TAB PO SCH (08:29)
--- NOTE | 2019-12-25 22:35 | Hospitalist Progress Note ---
Date of Service December 25, 2019 Assessment & Plan (1) Hematochezia: Two small episodes on 12/22 likely hemorrhoids made worse with anticoagulation. - Held anticoagulation on 12/22; using hemorrhoid treatment. - Hgb largely stable at this time and no further bleeding noted by RN. resume anticoagulation tomorrow (2) COVID-19: Exact date of onset of symptoms is unknown. diagnosed about 12/09/2019. Continues to remain stable from pulmonary standpoint (no hypoxia, etc). - Started on Decadron, but stopped on 12/19. In RECOVERY trial, dexamethasone was actually associated with harm if patient did not need oxygen. Additionally, steroids will worsen her confusion. - Due to stable pulmonary status convalescent plasma and remdesivir not indicated. - Mental status improved 12/23 but today non verbal again. - wants to take her home, but also moving very slowly with CM regarding discharge planning. will talk with him tomorrow, may need to consider palliative approach prior to this she was ambulatory, required minimal help, now she is bed bound, not eating, won't participate in any therapy rehab won't be an option since she won't participate would either go home with / care or SNF which would be paying out of pocket (3) Acute metabolic encephalopathy: 2nd to COVID-19, ICU psychosis, steroids, etc. - Supportive care. - Avoid benzos, sedatives, etc. - See above not speaking today, not eating (4) Atrial fibrillation: HR is ~80 at present. EKG at admission with NSR vs aflutter. - Continue atenolol. - Held Eliquis on 12/22 (5) HTN (hypertension): BP presently 120/85. - Cont atenolol (6) Rhabdomyolysis: 2nd to fall with lying on floor for undetermined period of time prior to admission. IMPROVED/nearly resolved. - Cr remains stable (7) Fall: Son, Michael, reports frequent falling - likely due to dementia/increasing debility. Had 2 falls leading up to this admission - due to weakness from COVID- 19 infection. - PT, OT evals requested -> Recommending 24h supervision. - He reports patient will NOT go to any rehab and that he will arrange necessary care at home. Will be getting more equipment for home. (8) Alzheimer disease: Advanced. Per , at baseline, she sleeps most of the day, wakes up temporarily to eat/drink and toilet. Does seem to have some verbal responses though. - Cont Aricept & Namenda. (9) DVT prophylaxis: Temporarily holding Eliquis; restart tomorrow Michael (son) - [phone] Eagle (son) Admission and Anticipated Discharge Date Admission Date: December 17, 2019 Subjective patient laying in bed, cannot get up, won't participate in therapy she is not eating, RN and aides try to get her to eat but very resistant spoke with her son Michael who called for update he cannot help because he lives in [place], normal home aides that his family uses are in quarantine will reach out to tomorrow discussed with disease case manager rn, might need to consider palliative care Review of Systems Review of Systems: Unobtainable due to cognitive status Physical Exam Constitutional: well developed, well nourished and cooperative; no acute distress Neck: trachea midline, no thyromegaly Respiratory: normal respiratory effort, lungs clear to auscultation Cardiovascular: RRR, no murmur, no edema Gastrointestinal (Abdomen): normal bowel sounds, soft, nontender, no hepatosplenomegaly Musculoskeletal: Head/Neck/Chest: normocephalic, head atraumatic and neck supple Extremities: extremities normal to inspection and + abnormal strength (generalized); no cyanosis, no clubbing and no petechiae Skin: no rashes, warm and dry Neurologic: CN's II-XI intact bilaterally, awake and + confused; no focal motor deficits Psychiatric: Orientation: alert; + not oriented x 3 Lymphatic: no cervical or axillary lymphadenopathy Results & Data Results & Data ([facility]) Vital Signs (Past 12 Hours) Vital Signs Temp Pulse Resp BP Pulse Ox 12/25/19 15:22 36.9 C 80 18 143/84 H 95 Laboratory Results Laboratory Results - last 24 hr 12/25/19 12/25/19 05:35 05:35 WBC 5.73 RBC 4.15 L Hgb 9.9 L Hct 32.6 L MCV 78.6 L MCH 23.9 L MCHC 30.4 L RDW Std Deviation 47.2 H RDW Coeff of Robert 16.6 H Plt Count 256 MPV 11.2 H Sodium 140 Potassium 4.2 Chloride 109 H Carbon Dioxide 28 Anion Gap 3.0 BUN 15 Creatinine 0.63 Est Cr Clr Drug Dosing 59.7 Est GFR ( Amer) 96.1 Est GFR (Non-Af Amer) 82.9 BUN/Creatinine Ratio 24.3 H Glucose 66 L Calcium 7.8 L Phosphorus 3.8 D Magnesium 1.9 Medications Administered Current Inpatient Medications Acetaminophen (Acetaminophen 325 Mg Tab) 650 mg PO Q4H PRN PRN Reason: pain/fever Stop: 01/16/20 03:04 Atenolol (Atenolol 25 Mg Tablet) 25 mg PO QAM COUNT INCLUDES THE [facility] Stop: 01/16/20 08:59 Last Admin: 12/25/19 08:28 Dose: 25 mg Documented by: Docusate Sodium (Docusate Sodium 100 Mg Cap) 100 mg PO DAILY PRN PRN Reason: Constipation Stop: 01/16/20 03:19 Donepezil HCl (Donepezil Hcl 10 Mg Tab) 10 mg PO DAILY COUNT INCLUDES THE [facility] Stop: 01/16/20 08:59 Last Admin: 12/25/19 08:28 Dose: 10 mg Documented by: Pantoprazole Sodium 40 mg/ (Syringe) 10 mls @ 5 mls/min IV BID JAS Stop: 12/27/19 09:01 Last Admin: 12/25/19 20:52 Dose: 5 mls/min Documented by: Memantine (Memantine Hcl 5 Mg Tab) 5 mg PO BID COUNT INCLUDES THE [facility] Stop: 01/16/20 08:59 Last Admin: 12/25/19 20:51 Dose: 5 mg Documented by: Phenylephrine HCl (Anusol Supp 1 Ea) 1 ea [place] TID PRN PRN Reason: Hemorrhoids Stop: 01/22/20 18:02 Last Admin: 12/23/19 21:18 Dose: 1 ea Documented by: Vitamin D (Cholecalciferol 1,000 Units 25 Mcg Tab) 1,000 units PO QAM COUNT INCLUDES THE [facility] Stop: 01/24/20 08:59 Last Admin: 12/25/19 08:29 Dose: 1,000 units Documented by: Zinc Sulfate (Zinc Sulfate 220 Mg Capsule) 220 mg PO QAM COUNT INCLUDES THE [facility] Stop: 01/24/20 08:59 Last Admin: 12/25/19 08:29 Dose: 220 mg Documented by: PG Care Time/CCT Total # of Minutes Spent Total Time Spent with Patient: Total time spent is greater than 50% in coordination of care (as documented) at patient's floor/unit and/or counseling patient: Coding Level of Care Code 10465 Subseq Hosp Care Lvl 2 Diagnoses Hematochezia K92.1 COVID-19 U07.1 Acute metabolic encephalopathy G93.41 Atrial fibrillation I48.91 Atrial fibrillation type: unspecified HTN (hypertension) I10 Hypertension type: essential hypertension Rhabdomyolysis T79.6XXA Encounter type: initial encounter Rhabdomyolysis type: traumatic Fall W19.XXXA Encounter type: initial encounter Alzheimer disease G30.9; F02.80 Alzheimer's disease onset: unspecified onset DVT prophylaxis Z29.9 (1) Atrial fibrillation Atrial fibrillation type: unspecified Qualified Code(s): I48.91 - Unspecified atrial fibrillation (2) HTN (hypertension) Hypertension type: essential hypertension Qualified Code(s): I10 - Essential (primary) hypertension (3) Rhabdomyolysis Encounter type: initial encounter Rhabdomyolysis type: traumatic Qualified Code(s): T79.6XXA - Traumatic ischemia of muscle, initial encounter (4) Fall Encounter type: initial encounter Qualified Code(s): W19.XXXA - Unspecified fall, initial encounter (5) Alzheimer disease Alzheimer's disease onset: unspecified onset
[2019-12-26] MEDS: CHOLECALCIFEROL 1,000 UNITS 25 MCG TAB PO SCH (08:37)
[2019-12-26] MEDS: PANTOprazole 40 MG in SYRINGE 0 ML IV SCH ×2 (08:37→23:18)
[2019-12-26] MEDS: MEMANTINE HCL 5 MG TAB PO SCH ×2 (08:38→23:17)
[2019-12-26] MEDS: ATENOLOL 25 MG TABLET PO SCH (08:38)
[2019-12-26] MEDS: ZINC SULFATE 220 MG CAPSULE PO SCH (08:38)
[2019-12-26] MEDS: APIXABAN 2.5 MG TAB PO SCH ×2 (08:38→23:17)
[2019-12-26] MEDS: DONEPEZIL HCL 10 MG TAB PO SCH (08:38)
[2019-12-26 08:40] LABS: Hematocrit (blood only) 34.7 % (37-47); Hemoglobin 10.4 g/dL (12.0-16.0); Mean Corpuscular Hemoglobin 23.8 pg (25-34); Mean Corpuscular Volume 79.4 fL (80-100); Mean Platelet Volume 10.2 fL (7.4-10.4); Platelet Count 307 K/uL (130-400); RDW Coefficient of Variation 16.7 % (11.5-14.5); RDW Standard Deviation 47.4 fL (36.4-46.3); Red Blood Count 4.37 M/uL (4.2-5.4); White Blood Count 5.81 K/uL (4.8-10.8)
[2019-12-26 09:14] LABS: BUN Creatinine Ratio 19.6 (10-20); Calcium 8.5 mg/dl (8.5-10.1); Creatinine Clr Calc Pharmacy 48.2 ml/min; Est GFR (African American) 81.5; Est GFR (Non-African American) 70.3
--- NOTE | 2019-12-26 15:49 | Hospitalist Progress Note ---
Date of Service December 26, 2019 Assessment & Plan (1) Hematochezia: Two small episodes on 12/22 likely hemorrhoids made worse with anticoagulation. - Held anticoagulation on 12/22; using hemorrhoid treatment. - Hgb largely stable at this time and no further bleeding noted by RN. resume anticoagulation, Eliquis 2.5mg BID (2) COVID-19: Exact date of onset of symptoms is unknown. diagnosed about 12/09/2019. Continues to remain stable from pulmonary standpoint (no hypoxia, etc). - Started on Decadron, but stopped on 12/19. In RECOVERY trial, dexamethasone was actually associated with harm if patient did not need oxygen. Additionally, steroids will worsen her confusion. - Due to stable pulmonary status convalescent plasma and remdesivir not indicated. - Mental status improved 12/23 but now lethargic two days in a row, poor oral intake - wants to take her home, but also moving very slowly with CM regarding discharge planning. she will not eat, will start on D5W this evening and plan for PPN tomorrow will reach out to again tomorrow, discuss goals of care, would not recommend a PEG tube in her condition (3) Acute metabolic encephalopathy: 2nd to COVID-19, ICU psychosis, steroids, etc. - Supportive care. - Avoid benzos, sedatives, etc. - See above not speaking today, not eating, just sleeping all day, no distress (4) Atrial fibrillation: HR is ~80 at present. EKG at admission with NSR vs aflutter. - Continue atenolol. - Eliquis resumed (5) HTN (hypertension): BP presently 120/85. - Cont atenolol (6) Rhabdomyolysis: 2nd to fall with lying on floor for undetermined period of time prior to admission. IMPROVED/nearly resolved. - Cr remains stable, start fluids since not drinking (7) Fall: Son, Michael, reports frequent falling - likely due to dementia/increasing debility. Had 2 falls leading up to this admission - due to weakness from COVID- 19 infection. - PT, OT jennifer requested -> Recommending 24h supervision. - He reports patient will NOT go to any rehab and that he will arrange necessary care at home. Will be getting more equipment for home. (8) Alzheimer disease: Advanced. Per , at baseline, she sleeps most of the day, wakes up temporarily to eat/drink and toilet - Cont Aricept & Namenda. (9) DVT prophylaxis: Orestes Rodriguez (son) - [phone] [facility] (son) Admission and Anticipated Discharge Date Admission Date: December 17, 2019 Subjective patient minimally responsive for me today she had her eyes closed most of the time, kept speaking to her and rubbing her, she would open her eyes she would not answer any questions verbally asked her if she was in pain, she seemed to shake her head asked her if she was hungry, if she was short of breath - she just stared at me, no verbal response RN said that she drank her orange juice this morning, ate 25% of oatmeal, at this point she is not eating enough to sustain herself spoke with nutrition, they recommend PPN, will start Dextrose IV this morning and PPN tomorrow attempted to call patient's twice today, no answer CM was able to get ahold of him, he refused to consider the idea of palliative care, he is working on getting home aides will reach out to him tomorrow morning need to determine goals of care Review of Systems Review of Systems: Unobtainable due to cognitive status Physical Exam Constitutional: well developed, + thin and + lethargic; no acute distress Neck: trachea midline, no thyromegaly Respiratory: normal respiratory effort, lungs clear to auscultation Cardiovascular: RRR, no murmur, no edema Gastrointestinal (Abdomen): normal bowel sounds, soft, nontender, no hepatosplenomegaly Musculoskeletal: Head/Neck/Chest: normocephalic, head atraumatic and neck supple Extremities: extremities normal to inspection and + abnormal strength (generalized); no cyanosis, no clubbing and no petechiae Skin: no rashes, warm and dry Neurologic: CN's II-XI intact bilaterally, awake and + confused; no focal motor deficits Psychiatric: Orientation: + not alert and + not oriented x 3 Lymphatic: no cervical or axillary lymphadenopathy Results & Data Results & Data ([facility]) Vital Signs (Past 12 Hours) Vital Signs Temp Pulse Resp BP Pulse Ox 12/26/19 11:41 37.0 C 82 16 115/69 95 12/26/19 08:19 37.7 C H 83 16 120/79 98 Laboratory Results Laboratory Results - last 24 hr 12/26/19 12/26/19 12/26/19 08:19 08:19 09:22 WBC 5.81 RBC 4.37 Hgb 10.4 L Hct 34.7 L MCV 79.4 L MCH 23.8 L MCHC 30.0 L RDW Std Deviation 47.4 H RDW Coeff of Robert 16.7 H Plt Count 307 MPV 10.2 Sodium 140 Potassium 4.0 Chloride 108 H Carbon Dioxide 25 Anion Gap 7.0 BUN 15 Creatinine 0.78 Est Cr Clr Drug Dosing 48.2 Est GFR ( Amer) 81.5 Est GFR (Non-Af Amer) 70.3 BUN/Creatinine Ratio 19.6 Glucose 52 L* POC Glucose 91 Calcium 8.5 Medications Administered Current Inpatient Medications Acetaminophen (Acetaminophen 325 Mg Tab) 650 mg PO Q4H PRN PRN Reason: pain/fever Stop: 01/16/20 03:04 Apixaban (Apixaban 2.5 Mg Tab) 2.5 mg PO BID [facility] Stop: 01/25/20 08:59 Last Admin: 12/26/19 08:38 Dose: 2.5 mg Documented by: Atenolol (Atenolol 25 Mg Tablet) 25 mg PO QAM [facility] Stop: 01/16/20 08:59 Last Admin: 12/26/19 08:38 Dose: 25 mg Documented by: Docusate Sodium (Docusate Sodium 100 Mg Cap) 100 mg PO DAILY PRN PRN Reason: Constipation Stop: 01/16/20 03:19 Donepezil HCl (Donepezil Hcl 10 Mg Tab) 10 mg PO DAILY [facility] Stop: 01/16/20 08:59 Last Admin: 12/26/19 08:38 Dose: 10 mg Documented by: Pantoprazole Sodium 40 mg/ (Syringe) 10 mls @ 5 mls/min IV BID [facility] Stop: 12/27/19 09:01 Last Admin: 12/26/19 08:37 Dose: 5 mls/min Documented by: Memantine (Memantine Hcl 5 Mg Tab) 5 mg PO BID [facility] Stop: 01/16/20 08:59 Last Admin: 12/26/19 08:38 Dose: 5 mg Documented by: Phenylephrine HCl (Anusol Supp 1 Ea) 1 ea NC TID PRN PRN Reason: Hemorrhoids Stop: 01/22/20 18:02 Last Admin: 12/23/19 21:18 Dose: 1 ea Documented by: Vitamin D (Cholecalciferol 1,000 Units 25 Mcg Tab) 1,000 units PO QAM [facility] Stop: 01/24/20 08:59 Last Admin: 12/26/19 08:37 Dose: 1,000 units Documented by: Zinc Sulfate (Zinc Sulfate 220 Mg Capsule) 220 mg PO QAM [facility] Stop: 01/24/20 08:59 Last Admin: 12/26/19 08:38 Dose: 220 mg Documented by: PG Care Time/CCT Total # of Minutes Spent Total Time Spent with Patient: Total time spent is greater than 50% in coordination of care (as documented) at patient's floor/unit and/or counseling patient: Coding Level of Care Code 33679 Subseq Hosp Care Lvl 2 Diagnoses Hematochezia K92.1 COVID-19 U07.1 Acute metabolic encephalopathy G93.41 Atrial fibrillation I48.91 Atrial fibrillation type: unspecified HTN (hypertension) I10 Hypertension type: essential hypertension Rhabdomyolysis T79.6XXA Encounter type: initial encounter Rhabdomyolysis type: traumatic Fall W19.XXXA Encounter type: initial encounter Alzheimer disease G30.9; F02.80 Alzheimer's disease onset: unspecified onset DVT prophylaxis Z29.9 (1) Alzheimer disease Alzheimer's disease onset: unspecified onset (2) Atrial fibrillation Atrial fibrillation type: unspecified Qualified Code(s): I48.91 - Unspecified atrial fibrillation (3) Rhabdomyolysis Encounter type: initial encounter Rhabdomyolysis type: traumatic Qualified Code(s): T79.6XXA - Traumatic ischemia of muscle, initial encounter (4) HTN (hypertension) Hypertension type: essential hypertension Qualified Code(s): I10 - Essential (primary) hypertension (5) Fall Encounter type: initial encounter Qualified Code(s): W19.XXXA - Unspecified fall, initial encounter
[2019-12-26] MEDS ORDERED: TPN/PPN CONSULT PHARMACY PRN (17:28)
[2019-12-26] MEDS: DEXTROSE 5% 1,000 ML IV SCH (18:14)
[2019-12-27 07:10] LABS: Bilirubin,Total 0.9 mg/dl (0.2-1); Calcium 7.9 mg/dl (8.5-10.1); Creatinine Clr Calc Pharmacy 52.7 ml/min; Est GFR (African American) 89.8; Est GFR (Non-African American) 77.4; Magnesium 1.7 mg/dl (1.8-2.4)
[2019-12-27 08:16] LABS: Phosphorus 2.2 mg/dl (2.5-4.9); Potassium 4.8 mmol/L (3.5-5.1)
[2019-12-27] MEDS: APIXABAN 2.5 MG TAB PO SCH ×3 (09:22→23:32)
[2019-12-27] MEDS: PANTOprazole 40 MG in SYRINGE 0 ML IV SCH (09:22)
[2019-12-27] MEDS: MEMANTINE HCL 5 MG TAB PO SCH ×3 (09:22→23:32)
[2019-12-27] MEDS: DEXTROSE 5% 1,000 ML IV SCH (09:22)
[2019-12-27] MEDS: ZINC SULFATE 220 MG CAPSULE PO SCH ×2 (09:22→09:52)
[2019-12-27] MEDS: CHOLECALCIFEROL 1,000 UNITS 25 MCG TAB PO SCH ×2 (09:22→09:52)
[2019-12-27] MEDS: DONEPEZIL HCL 10 MG TAB PO SCH ×2 (09:22→09:52)
[2019-12-27] MEDS: ATENOLOL 25 MG TABLET PO SCH (09:52)
[2019-12-27] MEDS ORDERED: SODIUM PHOSPHATE 3 MMOL/1 ML INFUSION IV STA (12:00)
[2019-12-27] MEDS ORDERED: MAGNESIUM SULFATE / D5W 1 GM/100 ML BAG IV ONE (12:15)
[2019-12-27] MEDS ORDERED: SODIUM PHOSPHATE 15 MMOL in SODIUM CHLORIDE 0.9% 250 ML IV ONE (12:45)
--- NOTE | 2019-12-27 15:41 | Pharmacy Report ---
Pharmacy PN Initial Consult - Date of Service December 27, 2019 - Scope Pharmacy has been consulted to manage parenteral nutrition orders and order appropriate labs. As part of the Nutrition Support Team guidelines, pharmacy will work in conjunction with dietary when determining the patients caloric needs. - Subjective The patient is a 84 year old F admitted on 12/17/19 01:49 for COVID-19, RHABDOMYOLYSIS. Patient is to receive parenteral nutrition for [INDICATION]. Pertinent PMH: - Objective Height: 5 ft 6 in Weight: 56.1 kg Vascular Access:: Peripheral access Intake & Output (Last 24Hrs): Intake & Output 12/25/19 12/26/19 12/27/19 12/28/19 06:59 06:59 06:59 05:59 Intake Total 1067 / 1067 50 / 50 1180 / 1180 100 / 100 Output Total 381 / 381 275 / 275 275 / 275 120 / 120 Balance 686 / 686 -225 / -225 905 / 905 -20 / -20 Weight 55.9 kg 56.1 kg Laboratory Data (Last 24 Hrs):: 12/27/19 05:23 Sodium 138 Potassium 4.8 D Chloride 108 H Carbon Dioxide 23 BUN 14 Creatinine 0.72 Glucose 107 H Calcium 7.9 L Phosphorus 2.2 L D Magnesium 1.7 L Total Bilirubin 0.9 AST 40 H ALT 25 Alkaline Phosphatase 75 Triglycerides 126 Nutrition Assessment:: Please refer to the Notes section of the EMR for the most recent vat packer note. - Assessment Patient diagnosed with Covid and poor oral intake for several days. She has altered mental status and dementia, so a poor candidate for tube feeds. PPN was ordered yesterday to start today. Patient had low Mag and Phos levels this morning. Spoke to provider and provided her electrolyte Mag and Phos replacement before PPN start so as to prevent re- feeding. Starting with low Dextrose amount in PPN today. - Plan For day 1 of PN administration, the following will be ordered: Macronutrients Amino acids 50 grams/day Dextrose 100 grams/day Lipids 25 grams/day Micronutrients Combined electrolytes 20 mL - contains 35 mEq Na, 20 meq K, 4.5 mEq Ca, 5 mEq Mg, 35 mEq Cl, 29.5 mEq acetate per 20 mL Sodium phosphate 21 MMol Sodium chloride 0 mEq Sodium acetate 0 mEq Potassium phosphate 0 mMol Potassium chloride 0 mEq Potassium acetate 0 mEq Magnesium sulfate 8.06 mEq Calcium gluconate 0 mEq Multivitamins 10 mL Trace Elements 1 mL Additional additives: Thiamine 100 mg Total volume 1500 mL to be infused over 24 hrs will provide 790 kcal/day Final osmolarity 769 mOsm/L (maximum for PPN is 900 mOsm/L) Labs to be ordered per PN order protocol Pharmacy will follow and adjust parenteral nutrition orders on a daily basis. Thank you.
[2019-12-27] MEDS ORDERED: DEXTROSE 10% 1,000 ML IV PRN (16:00)
[2019-12-27] MEDS ORDERED: Custom Peripheral Pn 1,500 ML in TPN BAG 0 ML IV SCH (16:00)
--- NOTE | 2019-12-27 16:39 | Hospitalist Progress Note ---
Date of Service December 27, 2019 Assessment & Plan (1) COVID-19: Exact date of onset of symptoms is unknown. diagnosed about 12/09/2019. Continues to remain stable from pulmonary standpoint (no hypoxia, etc). - Started on Decadron, but stopped on 12/19. In RECOVERY trial, dexamethasone was actually associated with harm if patient did not need oxygen. Additionally, steroids will worsen her confusion. - Due to stable pulmonary status convalescent plasma and remdesivir not indic ated. - Mental status improved 12/23 but now lethargic three days in a row, poor oral intake, now not taking medications - originally wanted to take her home with 24 hour care he is having a hard time finding/hiring help discussed today that she does not really have rehab potential briefly discussed PEG tube and how this would be a poor choice I asked him if she had a living will, he states that she does he [facility], I told him I agreed with that plan, it is the most appropriate repeated her COVID test 12/26, still positive she will not eat, start PPN tonight (2) Hematochezia: Two small episodes on 12/22 likely hemorrhoids made worse with anticoagulation. - Held anticoagulation on 12/22; using hemorrhoid treatment. - Hgb largely stable at this time and no further bleeding noted by RN. resume anticoagulation, Eliquis 2.5mg BID (3) Acute metabolic encephalopathy: 2nd to COVID-19, ICU psychosis, steroids, etc. - Supportive care. - Avoid benzos, sedatives, etc. - See above not speaking today, not eating, not taking medications, just sleeping all day, no distress (4) Atrial fibrillation: HR is ~80 at present. EKG at admission with NSR vs aflutter. - Continue atenolol. - Eliquis resumed (5) HTN (hypertension): BP presently 120/85. - Cont atenolol (6) Rhabdomyolysis: 2nd to fall with lying on floor for undetermined period of time prior to admission. IMPROVED/nearly resolved. - Cr remains stable, start fluids since not drinking (7) Fall: Son, Michael, reports frequent falling - likely due to dementia/increasing debility. Had 2 falls leading up to this admission - due to weakness from COVID- 19 infection. - PT, OT evals requested -> Recommending 24h supervision. - He reports patient will NOT go to any rehab and that he will arrange necessary care at home. Will be getting more equipment for home. (8) Alzheimer disease: Advanced. Per , at baseline, she sleeps most of the day, wakes up temporarily to eat/drink and toilet - Cont Aricept & Namenda. (9) DVT prophylaxis: Orestes Rodriguez (son) - [phone] [facility] (son) Admission and Anticipated Discharge Date Admission Date: December 17, 2019 Subjective patient remains unresponsive, laying in bed will not eat, would not take medications this morning long conversation with the patient's over the phone, from 210pm to 235pm discussed that she is declining clinically, she will not eat, will not respond discussed plans for PPN, discussed briefly a PEG tube and how this would not be to her benefit, would not change how deconditioned and debilitated she is discussed that right now she is requiring 24 hour care for turning, bathing, getting her to take her medications, trying to get her to eat explained that unless he would have dedicated home aides/nurses he would not be able to care for her he said he has not been able to hire any help, difficult because of agencies arielle ge staffed, also he has COVID he brought up that he has looked into [facility] I explained that the patient will not even participate in therapy, she will not follow commands, I said that I don't want to give him false hope, I do not think she has rehab potential due to this, if she went to a SNF it would not be under skilled needs so he would have to pay for her care he is asking to see the patient, I feel that if he saw her it would help him understand how far she has declined I told him I would call him tomorrow labs today show low phosphorus and low magnesium spoke with pharmacy, will start PPN tonight Review of Systems Review of Systems: Unobtainable due to cognitive status Physical Exam Constitutional: well developed, + thin and + lethargic; no acute distress Neck: trachea midline, no thyromegaly Respiratory: normal respiratory effort, lungs clear to auscultation Cardiovascular: RRR, no murmur, no edema Gastrointestinal (Abdomen): normal bowel sounds, soft, nontender, no hepatosplenomegaly Musculoskeletal: Head/Neck/Chest: normocephalic, head atraumatic and neck supple Extremities: extremities normal to inspection and + abnormal strength (generalized); no cyanosis, no clubbing and no petechiae Skin: no rashes, warm and dry Neurologic: CN's II-XI intact bilaterally, awake and + confused; no focal antoinette r deficits Psychiatric: Orientation: + not alert and + not oriented x 3 Lymphatic: no cervical or axillary lymphadenopathy Results & Data Results & Data ([facility]) Vital Signs (Past 12 Hours) Vital Signs Temp Pulse Resp BP Pulse Ox 12/27/19 07:16 36.8 C 88 18 122/55 L 93 Laboratory Results Laboratory Results - last 24 hr 12/26/19 12/26/19 12/27/19 18:12 23:12 05:23 Sodium 138 Potassium 4.8 D Chloride 108 H Carbon Dioxide 23 Anion Gap 7.0 BUN 14 Creatinine 0.72 Est Cr Clr Drug Dosing 52.7 Est GFR ( Amer) 89.8 Est GFR (Non-Af Amer) 77.4 BUN/Creatinine Ratio 19.0 Glucose 107 H POC Glucose 88 84 Calcium 7.9 L Phosphorus 2.2 L D Magnesium 1.7 L Total Bilirubin 0.9 AST 40 H ALT 25 Alkaline Phosphatase 75 Triglycerides 126 Specimen Hemolysis COVID-19 Eval Order SARS-CoV-2, RNA, NAAT 12/27/19 12/27/19 12/27/19 07:06 12:07 12:40 Sodium Potassium Chloride Carbon Dioxide Anion Gap BUN Creatinine Est Cr Clr Drug Dosing Est GFR ( Amer) Est GFR (Non-Af Amer) BUN/Creatinine Ratio Glucose POC Glucose 115 H 129 H Calcium Phosphorus Magnesium Total Bilirubin AST ALT Alkaline Phosphatase Triglycerides Specimen Hemolysis COVID-19 Eval Order Covid19 [facility] SARS-CoV-2, RNA, NAAT 12/27/19 12:40 Sodium Potassium Chloride Carbon Dioxide Anion Gap BUN Creatinine Est Cr Clr Drug Dosing Est GFR ( Amer) Est GFR (Non-Af Amer) BUN/Creatinine Ratio Glucose POC Glucose Calcium Phosphorus Magnesium Total Bilirubin AST ALT Alkaline Phosphatase Triglycerides Specimen Hemolysis COVID-19 Eval Order SARS-CoV-2, RNA, NAAT POSITIVE A* Medications Administered Current Inpatient Medications Acetaminophen (Acetaminophen 325 Mg Tab) 650 mg PO Q4H PRN PRN Reason: pain/fever Stop: 01/16/20 03:04 Apixaban (Apixaban 2.5 Mg Tab) 2.5 mg PO BID [facility] Stop: 01/25/20 08:59 Last Admin: 12/27/19 09:52 Dose: Not Given Documented by: Atenolol (Atenolol 25 Mg Tablet) 25 mg PO QAM [facility] Stop: 01/16/20 08:59 Last Admin: 12/27/19 09:52 Dose: Not Given Documented by: Docusate Sodium (Docusate Sodium 100 Mg Cap) 100 mg PO DAILY PRN PRN Reason: Constipation Stop: 01/16/20 03:19 Donepezil HCl (Donepezil Hcl 10 Mg Tab) 10 mg PO DAILY [facility] Stop: 01/16/20 08:59 Last Admin: 12/27/19 09:52 Dose: Not Given Documented by: Dextrose (D10w) 1,000 mls @ 0 mls/hr IV .Q0M PRN PRN Reason: protocol (see label comments) Stop: 01/26/20 15:59 Nutrition (Parenteral) 1,500 (ml/ TPN BAG) 1,500 mls @ 62.5 mls/hr IV .Q24H JAS; Protocol Stop: 12/28/19 15:59 Memantine (Memantine Hcl 5 Mg Tab) 5 mg PO BID [facility] Stop: 01/16/20 08:59 Last Admin: 12/27/19 09:52 Dose: Not Given Documented by: Miscellaneous Information (Tpn/Ppn Consult Pharmacy) 1 ea N/A UD PRN PRN Reason: Consult Stop: 01/25/20 17:27 Phenylephrine HCl (Anusol Supp 1 Ea) [address] TID PRN PRN Reason: Hemorrhoids Stop: 01/22/20 18:02 Last Admin: 12/23/19 21:18 Dose: 1 ea Documented by: Vitamin D (Cholecalciferol 1,000 Units 25 Mcg Tab) 1,000 units PO QAM [facility] Stop: 01/24/20 08:59 Last Admin: 12/27/19 09:52 Dose: Not Given Documented by: Zinc Sulfate (Zinc Sulfate 220 Mg Capsule) 220 mg PO QAM [facility] Stop: 01/24/20 08:59 Last Admin: 12/27/19 09:52 Dose: Not Given Documented by: PG Care Time/CCT Total # of Minutes Spent Total Time Spent: 36 Total Time Spent with Patient: Total time spent is greater than 50% in coordination of care (as documented) at patient's floor/unit and/or counseling patient: 25 minutes on the phone 11 minutes with patient, documenting, reviewing labs Coding Level of Care Code 54750 Subseq Hosp Care Lvl 3 Diagnoses COVID-19 U07.1 Hematochezia K92.1 Acute metabolic encephalopathy G93.41 Atrial fibrillation I48.91 Atrial fibrillation type: unspecified HTN (hypertension) I10 Hypertension type: essential hypertension Rhabdomyolysis T79.6XXA Encounter type: initial encounter Rhabdomyolysis type: traumatic Fall W19.XXXA Encounter type: initial encounter Alzheimer disease G30.9; F02.80 Alzheimer's disease onset: unspecified onset DVT prophylaxis Z29.9 (1) Alzheimer disease Alzheimer's disease onset: unspecified onset (2) Atrial fibrillation Atrial fibrillation type: unspecified Qualified Code(s): I48.91 - Unspecified atrial fibrillation (3) Rhabdomyolysis Encounter type: initial encounter Rhabdomyolysis type: traumatic Qualified Code(s): T79.6XXA - Traumatic ischemia of muscle, initial encounter (4) HTN (hypertension) Hypertension type: essential hypertension Qualified Code(s): I10 - Essential (primary) hypertension (5) Fall Encounter type: initial encounter Qualified Code(s): W19.XXXA - Unspecified fall, initial encounter
[2019-12-28 07:13] LABS: BUN Creatinine Ratio 18.3 (10-20); Calcium 7.8 mg/dl (8.5-10.1); Creatinine Clr Calc Pharmacy 62.9 ml/min; Est GFR (African American) 97.7; Est GFR (Non-African American) 84.3; Magnesium 1.9 mg/dl (1.8-2.4); Phosphorus 2.6 mg/dl (2.5-4.9); Potassium 3.1 mmol/L (3.5-5.1)
[2019-12-28] MEDS: DONEPEZIL HCL 10 MG TAB PO SCH (08:31)
[2019-12-28] MEDS: ZINC SULFATE 220 MG CAPSULE PO SCH (08:31)
[2019-12-28] MEDS: ATENOLOL 25 MG TABLET PO SCH (08:31)
[2019-12-28] MEDS: CHOLECALCIFEROL 1,000 UNITS 25 MCG TAB PO SCH (08:31)
[2019-12-28] MEDS: APIXABAN 2.5 MG TAB PO SCH ×2 (08:31→20:46)
[2019-12-28] MEDS: MEMANTINE HCL 5 MG TAB PO SCH ×2 (08:31→20:46)
--- NOTE | 2019-12-28 08:56 | Hospitalist Progress Note ---
Date of Service December 28, 2019 Assessment & Plan (1) COVID-19: Exact date of onset of symptoms is unknown. diagnosed about 12/09/2019. Continues to remain stable from pulmonary standpoint (no hypoxia, etc). - Started on Decadron, but stopped on 12/19. In RECOVERY trial, dexamethasone was actually associated with harm if patient did not need oxygen. Additionally, steroids will worsen her confusion. - Due to stable pulmonary status convalescent plasma and remdesivir not indic ated. - Mental status improved 12/23 but now lethargic three days in a row, poor oral intake, now not taking medications - originally wanted to take her home with 24 hour care he is having a hard time finding/hiring help discussed today that she does not really have rehab potential briefly discussed PEG tube and how this would be a poor choice, he is NOT interested in PEG tube I asked him if she had a living will, he states that she does, I asked him to find it, we would want a copy he brought up the idea of [facility], I told him I agreed with that plan, it is the most appropriate ask CM to look inti [facility] memory unit as sption repeated her COVID test 12/26, still positive, repeat tomorrow eating a little better today but it is a week without nutrition, continue PPN for now, plan for 5-7 days (2) Hematochezia: Two small episodes on 12/22 likely hemorrhoids made worse with anticoagulation. - Held anticoagulation on 12/22; using hemorrhoid treatment. - Hgb largely stable at this time and no further bleeding noted by RN. resume anticoagulation, Eliquis 2.5mg BID (3) Acute metabolic encephalopathy: 2nd to COVID-19, ICU psychosis, steroids, etc. - Supportive care. - Avoid benzos, sedatives, etc. - See above more alert and conversive today (4) Atrial fibrillation: HR is ~80 at present. EKG at admission with NSR vs aflutter. - Continue atenolol. - Eliquis resumed (5) HTN (hypertension): BP presently 120/85. - Cont atenolol (6) Rhabdomyolysis: 2nd to fall with lying on floor for undetermined period of time prior to admission. IMPROVED/nearly resolved. - Cr remains stable, start fluids since not drinking (7) Fall: Son, Michael, reports frequent falling - likely due to dementia/increasing debility. Had 2 falls leading up to this admission - due to weakness from COVID- 19 infection. - PT, OT jennifer requested -> Recommending 24h supervision. - two options: 24/7 care at home or SNF, brought up [facility] (8) Alzheimer disease: Advanced. Per , at baseline, she sleeps most of the day, wakes up temporarily to eat/drink and toilet - Cont Aricept & Namenda. (9) DVT prophylaxis: Orestes Rodriguez (son) - [phone] [facility] (son) Admission and Anticipated Discharge Date Admission Date: December 17, 2019 Subjective patient more alert today, actually speaking and responding to questions she was able to eat her entire lunch for the aide, drinking better started on PPN today, reviewed labs, Cr stable patient said that she was cold, requested a warm blanket she is not completely oriented to self, place or time but this is improvement from prior two days I called to update him I brought up a living will because he says that they have one, I asked him to find it so we might know her wishes for code status, feeding tube he said that at this time he would want the patient to remain a full code he said that he would not want a feeding tube he accepts that she would need either 24/7 care at home or SNF he brought up [facility] as option, will ask CM to look into placement Review of Systems Review of Systems: All systems reviewed & are unremarkable except as noted in Subjective Constitutional: + chills, + fatigue and + weakness; no fever and no sweats Respiratory: no cough and no dyspnea Cardiovascular: no chest pain and no edema Gastrointestinal: no abdominal pain, no nausea, no vomiting, no excessive flatulence and no change in bowel habits Physical Exam Constitutional: well developed, + thin and + lethargic; no acute distress Neck: trachea midline, no thyromegaly Respiratory: normal respiratory effort, lungs clear to auscultation Cardiovascular: RRR, no murmur, no edema Gastrointestinal (Abdomen): normal bowel sounds, soft, nontender, no hepatosplenomegaly Musculoskeletal: Head/Neck/Chest: normocephalic, head atraumatic and neck supple Extremities: extremities normal to inspection and + abnormal strength (generalized); no cyanosis, no clubbing and no petechiae Skin: no rashes, warm and dry Neurologic: CN's II-XI intact bilaterally, awake and + confused; no focal motor deficits Psychiatric: Orientation: alert and oriented to person; + not oriented to place and + not oriented to time Lymphatic: no cervical or axillary lymphadenopathy Results & Data Results & Data ([facility]) Vital Signs (Past 12 Hours) Vital Signs Temp Pulse Resp BP Pulse Ox 12/28/19 08:16 36.9 C 87 18 126/71 97 12/27/19 22:26 37.2 C 100 H 20 136/78 99 Laboratory Results Laboratory Results - last 24 hr 12/27/19 12/27/19 12/27/19 12:07 12:40 12:40 Sodium Potassium Chloride Carbon Dioxide Anion Gap BUN Creatinine Est Cr Clr Drug Dosing Est GFR ( Amer) Est GFR (Non-Af Amer) BUN/Creatinine Ratio Glucose POC Glucose 129 H Calcium Phosphorus Magnesium COVID-19 Eval Order Covid19 [facility] SARS-CoV-2, RNA, NAAT POSITIVE A* 12/27/19 12/28/19 17:12 06:10 Sodium 134 L Potassium 3.1 L D Chloride 102 Carbon Dioxide 26 Anion Gap 6.0 BUN 11 Creatinine 0.60 Est Cr Clr Drug Dosing 62.9 Est GFR ( Amer) 97.7 Est GFR (Non-Af Amer) 84.3 BUN/Creatinine Ratio 18.3 Glucose 111 H POC Glucose 90 Calcium 7.8 L Phosphorus 2.6 Magnesium 1.9 COVID-19 Eval Order SARS-CoV-2, RNA, NAAT Medications Administered Current Inpatient Medications Acetaminophen (Acetaminophen 325 Mg Tab) 650 mg PO Q4H PRN PRN Reason: pain/fever Stop: 01/16/20 03:04 Apixaban (Apixaban 2.5 Mg Tab) 2.5 mg PO BID JAS Stop: 01/25/20 08:59 Last Admin: 12/28/19 08:31 Dose: Not Given Documented by: Atenolol (Atenolol 25 Mg Tablet) 25 mg PO QAM JAS Stop: 01/16/20 08:59 Last Admin: 12/28/19 08:31 Dose: Not Given Documented by: Docusate Sodium (Docusate Sodium 100 Mg Cap) 100 mg PO DAILY PRN PRN Reason: Constipation Stop: 01/16/20 03:19 Donepezil HCl (Donepezil Hcl 10 Mg Tab) 10 mg PO DAILY [facility] Stop: 01/16/20 08:59 Last Admin: 12/28/19 08:31 Dose: Not Given Documented by: Dextrose (D10w) 1,000 mls @ 0 mls/hr IV .Q0M PRN PRN Reason: protocol (see label comments) Stop: 01/26/20 15:59 Nutrition (Parenteral) 1,500 (ml/ TPN BAG) 1,500 mls @ 62.5 mls/hr IV .Q24H [facility]; Protocol Stop: 12/28/19 15:59 Last Admin: 12/27/19 17:58 Dose: 62.5 mls/hr Documented by: Memantine (Memantine Hcl 5 Mg Tab) 5 mg PO BID [facility] Stop: 01/16/20 08:59 Last Admin: 12/28/19 08:31 Dose: Not Given Documented by: Miscellaneous Information (Tpn/Ppn Consult Pharmacy) 1 ea N/A UD PRN PRN Reason: Consult Stop: 01/25/20 17:27 Phenylephrine HCl (Anusol Supp 1 Ea) 1 ea NM TID PRN PRN Reason: Hemorrhoids Stop: 01/22/20 18:02 Last Admin: 12/23/19 21:18 Dose: 1 ea Documented by: Vitamin D (Cholecalciferol 1,000 Units 25 Mcg Tab) 1,000 units PO QAM [facility] Stop: 01/24/20 08:59 Last Admin: 12/28/19 08:31 Dose: Not Given Documented by: Zinc Sulfate (Zinc Sulfate 220 Mg Capsule) 220 mg PO QAM [facility] Stop: 01/24/20 08:59 Last Admin: 12/28/19 08:31 Dose: Not Given Documented by: PG Care Time/CCT Total # of Minutes Spent Total Time Spent: 33 Total Time Spent with Patient: Total time spent is greater than 50% in coordination of care (as documented) at patient's floor/unit and/or counseling patient: 18 minutes on phone with patients 15 minutes with patient, documenting, reviewing chart Coding Level of Care Code 36276 Subseq Hosp Care Lvl 3 Diagnoses COVID-19 U07.1 Hematochezia K92.1 Acute metabolic encephalopathy G93.41 Atrial fibrillation I48.91 Atrial fibrillation type: unspecified HTN (hypertension) I10 Hypertension type: essential hypertension Rhabdomyolysis T79.6XXA Encounter type: initial encounter Rhabdomyolysis type: traumatic Fall W19.XXXA Encounter type: initial encounter Alzheimer disease G30.9; F02.80 Alzheimer's disease onset: unspecified onset DVT prophylaxis Z29.9 (1) Alzheimer disease Alzheimer's disease onset: unspecified onset (2) Atrial fibrillation Atrial fibrillation type: unspecified Qualified Code(s): I48.91 - Unspecified atrial fibrillation (3) Rhabdomyolysis Encounter type: initial encounter Rhabdomyolysis type: traumatic Qualified Code(s): T79.6XXA - Traumatic ischemia of muscle, initial encounter (4) HTN (hypertension) Hypertension type: essential hypertension Qualified Code(s): I10 - Essential (primary) hypertension (5) Fall Encounter type: initial encounter Qualified Code(s): W19.XXXA - Unspecified fall, initial encounter
[2019-12-28] MEDS ORDERED: Custom Peripheral Pn 1,900 ML in TPN BAG 0 ML IV SCH (16:00)
[2019-12-29 06:39] LABS: BUN Creatinine Ratio 25.1 (10-20); Calcium 7.6 mg/dl (8.5-10.1); Creatinine Clr Calc Pharmacy 71.3 ml/min; Est GFR (African American) 101.1; Est GFR (Non-African American) 87.3; Phosphorus 2.9 mg/dl (2.5-4.9)
[2019-12-29] MEDS: MEMANTINE HCL 5 MG TAB PO SCH ×2 (09:14→20:09)
[2019-12-29] MEDS: ATENOLOL 25 MG TABLET PO SCH (09:15)
[2019-12-29] MEDS: CHOLECALCIFEROL 1,000 UNITS 25 MCG TAB PO SCH (09:16)
[2019-12-29] MEDS: DONEPEZIL HCL 10 MG TAB PO SCH (09:16)
[2019-12-29] MEDS: ZINC SULFATE 220 MG CAPSULE PO SCH (09:16)
[2019-12-29] MEDS: APIXABAN 2.5 MG TAB PO SCH ×2 (09:17→20:09)
[2019-12-29] MEDS ORDERED: POTASSIUM CHLORIDE 20 MEQ/15 ML UDC PO STA (10:43)
[2019-12-29] MEDS ORDERED: POTASSIUM CHLORIDE / WTR 10 MEQ/100 ML PLCT IV SCH (10:45)
[2019-12-29] MEDS ORDERED: Custom Peripheral Pn 1,900 ML in TPN BAG 0 ML IV SCH (16:00)
--- NOTE | 2019-12-29 20:00 | Hospitalist Progress Note ---
Date of Service December 29, 2019 Assessment & Plan (1) COVID-19: Exact date of onset of symptoms is unknown. diagnosed about 12/09/2019. Patient presented after a fall and some mild rhabdomyolysis on 12/15 and tested positive at that time. Other than general malaise, fatigue, generalized weakness, and low appetite, she has had a relatively benign course of illness Continues to remain stable from pulmonary standpoint (no hypoxia, etc). Her biggest issue is poor p.o. intake and lethargy in the setting of advanced dementia. She is on PPN. -She was started on Decadron, but stopped on 12/19 after 4 days. In RECOVERY trial, dexamethasone was actually associated with harm if patient did not need oxygen. Additionally, steroids will worsen her confusion. - Due to stable pulmonary status convalescent plasma and remdesivir not indicated. - Mental status improved 12/23 but then was lethargic three days in a row, poor oral intake, and was not taking medications On 12/27-12/28, she is now taking her medications and eating little bit more. She has been started on PPN - maintains he wants to take her home with 24 hour care he is having a hard time finding/hiring help especially with her still testing positive for Covid discussed with him that she does not really have rehab potential and has not been participating with PT/OT briefly discussed PEG tube and how this would be a poor choice, he is NOT interested in PEG tube I asked him if she had a living will, he states that she does, I asked him to find it, we would want a copy He is no longer interested in SNF at this time unless absolutely necessary repeated her COVID test 12/26, still positive, repeat in a few more days as a negative test would be better for both obtaining home care or transfer to long term facility -Continue PPN for now, plan for 5-7 days -Continue daily labs and replace electrolytes as needed (2) Hematochezia: Two small episodes on 12/22 likely hemorrhoids made worse with anticoagulation. - Held anticoagulation on 12/22; using hemorrhoid treatment. - Hgb largely stable at this time and no further bleeding noted by RN. resume anticoagulation, Eliquis 2.5mg BID (3) Acute metabolic encephalopathy: 2nd to COVID-19, ICU psychosis, steroids, etc. - Supportive care. - Avoid benzos, sedatives, etc. - See above more alert (4) Atrial fibrillation: HR is ~80 at present. EKG at admission with NSR vs aflutter. - Continue atenolol. - Orestes resumed Not on telemetry (5) HTN (hypertension): BP controlled - Cont atenolol (6) Rhabdomyolysis: 2nd to fall with lying on floor for undetermined period of time prior to admission. IMPROVED/nearly resolved. - Cr remains stable, start fluids since not drinking (7) Fall: Son, Michael, and reports frequent falling - likely due to dementia/increasing debility. Had 2 falls leading up to this admission - due to weakness from COVID-19 infection. - PT, OT evals requested -> Recommending 24h supervision. We will ask PT/OT to come back around as they have not seen her in a week - two options: 18/09 care at home or SNF, brought up [facility] unit if absolutely necessary (8) Alzheimer disease: Advanced. Per , at baseline, she sleeps most of the day, wakes up temporarily to eat/drink and toilet Follows with neurology - Cont Aricept & Namenda. This obviously contributes to a much worse prognosis given her Covid diagnosis (9) Hypokalemia: Replaced with 40 mEq potassium chloride K elixir Follow BMP in the morning (10) DVT prophylaxis: Orestes Rodriguez (son) - [phone] [facility] (son) Walter-, phone number in the chart-contacted by phone on 12/28 Disposition-continued stay Admission and Anticipated Discharge Date Admission Date: December 17, 2019 Subjective Pt mostly nonverbal. did eat some oatmeal today and drank some OJ. Not able to tell me anything. I discussed her care with nursing and her on the phone. Review of Systems Review of Systems: Unobtainable due to cognitive status Physical Exam Constitutional: + thin and + frail appearing; + uncooperative Eyes: + anicteric sclerae Neck: trachea midline, no thyromegaly Respiratory: normal respiratory effort, lungs clear to auscultation Cardiovascular: RRR, no murmur, no edema Chest (Breasts): Chest: normal inspection of chest Gastrointestinal (Abdomen): normal bowel sounds, soft, nontender, no hepatosplenomegaly Musculoskeletal: Extremities: extremities normal to inspection; no cyanosis and no clubbing Skin: no rashes, warm and dry Neurologic: moves all extremities and awake Psychiatric: Orientation: alert; + not oriented x 3 and + uncooperative Lymphatic: no lymphedema Results & Data Results & Data ([facility]) Vital Signs (Past 12 Hours) Vital Signs Temp Pulse Resp BP Pulse Ox 12/29/19 16:44 36.6 C 83 18 106/70 95 12/29/19 08:22 36.6 C 106 H 18 121/72 94 Laboratory Results 12/29/19 12/29/19 12/29/19 Range/Units 16:48 12:02 05:59 Sodium 133 L (136-145) mmol/L Potassium 3.0 L (3.5-5.1) mmol/L Chloride 101 (98-107) mmol/L Carbon Dioxide 26 (21-32) mmol/L Anion Gap 6.0 (3-11) BUN 14 (7-18) mg/dl Creatinine 0.54 L (0.6-1.2) mg/dl Est Cr Clr Drug Dosing 71.3 ml/min Est GFR ( Amer) 101.1 Est GFR (Non-Af Amer) 87.3 BUN/Creatinine Ratio 25.1 H (10-20) Glucose 104 H (70-99) mg/dl POC Glucose 81 90 (70-99) mg/dl Calcium 7.6 L (8.5-10.1) mg/dl Phosphorus 2.9 (2.5-4.9) mg/dl Magnesium 2.0 (1.8-2.4) mg/dl 12/28/19 12/28/19 Range/Units 23:48 20:46 Sodium (136-145) mmol/L Potassium (3.5-5.1) mmol/L Chloride (98-107) mmol/L Carbon Dioxide (21-32) mmol/L Anion Gap (3-11) BUN (7-18) mg/dl Creatinine (0.6-1.2) mg/dl Est Cr Clr Drug Dosing ml/min Est GFR ( Amer) Est GFR (Non-Af Amer) BUN/Creatinine Ratio (10-20) Glucose (70-99) mg/dl POC Glucose 103 H 92 (70-99) mg/dl Calcium (8.5-10.1) mg/dl Phosphorus (2.5-4.9) mg/dl Magnesium (1.8-2.4) mg/dl PG Care Time/CCT Total # of Minutes Spent Total Time Spent with Patient: Total time spent is greater than 50% in coordination of care (as documented) at patient's floor/unit and/or counseling patient: Coding Level of Care Code 78406 Subseq Hosp Care Lvl 2 Diagnoses COVID-19 U07.1 Hematochezia K92.1 Acute metabolic encephalopathy G93.41 Atrial fibrillation I48.91 Atrial fibrillation type: unspecified HTN (hypertension) I10 Hypertension type: essential hypertension Rhabdomyolysis T79.6XXA Encounter type: initial encounter Rhabdomyolysis type: traumatic Fall W19.XXXA Encounter type: initial encounter Alzheimer disease G30.9; F02.80 Alzheimer's disease onset: unspecified onset Hypokalemia E87.6 DVT prophylaxis Z29.9 (1) Atrial fibrillation Atrial fibrillation type: unspecified Qualified Code(s): I48.91 - Unspecified atrial fibrillation (2) HTN (hypertension) Hypertension type: essential hypertension Qualified Code(s): I10 - Essential (primary) hypertension (3) Rhabdomyolysis Encounter type: initial encounter Rhabdomyolysis type: traumatic Qualified Code(s): T79.6XXA - Traumatic ischemia of muscle, initial encounter (4) Fall Encounter type: initial encounter Qualified Code(s): W19.XXXA - Unspecified fall, initial encounter (5) Alzheimer disease Alzheimer's disease onset: unspecified onset
[2019-12-30 06:32] LABS: Basophils # (auto) 0.05 K/uL (0-0.2); Basophils % (auto) 0.9 %; Eosinophils # (auto) 0.12 K/uL (0-0.5); Eosinophils % (auto) 2.1 %; Hematocrit (blood only) 30.5 % (37-47); Hemoglobin 9.5 g/dL (12.0-16.0); Immature Granulocytes # (auto) 0.04 K/uL (0.00-0.02); Immature Granulocytes % (auto) 0.7 %; Lymphocytes # (auto) 1.66 K/uL (1.2-3.4); Lymphocytes % (auto) 28.5 %; Mean Corpuscular Hemoglobin 23.5 pg (25-34); Mean Corpuscular Hgb Conc 31.1 g/dL (32-36); Mean Corpuscular Volume 75.5 fL (80-100); Mean Platelet Volume 9.9 fL (7.4-10.4); Monocytes # (auto) 0.33 K/uL (0.11-0.59); Monocytes % (auto) 5.7 %; Neutrophils # (auto) 3.63 K/uL (1.4-6.5); Neutrophils % (auto) 62.1 %; Platelet Count 255 K/uL (130-400); RDW Coefficient of Variation 16.7 % (11.5-14.5); RDW Standard Deviation 44.8 fL (36.4-46.3); Red Blood Count 4.04 M/uL (4.2-5.4); White Blood Count 5.83 K/uL (4.8-10.8)
[2019-12-30 06:47] LABS: BUN Creatinine Ratio 34.1 (10-20); Calcium 7.6 mg/dl (8.5-10.1); Creatinine Clr Calc Pharmacy 79.9 ml/min; Est GFR (African American) 105.1; Est GFR (Non-African American) 90.7; Magnesium 2.1 mg/dl (1.8-2.4); Phosphorus 3.2 mg/dl (2.5-4.9); Potassium 4.3 mmol/L (3.5-5.1)
[2019-12-30] MEDS: DONEPEZIL HCL 10 MG TAB PO SCH (08:19)
[2019-12-30] MEDS: APIXABAN 2.5 MG TAB PO SCH ×2 (08:20→20:34)
[2019-12-30] MEDS: ZINC SULFATE 220 MG CAPSULE PO SCH (08:20)
[2019-12-30] MEDS: ATENOLOL 25 MG TABLET PO SCH (08:20)
[2019-12-30] MEDS: CHOLECALCIFEROL 1,000 UNITS 25 MCG TAB PO SCH (08:21)
[2019-12-30] MEDS: MEMANTINE HCL 5 MG TAB PO SCH ×2 (08:21→20:34)
[2019-12-30 10:49] LABS: Iron 21 mcg/dl (35-150); Total Iron Binding Capacity 146 mcg/dl (250-450); Transferrin 115 mg/dl (200-360); Transferrin Percent Saturation 13 % (15-50)
[2019-12-30] MEDS ORDERED: Custom Peripheral Pn 1,900 ML in TPN BAG 0 ML IV SCH (16:00)
[2019-12-30] MEDS ORDERED: LACTATED RINGER'S 250 ML IV ONE (21:24)
--- NOTE | 2019-12-30 22:11 | Hospitalist Progress Note ---
Date of Service December 30, 2019 Assessment & Plan (1) COVID-19: Exact date of onset of symptoms is unknown. diagnosed about 12/09/2019. Patient presented after a fall and some mild rhabdomyolysis on 12/15 and tested positive at that time. Other than general malaise, fatigue, generalized weakness, and low appetite, she has had a relatively benign course of illness Continues to remain stable from pulmonary standpoint (no hypoxia, etc). Her biggest issue is poor p.o. intake and lethargy in the setting of advanced dementia. She continues on PPN. -She was started on Decadron, but stopped on 12/19 after 4 days. In RECOVERY trial, dexamethasone was actually associated with harm if patient did not need oxygen. Additionally, steroids will worsen her confusion. - Due to stable pulmonary status, convalescent plasma and remdesivir not indicated. - Mental status improved 12/23 but then was lethargic three days in a row, poor oral intake, and was not taking medications Since 12/27, she has been taking her medications and eating little bit more. She continues on PPN - maintains he wants to take her home with 24 hour care he is having a hard time finding/hiring help especially with her still testing positive for Covid discussed with him that she does not really have rehab potential and has not been participating with PT/OT briefly discussed PEG tube and how this would be a poor choice, he is NOT interested in PEG tube I asked him if she had a living will, he states that she does, I asked him to find it, we would want a copy He is no longer interested in SNF at this time unless absolutely necessary repeated her COVID test 12/26, still positive, repeat in a few more days as a negative test would be better for both obtaining home care or transfer to custodial facility -Continue PPN for now, plan for 5-7 days -Continue daily labs and replace electrolytes as needed -start MVI tablet daily -encouraged increased mobility with nursing staff (2) Hematochezia: Two small episodes on 12/22 likely hemorrhoids made worse with anticoagulation. - Held anticoagulation on 12/22; using hemorrhoid treatment. - Hgb largely stable at this time and no further bleeding noted by RN. Hgb low at 9.5 resumed anticoagulation, Eliquis 2.5mg BID (3) Acute metabolic encephalopathy: 2nd to COVID-19, ICU psychosis, steroids, etc. - Supportive care. - Avoid benzos, sedatives, etc. - See above more alert and conversive, not eating much likely due to her severe dementia (4) Atrial fibrillation: EKG at admission with NSR vs aflutter. No longer on tele, regular on examination - Continue atenolol. - continue Eliquis (5) HTN (hypertension): BP controlled - Cont atenolol (6) Rhabdomyolysis: 2nd to fall with lying on floor for undetermined period of time prior to admission. IMPROVED/nearly resolved. - Cr remains stable, continue IV fluids since not drinking (7) Fall: Son, Michael, and reports frequent falling - likely due to dementia/increasing debility. Had 2 falls leading up to this admission - due to weakness from COVID-19 infection. - PT, OT evals requested -> Recommending 24h supervision. On 12/29 PT/OT tried to reassess and pt would not cooperate for therapy - two options: 18/09 care at home or SNF, brought up [facility] unit if absolutely necessary (8) Alzheimer disease: Advanced. Per , at baseline, she sleeps most of the day, wakes up temporarily to eat/drink and toilet Follows with neurology - Cont Aricept & Namenda. This obviously contributes to a much worse prognosis given her Covid diagnosis (9) Hypokalemia: Replaced and resolved Follow BMP in the morning (10) Anemia: hgb 9.5, microcytic Fe studies consistent with iron def and anemia of chronic disease start IV Venofer 300mg daily x 3 days follow CBC no bleeding (11) DVT prophylaxis: Orestes Rodriguez (son) - [phone] Eagle (son) Walter-, phone number in the chart-contacted by phone on 12/28 Disposition-continued stay, will plan to repeat COVID test on 12/30 to see if negative Admission and Anticipated Discharge Date Admission Date: December 17, 2019 Subjective Pt more conversive today. When I asked her if she is eating, she said "no." She then asked me where her telephone was. Otherwise would not answer any of my other questions. As per nursing, she is not eating anything today. SHe also pulled out her IV. Review of Systems Review of Systems: Unobtainable due to cognitive status Physical Exam Constitutional: + thin and + frail appearing Eyes: + anicteric sclerae Neck: trachea midline, no thyromegaly Respiratory: normal respiratory effort, lungs clear to auscultation Cardiovascular: RRR, no murmur, no edema Chest (Breasts): Chest: normal inspection of chest Gastrointestinal (Abdomen): normal bowel sounds, soft, nontender, no hepatosplenomegaly Musculoskeletal: Extremities: extremities normal to inspection; no cyanosis and no clubbing Skin: no rashes, warm and dry Neurologic: moves all extremities and awake Psychiatric: Orientation: alert; + not oriented x 3 Lymphatic: no lymphedema Results & Data Results & Data ([facility]) Vital Signs (Past 12 Hours) Vital Signs Temp Pulse Resp BP BP Pulse Ox 12/30/19 20:46 84 18 103/63 94 12/30/19 16:22 36.6 C 80 18 97/63 L 98 12/30/19 15:35 37.0 C 86 16 114/69 95 12/30/19 12:16 36.3 C L 83 18 106/57 L 99 Laboratory Results 12/30/19 12/30/19 12/30/19 Range/Units 20:44 16:50 12:11 WBC (4.8-10.8) K/uL RBC (4.2-5.4) M/uL Hgb (12.0-16.0) g/dL Hct (37-47) % MCV (80-100) fL MCH (25-34) pg MCHC (32-36) g/dL RDW Std Deviation (36.4-46.3) fL RDW Coeff of Robert (11.5-14.5) % Plt Count (130-400) K/uL MPV (7.4-10.4) fL Immature Gran % (Auto) % Neut % (Auto) % Lymph % (Auto) % [place] % (Auto) % Eos % (Auto) % Baso % (Auto) % Neut # (Auto) (1.4-6.5) K/uL Lymph # (Auto) (1.2-3.4) K/uL [place] # (Auto) (0.11-0.59) K/uL Eos # (Auto) (0-0.5) K/uL Baso # (Auto) (0-0.2) K/uL Immature Gran # (Auto) (0.00-0.02) K/uL Sodium (136-145) mmol/L Potassium (3.5-5.1) mmol/L Chloride (98-107) mmol/L Carbon Dioxide (21-32) mmol/L Anion Gap (3-11) BUN (7-18) mg/dl Creatinine (0.6-1.2) mg/dl Est Cr Clr Drug Dosing ml/min Est GFR ( Amer) Est GFR (Non-Af Amer) BUN/Creatinine Ratio (10-20) Glucose (70-99) mg/dl POC Glucose 100 H 99 98 (70-99) mg/dl Calcium (8.5-10.1) mg/dl Phosphorus (2.5-4.9) mg/dl Magnesium (1.8-2.4) mg/dl Iron TIBC Transferrin Transferrin % Sat Specimen Hemolysis 12/30/19 12/30/19 12/30/19 Range/Units 10:25 06:18 06:18 WBC 5.83 (4.8-10.8) K/uL RBC 4.04 L (4.2-5.4) M/uL Hgb 9.5 L (12.0-16.0) g/dL Hct 30.5 L (37-47) % MCV 75.5 L (80-100) fL MCH 23.5 L (25-34) pg MCHC 31.1 L (32-36) g/dL RDW Std Deviation 44.8 (36.4-46.3) fL RDW Coeff of Robert 16.7 H (11.5-14.5) % Plt Count 255 (130-400) K/uL MPV 9.9 (7.4-10.4) fL Immature Gran % (Auto) 0.7 % Neut % (Auto) 62.1 % Lymph % (Auto) 28.5 % [place] % (Auto) 5.7 % Eos % (Auto) 2.1 % Baso % (Auto) 0.9 % Neut # (Auto) 3.63 (1.4-6.5) K/uL Lymph # (Auto) 1.66 (1.2-3.4) K/uL [place] # (Auto) 0.33 (0.11-0.59) K/uL Eos # (Auto) 0.12 (0-0.5) K/uL Baso # (Auto) 0.05 (0-0.2) K/uL Immature Gran # (Auto) 0.04 H (0.00-0.02) K/uL Sodium 135 L (136-145) mmol/L Potassium 4.3 D (3.5-5.1) mmol/L Chloride 105 (98-107) mmol/L Carbon Dioxide 23 (21-32) mmol/L Anion Gap 7.0 (3-11) BUN 16 (7-18) mg/dl Creatinine 0.48 L (0.6-1.2) mg/dl Est Cr Clr Drug Dosing 79.9 ml/min Est GFR ( Amer) 105.1 Est GFR (Non-Af Amer) 90.7 BUN/Creatinine Ratio 34.1 H (10-20) Glucose 101 H (70-99) mg/dl POC Glucose (70-99) mg/dl Calcium 7.6 L (8.5-10.1) mg/dl Phosphorus 3.2 (2.5-4.9) mg/dl Magnesium 2.1 (1.8-2.4) mg/dl Iron 21 L TIBC 146 L Transferrin 115 L Transferrin % Sat 13 L Specimen Hemolysis 12/30/19 12/30/19 12/29/19 Range/Units 06:15 05:38 23:52 WBC (4.8-10.8) K/uL RBC (4.2-5.4) M/uL Hgb (12.0-16.0) g/dL Hct (37-47) % MCV (80-100) fL MCH (25-34) pg MCHC (32-36) g/dL RDW Std Deviation (36.4-46.3) fL RDW Coeff of Robert (11.5-14.5) % Plt Count (130-400) K/uL MPV (7.4-10.4) fL Immature Gran % (Auto) % Neut % (Auto) % Lymph % (Auto) % [place] % (Auto) % Eos % (Auto) % Baso % (Auto) % Neut # (Auto) (1.4-6.5) K/uL Lymph # (Auto) (1.2-3.4) K/uL [place] # (Auto) (0.11-0.59) K/uL Eos # (Auto) (0-0.5) K/uL Baso # (Auto) (0-0.2) K/uL Immature Gran # (Auto) (0.00-0.02) K/uL Sodium (136-145) mmol/L Potassium (3.5-5.1) mmol/L Chloride (98-107) mmol/L Carbon Dioxide (21-32) mmol/L Anion Gap (3-11) BUN (7-18) mg/dl Creatinine (0.6-1.2) mg/dl Est Cr Clr Drug Dosing ml/min Est GFR ( Amer) Est GFR (Non-Af Amer) BUN/Creatinine Ratio (10-20) Glucose (70-99) mg/dl POC Glucose 104 H 102 H (70-99) mg/dl Calcium (8.5-10.1) mg/dl Phosphorus (2.5-4.9) mg/dl Magnesium (1.8-2.4) mg/dl Iron Cancelled TIBC Cancelled Transferrin Cancelled Transferrin % Sat Cancelled Specimen Hemolysis PG Care Time/CCT Total # of Minutes Spent Total Time Spent with Patient: Total time spent is greater than 50% in coordination of care (as documented) at patient's floor/unit and/or counseling patient: Coding Level of Care Code 23120 Subseq Hosp Care Lvl 2 Diagnoses COVID-19 U07.1 Hematochezia K92.1 Acute metabolic encephalopathy G93.41 Atrial fibrillation I48.91 Atrial fibrillation type: unspecified HTN (hypertension) I10 Hypertension type: essential hypertension Rhabdomyolysis T79.6XXA Encounter type: initial encounter Rhabdomyolysis type: traumatic Fall W19.XXXA Encounter type: initial encounter Alzheimer disease G30.9; F02.80 Alzheimer's disease onset: unspecified onset Hypokalemia E87.6 Anemia D64.9 DVT prophylaxis Z29.9 (1) Atrial fibrillation Atrial fibrillation type: unspecified Qualified Code(s): I48.91 - Unspecified atrial fibrillation (2) HTN (hypertension) Hypertension type: essential hypertension Qualified Code(s): I10 - Essential (primary) hypertension (3) Rhabdomyolysis Encounter type: initial encounter Rhabdomyolysis type: traumatic Qualified Code(s): T79.6XXA - Traumatic ischemia of muscle, initial encounter (4) Fall Encounter type: initial encounter Qualified Code(s): W19.XXXA - Unspecified fall, initial encounter (5) Alzheimer disease Alzheimer's disease onset: unspecified onset
[2019-12-31 06:52] LABS: BUN Creatinine Ratio 43.1 (10-20); Calcium 7.8 mg/dl (8.5-10.1); Creatinine Clr Calc Pharmacy 84.3 ml/min; Est GFR (African American) 105.9; Est GFR (Non-African American) 91.3; Magnesium 1.9 mg/dl (1.8-2.4); Potassium 3.7 mmol/L (3.5-5.1)
[2019-12-31 07:40] LABS: Hematocrit (blood only) 28.4 % (37-47); Hemoglobin 8.6 g/dL (12.0-16.0); Mean Corpuscular Hemoglobin 23.9 pg (25-34); Mean Corpuscular Hgb Conc 30.3 g/dL (32-36); Mean Corpuscular Volume 78.9 fL (80-100); Mean Platelet Volume 10.5 fL (7.4-10.4); Platelet Count 294 K/uL (130-400); RDW Coefficient of Variation 17.2 % (11.5-14.5); White Blood Count 4.27 K/uL (4.8-10.8)
[2019-12-31 07:43] LABS: Basophils # (auto) 0.02 K/uL (0-0.2); Basophils % (auto) 0.5 %; Echinocytes 2+; Eosinophils # (auto) 0.11 K/uL (0-0.5); Eosinophils % (auto) 2.6 %; Immature Granulocytes # (auto) 0.01 K/uL (0.00-0.02); Immature Granulocytes % (auto) 0.2 %; Lymphocytes # (auto) 1.06 K/uL (1.2-3.4); Lymphocytes % (auto) 24.8 %; Monocytes # (auto) 0.32 K/uL (0.11-0.59); Monocytes % (auto) 7.5 %; Neutrophils # (auto) 2.75 K/uL (1.4-6.5); Neutrophils % (auto) 64.4 %; Toxic Vacuolation 2+
[2019-12-31] MEDS: APIXABAN 2.5 MG TAB PO SCH ×2 (08:16→22:09)
[2019-12-31] MEDS: MEMANTINE HCL 5 MG TAB PO SCH ×2 (08:16→22:09)
[2019-12-31] MEDS: DONEPEZIL HCL 10 MG TAB PO SCH (08:16)
[2019-12-31] MEDS: ATENOLOL 25 MG TABLET PO SCH (08:17)
[2019-12-31] MEDS: CHOLECALCIFEROL 1,000 UNITS 25 MCG TAB PO SCH (08:17)
[2019-12-31] MEDS: ZINC SULFATE 220 MG CAPSULE PO SCH (08:17)
[2019-12-31] MEDS: IRON SUCROSE 300 MG in SODIUM CHLORIDE 0.9% 250 ML IV SCH (08:18)
[2019-12-31] MEDS: CEROVITE ADV FORMULA TAB PO SCH (12:01)
[2019-12-31] MEDS ORDERED: Custom Peripheral Pn 1,900 ML in TPN BAG 0 ML IV SCH (16:00)
--- NOTE | 2019-12-31 17:06 | Hospitalist Progress Note ---
Date of Service December 31, 2019 Assessment & Plan (1) COVID-19: Exact date of onset of symptoms is unknown. diagnosed about 12/09/2019. Patient presented after a fall and some mild rhabdomyolysis on 12/15 and tested positive at that time. Other than general malaise, fatigue, generalized weakness, and low appetite, she has had a relatively benign course of illness Continues to remain stable from pulmonary standpoint (no hypoxia, etc). Her biggest issue is poor p.o. intake and lethargy in the setting of advanced dementia. She continues on PPN. -She was started on Decadron, but stopped on 12/19 after 4 days. In RECOVERY trial, dexamethasone was actually associated with harm if patient did not need oxygen. Additionally, steroids will worsen her confusion. - Due to stable pulmonary status, convalescent plasma and remdesivir not indicated. - Mental status improved 12/23 but then was lethargic three days in a row, poor oral intake, and was not taking medications Since 12/27, she has been taking her medications and eating small amounts, yet she continues on PPN - maintains he wants to take her home with 24 hour care he is having a hard time finding/hiring help especially with her still testing positive for Covid discussed with him that she does not really have rehab potential and has not been participating with PT/OT briefly discussed PEG tube and how this would be a poor choice, he is NOT interested in PEG tube repeated her COVID test 12/26 and again on 12/30-both still positive -Continue PPN for now, plan for 5-7 days -Continue daily labs and replace electrolytes as needed -started MVI tablet daily -encouraged increased mobility with nursing staff -Will try to get her the foods that her suggested that she likes to eat (2) Hematochezia: Two small episodes on 12/22 likely hemorrhoids made worse with anticoagulation. - Held anticoagulation on 12/22; using hemorrhoid treatment. - Hgb largely stable at this time and no further bleeding noted by RN. Hgb low at 9.5 resumed anticoagulation, Eliquis 2.5mg BID (3) Acute metabolic encephalopathy: 2nd to COVID-19, ICU psychosis, steroids, etc. - Supportive care. - Avoid benzos, sedatives, etc. - See above more alert and conversive, not eating much likely due to her severe dementia (4) Atrial fibrillation: EKG at admission with NSR vs aflutter. No longer on tele, regular on examination - Continue atenolol. - continue Eliisrealemelyn (5) HTN (hypertension): BP controlled - Cont atenolol (6) Rhabdomyolysis: 2nd to fall with lying on floor for undetermined period of time prior to admission. IMPROVED/nearly resolved. - Cr remains stable, continue IV fluids since not drinking (7) Fall: Son, Michael, and reports frequent falling - likely due to dementia/increasing debility. Had 2 falls leading up to this admission - due to weakness from COVID-19 infection. - PT, OT evals requested -> Recommending 24h supervision. On 12/29 PT/OT tried to reassess and pt would not cooperate for therapy - two options: 18/09 care at home or SNF, brought up [facility] unit if absolutely necessary (8) Alzheimer disease: Advanced. Per , at baseline, she sleeps most of the day, wakes up temporarily to eat/drink and toilet Follows with neurology - Cont Aricept & Namenda. This obviously contributes to a much worse prognosis given her Covid diagnosis (9) Hypokalemia: Replaced and resolved Follow BMP in the morning (10) Anemia: hgb 8.6, microcytic Fe studies consistent with iron def and anemia of chronic disease Continue IV Venofer 300mg daily x 3 days follow CBC no bleeding (11) DVT prophylaxis: Orestes Rodriguez (son) - [phone]-called him on 12/30 at his request and his cell phone service was poor and the phone call was cut short Eagle (son) Walter-, phone number in the chart-contacted by phone on 12/28 and again on 12/30 Disposition-continued stay, will have to stay here until Covid test is negative so that she can have her usual 18/09 caregivers at home Expect prolonged stay Admission and Anticipated Discharge Date Admission Date: December 17, 2019 Subjective Patient awake and when I asked her what her name is, she responds "cry baby." She then later tells me her name is Macrina. Otherwise, she cannot answer any questions meaningfully. Nursing reports she had a few bites of her oatmeal and a half of an orange juice today. I discussed her care with her who suggested chicken noodle soup and other soups and broccoli and asparagus that she might find interesting. Remains on PPN Review of Systems Review of Systems: Unobtainable due to cognitive status Physical Exam Constitutional: + thin and + frail appearing Eyes: + anicteric sclerae Neck: trachea midline, no thyromegaly Respiratory: normal respiratory effort, lungs clear to auscultation Cardiovascular: RRR, no murmur, no edema Chest (Breasts): Chest: normal inspection of chest Gastrointestinal (Abdomen): normal bowel sounds, soft, nontender, no hepatosplenomegaly Musculoskeletal: Extremities: extremities normal to inspection; no cyanosis and no clubbing Skin: no rashes, warm and dry Neurologic: moves all extremities and awake Psychiatric: Orientation: alert and oriented to person; + not oriented to place, + not oriented to time and + uncooperative Eye Contact: + fair eye contact Genitourinary: Hopper catheter in place Lymphatic: no lymphedema Results & Data Results & Data ([facility]) Vital Signs (Past 12 Hours) Vital Signs Temp Pulse Resp BP BP Pulse Ox 12/31/19 16:19 36.2 C L 68 17 126/90 92 12/31/19 10:40 36.3 C L 73 18 111/76 98 12/31/19 08:24 36.5 C 72 16 121/68 98 Laboratory Results 12/31/19 12/31/19 12/31/19 Range/Units 10:28 09:30 09:30 WBC (4.8-10.8) K/uL RBC (4.2-5.4) M/uL Hgb (12.0-16.0) g/dL Hct (37-47) % MCV (80-100) fL MCH (25-34) pg MCHC (32-36) g/dL RDW Std Deviation (36.4-46.3) fL RDW Coeff of Robert (11.5-14.5) % Plt Count (130-400) K/uL MPV (7.4-10.4) fL Immature Gran % (Auto) % Neut % (Auto) % Lymph % (Auto) % [place] % (Auto) % Eos % (Auto) % Baso % (Auto) % Neut # (Auto) (1.4-6.5) K/uL Lymph # (Auto) (1.2-3.4) K/uL [place] # (Auto) (0.11-0.59) K/uL Eos # (Auto) (0-0.5) K/uL Baso # (Auto) (0-0.2) K/uL Immature Gran # (Auto) (0.00-0.02) K/uL Toxic Vacuolation Echinocytes Sodium (136-145) mmol/L Potassium (3.5-5.1) mmol/L Chloride (98-107) mmol/L Carbon Dioxide (21-32) mmol/L Anion Gap (3-11) BUN (7-18) mg/dl Creatinine (0.6-1.2) mg/dl Est Cr Clr Drug Dosing ml/min Est GFR ( Amer) Est GFR (Non-Af Amer) BUN/Creatinine Ratio (10-20) Glucose (70-99) mg/dl POC Glucose 101 H (70-99) mg/dl Calcium (8.5-10.1) mg/dl Magnesium (1.8-2.4) mg/dl COVID-19 Eval Order Covid19 IDNow [facility] SARS-CoV-2, RNA, NAAT POSITIVE A* (NEGATIVE) 12/31/19 12/31/19 12/30/19 Range/Units 05:23 05:23 20:44 WBC 4.27 L (4.8-10.8) K/uL RBC 3.60 L (4.2-5.4) M/uL Hgb 8.6 L (12.0-16.0) g/dL Hct 28.4 L (37-47) % MCV 78.9 L (80-100) fL MCH 23.9 L (25-34) pg MCHC 30.3 L (32-36) g/dL RDW Std Deviation 48.0 H (36.4-46.3) fL RDW Coeff of Robert 17.2 H (11.5-14.5) % Plt Count 294 (130-400) K/uL MPV 10.5 H (7.4-10.4) fL Immature Gran % (Auto) 0.2 % Neut % (Auto) 64.4 % Lymph % (Auto) 24.8 % [place] % (Auto) 7.5 % Eos % (Auto) 2.6 % Baso % (Auto) 0.5 % Neut # (Auto) 2.75 (1.4-6.5) K/uL Lymph # (Auto) 1.06 L (1.2-3.4) K/uL [place] # (Auto) 0.32 (0.11-0.59) K/uL Eos # (Auto) 0.11 (0-0.5) K/uL Baso # (Auto) 0.02 (0-0.2) K/uL Immature Gran # (Auto) 0.01 (0.00-0.02) K/uL Toxic Vacuolation 2+ Echinocytes 2+ Sodium 134 L (136-145) mmol/L Potassium 3.7 (3.5-5.1) mmol/L Chloride 103 (98-107) mmol/L Carbon Dioxide 27 (21-32) mmol/L Anion Gap 4.0 (3-11) BUN 20 H (7-18) mg/dl Creatinine 0.47 L (0.6-1.2) mg/dl Est Cr Clr Drug Dosing 84.3 ml/min Est GFR ( Amer) 105.9 Est GFR (Non-Af Amer) 91.3 BUN/Creatinine Ratio 43.1 H (10-20) Glucose 92 (70-99) mg/dl POC Glucose 100 H (70-99) mg/dl Calcium 7.8 L (8.5-10.1) mg/dl Magnesium 1.9 (1.8-2.4) mg/dl COVID-19 Eval Order SARS-CoV-2, RNA, NAAT (NEGATIVE) PG Care Time/CCT Total # of Minutes Spent Total Time Spent with Patient: Total time spent is greater than 50% in coordination of care (as documented) at patient's floor/unit and/or counseling patient: Coding Level of Care Code 66640 Subseq Hosp Care Lvl 2 Diagnoses COVID-19 U07.1 Hematochezia K92.1 Acute metabolic encephalopathy G93.41 Atrial fibrillation I48.91 Atrial fibrillation type: unspecified HTN (hypertension) I10 Hypertension type: essential hypertension Rhabdomyolysis T79.6XXA Encounter type: initial encounter Rhabdomyolysis type: traumatic Fall W19.XXXA Encounter type: initial encounter Alzheimer disease G30.9; F02.80 Alzheimer's disease onset: unspecified onset Hypokalemia E87.6 Anemia D64.9 DVT prophylaxis Z29.9 (1) Alzheimer disease Alzheimer's disease onset: unspecified onset (2) Atrial fibrillation Atrial fibrillation type: unspecified Qualified Code(s): I48.91 - Unspecified atrial fibrillation (3) Rhabdomyolysis Encounter type: initial encounter Rhabdomyolysis type: traumatic Qualified Code(s): T79.6XXA - Traumatic ischemia of muscle, initial encounter (4) HTN (hypertension) Hypertension type: essential hypertension Qualified Code(s): I10 - Essential (primary) hypertension (5) Fall Encounter type: initial encounter Qualified Code(s): W19.XXXA - Unspecified fall, initial encounter
--- NOTE | 2020-01-01 01:08 | Communication Note ---
Date of Service: January 01, 2020 Episode of hematochezia overnight. Hemodynamically stable. CBC ordered, eliquis held. Eliquid x1 given prior to episode.
[2020-01-01 01:53] LABS: Basophils # (auto) 0.03 K/uL (0-0.2); Basophils % (auto) 0.5 %; Eosinophils # (auto) 0.06 K/uL (0-0.5); Eosinophils % (auto) 1.1 %; Hematocrit (blood only) 29.9 % (37-47); Hemoglobin 9.2 g/dL (12.0-16.0); Immature Granulocytes # (auto) 0.01 K/uL (0.00-0.02); Immature Granulocytes % (auto) 0.2 %; Lymphocytes # (auto) 1.47 K/uL (1.2-3.4); Lymphocytes % (auto) 26.6 %; Mean Corpuscular Hemoglobin 24.3 pg (25-34); Mean Corpuscular Volume 78.9 fL (80-100); Mean Platelet Volume 10.1 fL (7.4-10.4); Monocytes # (auto) 0.45 K/uL (0.11-0.59); Monocytes % (auto) 8.1 %; Neutrophils # (auto) 3.51 K/uL (1.4-6.5); Neutrophils % (auto) 63.5 %; Platelet Count 262 K/uL (130-400); RDW Coefficient of Variation 17.2 % (11.5-14.5); RDW Standard Deviation 47.9 fL (36.4-46.3); Red Blood Count 3.79 M/uL (4.2-5.4); White Blood Count 5.53 K/uL (4.8-10.8)
[2020-01-01 02:12] LABS: Mean Corpuscular Hgb Conc 30.8 g/dL (32-36)
[2020-01-01 06:09] LABS: Basophils # (auto) 0.02 K/uL (0-0.2); Basophils % (auto) 0.4 %; Eosinophils # (auto) 0.08 K/uL (0-0.5); Eosinophils % (auto) 1.5 %; Hematocrit (blood only) 31.8 % (37-47); Hemoglobin 9.6 g/dL (12.0-16.0); Immature Granulocytes # (auto) 0.02 K/uL (0.00-0.02); Immature Granulocytes % (auto) 0.4 %; Lymphocytes # (auto) 1.38 K/uL (1.2-3.4); Lymphocytes % (auto) 26.5 %; Mean Corpuscular Hemoglobin 23.8 pg (25-34); Mean Corpuscular Hgb Conc 30.2 g/dL (32-36); Mean Corpuscular Volume 78.9 fL (80-100); Mean Platelet Volume 9.9 fL (7.4-10.4); Monocytes % (auto) 7.7 %; Neutrophils % (auto) 63.5 %; Platelet Count 263 K/uL (130-400); RDW Coefficient of Variation 17.2 % (11.5-14.5); Red Blood Count 4.03 M/uL (4.2-5.4)
[2020-01-01 06:37] LABS: BUN Creatinine Ratio 49.7 (10-20); Creatinine Clr Calc Pharmacy 86.7 ml/min; Est GFR (African American) 106.6; Magnesium 2.2 mg/dl (1.8-2.4); Potassium 3.8 mmol/L (3.5-5.1)
[2020-01-01] MEDS: IRON SUCROSE 300 MG in SODIUM CHLORIDE 0.9% 250 ML IV SCH (07:59)
[2020-01-01] MEDS: ATENOLOL 25 MG TABLET PO SCH (07:59)
[2020-01-01] MEDS: CHOLECALCIFEROL 1,000 UNITS 25 MCG TAB PO SCH (07:59)
[2020-01-01] MEDS: CEROVITE ADV FORMULA TAB PO SCH (07:59)
[2020-01-01] MEDS: DONEPEZIL HCL 10 MG TAB PO SCH (07:59)
[2020-01-01] MEDS: ZINC SULFATE 220 MG CAPSULE PO SCH (08:00)
[2020-01-01] MEDS: MEMANTINE HCL 5 MG TAB PO SCH (08:00)
[2020-01-01] MEDS ORDERED: FUROSEMIDE 40 MG in SYRINGE 0 ML IV ONE (08:49)
[2020-01-01] MEDS ORDERED: FUROSEMIDE 40 MG/4 ML VIAL IV ONE (08:55)
[2020-01-01] MEDS ORDERED: MoRPHine SULFATE 2 MG/ML CARP IV PRN (09:02)
--- NOTE | 2020-01-01 09:08 | Hospitalist Progress Note ---
Date of Service January 01, 2020 Assessment & Plan (1) Abdominal pain: Developed acute abdominal pain on the morning of 12/31 along with diaphoresis and brief bradycardia secondary to vagal response to pain Most likely due to dislodged Hopper catheter and significant UTI as well as fecal impaction CT of the abdomen/pelvis consistent with cystitis, but no other acute pathology Lactate was elevated and urinalysis positive With hypothermia, consistent with sepsis Did have rectal bleeding overnight but not significant Appreciate GI consultation Bisacodyl for constipation Changed out Hopper catheter after it was partially dislodged after she pulled on it-the seem to relieve some of her pain Treating UTI as below Morphine as needed for pain (2) UTI (urinary tract infection): Hopper catheter associated UTI, acquired in the hospital Initially started cefepime but shift stacker recommended switching to meropenem for better coverage Chandu blood cultures given hypothermia associated -Follow urine culture Replaced Hopper catheter (3) Hypotension: Secondary to sepsis versus diuresis Treating with IV antibiotics as above Giving boluses as needed of IV albumin given severe hypoalbuminemia and third spacing After multiple discussions with , he is in favor of aggressive care including vasopressors and transferred to ICU for central line if needed Blood pressures at the end of the day seem to be stabilized after resuscitation with IV albumin and gave glucagon to reverse her beta-kirk (4) Hypothermia: Rectal temperature down to 33.6 Brian hugger was applied and throughout the day finally achieved normal temperature Associated with UTI and sepsis Continue to monitor temperatures Treating with antibiotics (5) COVID-19: Exact date of onset of symptoms is unknown. diagnosed about 12/09/2019. Patient presented after a fall and some mild rhabdomyolysis on 12/15 and tested positive at that time. Other than general malaise, fatigue, generalized weakness, and low appetite, she has had a relatively benign course of illness Continues to remain stable from pulmonary standpoint (no hypoxia, etc). Her biggest issue is poor p.o. intake and lethargy in the setting of advanced dementia. -She was started on Decadron, but stopped on 12/19 after 4 days. In RECOVERY trial, dexamethasone was actually associated with harm if patient did not need oxygen. Additionally, steroids will worsen her confusion. - Due to stable pulmonary status, convalescent plasma and remdesivir not indicated. - Mental status improved 12/23 but then was lethargic three days in a row, poor oral intake, and was not taking medications Since 12/27, she has been taking her medications and eating small amounts, yet she continued on PPN PPN now discontinued due to to volume overload repeated her COVID test 12/26 and again on 12/30-both still positive -started MVI tablet daily -Encourage p.o. intake (6) Hematochezia: Initially had Two small episodes on 12/22 likely hemorrhoids made worse with anticoagulation. - Held anticoagulation on 12/22; using hemorrhoid treatment. Had another episode overnight on 12/30, hemoglobin again remained stable CT abdomen/pelvis performed for acute abdominal pain as above-no evidence of colitis but does have moderate stool in the rectum and possible stercoral proctitis Bisacodyl suppository ordered and if taking pills tomorrow, would give bisacodyl p.o. Hold apixaban Appreciate GI consultation-no plans for colonoscopy given frail state-this was discussed with patient's (7) Anasarca: She is +10 L for this hospitalization with evidence of moderate bilateral pleural effusions on CT scan today Surprisingly she is not having any respiratory distress, but does need diuresis IV albumin given as above IV Lasix given with excellent response Continue albumin and Lasix for diuresis Monitor daily weights, I's and O's (8) Acute metabolic encephalopathy: 2nd to COVID-19, ICU psychosis, steroids, etc. - Supportive care. - Avoid benzos, sedatives, etc. (9) Atrial fibrillation: EKG at admission with NSR vs aflutter. Had been regular on examination On the evening of 12/30, placed back on telemetry and noted to be in atrial fibrillation, rate controlled Holding home atenolol now for hypotension Holding Eliquis for recurrent rectal bleeding -Continue on telemetry monitoring (10) HTN (hypertension): BP low today as above Holding atenolol (11) Rhabdomyolysis: 2nd to fall with lying on floor for undetermined period of time prior to admission. Resolved (12) Fall: Son, Michael, and reports frequent falling - likely due to dementia/ increasing debility. Had 2 falls leading up to this admission - due to weakness from COVID-19 infection. - PT, OT evals requested -> Recommending 24h supervision. On 12/29 PT/OT tried to reassess and pt would not cooperate for therapy - two options: 18/09 care at home or SNF, brought up [facility] unit if absolutely necessary (13) Alzheimer disease: Advanced. Per , at baseline, she sleeps most of the day, wakes up temporarily to eat/drink and toilet Follows with neurology -We will hold Aricept & Namenda as these can cause low appetite and will not help her in the acute setting. This obviously contributes to a much worse prognosis given her Covid diagnosis (14) Hypokalemia: Replaced and resolved Follow BMP in the morning (15) Anemia: Hemoglobin fairly stable at 8-9, microcytic Fe studies consistent with iron def and anemia of chronic disease Also with witnessed small amounts of hematochezia here as above Continue IV Venofer 300mg daily x 3 days follow CBC Holding apixaban (16) Constipation: With moderate fecal impaction of stool noted on imaging today Bisacodyl suppository Follow and start p.o. bisacodyl if needed (17) DVT prophylaxis: Orestes now on hold Micahel (son) - [phone]-called him on 12/31 and had lengthy discussion about her care Eagle (son) Walter-, phone number in the chart-contacted by phone on 12/28 and again on 12/30 as well as 2 times on 12/31 for extensive discussions Disposition-continued stay, now with worsening status. Overall prognosis remains quite guarded After numerous discussions throughout the day with , patient will remain a full code at this time Admission and Anticipated Discharge Date Admission Date: December 17, 2019 Subjective Patient had significant lower abdominal pain this morning along with diaphoresis and a brief episode of bradycardia into the high 30s. She had pulled on her Hopper catheter which was partially dislodged. This was removed and replaced and she was noted to have foul-smelling cloudy thick urine that was infected. A KUB was reviewed which showed stool. A CT of the abdomen/pelvis was performed which showed fecal impaction but no evidence of ischemic colitis. It did however show significant cystitis. She was also significantly hypothermic and was placed on a Brian hugger. She was unable to give me any information. The nurses did note at one point that she yelled out "do not do this to me, just let me !" An ECG showed atrial fibrillation without significant ischemic changes. Chest x-ray showed significant pleural effusions as did the bottoms of the lungs on the CT scan. She was given IV Lasix as she was sounding wet on examination and had a significant diuresis through the day. She also had some mild rectal bleeding overnight but her hemoglobin remained stable. Her Eliquis was placed on hold. I discussed her care with her on 2 occasions through the day as well as her son, Michael, on the phone. I spent a total of 120 minutes on her care on numerous occasions throughout the day checking on her and communicating with specialists and family members. I did also review her case with the shift stacker as she became hypotensive with systolic blood pressure of 75 at one point. I gave her IV albumin. Archivist Political History recommended giving glucagon to reverse her atenolol. She did get this which helped and also caused her to have nausea and vomiting. She was started on IV antibiotics for Hopper catheter associated hospital- acquired UTI. Blood cultures were drawn. Lactate was elevated. Telemetry remained with atrial fibrillation with rates mostly in the 70s with brief bradycardia to 38 which was likely a vagal response to pain. Review of Systems Review of Systems: Unobtainable due to cognitive status Physical Exam Constitutional: + acute distress, + thin, + frail appearing and + diaphoretic Eyes: + anicteric sclerae Neck: trachea midline, no thyromegaly Respiratory: normal respiratory effort Auscultation: + diminished lung sounds (At the bases bilaterally) and + crackles (Bilaterally) Cardiovascular: Rate/Rhythm: regular rate and + irregularly irregular Heart Sounds: no murmur Extremities: + edema (Arms and legs with 1+ pitting edema) Chest (Breasts): Chest: normal inspection of chest Gastrointestinal (Abdomen): Inspection/Auscultation: abdomen normal to inspection and normal bowel sounds Percussion/Palpation: + abdomen tender (Positive tenderness to palpation in the suprapubic and right lower quadrant) and abdomen soft; no guarding, abdomen not rigid and no hernia Musculoskeletal: Extremities: no cyanosis and no clubbing Skin: no rashes Neurologic: moves all extremities, awake and + confused Psychiatric: Orientation: alert; + not oriented to place, + not oriented to time and + uncooperative Eye Contact: + fair eye contact Affect: + anxious affect Genitourinary: Hopper catheter was dislodged and there was incontinence to urine on the bed that was very foul-smelling urine Results & Data Results & Data ([facility]) Vital Signs (Past 12 Hours) Vital Signs Temp Pulse Pulse Resp BP Pulse Ox 01/01/20 08:20 35.9 C L 769 H 20 148/84 H 94 01/01/20 04:16 36.4 C L 68 14 137/53 L 98 01/01/20 01:59 79 01/01/20 01:07 33.9 C L 01/01/20 00:34 33.9 C L 76 16 115/77 98 Laboratory Results 01/01/20 01/01/20 01/01/20 Range/Units 17:45 12:23 12:09 WBC (4.8-10.8) K/uL RBC (4.2-5.4) M/uL Hgb (12.0-16.0) g/dL Hct (37-47) % MCV (80-100) fL MCH (25-34) pg MCHC (32-36) g/dL RDW Std Deviation (36.4-46.3) fL RDW Coeff of Robert (11.5-14.5) % Plt Count (130-400) K/uL MPV (7.4-10.4) fL Immature Gran % (Auto) % Neut % (Auto) % Lymph % (Auto) % [place] % (Auto) % Eos % (Auto) % Baso % (Auto) % Neut # (Auto) (1.4-6.5) K/uL Lymph # (Auto) (1.2-3.4) K/uL [place] # (Auto) (0.11-0.59) K/uL Eos # (Auto) (0-0.5) K/uL Baso # (Auto) (0-0.2) K/uL Immature Gran # (Auto) (0.00-0.02) K/uL Sodium (136-145) mmol/L Potassium (3.5-5.1) mmol/L Chloride (98-107) mmol/L Carbon Dioxide (21-32) mmol/L Anion Gap (3-11) BUN (7-18) mg/dl Creatinine (0.6-1.2) mg/dl Est Cr Clr Drug Dosing ml/min Est GFR ( Amer) Est GFR (Non-Af Amer) BUN/Creatinine Ratio (10-20) Glucose (70-99) mg/dl POC Glucose 89 107 H (70-99) mg/dl Lactate 2.4 H* (0.4-2.0) mmol/L Calcium (8.5-10.1) mg/dl Phosphorus (2.5-4.9) mg/dl Magnesium (1.8-2.4) mg/dl Procalcitonin (0-0.5) ng/ml Urine Color Urine Appearance (Clear) Urine pH (4.5-7.5) Ur Specific [place] (1.000-1.030) Urine Protein (Negative) Urine Glucose (UA) (Negative) Urine Ketones (Negative) Urine Blood (Negative) Urine Nitrite (Negative) Urine Bilirubin (Negative) Urine Urobilinogen (Negative) Ur Leukocyte Esterase (Negative) Urine WBC (Auto) (0-5) /hpf Urine RBC (Auto) (0-4) /hpf U Hyaline Cast (Auto) (0-5) /lpf U Epithel Cells (Auto) (0-5) /lpf Urine Bacteria (Auto) (Negative) Urine Yeast 01/01/20 01/01/20 01/01/20 Range/Units 10:32 10:32 09:15 WBC (4.8-10.8) K/uL RBC (4.2-5.4) M/uL Hgb (12.0-16.0) g/dL Hct (37-47) % MCV (80-100) fL MCH (25-34) pg MCHC (32-36) g/dL RDW Std Deviation (36.4-46.3) fL RDW Coeff of Robert (11.5-14.5) % Plt Count (130-400) K/uL MPV (7.4-10.4) fL Immature Gran % (Auto) % Neut % (Auto) % Lymph % (Auto) % [place] % (Auto) % Eos % (Auto) % Baso % (Auto) % Neut # (Auto) (1.4-6.5) K/uL Lymph # (Auto) (1.2-3.4) K/uL [place] # (Auto) (0.11-0.59) K/uL Eos # (Auto) (0-0.5) K/uL Baso # (Auto) (0-0.2) K/uL Immature Gran # (Auto) (0.00-0.02) K/uL Sodium (136-145) mmol/L Potassium (3.5-5.1) mmol/L Chloride (98-107) mmol/L Carbon Dioxide (21-32) mmol/L Anion Gap (3-11) BUN (7-18) mg/dl Creatinine (0.6-1.2) mg/dl Est Cr Clr Drug Dosing ml/min Est GFR ( Amer) Est GFR (Non-Af Amer) BUN/Creatinine Ratio (10-20) Glucose (70-99) mg/dl POC Glucose (70-99) mg/dl Lactate 2.6 H* (0.4-2.0) mmol/L Calcium (8.5-10.1) mg/dl Phosphorus (2.5-4.9) mg/dl Magnesium (1.8-2.4) mg/dl Procalcitonin 0.34 (0-0.5) ng/ml Urine Color Dark Yellow Urine Appearance Turbid A (Clear) Urine pH >= 9.0 H (4.5-7.5) Ur Specific [place] 1.018 (1.000-1.030) Urine Protein 3+ H (Negative) Urine Glucose (UA) Negative (Negative) Urine Ketones Negative (Negative) Urine Blood 3+ H (Negative) Urine Nitrite Negative (Negative) Urine Bilirubin Negative (Negative) Urine Urobilinogen Negative (Negative) Ur Leukocyte Esterase 3+ H (Negative) Urine WBC (Auto) >30 H (0-5) /hpf Urine RBC (Auto) 10-30 H (0-4) /hpf U Hyaline Cast (Auto) 1-5 (0-5) /lpf U Epithel Cells (Auto) >30 H (0-5) /lpf Urine Bacteria (Auto) 4+ H (Negative) Urine Yeast Not Reportable 01/01/20 01/01/20 01/01/20 Range/Units 05:34 05:34 01:29 WBC 5.20 5.53 (4.8-10.8) K/uL RBC 4.03 L 3.79 L (4.2-5.4) M/uL Hgb 9.6 L 9.2 L (12.0-16.0) g/dL Hct 31.8 L 29.9 L (37-47) % MCV 78.9 L 78.9 L (80-100) fL MCH 23.8 L 24.3 L (25-34) pg MCHC 30.2 L 30.8 L (32-36) g/dL RDW Std Deviation 48.0 H 47.9 H (36.4-46.3) fL RDW Coeff of Robert 17.2 H 17.2 H (11.5-14.5) % Plt Count 263 262 (130-400) K/uL MPV 9.9 10.1 (7.4-10.4) fL Immature Gran % (Auto) 0.4 0.2 % Neut % (Auto) 63.5 63.5 % Lymph % (Auto) 26.5 26.6 % [place] % (Auto) 7.7 8.1 % Eos % (Auto) 1.5 1.1 % Baso % (Auto) 0.4 0.5 % Neut # (Auto) 3.30 3.51 (1.4-6.5) K/uL Lymph # (Auto) 1.38 1.47 (1.2-3.4) K/uL [place] # (Auto) 0.40 0.45 (0.11-0.59) K/uL Eos # (Auto) 0.08 0.06 (0-0.5) K/uL Baso # (Auto) 0.02 0.03 (0-0.2) K/uL Immature Gran # (Auto) 0.02 0.01 (0.00-0.02) K/uL Sodium 135 L (136-145) mmol/L Potassium 3.8 (3.5-5.1) mmol/L Chloride 104 (98-107) mmol/L Carbon Dioxide 27 (21-32) mmol/L Anion Gap 4.0 (3-11) BUN 23 H (7-18) mg/dl Creatinine 0.46 L (0.6-1.2) mg/dl Est Cr Clr Drug Dosing 86.7 ml/min Est GFR ( Amer) 106.6 Est GFR (Non-Af Amer) 92.0 BUN/Creatinine Ratio 49.7 H (10-20) Glucose 97 (70-99) mg/dl POC Glucose (70-99) mg/dl Lactate (0.4-2.0) mmol/L Calcium 8.0 L (8.5-10.1) mg/dl Phosphorus 4.0 (2.5-4.9) mg/dl Magnesium 2.2 (1.8-2.4) mg/dl Procalcitonin (0-0.5) ng/ml Urine Color Urine Appearance (Clear) Urine pH (4.5-7.5) Ur Specific [place] (1.000-1.030) Urine Protein (Negative) Urine Glucose (UA) (Negative) Urine Ketones (Negative) Urine Blood (Negative) Urine Nitrite (Negative) Urine Bilirubin (Negative) Urine Urobilinogen (Negative) Ur Leukocyte Esterase (Negative) Urine WBC (Auto) (0-5) /hpf Urine RBC (Auto) (0-4) /hpf U Hyaline Cast (Auto) (0-5) /lpf U Epithel Cells (Auto) (0-5) /lpf Urine Bacteria (Auto) (Negative) Urine Yeast Diagnostic Findings Chest x-ray and KUB images as well as CT of the abdomen/pelvis image was all personally reviewed by me and agree with the following reports: XR chest 1V portable CLINICAL HISTORY: Atypical chest pain. COMPARISON STUDY: Chest CT August 07, 2018. Chest radiograph December 16, 2019. FINDINGS: Moderate cardiomegaly is noted. Interstitial thickening and bilateral opacities have developed since prior examination. There is no pneumothorax. Bilateral pleural effusions are noted. There may be a right subpulmonic effusion. IMPRESSION: 1. Interval development of interstitial thickening and bilateral opacities which favor pulmonary edema. An infectious process could appear similar. 2. Bilateral pleural effusions with possible right subpulmonic effusion. KUB CLINICAL HISTORY: Abdominal pain. COMPARISON STUDY: CT of the abdomen and pelvis August 07, 2018. FINDINGS: Bowel gas pattern is normal. Pelvic calcifications reflect phleboliths. There is a moderate amount of stool within the rectum. Gallstones are noted within the gallbladder. IMPRESSION: 1. No evidence for a bowel obstruction. 2. Moderate amount of stool within the rectum. 3. Cholelithiasis. CT OF THE ABDOMEN AND PELVIS WITH CONTRAST CLINICAL HISTORY: abdominal pain,rectal bleeding COMPARISON STUDY: CT of the abdomen and pelvis August 07, 2018. CT of the pelvis October 29, 2018. TECHNIQUE: Following IV administration of 94 mL of Optiray-320, axial images of the abdomen and pelvis were obtained from the lung bases to the proximal femurs. Images were reviewed in the axial, sagittal, and coronal planes. IV contrast was administered without complication. Automated exposure control was utilized for the study. A dose lowering technique was utilized adhering to the principles of ALARA. CT DOSE: 786.80 mGycm FINDINGS: Visualized portions of the lower chest demonstrate megaly is moderate bilateral pleural effusions, right larger left. Associated bibasilar airspace opacities favor atelectasis. Evaluation of the abdomen and pelvis is suboptimal given mild motion artifact. The liver, spleen, adrenal glands and pancreas are unremarkable. The gallbladder is filled with gallstones. There is no evidence for acute cholecystitis. There is no peripancreatic infiltration. Mild bilateral collecting system dilatation is present. No ureteral calculi are identified. A Hopper balloon within the bladder is noted. Bladder wall thickening is noted with moderate adjacent infiltration and fluid. There is no evidence for a bowel obstruction. The appendix is normal. Sensitivity for detection of mucosal lesions is diminished on this examination. There is a moderate amount of stool within the rectum with perirectal infiltration and fluid. There is no extraluminal gas. No suspicious osseous lesions are noted. Old left pubic ring fractures are present. IMPRESSION: 1. Bladder wall thickening with moderate adjacent fluid and infiltration. The findings suggest cystitis. Mild bilateral collecting system dilatation. No ureteral calculi identified. 2. Moderate amount of stool within the rectum with perirectal infiltration and fluid. No rectal wall thickening however stercoral colitis cannot be excluded. No extraluminal gas. No bowel obstruction. 3. Moderate bilateral pleural effusions. 4. Cholelithiasis. No evidence for acute cholecystitis. PG Care Time/CCT Total # of Minutes Spent Total Time Spent with Patient: Total time spent is greater than 50% in coordination of care (as documented) at patient's floor/unit and/or counseling patient: Prolonged Care Time Prolonged Care Time: Yes Total Prolonged Care Time: 120 Coding Level of Care Code 78449 Subseq Hosp Care Lvl 3 (25 - SIGNIFICANT, SEPARATELY IDENTIFIABLE ) Diagnoses Abdominal pain R10.9 UTI (urinary tract infection) N39.0 Hypotension I95.9 Hypothermia T68.XXXA COVID-19 U07.1 Hematochezia K92.1 Anasarca R60.1 Acute metabolic encephalopathy G93.41 Atrial fibrillation I48.91 Atrial fibrillation type: unspecified HTN (hypertension) I10 Hypertension type: essential hypertension Rhabdomyolysis T79.6XXA Encounter type: initial encounter Rhabdomyolysis type: traumatic Fall W19.XXXA Encounter type: initial encounter Alzheimer disease G30.9; F02.80 Alzheimer's disease onset: unspecified onset Hypokalemia E87.6 Anemia D64.9 Constipation K59.00 DVT prophylaxis Z29.9 Additional Codes Prolonged Care Time - Prolonged Care Time: Yes ([id number]) (1) Alzheimer disease Alzheimer's disease onset: unspecified onset (2) Atrial fibrillation Atrial fibrillation type: unspecified Qualified Code(s): I48.91 - Unspecified atrial fibrillation (3) Rhabdomyolysis Encounter type: initial encounter Rhabdomyolysis type: traumatic Qualified Code(s): T79.6XXA - Traumatic ischemia of muscle, initial encounter (4) HTN (hypertension) Hypertension type: essential hypertension Qualified Code(s): I10 - Essential (primary) hypertension (5) Fall Encounter type: initial encounter Qualified Code(s): W19.XXXA - Unspecified fall, initial encounter
[2020-01-01] MEDS ORDERED: [UNRECOGNIZED DRUG - REMARK] ONE (09:45)
--- NOTE | 2020-01-01 09:57 | XRay Report ---
XR chest 1V portable CLINICAL HISTORY: Atypical chest pain. COMPARISON STUDY: Chest CT August 07, 2018. Chest radiograph December 16, 2019. FINDINGS: Moderate cardiomegaly is noted. Interstitial thickening and bilateral opacities have develo ped since prior examination. There is no pneumothorax. Bilateral pleural effusions are noted. There m ay be a right subpulmonic effusion. IMPRESSION: 1. Interval development of interstitial thickening and bilateral opacities which favor pulmonary mauro a. An infectious process could appear similar. 2. Bilateral pleural effusions with possible right subpulmonic effusion. ACT 112: Negative or not required by law. Electronically signed by: Obdulio Wagner M.D. 01/01/2020 9:56 AM
--- NOTE | 2020-01-01 09:58 | XRay Report ---
KUB CLINICAL HISTORY: Abdominal pain. COMPARISON STUDY: CT of the abdomen and pelvis August 07, 2018. FINDINGS: Bowel gas pattern is normal. Pelvic calcifications reflect phleboliths. There is a moderate amount of stool within the rectum. Gallstones are noted within the gallbladder. IMPRESSION: 1. No evidence for a bowel obstruction. 2. Moderate amount of stool within the rectum. 3. Cholelithiasis. ACT 112: Negative or not required by law. Electronically signed by: Obdulio Wagner M.D. 01/01/2020 9:57 AM
[2020-01-01] MEDS ORDERED: CEFEPIME 1,000 MG in SYRINGE 0 ML IV STA (10:26)
[2020-01-01 10:47] LABS: Appearance Urine Turbid (Clear); Bacteria Urine Automated 4+ (Negative); Bilirubin Urine Negative (Negative); Blood Urine 3+ (Negative); Color Urine Dark Yellow; Epithelial Cell Urine Auto >30 /lpf (0-5); Glucose Urine UA Negative (Negative); Ketones Urine Negative (Negative); Leukocyte Esterase Urine 3+ (Negative); Nitrite Urine Negative (Negative); Specific Gravity Urine 1.018 (1.000-1.030); Urobilinogen Urine Negative (Negative); WBC Urine Automated >30 /hpf (0-5); pH Urine >= 9.0 (4.5-7.5)
--- NOTE | 2020-01-01 11:14 | Gastrointestinal Consultation ---
Date of Consultation January 01, 2020 Assessment & Plan (1) Hematochezia: Because not a significant drop in Hb, occurring while anticoagulated with Eliquis, and the bleeding is red, this most likely represents outlet bleeding from hemorrhoids. Stercoral ulcer is also considered in light of today's KUB mentioning stool in the rectum. Though we are unable to r/o colon cancer w/o having pt undergo colonoscopy, clinically this seems more consistent with outlet bleeding. I spoke with the by phone and explained that we would not wish to have the pt undergo colonoscopy until she is recovered from COVID and the UTI. He seemed to indicate understanding regarding this but mentioned that he is the pt's medical POA and would like to continue with "aggressive" measures. Bleeding seemed to stop when Eliquis was held. Would reconsider the use of any anticoagulants/antiplatelets for prevention of stroke in A-fib in light of pt hx of falls. Spoke with Dr. Morataya and recommend CT to r/o ischemic colitis - which she has already ordered. KUB is suggestive of possible constipation. So, if no significant abnormalities on CT and pt hasn't had a large BM, then would also recommend a few doses of a stimulant laxative such as Dulcolax (more likely to cooperate with taking this than miralax). Would consider colonoscopy after recovered from COVID, UTI and other issues and has returned to baseline functioning. However, unsure if pt would be cooperative with prep. Present on Admission?: Yes Supervising Physician Co-Signing Physician Notes I reviewed the patient's chart and discussed the case with Mila Lalo. We did not see patient as she is presently admitted with complications from COVID. We were asked to comment on Scant hematochezia in the setting of advanced dementia. As there was no drop in hb/hct we suspect an anorectal etiology related to ongoing anticoagulation. Recomendation: Colace 200 mg per day Miralax 17 gm per day Please call with any questions or concerns History of Present Illness Reason for Consultation: GI bleeding, abd pain Requesting Physician: Dr. Morataya Attending Physician: Tawana Morataya MD History of Present Illness Ms. Macrina Ryan is an 84 yr old female pt of Dr. Kelsea Mercado with a hx of severe dementia, Rh Arthritis (see Opperman), HTN, Afib on Eliquis. She was admitted on 12/15 for weakness and was COVID positive but has not had respiratory decompensation, but is generally declining, not eating/drinking well. She is being tx for UTI. Two small bloody BMs were documented on 12/22 and Eliquis was held then restarted on 12/26. One bloody BM last night and per primary hospitalist was tender in the lower abd on exam this morning. Eliquis held again this morning and CT arranged (with IV contrast, pt would not be able to cooperate to take the oral CT contrast due to dementia and nursing tells me that she is uncooperative). KUB today with a moderate amt of stool in the rectum. Hb baseline 11, and was 11.1 on arrival on 12/15 and today is 10.4. stable She carries a hx of colon polyps, most recent colonoscopy by Dr. Mccrary in 2005 with a 7mm descending colon tubular adenoma. I spoke with the by phone and he states that she has not had any colonoscopies since then. Allergies Allergy/AdvReac Type Severity Reaction Status Date / Time No Known Allergies Allergy Verified 12/16/19 21:58 Home Medications Home Medications Medication Instructions Recorded Confirmed Type Eliquis 5 mg PO BID 04/02/18 12/16/19 History docusate sodium [Stool Softener] 100 mg PO DAILY PRN 04/02/18 12/16/19 History potassium chloride 10 meq PO BID 04/02/18 12/16/19 History furosemide 20 mg tablet 20 mg PO QAM #30 tab 02/24/19 12/16/19 Rx atenolol 50 mg tablet 25 mg PO QAM #45 tab 09/02/19 12/16/19 Rx donepezil 10 mg tablet 10 mg PO DAILY 30 Days #30 tab 10/10/19 12/16/19 Rx memantine 5 mg tablet 5 mg PO BID 30 Days #60 tab 10/10/19 12/16/19 Rx Patient History Medical History (Updated 12/30/19 @ 22:31 by Tawana Morataya MD) Alzheimer disease Anemia Atrial fibrillation Dementia GERD (gastroesophageal reflux disease) MILD HTN (hypertension) Hypertension Lumbago Rheumatoid arthritis Rheumatoid arthritis Surgical History H/O arthroscopy of knee History of arthroscopy KNEE History of bilateral tubal ligation History of knee replacement procedure of right knee History of tooth extraction Hx of cataract surgery Post-operative state Family History Father Stroke Mother Myocardial infarction Other Family history non-contributory Social History Smoking Status: Unknown if ever smoked Preferred Language: Polish Communication Ability: Impaired Porcelain Slusher Required: No Beliefs That Will Affect Care: None marital status: Current Living Situation: Spouse current occupational status: retired How many Children do You have: 1 Feels Safe at Home: Yes Assistive Devices: None Review of Systems Review of Systems: pt unable to provide (per nursing) Physical Exam Physical Exam: deferred Results & Data ([facility]) Vital Signs (Past 12 Hours) Vital Signs Temp Pulse Pulse Pulse Resp BP BP 01/01/20 10:58 102/68 01/01/20 10:53 33.8 C L 70 12 89/60 L 01/01/20 09:59 33.6 C L 01/01/20 09:56 33.2 C L 01/01/20 09:52 33.2 C L 65 18 104/74 01/01/20 08:20 35.9 C L 769 H 20 148/84 H 01/01/20 04:16 36.4 C L 68 14 137/53 L 01/01/20 01:59 79 01/01/20 01:07 33.9 C L 01/01/20 00:34 33.9 C L 76 16 115/77 Pulse Ox 01/01/20 10:58 01/01/20 10:53 92 01/01/20 09:59 01/01/20 09:56 01/01/20 09:52 95 01/01/20 08:20 94 01/01/20 04:16 98 01/01/20 01:59 01/01/20 01:07 01/01/20 00:34 98 Laboratory Results WBC 5, Hb 9.6, Hct 31, platelets 263, Na 135, K 3.8, BUN 23, Cr 0.46. Diagnostic Findings KUB today: 1. No evidence for a bowel obstruction. 2. Moderate amount of stool within the rectum. 3. Cholelithiasis.
[2020-01-01 11:15] LABS: Protein Urine 3+ (Negative); Sulfosalicylic Acid Urine Positive (Negative)
[2020-01-01] MEDS ORDERED: IOVERSOL 100ml IV ONE (11:17)
--- NOTE | 2020-01-01 11:45 | CT Scan Report ---
CT OF THE ABDOMEN AND PELVIS WITH CONTRAST CLINICAL HISTORY: abdominal pain,rectal bleeding COMPARISON STUDY: CT of the abdomen and pelvis August 07, 2018. CT of the pelvis October 29, 2018. TECHNIQUE: Following IV administration of 94 mL of Optiray-320, axial images of the abdomen and pelvi s were obtained from the lung bases to the proximal femurs. Images were reviewed in the axial, sagitt al, and coronal planes. IV contrast was administered without complication. Automated exposure contro l was utilized for the study. A dose lowering technique was utilized adhering to the principles of A CONCEPCION. CT DOSE: 786.80 mGycm FINDINGS: Visualized portions of the lower chest demonstrate megaly is moderate bilateral pleural eff usions, right larger left. Associated bibasilar airspace opacities favor atelectasis. Evaluation of t he abdomen and pelvis is suboptimal given mild motion artifact. The liver, spleen, adrenal glands and pancreas are unremarkable. The gallbladder is filled with gallstones. There is no evidence for acute cholecystitis. There is no peripancreatic infiltration. Mild bilateral collecting system dilatation is present. No ureteral calculi are identified. A Hopper balloon within the bladder is noted. Bladder wall thickening is noted with moderate adjacent infiltration and fluid. There is no evidence for a cara wel obstruction. The appendix is normal. Sensitivity for detection of mucosal lesions is diminished o n this examination. There is a moderate amount of stool within the rectum with perirectal infiltratio n and fluid. There is no extraluminal gas. No suspicious osseous lesions are noted. Old left pubic ri ng fractures are present. IMPRESSION: 1. Bladder wall thickening with moderate adjacent fluid and infiltration. The findings suggest cystit is. Mild bilateral collecting system dilatation. No ureteral calculi identified. 2. Moderate amount of stool within the rectum with perirectal infiltration and fluid. No rectal wall thickening however stercoral colitis cannot be excluded. No extraluminal gas. No bowel obstruction. 3. Moderate bilateral pleural effusions. 4. Cholelithiasis. No evidence for acute cholecystitis. ACT 112: Negative or not required by law. Electronically signed by: Obdulio Wagner M.D. 01/01/2020 11:44 AM
[2020-01-01] MEDS ORDERED: ALBUMIN 25% 12.5 GM/50 ML VIAL IV ONE (11:50)
[2020-01-01] MEDS ORDERED: bisacodyL 10 MG SUPP PR STA (11:50)
[2020-01-01] MEDS: ALBUMIN 25% 12.5 GM/50 ML VIAL IV SCH ×4 (14:35→23:52)
[2020-01-01] MEDS ORDERED: MEROPENEM CONSULT ACITVE PRN (15:37)
[2020-01-01] MEDS ORDERED: GLUCAGON 5 MG in DEXTROSE 5% 45 ML IV STA (15:37)
[2020-01-01] MEDS ORDERED: Custom Peripheral Pn 1,900 ML in TPN BAG 0 ML IV SCH (16:00)
[2020-01-01] MEDS ORDERED: ONDANSETRON INJ 2 MG/ML 2 ML VIAL IV PRN (16:22)
[2020-01-01] MEDS: MEROPENEM 500 MG in SYRINGE 0 ML IV SCH ×2 (17:44→22:27)
[2020-01-01] MEDS ORDERED: CEFEPIME 1,000 MG in SYRINGE 0 ML IV SCH (21:00)
[2020-01-01] MEDS ORDERED: FUROSEMIDE 20 MG in SYRINGE 0 ML IV ONE (21:30)
[2020-01-02] MEDS: MEROPENEM 500 MG in SYRINGE 0 ML IV SCH ×4 (05:05→22:11)
[2020-01-02 07:36] LABS: Basophils # (auto) 0.02 K/uL (0-0.2); Basophils % (auto) 0.4 %; Eosinophils # (auto) 0.05 K/uL (0-0.5); Hematocrit (blood only) 25.1 % (37-47); Hemoglobin 7.7 g/dL (12.0-16.0); Immature Granulocytes # (auto) 0.01 K/uL (0.00-0.02); Immature Granulocytes % (auto) 0.2 %; Lymphocytes # (auto) 1.34 K/uL (1.2-3.4); Lymphocytes % (auto) 27.1 %; Mean Corpuscular Hemoglobin 23.9 pg (25-34); Mean Corpuscular Hgb Conc 30.7 g/dL (32-36); Mean Platelet Volume 9.6 fL (7.4-10.4); Monocytes # (auto) 0.52 K/uL (0.11-0.59); Monocytes % (auto) 10.5 %; Neutrophils # (auto) 3.01 K/uL (1.4-6.5); Neutrophils % (auto) 60.8 %; Platelet Count 216 K/uL (130-400); RDW Coefficient of Variation 17.5 % (11.5-14.5); RDW Standard Deviation 48.4 fL (36.4-46.3); Red Blood Count 3.22 M/uL (4.2-5.4); White Blood Count 4.95 K/uL (4.8-10.8)
[2020-01-02 07:58] LABS: Albumin Globulin Ratio 0.8 (0.9-2); Albumin Level 2.4 gm/dl (3.4-5.0); BUN Creatinine Ratio 28.6 (10-20); Bilirubin,Total 0.7 mg/dl (0.2-1); Calcium 8.4 mg/dl (8.5-10.1); Creatinine Clr Calc Pharmacy 52.5 ml/min; Est GFR (African American) 84.1; Est GFR (Non-African American) 72.5; Globulin 3.1 gm/dl (2.5-4.0); Phosphorus 4.2 mg/dl (2.5-4.9); Potassium 3.5 mmol/L (3.5-5.1); Total Protein 5.5 gm/dl (6.4-8.2)
[2020-01-02] MEDS: IRON SUCROSE 300 MG in SODIUM CHLORIDE 0.9% 250 ML IV SCH (08:03)
[2020-01-02 08:12] LABS: Polychromasia 1+
[2020-01-02] MEDS ORDERED: bisacodyL 10 MG SUPP PR STA (08:59)
[2020-01-02] MEDS: CHOLECALCIFEROL 1,000 UNITS 25 MCG TAB PO SCH (09:13)
[2020-01-02] MEDS: CEROVITE ADV FORMULA TAB PO SCH (09:13)
[2020-01-02] MEDS: ZINC SULFATE 220 MG CAPSULE PO SCH (09:13)
--- NOTE | 2020-01-02 10:55 | Communication Note ---
Date of Service: January 02, 2020 Aware of drop in Hb overnight to 7. 7 from 9.6 yesterday and approx baseline of 10.5. I talked with Mila Shelby's nurse who says no significant gross GI bleeding in the past 24 hrs, also no significant stools document and not mentioned in report to the dayshift nurse. Dr. Leavitt and I discussed her imaging and feel she likely has constipation and probably either hemorrhoids or a stercoral ulcer. We recommend laxatives, suppositories and will defer ordering/managing constipation to the primary hospitalist. We are hesitant to go forward with endoscopy. It is extremely unlikely that the pt would be willing to take a prep. Her nurse today tells me that she was unable to get the pt to eat or drink anything.
[2020-01-02] MEDS ORDERED: LORazepam 0.5 MG/1 ML VIAL IV PRN (15:55)
--- NOTE | 2020-01-02 18:24 | Hospitalist Progress Note ---
Date of Service January 02, 2020 Assessment & Plan (1) Abdominal pain: Developed acute abdominal pain on the morning of 12/31 along with diaphoresis and brief bradycardia secondary to vagal response to pain Most likely due to dislodged Hopper catheter and significant UTI as well as fecal impaction CT of the abdomen/pelvis consistent with cystitis, but no other acute pathology Lactate was elevated and urinalysis positive With hypothermia, consistent with sepsis Did have rectal bleeding overnight but not significant Abdominal pain seems improved today with treatment of UTI. No further rectal bleeding although hemoglobin dropped to 7.7. Hypothermia is improved. Hopper catheter has been replaced Appreciate GI consultation no plans for further work-up as converting to comfort measures only Bisacodyl for constipation given again today Continue treating UTI as below Morphine as needed for pain (2) UTI (urinary tract infection): Hopper catheter associated UTI, acquired in the hospital Initially started cefepime but target network analyst recommended switching to meropenem for better coverage Chandu blood cultures given hypothermia associated -Follow urine culture Replaced Hopper catheter (3) Hypotension: Secondary to sepsis versus diuresis gave doses of IV albumin and treating sepsis Treating with IV antibiotics as above Blood pressure is improved today Holding atenolol (4) Hypothermia: Rectal temperature down to 33.6 and now improved Brian hugger was applied and now normal temperature Associated with UTI and sepsis Continue to monitor temperatures Treating with antibiotics, but otherwise does not want any further aggressive measures if worsens (5) COVID-19: Exact date of onset of symptoms is unknown. diagnosed about 12/09/2019. Patient presented after a fall and some mild rhabdomyolysis on 12/15 and tested positive at that time. Other than general malaise, fatigue, generalized weakness, and low appetite, she has had a relatively benign course of illness Continues to remain stable from pulmonary standpoint (no hypoxia, etc). Her biggest issue is poor p.o. intake and lethargy in the setting of advanced dementia. -She was started on Decadron, but stopped on 12/19 after 4 days. In RECOVERY trial, dexamethasone was actually associated with harm if patient did not need oxygen. Additionally, steroids will worsen her confusion. - Due to stable pulmonary status, convalescent plasma and remdesivir not indicated. - Mental status improved 12/23 but then was lethargic three days in a row, poor oral intake, and was not taking medications Since 12/27, she has been taking her medications and eating small amounts, yet she continued on PPN PPN now discontinued due to to volume overload repeated her COVID test 12/26 and again on 12/30-both still positive -started MVI tablet daily -Encourage p.o. intake (6) Hematochezia: Initially had Two small episodes on 12/22 likely hemorrhoids made worse with anticoagulation. - Held anticoagulation on 12/22; using hemorrhoid treatment. Had another episode overnight on 12/30, hemoglobin again remained stable Hgb down to 7.[address] abdomen/pelvis performed for acute abdominal pain as above-no evidence of colitis but does have moderate stool in the rectum and possible stercoral proctitis Bisacodyl suppository ordered Holding apixaban Appreciate GI consultation-no plans for colonoscopy given frail state-this was discussed with patient's Transitioning to SALES PROJECT MANAGER no lab draws (7) Anasarca: She is +10 L for this hospitalization with evidence of moderate bilateral pleural effusions on CT scan Surprisingly she is not having any respiratory distress, but does need diuresis IV albumin given as above IV Lasix given with excellent response now comfortable, SALES PROJECT MANAGER (8) Acute metabolic encephalopathy: 2nd to COVID-19, ICU psychosis, steroids, etc. - Supportive care. - Avoid benzos, sedatives, etc. (9) Atrial fibrillation: EKG at admission with NSR vs aflutter. Had been regular on examination On the evening of 12/30, placed back on telemetry and noted to be in atrial fibrillation, rate controlled Holding home atenolol now for hypotension Holding Eliquis for recurrent rectal bleeding -transition to SALES PROJECT MANAGER transfer off tele (10) HTN (hypertension): BP low Holding atenolol (11) Rhabdomyolysis: 2nd to fall with lying on floor for undetermined period of time prior to admission. Resolved (12) Fall: Son, Michael, and reports frequent falling - likely due to dementia/increasing debility. Had 2 falls leading up to this admission - due to weakness from COVID-19 infection. - PT, OT evals requested -> Recommending 24h supervision. On 12/29 PT/OT tried to reassess and pt would not cooperate for therapy -plan for home with hospice\ (13) Alzheimer disease: Advanced. Per , at baseline, she sleeps most of the day, wakes up temporarily to eat/drink and toilet Follows with neurology -We will hold Aricept & Namenda as these can cause low appetite and will not help her in the acute setting. This obviously contributes to a much worse prognosis given her Covid diagnosis (14) Hypokalemia: Replaced and resolved no further labs (15) Anemia: Hemoglobin was fairly stable at 8-9, microcytic had some hematochezia hgb dropped to 7.7 overnight transition to SALES PROJECT MANAGER no further bleeding today Fe studies consistent with iron def and anemia of chronic disease Also with witnessed small amounts of hematochezia here as above Continue IV Venofer 300mg daily x 3 days was given Holding apixaban (16) Constipation: With moderate fecal impaction of stool noted on imaging today Bisacodyl suppository again today can try senna (17) DVT prophylaxis: Eliquemelyn now on hold Michael (son) - [phone]-called him on 12/31 and 01/01 and had lengthy discussion about her care Eagle (son) Walter-, phone number in the chart-contacted by phone on 12/28 and again on 12/30 as well as 2 times on 12/31 for extensive discussions. Discussion today with decision to transition to SALES PROJECT MANAGER, plan for home with hospice hopefully on Sunday Disposition-continued stay, SALES PROJECT MANAGER but ok with abx for comfort for UTI Changed to DNR/DNI Admission and Anticipated Discharge Date Admission Date: December 17, 2019 Subjective Patient nonverbal. Does not respond to any my questions. Appears comfortable today. No bowel movement. No bleeding as per nursing. Not eating. I discussed her care with her on the phone as well as her billing assistant to talk to her today. has decided to move towards comfort measures and make her DNR/DNI. Also discussed her care with her son Michael on the phone who was in agreement with plan. Review of Systems Review of Systems: Unobtainable due to cognitive status Physical Exam Constitutional: + thin and + frail appearing Eyes: + anicteric sclerae Neck: trachea midline, no thyromegaly Respiratory: normal respiratory effort Auscultation: + diminished lung sounds (At the bases bilaterally) Cardiovascular: Rate/Rhythm: regular rate and + irregularly irregular Heart Sounds: no murmur Extremities: + edema (Arms and legs with 1+ pitting edema) Chest (Breasts): Chest: normal inspection of chest Gastrointestinal (Abdomen): normal bowel sounds, soft, nontender, no hepatosplenomegaly Musculoskeletal: Extremities: no cyanosis and no clubbing Skin: no rashes, warm and dry no rashes Neurologic: awake and + confused Psychiatric: Orientation: alert; + not oriented to place, + not oriented to time and + uncooperative Eye Contact: + fair eye contact Lymphatic: no lymphedema Results & Data Results & Data ([facility]) Vital Signs (Past 12 Hours) Vital Signs Temp Pulse Resp BP Pulse Ox 01/02/20 15:49 36.4 C L 83 16 107/68 93 01/02/20 10:35 36.3 C L 71 18 102/62 94 01/02/20 07:39 36.4 C L 76 18 96/57 L 93 PG Care Time/CCT Total # of Minutes Spent Total Time Spent with Patient: Total time spent is greater than 50% in coordination of care (as documented) at patient's floor/unit and/or counseling patient: Coding Level of Care Code 43357 Subseq Hosp Care Lvl 3 Diagnoses Abdominal pain R10.9 UTI (urinary tract infection) N39.0 Hypotension I95.9 Hypothermia T68.XXXA COVID-19 U07.1 Hematochezia K92.1 Anasarca R60.1 Acute metabolic encephalopathy G93.41 Atrial fibrillation I48.91 Atrial fibrillation type: unspecified HTN (hypertension) I10 Hypertension type: essential hypertension Rhabdomyolysis T79.6XXA Encounter type: initial encounter Rhabdomyolysis type: traumatic Fall W19.XXXA Encounter type: initial encounter Alzheimer disease G30.9; F02.80 Alzheimer's disease onset: unspecified onset Hypokalemia E87.6 Anemia D64.9 Constipation K59.00 DVT prophylaxis Z29.9 (1) Alzheimer disease Alzheimer's disease onset: unspecified onset (2) Atrial fibrillation Atrial fibrillation type: unspecified Qualified Code(s): I48.91 - Unspecified atrial fibrillation (3) Rhabdomyolysis Encounter type: initial encounter Rhabdomyolysis type: traumatic Qualified Code(s): T79.6XXA - Traumatic ischemia of muscle, initial encounter (4) HTN (hypertension) Hypertension type: essential hypertension Qualified Code(s): I10 - Essential (primary) hypertension (5) Fall Encounter type: initial encounter Qualified Code(s): W19.XXXA - Unspecified fall, initial encounter
[2020-01-03] MEDS: MEROPENEM 500 MG in SYRINGE 0 ML IV SCH ×4 (05:34→21:33)
[2020-01-03] MEDS: DOCUSATE SODIUM/SENNA 50/8.6MG TAB PO SCH (09:21)
--- NOTE | 2020-01-03 17:18 | Hospitalist Progress Note ---
Date of Service January 03, 2020 Assessment & Plan (1) Abdominal pain: Developed acute abdominal pain on the morning of 12/31 along with diaphoresis and brief bradycardia secondary to vagal response to pain Most likely due to dislodged Hopper catheter and significant UTI as well as fecal impaction CT of the abdomen/pelvis consistent with cystitis, but no other acute pathology Lactate was elevated and urinalysis positive With hypothermia, consistent with sepsis Did have rectal bleeding overnight but not significant Abdominal pain now resolved and is functioning well with treatment of UTI. No further rectal bleeding although hemoglobin dropped to 7.7. Hypothermia is improved. Hopper catheter has been replaced Appreciate GI consultation no plans for further work-up as converting to comfort measures only Treated constipation-now moving bowels Continue treating UTI as below Morphine as needed for pain-none needed so far (2) UTI (urinary tract infection): Hopper catheter associated UTI, acquired in the hospital Urine culture growing Proteus that is pansensitive and a second organism with gram-negative bacilli still pending Continue meropenem for now until second organism sensitivity and ID resulted Hypothermia has resolved Follow blood cultures-no growth to date Replaced Hopper catheter-plan to discontinue this upon discharge (3) Hypotension: Secondary to sepsis versus diuresis with Lasix Improved with IV albumin Treating sepsis with IV antibiotics as above Blood pressure is now improved Continue holding atenolol (4) Hypothermia: Rectal temperature down to 33.6 with development of UTI and sepsis Brian hugger was applied and now normal temperature Continue to monitor temperatures Treating with antibiotics, but otherwise does not want any further aggressive measures if worsens (5) COVID-19: Exact date of onset of symptoms is unknown. diagnosed about 12/09/2019. Patient presented after a fall and some mild rhabdomyolysis on 12/15 and tested positive at that time. Other than general malaise, fatigue, generalized weakness, and low appetite, she has had a relatively benign course of illness Continues to remain stable from pulmonary standpoint (no hypoxia, etc). Her biggest issue is poor p.o. intake and lethargy in the setting of advanced dementia. -She was started on Decadron, but stopped on 12/19 after 4 days. In RECOVERY trial, dexamethasone was actually associated with harm if patient did not need oxygen. Additionally, steroids will worsen her confusion. - Due to stable pulmonary status, convalescent plasma and remdesivir not indicated. repeated her COVID test 12/26 and again on 12/30-both still positive -Encourage p.o. intake, but feel she will improve her appetite when she is back home again with her in familiar surroundings PPN discontinued after became volume overloaded (6) Hematochezia: Initially had Two small episodes on 12/22 likely hemorrhoids made worse with anticoagulation. - Held anticoagulation on 12/22; using hemorrhoid treatment. Apixaban had been restarted and then had another episode overnight on 12/30, hemoglobin again remained stable Hgb down to 7.7 on 01/01, however discussions with family were had that day and decision was made to transition to [employer]. No transfusions and no aggressive work- up for cause Continue to hold apixaban CT abdomen/pelvis performed for acute abdominal pain as above-no evidence of colitis but does have moderate stool in the rectum and possible stercoral proctitis with bleeding from such Bisacodyl suppository ordered and now having large bowel movement this morning Appreciate GI consultation-no plans for colonoscopy given frail state-this was discussed with patient's Transitioned to [employer] no lab draws (7) Anasarca: She is +10 L for this hospitalization with evidence of moderate bilateral pleural effusions on CT scan Surprisingly she is not having any respiratory distress, but did need diuresis IV albumin and Lasix were given x2 doses on 12/31 now comfortable, [employer] (8) Acute metabolic encephalopathy: 2nd to COVID-19, ICU psychosis, steroids, etc. - Supportive care. - Avoid benzos, sedatives, etc. (9) Atrial fibrillation: EKG at admission with NSR vs aflutter. Had been regular on examination On the evening of 12/30, placed back on telemetry and noted to be in atrial fibrillation, rate controlled Holding home atenolol now for hypotension Holding Eliquis for recurrent rectal bleeding -transition to [employer] transferred off tele (10) HTN (hypertension): BP low Holding atenolol (11) Rhabdomyolysis: 2nd to fall with lying on floor for undetermined period of time prior to admission. Resolved (12) Fall: Son, Michael, and reports frequent falling - likely due to dementia/increasing debility. Had 2 falls leading up to this admission - due to weakness from COVID-19 infection. - PT, OT evals requested -> Recommending 24h supervision. On 12/29 PT/OT tried to reassess and pt would not cooperate for therapy -plan for home with hospice\ (13) Alzheimer disease: Advanced. Per , at baseline, she sleeps most of the day, wakes up temporarily to eat/drink and toilet Follows with neurology -We will hold Aricept & Namenda as these can cause low appetite and will not help her in the acute setting. This obviously contributes to a much worse prognosis given her Covid diagnosis (14) Hypokalemia: Replaced and resolved no further labs (15) Anemia: Hemoglobin was fairly stable at 8-9, microcytic had some hematochezia hgb dropped to 7.7 overnight transitioned to [employer] no further bleeding Fe studies consistent with iron def and anemia of chronic disease IV Venofer 300mg daily x 3 days was given Holding apixaban (16) Constipation: With moderate fecal impaction of stool noted on imaging on 12/31 Bisacodyl suppository was given x2 Now had large bowel movement on the morning of 01/02 Continue senna/docusate once daily (17) DVT prophylaxis: Eliquis now on hold Michael (son) - [phone]-called him on 12/31 and 01/01 and had lengthy discussion about her care Eagle (son) Walter-, phone number in the chart-contacted by phone on 12/28 and again on 12/30 as well as 2 times on 12/31 for extensive discussions. Discussion on 01/01 with decision to transition to [employer], plan for home with hospice hopefully on Sunday. Called again with update on 01/02 Disposition-continued stay, [employer] but ok with abx for comfort for UTI Changed to DNR/DNI Admission and Anticipated Discharge Date Admission Date: December 17, 2019 Subjective Patient nonverbal, looks at me but does not answer any questions. Nursing reports that she ate a few bites of food today. No other concerns. Review of Systems Review of Systems: Unobtainable due to cognitive status Physical Exam Constitutional: + thin and + frail appearing Eyes: + anicteric sclerae Neck: trachea midline, no thyromegaly Respiratory: normal respiratory effort Auscultation: + diminished lung sounds (At the bases bilaterally) Cardiovascular: Rate/Rhythm: regular rate and + irregularly irregular Heart Sounds: no murmur Extremities: + edema (Arms and legs with 1+ pitting edema) Chest (Breasts): Chest: normal inspection of chest Gastrointestinal (Abdomen): normal bowel sounds, soft, nontender, no hepatosplenomegaly Musculoskeletal: Extremities: no cyanosis and no clubbing Skin: no rashes, warm and dry no rashes Neurologic: awake and + confused Psychiatric: Orientation: alert Affect: + anxious affect Lymphatic: no lymphedema Results & Data Results & Data ([facility]) Vital Signs (Past 12 Hours) Vital Signs Temp Pulse Resp BP BP Pulse Ox 01/03/20 16:16 36.4 C L 85 16 97 01/03/20 12:44 37 C 80 16 96/61 L 93 01/03/20 09:08 36.4 C L 70 16 99/66 L 93 01/03/20 05:48 36.4 C L 80 20 101/67 95 PG Care Time/CCT Total # of Minutes Spent Total Time Spent with Patient: Total time spent is greater than 50% in coordination of care (as documented) at patient's floor/unit and/or counseling patient: Coding Level of Care Code 81759 Subseq Hosp Care Lvl 1 Diagnoses Abdominal pain R10.9 UTI (urinary tract infection) N39.0 Hypotension I95.9 Hypothermia T68.XXXA COVID-19 U07.1 Hematochezia K92.1 Anasarca R60.1 Acute metabolic encephalopathy G93.41 Atrial fibrillation I48.91 Atrial fibrillation type: unspecified HTN (hypertension) I10 Hypertension type: essential hypertension Rhabdomyolysis T79.6XXA Encounter type: initial encounter Rhabdomyolysis type: traumatic Fall W19.XXXA Encounter type: initial encounter Alzheimer disease G30.9; F02.80 Alzheimer's disease onset: unspecified onset Hypokalemia E87.6 Anemia D64.9 Constipation K59.00 DVT prophylaxis Z29.9 (1) Alzheimer disease Alzheimer's disease onset: unspecified onset (2) Atrial fibrillation Atrial fibrillation type: unspecified Qualified Code(s): I48.91 - Unspecified atrial fibrillation (3) Rhabdomyolysis Encounter type: initial encounter Rhabdomyolysis type: traumatic Qualified Code(s): T79.6XXA - Traumatic ischemia of muscle, initial encounter (4) HTN (hypertension) Hypertension type: essential hypertension Qualified Code(s): I10 - Essential (primary) hypertension (5) Fall Encounter type: initial encounter Qualified Code(s): W19.XXXA - Unspecified fall, initial encounter
[2020-01-04] MEDS: MEROPENEM 500 MG in SYRINGE 0 ML IV SCH ×2 (03:31→09:20)
[2020-01-04] MEDS: DOCUSATE SODIUM/SENNA 50/8.6MG TAB PO SCH (07:16)
[2020-01-04] MEDS: AMPICILLIN/SULBACTAM SOD 3,000 MG in 0.9 % SODIUM CHLORIDE 100 ML IV SCH ×2 (16:33→21:11)
--- NOTE | 2020-01-04 20:18 | Hospitalist Progress Note ---
Date of Service January 04, 2020 Assessment & Plan (1) Abdominal pain: Developed acute abdominal pain on the morning of 12/31 along with diaphoresis and brief bradycardia secondary to vagal response to pain Most likely due to dislodged Hopper catheter and significant UTI as well as fecal impaction CT of the abdomen/pelvis consistent with cystitis, but no other acute pathology Lactate was elevated and urinalysis positive With hypothermia, consistent with sepsis Did have rectal bleeding the night prior Abdominal pain now resolved with treatment of UTI and relief of constipation. No further rectal bleeding although hemoglobin dropped to 7.7. Hypothermia is improved. Hopper catheter has been replaced Appreciate GI consultation no plans for further work-up as converting to comfort measures only Treated constipation-now moving bowels Continue treating UTI as below Morphine as needed for pain-none needed so far (2) UTI (urinary tract infection): Hopper catheter associated UTI, acquired in the hospital Urine culture growing Proteus that is pansensitive and pansensitive E. coli Discontinue meropenem and narrow down to Unasyn-would complete 7-day course-last dose will be on 01/06, however if goes home with hospice before then, can convert to Augmentin Hypothermia has resolved Follow blood cultures-no growth to date Replaced Hopper catheter-plan to discontinue this upon discharge to prevent futu re infections unless family decides to keep Hopper catheter with hospice (3) Hypotension: Secondary to sepsis that developed on 12/31 Improved with IV albumin Treated sepsis with IV antibiotics as above Blood pressure is now improved Continue holding atenolol (4) Hypothermia: Rectal temperature down to 33.6 with development of UTI and sepsis Brian hugger was applied and now normal temperature Continue to monitor temperatures Treating with antibiotics, but otherwise does not want any further aggressive measures if worsens (5) COVID-19: Exact date of onset of symptoms is unknown. diagnosed about 12/09/2019. Patient presented after a fall and some mild rhabdomyolysis on 12/15 and tested positive at that time. Other than general malaise, fatigue, generalized weakness, and low appetite, she has had a relatively benign course of illness Continues to remain stable from pulmonary standpoint (no hypoxia, etc). Her biggest issue is poor p.o. intake and lethargy in the setting of advanced dementia. -She was started on Decadron, but stopped on 12/19 after 4 days. In RECOVERY trial, dexamethasone was actually associated with harm if patient did not need oxygen. Additionally, steroids will worsen her confusion. - Due to stable pulmonary status, convalescent plasma and remdesivir not indicated. repeated her COVID test 12/26 and again on 12/30-both still positive -Encourage p.o. intake, but feel she will improve her appetite when she is back home again with her in familiar surroundings PPN discontinued after became volume overloaded (6) Hematochezia: Initially had Two small episodes on 12/22 likely hemorrhoids made worse with anticoagulation. - Held anticoagulation on 12/22; using hemorrhoid treatment. Apixaban had been restarted and then had another episode overnight on 12/30, hemoglobin again remained stable Hgb down to 7.7 on 01/01, however discussions with family were had that day and decision was made to transition to [employer]. No transfusions and no aggressive work- up for cause Continue to hold apixaban CT abdomen/pelvis performed for acute abdominal pain as above-no evidence of colitis but does have moderate stool in the rectum and possible stercoral proct itis with bleeding from such Bisacodyl suppository given as well as senna and she is now moved her bowels multiple times without any bleeding Appreciate GI consultation-no plans for colonoscopy given frail state-this was discussed with patient's Transitioned to [employer] no further lab draws (7) Anasarca: She is +10 L for this hospitalization with evidence of moderate bilateral pleural effusions on CT scan Surprisingly she is not having any respiratory distress, but did need diuresis IV albumin and Lasix were given x2 doses on 12/31 now comfortable, [employer] (8) Acute metabolic encephalopathy: 2nd to COVID-19, ICU psychosis, steroids, etc. - Supportive care. (9) Atrial fibrillation: EKG at admission with NSR vs aflutter. Had been regular on examination On the evening of 12/30, placed back on telemetry and noted to be in atrial fibrillation, rate controlled Continue holding home atenolol now for hypotension Continue holding Eliquis for recurrent rectal bleeding -transitioned to [employer] transferred off tele (10) HTN (hypertension): BP low Holding atenolol and would not recommend restarting on discharge (11) Rhabdomyolysis: 2nd to fall with lying on floor for undetermined period of time prior to admission. Resolved (12) Fall: Son, Michael, and reports frequent falling - likely due to dementia/increasing debility. Had 2 falls leading up to this admission - due to weakness from COVID-19 infection. - PT, OT jennifer requested -> Recommending 24h supervision. On 12/29 PT/OT tried to reassess and pt would not cooperate for therapy -plan for home with hospice\ (13) Alzheimer disease: Advanced. Per , at baseline, she sleeps most of the day, wakes up temporarily to eat/drink and toilet Follows with neurology -We will hold Aricept & Namenda as these can cause low appetite and will not help her in the acute setting. Would recommend discontinuing both Aricept and Namenda upon discharge This obviously contributes to a much worse prognosis given her Covid diagnosis (14) Hypokalemia: Replaced and resolved no further labs (15) Anemia: Acute blood loss anemia Hemoglobin was fairly stable at 8-9, microcytic had some hematochezia and hgb dropped to 7.7 overnight on 12/31 transitioned to [employer] no further bleeding since then Fe studies consistent with iron def and anemia of chronic disease IV Venofer 300mg daily x 3 days was given Continue holding apixaban and would not recommend restarting on discharge (16) Constipation: With moderate fecal impaction of stool noted on imaging on 12/31 Bisacodyl suppository was given x2 Now had large bowel movement on the morning of 01/02 and again on 01/03 Discontinue laxatives (17) DVT prophylaxis: Orestes now on hold Michael (son) - [phone]-called him on 12/31 and 01/01 and had lengthy discussion about her care Eagle (son) Walter-, phone number in the chart-contacted by phone on 12/28 and again on 12/30 as well as 2 times on 12/31 for extensive discussions. Discussion on 01/01 with decision to transition to [employer], plan for home with hospice hopefully on Sunday. Called again with update on 01/02 Disposition- [employer] but ok with abx for comfort for UTI Changed to DNR/DNI Admission and Anticipated Discharge Date Admission Date: December 17, 2019 Subjective Patient much more alert and interactive today although most of which she says to me is garbled speech. Nurses report that she has eaten more today than she has in the past several days which still is not much. They also report that when encouraged to drink fluids she will do it. When I asked if she has pain when I push her abdomen, I think she told me know. Remains afebrile and blood pressures are stable. Review of Systems Review of Systems: Unobtainable due to cognitive status Physical Exam Constitutional: + thin and + frail appearing Eyes: + anicteric sclerae Neck: trachea midline, no thyromegaly Respiratory: normal respiratory effort Auscultation: + diminished lung sounds (At the bases bilaterally) Cardiovascular: Rate/Rhythm: regular rate and + irregularly irregular Heart Sounds: no murmur Extremities: + edema (Arms and legs with 1+ pitting edema) Chest (Breasts): Chest: normal inspection of chest Gastrointestinal (Abdomen): normal bowel sounds, soft, nontender, no hepatosplenomegaly Musculoskeletal: Extremities: no cyanosis and no clubbing Skin: no rashes, warm and dry Neurologic: awake and + confused Psychiatric: Orientation: alert Eye Contact: + fair eye contact Lymphatic: no lymphedema Results & Data Results & Data ([facility]) Vital Signs (Past 12 Hours) Vital Signs Temp Pulse Resp BP BP BP Pulse Ox 01/04/20 16:00 70 18 107/56 L 94 01/04/20 13:00 70 16 127/61 94 01/04/20 08:46 36.5 C 68 20 107/71 96 PG Care Time/CCT Total # of Minutes Spent Total Time Spent with Patient: Total time spent is greater than 50% in coordination of care (as documented) at patient's floor/unit and/or counseling patient: Coding Level of Care Code 84850 Subseq Hosp Care Lvl 1 Diagnoses Abdominal pain R10.9 UTI (urinary tract infection) N39.0 Hypotension I95.9 Hypothermia T68.XXXA COVID-19 U07.1 Hematochezia K92.1 Anasarca R60.1 Acute metabolic encephalopathy G93.41 Atrial fibrillation I48.91 Atrial fibrillation type: unspecified HTN (hypertension) I10 Hypertension type: essential hypertension Rhabdomyolysis T79.6XXA Encounter type: initial encounter Rhabdomyolysis type: traumatic Fall W19.XXXA Encounter type: initial encounter Alzheimer disease G30.9; F02.80 Alzheimer's disease onset: unspecified onset Hypokalemia E87.6 Anemia D64.9 Constipation K59.00 DVT prophylaxis Z29.9 (1) Alzheimer disease Alzheimer's disease onset: unspecified onset (2) Atrial fibrillation Atrial fibrillation type: unspecified Qualified Code(s): I48.91 - Unspecified atrial fibrillation (3) Rhabdomyolysis Encounter type: initial encounter Rhabdomyolysis type: traumatic Qualified Code(s): T79.6XXA - Traumatic ischemia of muscle, initial encounter (4) HTN (hypertension) Hypertension type: essential hypertension Qualified Code(s): I10 - Essential (primary) hypertension (5) Fall Encounter type: initial encounter Qualified Code(s): W19.XXXA - Unspecified fall, initial encounter
[2020-01-05] MEDS: AMPICILLIN/SULBACTAM SOD 3,000 MG in 0.9 % SODIUM CHLORIDE 100 ML IV SCH ×3 (03:44→16:19)
--- NOTE | 2020-01-05 09:53 | Electrocardiogram Report ---
Test Reason : Blood Pressure : / mmHG Vent. Rate : 066 BPM Atrial Rate : 079 BPM P-R Int : 000 ms QRS Dur : 104 ms QT Int : 494 ms P-R-T Axes : 000 014 122 degrees QTc Int : 517 ms Atrial fibrillation Septal infarct (cited on or before 07-AUG-2018) Prolonged QT Abnormal ECG When compared with ECG of 16-DEC-2019 20:58, Atrial fibrillation is new Questionable change in initial forces of Anterolateral leads Confirmed by Marck Suazo ([id number]) on 01/05/2020 9:53:21 AM Referred By: REFERRED SELF Confirmed By:Marck Suazo
--- NOTE | 2020-01-05 15:39 | Discharge Summary ---
Date of Service January 05, 2020 Admission HPI Per Admitting Provider Macrina Ryan is an 84yo female with history of AF on Eliquis anticoagulation, GERD, HTN and Alzheimer's dementia presenting from home after being found down on the bathroom floor. Patient is unable to provide details of events prior to arrival. No family at bedside currently. History obtained through chart review and discussion with ER attending. Patient's son and were recently found to be positive for Covid-19 Patient was found down on the bathroom floor this evening at appx 1830, abrasion to right shoulder. Unknown down time. EMS called. BS was 62, patient given D10 by EMS. reports some increased confusion. ER Course: Dexamethasone 6mg, NSS x 750mL Principal Diagnosis COVID 19 infection Discharge Exam Constitutional well developed and + thin; no acute distress Neck trachea midline, no thyromegaly Respiratory normal respiratory effort, lungs clear to auscultation Cardiovascular RRR, no murmur, no edema Gastrointestinal (Abdomen) normal bowel sounds, soft, nontender, no hepatosplenomegaly Musculoskeletal Head/Neck/Chest: normocephalic, head atraumatic and neck supple Extremities: extremities normal to inspection and + abnormal strength (generalized); no cyanosis, no clubbing and no petechiae Skin no rashes, warm and dry Neurologic CN's II-XI intact bilaterally, awake and + confused; no focal motor deficits Psychiatric Orientation: alert and oriented to person; + not oriented to place and + not oriented to time Lymphatic no cervical or axillary lymphadenopathy Discharge Data Allergies Allergy/AdvReac Type Severity Reaction Status Date / Time No Known Allergies Allergy Verified 12/16/19 21:58 Consultations 12/16/19 22:58 ED Decision to Admit Stat 01/01/20 09:04 Consult Gastroenterology Routine Ordered Studies 12/16/19 20:50 CT head/brain wo con Urgent 01/01/20 09:02 CT abd pelvis IV con only Stat Hospital Course (1) Abdominal pain: Developed acute abdominal pain on the morning of 12/31 along with diaphoresis and brief bradycardia secondary to vagal response to pain Most likely due to dislodged Simmons catheter and significant UTI as well as fecal impaction CT of the abdomen/pelvis consistent with cystitis, but no other acute pathology Lactate was elevated and urinalysis positive With hypothermia, consistent with sepsis Did have rectal bleeding the night prior Abdominal pain now resolved with treatment of UTI and relief of constipation. No further rectal bleeding although hemoglobin dropped to 7.7. Hypothermia is improved. Simmons catheter has been replaced Appreciate GI consultation no plans for further work-up as converting to comfort measures only Treated constipation-now moving bowels pull simmons prior to discharge no active abdominal pain, is comfortable (2) UTI (urinary tract infection): Simmons catheter associated UTI, acquired in the hospital Urine culture growing Proteus that is pansensitive and pansensitive E. coli Unasyn- convert to Augmentin on discharge Hypothermia has resolved Follow blood cultures-no growth to date pulled simmons catheter prior to discharge (3) Hypotension: Secondary to sepsis that developed on 12/31 Improved with IV albumin Treated sepsis with IV antibiotics as above Blood pressure is now improved Continue holding atenolol (4) Hypothermia: Rectal temperature down to 33.6 with development of UTI and sepsis Brian hugger was applied and now normal temperature Continue to monitor temperatures Treating with antibiotics, but otherwise does not want any further aggressive measures if worsens (5) COVID-19: Exact date of onset of symptoms is unknown. diagnosed about 12/09/2019. Patient presented after a fall and some mild rhabdomyolysis on and tested positive at that time. Other than general malaise, fatigue, generalized weakness, and low appetite, she has had a relatively benign course of illness Continues to remain stable from pulmonary standpoint (no hypoxia, etc). Her biggest issue is poor p.o. intake and lethargy in the setting of advanced dementia. -She was started on Decadron, but stopped on 12/19 after 4 days. In RECOVERY trial, dexamethasone was actually associated with harm if patient did not need oxygen. Additionally, steroids will worsen her confusion. - Due to stable pulmonary status, convalescent plasma and remdesivir not indicated. repeated her COVID test 12/26 and again on 12/30-both still positive -Encourage p.o. intake, but feel she will improve her appetite when she is back home again with her in familiar surroundings PPN discontinued after became volume overloaded discharge to home on hospice (6) Hematochezia: Initially had Two small episodes on 12/22 likely hemorrhoids made worse with anticoagulation. - Held anticoagulation on 12/22; using hemorrhoid treatment. Apixaban had been restarted and then had another episode overnight on 12/30, hemoglobin again remained stable Hgb down to 7.7 on 01/01, however discussions with family were had that day and decision was made to transition to [employer]GER. 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 - Supportive care. (9) Atrial fibrillation: EKG at admission with NSR vs aflutter. Had been regular on examination On the evening of 12/30, placed back on telemetry and noted to be in atrial fibrillation, rate controlled Continue holding home atenolol now for hypotension Continue holding Eliquis for recurrent rectal bleeding -transitioned to [employer]RILL[employer] ENGINEERING MANAGER transferred off tele (10) HTN (hypertension): BP low Holding atenolol and would not recommend restarting on discharge (11) Rhabdomyolysis: 2nd to fall with lying on floor for undetermined period of time prior to admission. Resolved (12) Fall: Son, Michael, and reports frequent falling - likely due to dementia/increasing debility. Had 2 falls leading up to this admission - due to weakness from COVID-19 infection. - PT, OT evals requested -> Recommending 24h supervision. On 12/29 PT/OT tried to reassess and pt would not cooperate for therapy -plan for home with hospice\ (13) Alzheimer disease: Advanced. Per , at baseline, she sleeps most of the day, wakes up temporarily to eat/drink and toilet Follows with neurology -We will hold Aricept & Namenda as these can cause low appetite and will not help her in the acute setting. 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 no further bleeding since then Fe studies consistent with iron def and anemia of chronic disease IV Venofer 300mg daily x 3 days was given Continue holding apixaban and would not recommend restarting on discharge (16) Constipation: With moderate fecal impaction of stool noted on imaging on 12/31 Bisacodyl suppository was given x2 Now had large bowel movement on the morning of 01/02 and again on 01/03 Discontinue laxatives Total Time Total Time Spent Total Time Spent (In Minutes): 32 minutes Total Time Includes: Examination of the Patient, Discharge Planning and Medication Reconciliation Discharge Plan Discharge Items Patient Disposition: Hospice - Home Reason For Visit: COVID-19, RHABDOMYOLYSIS Discharge Diagnosis: COVID 19 Dementia Deconditioning UTI Condition on Discharge: Fair Goals: comfort measures encourage nutrition and hydration Activity: Resume your previous activity Non-emergency contact: Primary Care Provider Call non-emergency contact if: you have any medication questions Follow-up/Referrals: Logan Mcdonald MD [Primary Care Provider] - (one week, follow up via phone call) Diet: Regular Addtl Attending Provider Instructions: Medications: most medications have been stopped, focus on comfort and quality of life - AUGMENTIN: take twice a day for two more days, next dose this evening, complete treatment of UTI COVID 19, deconditioning, weakness, dementia, UTI starting to eat a little better past few days, very deconditioned, will need 24/7 care at home transition to hospice care, focus on comfort she has not required any pain medications, she has been comfortable, laying in bed if her condition worsens please contact hospice for guidance as goal is to keep comfortable at home Pending Studies at Discharge: No Stand-Alone Forms: [facility] Medications and DC Order Prescriptions: New amoxicillin-pot clavulanate [Augmentin] 875-125 mg tablet 1 tab PO BID Qty: 5 RF: 0 Continued docusate sodium [Stool Softener] 100 mg Tablet 100 mg PO DAILY PRN (Reason: Constipation) RF: 0 Discontinued furosemide [Lasix] 20 mg tablet 20 mg PO QAM Qty: 30 RF: 0 atenolol 50 mg tablet 25 mg PO QAM Qty: 45 RF: 3 memantine 5 mg tablet 5 mg PO BID 30 Days Qty: 60 RF: 5 donepezil 10 mg tablet 10 mg PO DAILY 30 Days Qty: 30 RF: 11 Eliquis 5 mg Tablet 5 mg PO BID RF: 0 potassium chloride 10 mEq Tablet Extended Release 10 meq PO BID RF: 0 Discharge Orders: Discharge Order (Routine); Ordered 01/05/20 Ordered By: Brian May Admission Data Admit Date/Time: 12/17/19 01:49 Attending Provider: Brian May Admit Provider: Karyna Calzada Primary Care Provider: Logan Mcdonald Other Providers: Cedric Lyles ; Karyna Calzada ; Dotty Leavitt Other Interventions: Discharge Summary Assessment (RN) Last Done: 01/05/20 16:54 Coding Level of Care Code D/C Day Management >30 mins Diagnoses Abdominal pain R10.9 UTI (urinary tract infection) N39.0 Hypotension I95.9 Hypothermia T68.XXXA COVID-19 U07.1 Hematochezia K92.1 Anasarca R60.1 Acute metabolic encephalopathy G93.41 Atrial fibrillation I48.91 Atrial fibrillation type: unspecified HTN (hypertension) I10 Hypertension type: essential hypertension Rhabdomyolysis T79.6XXA Encounter type: initial encounter Rhabdomyolysis type: traumatic Fall W19.XXXA Encounter type: initial encounter Alzheimer disease G30.9; F02.80 Alzheimer's disease onset: unspecified onset Hypokalemia E87.6 Anemia D64.9 Constipation K59.00
== END 2020-01-05 17:28 | disposition hospice, home (50) | DRG 177 ==
LOC: ED 20:27 → 2E 12-17 01:49 → SUATTDRO 12-17 01:49 → 2E 12-17 02:39 → 2S 12-23 13:42 → 2N 01-02 15:48